=== PATIENT | female | born 1940 | race Caucasian/White ===

== ENCOUNTER 2021-06-10 12:29 | Outpatient (CLI) | payer MEDICARE, OTHER ==
--- NOTE | 2021-06-10 13:34 | XRAY Report ---
PROCEDURE: Ribs w/PA Chest RT INDICATIONS: RIGHT SIDED CHEST PAIN TECHNIQUE: 3 views of the right ribs were acquired, along with a single view chest. COMPARISON: July 20, 2014. FINDINGS: SUPPORT DEVICES: None. LUNGS/PLEURA: No focal consolidation, pleural effusion or space-occupying pneumothorax. MEDIASTINUM: The cardiomediastinal silhouette is within normal limits. BONES/SOFT TISSUES: Mildly displaced fracture of the right ninth rib. No chest wall subcutaneous emph ysema. Persistent dextrocurvature of the thoracolumbar spine. IMPRESSION: 1.No acute cardiopulmonary abnormality. 2.Mildly displaced fracture of the right ninth rib. Reviewed by: Ez Yang MD on 06/10/2021 1:33 PM PST Approved by: Ez Yang MD on 06/10/2021 1:33 PM PST Station ID: [id number]
== END 2021-06-10 23:59 | disposition home or self-care (01) ==
LOC: DI.N 12:29
PROVIDERS: ATTEND Family Medicine
DX: S22.31XA Fracture of one rib, right side, initial encounter for closed fracture (principal)

== ENCOUNTER 2022-04-09 05:42 | Outpatient (CLI) | payer MEDICARE, OTHER | END 2022-04-09 05:43 | disposition EMS.NT | LOC: EMS 05:42 | DX: Z03.89 Encounter for observation for other suspected diseases and conditions ruled out (principal) ==

== ENCOUNTER 2022-04-09 14:07 | Outpatient (CLI) | payer MEDICARE, OTHER | END 2022-04-09 14:08 | disposition critical access hospital (66) | LOC: EMS 14:07 | DX: R82.998 Other abnormal findings in urine (principal); R52 Pain, unspecified | CPT/HCPCS: A0425; A0429 ==

== ENCOUNTER 2022-04-09 14:25 | Emergency (ER) | payer MEDICARE, OTHER ==
--- NOTE | 2022-04-09 15:12 | ED Physician Documentation ---
PD HPI Fall - Stated complaint Stated Complaint: WEAKNESS/FALLS - Chief complaint Chief Complaint: Trauma Ext - History obtained from History obtained from: Patient, Family (daughter Gives independent information to me that the patient is unable to convey due to her dementia. The daughter states the patient has fallen several times recently and has had general decline in cognitive condition and increased amount of anxiety and fidgety.) - History of Present Illness Mechanism of injury: Lost balance Fall distance: Standing position Where injury occurred: Other (assisted living facility) Timing - onset: How many days ago (The patient's daughter is with her and states) Injury(ies) location: Right Lower Extremity, Right Recently seen: Emergency Dept (The patient's daughter states the patient was seen several days ago at [facility] ER after a fall and diagnosed with a forearm fracture which is splinted and referred to Ortho.) Review of Systems Constitutional: denies: Fever Nose: denies: Rhinorrhea / runny nose, Congestion Cardiac: denies: Chest pain / pressure Respiratory: denies: Cough GI: denies: Abdominal Pain Psychiatric: denies: Insomnia Endocrine: denies: Weight loss PD PAST MEDICAL HISTORY - Past Medical History Past Medical History: Yes Cardiovascular: Hypertension, High cholesterol, Arrhythmia Neuro: Dementia Endocrine/Autoimmune: HyPOthyroidism HEENT: Glaucoma Psych: Depression, Anxiety Musculoskeletal: Osteoarthritis, Chronic back pain - Past Surgical History Past Surgical History: Yes /DATA ACQUISITION TECHNICIAN: Hysterectomy - Present Medications Home Medications: Ambulatory Orders Medication Instructions Recorded Confirmed Atorvastatin Calcium [Lipitor] 40 mg ORAL DAILY 07/20/14 04/09/22 Levothyroxine [Synthroid] 50 mcg ORAL DAILY 07/20/14 04/09/22 Sertraline HCl [Zoloft] 75 mg ORAL DAILY 07/20/14 04/09/22 hydroCHLOROthiazide 12.5 mg ORAL DAILY 07/20/14 04/09/22 [Hydrochlorothiazide] Acetaminophen [Tylenol] 500 mg PO Q6HR PRN 04/09/22 04/09/22 Docusate Sodium [Dok] 100 mg PO DAILY PRN 04/09/22 04/09/22 Latanoprost/Pf [Latanoprost 0.005% 1 drops OP HS 04/09/22 04/09/22 Eye Drop] Loperamide [Imodium] 2 mg PO PRN PRN 04/09/22 04/09/22 Metoprolol Succinate [Toprol Xl] 25 mg PO DAILY 04/09/22 04/09/22 Potassium Chloride [Klor-Con 10] 10 meq PO DAILY 04/09/22 04/09/22 Senna [Senokot] 8.6 mg PO DAILY PRN 04/09/22 04/09/22 Timolol 0.5% Ophth Drops [Timoptic 1 drops OP BID 04/09/22 04/09/22 0.5% Ophth Drops] - Allergies Allergies/Adverse Reactions: Allergies Allergy/AdvReac Type Severity Reaction Status Date / Time morphine AdvReac Unknown Verified 04/09/22 14:35 anesthetic AdvReac Emesis Uncoded 04/09/22 14:35 - Social History Does the pt smoke?: No Smoking Status: Never smoker Does the pt drink ETOH?: No Does the pt have substance abuse?: No - Immunizations Immunizations are current?: Yes - POLST Patient has POLST: No PD ED PE NORMAL - Vitals Vital signs reviewed: Yes - General General: No acute distress, Well developed/nourished, Other (She is oriented to person and place. She is not clear on time. She is actually lucid and alert and able to answer questions. Hard of hearing and needs her hearing aid in.) - HEENT HEENT: Atraumatic - Neck Neck: Supple, no meningeal sign, No adenopathy - Cardiac Cardiac: RRR, No murmur - Respiratory Respiratory: Clear bilaterally, Other (no chestwall tenderness. ) - Abdomen Abdomen: Soft, Non tender - Back Back: No CVA TTP, No spinal TTP - Derm Derm: Normal color, Warm and dry - Extremities Extremities: Other (There are some tenderness to palpation in the right hip. She does have range of motion of the hip while lying in bed without much pain. Impaction of the knee does cause pain in the hip. No obvious deformity.) - Neuro Neuro: No motor deficit, No sensory deficit, Normal speech Eye Opening: Spontaneous Motor: Obeys Commands Verbal: Oriented GCS Score: 15 Results - Vitals Vitals: Vital Signs - 24 hr 04/09/22 04/09/22 04/09/22 14:35 15:36 17:29 Temperature 37 C Heart Rate 71 72 76 Respiratory 16 16 18 Rate Blood Pressure 144/69 H 129/75 132/82 H O2 Saturation 91 L 91 L 96 Oxygen O2 Source Room air - Labs Labs: Laboratory Tests 04/09/22 04/09/22 04/09/22 15:10 15:10 15:10 WBC 7.3 RBC 4.59 Hgb 13.3 Hct 40.1 MCV 87.4 MCH 29.0 MCHC 33.2 RDW 12.9 Plt Count 173 MPV 9.9 Neut # (Auto) 4.8 Lymph # (Auto) 1.4 L Mccreary # (Auto) 0.8 Eos # (Auto) 0.2 Baso # (Auto) 0.0 Absolute Nucleated RBC 0.00 Nucleated RBC % 0.0 Sodium 134 L Potassium 3.3 L Chloride 99 L Carbon Dioxide 25 Anion Gap 10.0 BUN 16 Creatinine 0.7 Estimated GFR (MDRD) 80 L Glucose 98 Calcium 8.4 L Magnesium 1.7 Total Bilirubin 0.9 AST 23 ALT 15 Alkaline Phosphatase 91 Total Protein 5.4 L Albumin 3.1 L Globulin 2.3 Albumin/Globulin Ratio 1.3 Lipase 43 Urine Color Urine Clarity Urine pH Ur Specific [place] Urine Protein Urine Glucose (UA) Urine Ketones Urine Occult Blood Urine Nitrite Urine Bilirubin Urine Urobilinogen Ur Leukocyte Esterase Ur Microscopic Review Urine Culture Comments Nasal Adenovirus (PCR) Nasal B. parapertussis DNA (PCR) Nasal Coronavir 229E PCR Nasal Coronavir HKU1 PCR Nasal Coronavir NL63 PCR Nasal Coronavir OC43 PCR Nasal Enterovir/Rhinovir PCR Nasal Influenza B PCR Nasal Influenza A PCR Nasal Parainfluen 1 PCR Nasal Parainfluen 2 PCR Nasal Parainfluen 3 PCR Nasal Parainfluen 4 PCR Nasal RSV (PCR) Nasal B.pertussis DNA PCR Nasal C.pneumoniae (PCR) Raza Human Metapneumo PCR Nasal M.pneumoniae (PCR) Nasal SARS-CoV-2 (PCR) 04/09/22 04/09/22 15:15 16:15 WBC RBC Hgb Hct MCV MCH MCHC RDW Plt Count MPV Neut # (Auto) Lymph # (Auto) Mccreary # (Auto) Eos # (Auto) Baso # (Auto) Absolute Nucleated RBC Nucleated RBC % Sodium Potassium Chloride Carbon Dioxide Anion Gap BUN Creatinine Estimated GFR (MDRD) Glucose Calcium Magnesium Total Bilirubin AST ALT Alkaline Phosphatase Total Protein Albumin Globulin Albumin/Globulin Ratio Lipase Urine Color DARK YELLOW Urine Clarity CLEAR Urine pH 6.5 Ur Specific [place] 1.020 Urine Protein NEGATIVE Urine Glucose (UA) NEGATIVE Urine Ketones TRACE Urine Occult Blood NEGATIVE Urine Nitrite NEGATIVE Urine Bilirubin NEGATIVE Urine Urobilinogen 1 (NORMAL) Ur Leukocyte Esterase NEGATIVE Ur Microscopic Review NOT INDICATED Urine Culture Comments NOT INDICATED Nasal Adenovirus (PCR) NOT DETECTED Nasal B. parapertussis DNA (PCR) NOT DETECTED Nasal Coronavir 229E PCR NOT DETECTED Nasal Coronavir HKU1 PCR NOT DETECTED Nasal Coronavir NL63 PCR NOT DETECTED Nasal Coronavir OC43 PCR NOT DETECTED Nasal Enterovir/Rhinovir PCR NOT DETECTED Nasal Influenza B PCR NOT DETECTED Nasal Influenza A PCR NOT DETECTED Nasal Parainfluen 1 PCR NOT DETECTED Nasal Parainfluen 2 PCR NOT DETECTED Nasal Parainfluen 3 PCR NOT DETECTED Nasal Parainfluen 4 PCR NOT DETECTED Nasal RSV (PCR) NOT DETECTED Nasal B.pertussis DNA PCR NOT DETECTED Nasal C.pneumoniae (PCR) NOT DETECTED Raza Human Metapneumo PCR NOT DETECTED Nasal M.pneumoniae (PCR) NOT DETECTED Nasal SARS-CoV-2 (PCR) NOT DETECTED - Rads (name of study) head CT Radiology: Prelim report reviewed, EMP read indepedently (no acute process), See rad report pelvic CT Radiology: Prelim report reviewed, See rad report (Impacted right femoral neck fracture without displacement. No other fractures.) PD Medical Decision Making - ED course Complexity details: considered differential, d/w patient, d/w family (daughter), d/w water resource consultant (Dr. Camarena, Ortho at [facility], who accepts transfer of the patient. ) Reviewed Lab Results: The patient's urine test was ordered and I reviewed the findings without any signs of infection. CBC and chemistry blood tests were ordered and I reviewed the results with the results appear normal. No signs of anemia or electrolyte abnormalities. Head CT was ordered and reviewed by radiology and myself. Age- related changes are noted but no acute bleeding or abnormalities. The pelvic CT was ordered and reviewed by radiologist and myself. My interpretation of it is showing an impacted right femoral neck fracture. This is corroborated by radiology. Social Determinants of Health: The patient is normally had a assisted living facility. However with her femoral neck fracture she will not be able to go back there at this time but does have a place to return to once repaired. At this point our hospital orthopedist is on vacation for 2 weeks and unavailable. This is an inordinate amount of time to wait for repair. We will contact other facilities to see about transfer for more definitive care. Procedural Risk Factors Specific to Patient: The patient has does have some moderate dementia and is able to converse and relay back to me the results that I tell her in the short-term but then is forgetful about the results within 20 or 30 minutes. She is fidgeting at her IV. She will need some medications to help with relaxing and sleep so that she does not attempt to get up and walk etc. This has been the problem at the care facility and what led to her falling as she is not in good balance on her own. ED course: The patient does have some right hip pain on range of motion. Its not very significant pain and her daughter had noted her complaining of pain with weightbearing. There is no headache per se no head tenderness. However she had fallen and her daughter says she has been more off balance the last few days. We can repeat a CT scan of the head to ensure no acute abnormalities. Reportedly she had a head CT several days ago at [place] after previous fall. Urine and blood tests were done to look for causes of her general off balance such as low sodium or infections. These resulted looking normal. We will do a respiratory panel on her now as we know she will need admission. Departure - Departure Disposition: 02 Transfer Acute Care Hosp Clinical Impression: Moderate dementia Qualifiers: Dementia type: unspecified type Dementia behavioral or psychological symptom: with anxiety Qualified Code(s): F03.B4 - Unspecified dementia, moderate, with anxiety Fall from slip, trip, or stumble Qualifiers: Encounter type: initial encounter Qualified Code(s): W01.0XXA - Fall on same level from slipping, tripping and stumbling without subsequent striking against object, initial encounter Fracture of femoral neck, right, closed Qualifiers: Encounter type: initial encounter Qualified Code(s): S72.001A - Fracture of unspecified part of neck of right femur, initial encounter for closed fracture Ulnar shaft fracture Qualifiers: Encounter type: subsequent encounter Fracture type: closed Fracture morphology: unspecified fracture morphology Laterality: right Fracture healing: with routine healing Qualified Code(s): S52.201D - Unspecified fracture of shaft of right ulna, subsequent encounter for closed fracture with routine healing Condition: Stable Record reviewed to determine appropriate education?: Yes
[2022-04-09 15:19] LABS: BASOPHILS % (AUTO) 0.4 %; EOSINOPHILS # (AUTO) 0.2 10^3/uL (0.0-0.7); EOSINOPHILS % (AUTO) 2.5 %; HCT - HEMATOCRIT 40.1 % (37.0-47.0); HGB - HEMOGLOBIN 13.3 g/dL (12.0-16.0); LYMPHOCYTES # (AUTO) 1.4 10^3/uL (1.5-3.5); LYMPHOCYTES % (AUTO) 19.4 %; MEAN CORPUSCULAR HGB CONC 33.2 g/dL (32.0-36.0); MEAN CORPUSCULAR VOLUME 87.4 fL (81.0-99.0); MEAN PLATELET VOLUME 9.9 fL (7.9-10.8); MONOCYTES # (AUTO) 0.8 10^3/uL (0.0-1.0); MONOCYTES % (AUTO) 10.9 %; NEUTROPHILS # (AUTO) 4.8 10^3/uL (1.5-6.6); NEUTROPHILS % (AUTO) 66.4 %; PLT - PLATELET COUNT 173 10^3/uL (130-450); RED BLOOD COUNT 4.59 10^6/uL (4.20-5.40); RED CELL DISTRIBUTION WIDTH 12.9 % (12.0-15.0); WHITE BLOOD COUNT 7.3 x10^3/uL (4.8-10.8)
[2022-04-09 16:02] LABS: ALBUMIN 3.1 g/dL (3.2-5.5); ALBUMIN/GLOBULIN RATIO 1.3 (1.0-2.2); BILIRUBIN,TOTAL 0.9 mg/dL (0.2-1.0); CALCIUM 8.4 mg/dL (8.5-10.3); CREATININE 0.7 mg/dL (0.4-1.0); POTASSIUM 3.3 mmol/L (3.5-5.0); TOTAL PROTEIN 5.4 g/dL (6.7-8.2)
[2022-04-09 16:17] LABS: CORONAVIRUS 229E-RESP PCR NOT DETECTED; CORONAVIRUS HKU1-RESP PCR NOT DETECTED; CORONAVIRUS NL63-RESP PCR NOT DETECTED; CORONAVIRUS OC43-RESP PCR NOT DETECTED; HUMAN METAPNEUMOVIRUS NOT DETECTED; INFLUENZA A- RESP PCR PANEL NOT DETECTED; RHINOVIRUS/ENTEROVIRUS NOT DETECTED; SARS-CoV-2 -RESP PCR PANEL NOT DETECTED
[2022-04-09 16:18] LABS: B. PARAPERTUSSIS- RESP PCR PAN NOT DETECTED; B. PERTUSSIS- RESP PCR PANEL NOT DETECTED; C. PNEUMONIAE- RESP PCR PANEL NOT DETECTED; INFLUENZA B - RESP PCR PANEL NOT DETECTED; M. PNEUMONIAE- RESP PCR PANEL NOT DETECTED; PARAINFLUENZA VIRUS 1 NOT DETECTED; PARAINFLUENZA VIRUS 2 NOT DETECTED; PARAINFLUENZA VIRUS 3 NOT DETECTED; PARAINFLUENZA VIRUS 4 NOT DETECTED; RSV- RESP PCR PANEL NOT DETECTED
[2022-04-09 16:21] LABS: BILIRUBIN,URINE NEGATIVE (NEGATIVE); CLARITY,URINE CLEAR (CLEAR); GLUCOSE, URINE (UA) NEGATIVE (NEGATIVE); KETONES,URINE (UA) TRACE mg/dL (NEGATIVE); LEUKOCYTE ESTERASE, URINE NEGATIVE (NEGATIVE); NITRITE,URINE NEGATIVE (NEGATIVE); OCCULT BLOOD,URINE NEGATIVE (NEGATIVE); PH,URINE 6.5 PH (5.0-7.5); PROTEIN,URINE NEGATIVE (NEGATIVE); UROBILINOGEN,URINE 1 (NORMAL) E.U./dL (NORMAL)
--- NOTE | 2022-04-09 17:27 | CT Report ---
PROCEDURE: CT brain without contrast INDICATIONS: falls, worse dementia/balance TECHNIQUE: Noncontrast 4.5 mm thick angled axial sections acquired from the foramen magnum to the vertex. For r adiation dose reduction, the following was used: automated exposure control, adjustment of mA and/or kV according to patient size. COMPARISON: None. FINDINGS: Image quality: Excellent. CSF spaces: Basal cisterns are patent. No extra-axial fluid collections. Ventricles are normal in size and shape. Brain: No midline shift. No intracranial masses or hemorrhage. Casey-white matter interface is norm al. Moderate atrophy and multifocal white matter chronic ischemic change noted. Atherosclerotic vasc ular calcification noted in the cavernous segments of both internal carotid arteries as well as the i ntradural vertebral arteries. Skull and face: Calvarium and visualized facial bones are intact, without suspicious lesions. Sinuses: Visualized sinuses and mastoids are clear. IMPRESSION: Atrophy and chronic ischemic change without acute hemorrhage or mass effect Reviewed by: Lan Wyatt MD on 04/09/2022 4:25 PM AKST Approved by: Lan Wyatt MD on 04/09/2022 4:25 PM AKST Station ID: [id number]
[2022-04-09 17:29] VITALS: BP 132/82
--- NOTE | 2022-04-09 17:30 | CT Report ---
PROCEDURE: CT abdomen pelvis without contrast INDICATIONS: fall with left pelvic pain walking TECHNIQUE: Noncontrast 3 mm axial sections acquired through the bony pelvis, with coronal and sagittal reformatt ing. For radiation dose reduction, the following was used: automated exposure control, adjustment of mA and/or kV according to patient size. COMPARISON: None. FINDINGS: Image quality: Excellent. Bones: Generalized decreased osseous mineralization present. There is an impacted subcapital right f emoral neck fracture present. Pelvic ring is intact. The left proximal femur unremarkable. Both femor al heads have an appropriate to contour. Bilateral moderate joint space narrowing. Degenerative changes noted lower lumbar spine Soft tissues: Unremarkable IMPRESSION: Impacted subcapital right femoral neck fracture. Unremarkable proximal left femur. Bilateral hip moderate joint space narrowing Reviewed by: Lan Wyatt MD on 04/09/2022 4:28 PM AK Approved by: Lan Wyatt MD on 04/09/2022 4:28 PM AKST Station ID: [id number]
[2022-04-09] MEDS ORDERED: LORazepam 2 MG/ML VIAL IVP STA (18:08)
[2022-04-09] MEDS ORDERED: KETOROLAC 15 MG/ML VIAL IVP STA (18:08)
[2022-04-09] MEDS ORDERED: OLANZapine ODT 5 MG TABLET TL STA (18:08)
[2022-04-09] MEDS ORDERED: QUEtiapine 25 MG TABLET PO SCH (22:00)
== END 2022-04-09 19:06 | disposition short-term general hospital (02) ==
LOC: EDUNIT# → ED 14:25 → SUPCPDRO 14:25 → ED 19:06
DX: S72.001A Fracture of unspecified part of neck of right femur, initial encounter for closed fracture (principal); W18.30XA Fall on same level, unspecified, initial encounter; S52.201D Unspecified fracture of shaft of right ulna, subsequent encounter for closed fracture with routine healing; W19.XXXD Unspecified fall, subsequent encounter; F03.B4 Unspecified dementia, moderate, with anxiety; Z20.822 Contact with and (suspected) exposure to COVID-19
CPT/HCPCS: 36415; 51701; 70450; 72192; 80053; 81003; 83690; 83735; 85025; 87633; 96374; 96375; 99284; 99285; A9270; J2060; 81001; 87086

== ENCOUNTER 2022-04-09 18:58 | Outpatient (CLI) | payer MEDICARE, OTHER | END 2022-04-09 18:59 | disposition short-term general hospital (02) | LOC: EMS 18:58 | PROVIDERS: ATTEND Emergency Medicine | DX: S72.001A Fracture of unspecified part of neck of right femur, initial encounter for closed fracture (principal); S52.91XA Unspecified fracture of right forearm, initial encounter for closed fracture; W19.XXXA Unspecified fall, initial encounter; F03.90 Unspecified dementia, unspecified severity, without behavioral disturbance, psychotic disturbance, mood disturbance, and anxiety | CPT/HCPCS: A0425; A0428 ==

== ENCOUNTER 2022-04-24 20:04 | Emergency (ER) | payer MEDICARE, OTHER ==
--- OUTSIDE RECORDS SUMMARY | 2022-04-24 20:34 | EXTERNAL MEDICAL SUMMARY RPT | Continuity of Care Document ---
:1940 Author Organization [place] Address [address] [place] [address] Phone Care Team Providers Name Role Phone Unavailable Unavailable Unavailable Ivone Donald Unavailable Unavailable Allergies and Intolerances date description facility type (no date) morphine [facility] (unknown) Encounters No information. Functional Status No information. Immunizations No information. Medications date description facility 2022-04-13 00:00 Oxycodone [facility] 2022-04-09 00:00 Docusate Sodium [facility] 2022-04-09 00:00 Timolol [facility] 2022-04-13 00:00 Potassium Chloride [facility] 2022-04-09 00:00 Hydrochlorothiazide [facility] 2022-04-13 00:00 Aspirin [facility] 2022-04-13 00:00 Quetiapine [facility] 2022-04-09 00:00 Sertraline [facility] 2022-04-09 00:00 Latanoprost [facility] 2022-04-09 00:00 Atorvastatin [facility] 2022-04-09 00:00 Potassium Chloride [facility] 2022-04-09 00:00 Levothyroxine [facility] 2022-04-09 00:00 Loperamide [facility] Problems date description facility 2022-04-07 00:00 Fracture of distal end of ulna [facility] 2022-04-09 00:00 Fracture of shaft of radius [facility] 2022-04-09 00:00 Fracture of neck of right femur [facility] 2022-04-10 07:53 Stress fracture, hip, unspecified, init [facility] encounter for fra 2022-04-10 07:55 Stress fracture, hip, unspecified, init [facility] encounter for fra 2022-04-10 12:01 Stress fracture, hip, unspecified, init [facility] encounter for fra 2022-04-10 17:02 Stress fracture, hip, unspecified, init [facility] encounter for fra 2022-04-10 17:11 Stress fracture, hip, unspecified, [facility] encounter for fra 2022-04-12 12:50 Stress fracture, hip, unspecified, [facility] encounter for fra 2022-04-12 13:24 Stress fracture, hip, unspecified, [facility] with [facility] encounter for fra 2022-04-13 10:48 Stress fracture, hip, unspecified, [facility] encounter for fra 2022-04-13 12:04 Stress fracture, hip, unspecified, [facility] with [facility] encounter for fra 2022-04-13 13:16 Stress fracture, hip, unspecified, [facility] encounter for fra 2022-04-13 14:52 Stress fracture, hip, unspecified, [facility] encounter for fra Procedures date description facility 2022-04-09 00:00 Reposition Right Radius with Internal F [facility] Device, Open Approach 2022-04-09 00:00 replacement of right hip joint, femoral surface [facility] with ceramic synthetic substitute, cemen shane, open approach 2022-04-10 00:00 XR pelvis, 1-2 views [facility] 2022-04-12 00:00 XR pelvis, 1-2 views [facility] 2022-04-07 00:00 XR forearm right, 2 views [facility] mark 2022-04-12 00:00 X-ray of right hip, single view [facility] 2022-04-07 00:00 XR wrist right, 3+ views [facility] 2022-04-07 00:00 Computed tomography of head or brain wi [facility] contrast 2022-04-12 00:00 XR fluoro, less than 60 minutes [facility] 2022-04-07 00:00 Computed tomography of cervical spine w [facility] contrast 2022-04-07 00:00 CT thoracic spine [facility] 2022-04-07 00:00 CT lumbar spine [facility] 2022-04-10 00:00 Unilateral x-ray of hip, two views, wit h x-ray [facility] of pelvis Results/Labs test date author facility value unit interpret ation Result panel 1 (unknown) (no date[facility]) Result panel 2 (unknown) (no date) (unknown[facility]) Result panel 3 (unknown) (no date) (unknown[facility]) Result panel 4 (unknown) (no date) (unknown[facility]) Result panel 5 (unknown) (no date) (unknown[facility]) Result panel 6 (unknown) (no date) (unknown[facility]) Result panel 7 (unknown) (no date) (unknown[facility]) Result panel 8 (unknown) (no date) (unknown[facility]) Result panel 9 (unknown) (no date) (unknown[facility]) Result panel 10 (unknown) (no date) (unknown[facility]) Result panel 11 (unknown) (no date) (unknown[facility]) Result panel 12 (unknown) (no date) (unknown[facility]) Result panel 13 (unknown) (no date) (unknown[facility]) Result panel 14 (unknown) (no date) (unknown[facility]) Result panel 15 (unknown) (no date) (unknown[facility]) Result panel 16 (unknown) (no date) (unknown[facility]) Result panel 17 (unknown) (no date) (unknown[facility]) Result panel 18 (unknown) (no date) (unknown[facility]) Result panel 19 (unknown) (no date) (unknown[facility]) Result panel 20 (unknown) (no date) (unknown[facility]) Result panel 21 (unknown) (no date) (unknown[facility]) Result panel 22 (unknown) (no date) (unknown[facility]) Result panel 23 (unknown) (no date) (unknown[facility]) Result panel 24 (unknown) (no date) (unknown[facility]) Result panel 25 (unknown) (no date) (unknown[facility]) Result panel 26 (unknown) (no date) (unknown[facility]) Result panel 27 (unknown) (no date) (unknown[facility]) Result panel 28 (unknown) (no date) (unknown[facility]) Result panel 29 (unknown) (no date) (unknown[facility]) Result panel 30 (unknown) (no date) (unknown[facility]) Result panel 31 (unknown) (no date) (unknown[facility]) Result panel 32 (unknown) (no date) (unknown[facility]) Result panel 33 (unknown) (no date) (unknown[facility]) Result panel 34 (unknown) (no date) (unknown[facility]) Result panel 35 (unknown) (no date) (unknown[facility]) Result panel 36 (unknown) (no date) (unknown[facility]) Result panel 37 (unknown) (no date) (unknown[facility]) Result panel 38 (unknown) (no date) (unknown[facility]) Result panel 39 (unknown) (no date) (unknown[facility]) Result panel 40 (unknown) (no date) (unknown[facility]) Result panel 41 (unknown) (no date) (unknown[facility]) Result panel 42 (unknown) (no date) (unknown[facility]) Result panel 43 (unknown) (no date) (unknown[facility]) Result panel 44 (unknown) (no date) (unknown[facility]) Result panel 45 (unknown) (no date) (unknown[facility]) Result panel 46 (unknown) (no date) (unknown[facility]) Result panel 47 (unknown) (no date) (unknown[facility]) Result panel 48 (unknown) (no date) (unknown[facility]) Result panel 49 (unknown) (no date) (unknown[facility]) Result panel 50 (unknown) (no date) (unknown[facility]) Result panel 51 (unknown) (no date) (unknown[facility]) Result panel 52 (unknown) (no date) (unknown[facility]) Result panel 53 (unknown) (no date) (unknown[facility]) Result panel 54 (unknown) (no date) (unknown[facility]) Result panel 55 (unknown) (no date) (unknown[facility]) Result panel 56 (unknown) (no date) (unknown[facility]) Result panel 57 (unknown) (no (unknown) (unknown) (no value) (units (unk nown) date) unknown) (unknown) (no (unknown) (unknown) [id number] (units (unkn own) date) unknown) (unknown) (no (unknown) (unknown) 04/07/22 (units (unkno wn) date) unknown) (unknown) (no (unknown) (unknown) [address] [place] [address] (units (unknown) date) unknown) (unknown) (no (unknown) (unknown) Accession Number: (units (unknown) date) [id number] unknown) (unknown) (no (unknown) (unknown) Accession Number: (units (unknown) date) [id number] unknown) (unknown) (no (unknown) (unknown) Age/Sex: 82 / F (units (unknown) date) Date of Service: unknown) (unknown) (no (unknown) (unknown) [place], [place] (units ( unknown) date) [id number] unknown) (unknown) (no (unknown) (unknown) Approved by: (units (u nknown) date) Bryce Segura M.D. unknown) on 04/07/2022 at 13:53 (unknown) (no (unknown) (unknown) Approved by: (units (u nknown) date) Bryce Segura M.D. unknown) on 04/07/2022 at 13:58 (unknown) (no (unknown) (unknown) Bones: No (units (unkn own) date) fracture or unknown) dislocation. Visualized superior ribs are intact. (unknown) (no (unknown) (unknown) Brain: No (units (unkn own) date) intracranial unknown) bleeds or masses. There is moderate cerebral volume (unknown) (no (unknown) (unknown) COMPARISON: None. (units (unknown) date) unknown) (unknown) (no (unknown) (unknown) CSF spaces: Basal (units (unknown) date) cisterns are unknown) patent. No extra-axial fluid collections. The (unknown) (no (unknown) (unknown) CT Scan Report (units (unknown) date) unknown) (unknown) (no (unknown) (unknown) : 1940 (units (unknown) date) Acct:[id number] unknown) (unknown) (no (unknown) (unknown) Dictated by: (units (u nknown) date) Bryce Segura M.D. unknown) on 04/07/2022 at 13:52 (unknown) (no (unknown) (unknown) Dictated by: (units (u nknown) date) Bryce Segura M.D. unknown) on 04/07/2022 at 13:56 (unknown) (no (unknown) (unknown) FINDINGS: (units (unkn own) date) unknown) (unknown) (no (unknown) (unknown) IMPRESSION: No CT (units (unknown) date) evidence of acute unknown) traumatic cervical spine injury. (unknown) (no (unknown) (unknown) IMPRESSION: No (units (unknown) date) acute intracranial unknown) finding. (unknown) (no (unknown) (unknown) INDICATIONS: (units (u nknown) date) fall, back pain, unknown) dementia (unknown) (no (unknown) (unknown) Image quality: (units (unknown) date) Excellent. unknown) (unknown) (no (unknown) (unknown) [facility] (units (unknown) date) unknown) (unknown) (no (unknown) (unknown) Loc: ED (units (unkno wn) date) unknown) (unknown) (no (unknown) (unknown) Noncontrast 3 mm (units (unknown) date) thick sections unknown) acquired from the skull base to the T4 level. (unknown) (no (unknown) (unknown) Noncontrast 4.5 (units (unknown) date) mm thick angled unknown) axial sections acquired from the foramen magnum (unknown) (no (unknown) (unknown) Ordering (units (unkno wn) date) Provider: unknown) Pati Galeano (unknown) (no (unknown) (unknown) PROCEDURE: CT (units ( unknown) date) CERVICAL SPINE WO unknown) CON (unknown) (no (unknown) (unknown) PROCEDURE: CT (units ( unknown) date) HEAD/BRAIN WO CON unknown) (unknown) (no (unknown) (unknown) Patient: (units (unkno wn) date) Sheila Marley E unknown) MR#: M (unknown) (no (unknown) (unknown) Procedure: CT (units ( unknown) date) cervical spine wo unknown) con (unknown) (no (unknown) (unknown) Procedure: CT (units ( unknown) date) head/brain wo con unknown) (unknown) (no (unknown) (unknown) Sagittal (units (unkno wn) date) unknown) (unknown) (no (unknown) (unknown) Signed (units (unkno wn) date) unknown) (unknown) (no (unknown) (unknown) Sinuses: (units (unkno wn) date) Visualized sinuses unknown) and mastoids are clear. (unknown) (no (unknown) (unknown) Skull and face: (units (unknown) date) Calvarium and unknown) visualized facial bones appear intact, without (unknown) (no (unknown) (unknown) Soft tissues: (units ( unknown) date) Prevertebral soft unknown) tissues are normal in thickness. No (unknown) (no (unknown) (unknown) TECHNIQUE: (units (unk nown) date) unknown) (unknown) (no (unknown) (unknown) There is (units (unkno wn) date) unknown) (unknown) (no (unknown) (unknown) age, with (units (unkn own) date) resultant unknown) ventricular and sulcal prominence. There are moderate (unknown) (no (unknown) (unknown) and coronal (units (un known) date) reformats were unknown) then constructed. For radiation dose reduction, the (unknown) (no (unknown) (unknown) following (units (unkn own) date) unknown) (unknown) (no (unknown) (unknown) hematomas. No (units ( unknown) date) apical unknown) pneumothoraces. (unknown) (no (unknown) (unknown) intracranial (units (u nknown) date) internal carotid unknown) artery atherosclerosis. (unknown) (no (unknown) (unknown) lesions. (units (unkno wn) date) unknown) (unknown) (no (unknown) (unknown) loss for (units (unkno wn) date) unknown) (unknown) (no (unknown) (unknown) paravertebral (units ( unknown) date) unknown) (unknown) (no (unknown) (unknown) patient (units (unkno wn) date) unknown) (unknown) (no (unknown) (unknown) periventricular (units (unknown) date) and deep white unknown) matter chronic small vessel ischemic changes. (unknown) (no (unknown) (unknown) size. (units (unkno wn) date) unknown) (unknown) (no (unknown) (unknown) suspicious (units (unk nown) date) unknown) (unknown) (no (unknown) (unknown) to the (units (unkno wn) date) unknown) (unknown) (no (unknown) (unknown) ventricles are (units (unknown) date) symmetric in size unknown) and shape. (unknown) (no (unknown) (unknown) vertex, with (units (u nknown) date) coronal and unknown) sagittal reformats. For radiation dose reduction, the (unknown) (no (unknown) (unknown) was used: (units (unkn own) date) automated exposure unknown) control, adjustment of mA and/or kV according to Result panel 58 (unknown) (no (unknown) (unknown) (no value) (units (unk nown) date) unknown) (unknown) (no (unknown) (unknown) [id number] (units (unkn own) date) unknown) (unknown) (no (unknown) (unknown) 1. Fracture of the (units (unknown) date) distal 3rd of the unknown) ulna diaphysis with displacement and (unknown) (no (unknown) (unknown) 04/07/22 (units (unkno wn) date) unknown) (unknown) (no (unknown) (unknown) [address] [place] [address] (units (unknown) date) unknown) (unknown) (no (unknown) (unknown) 2. Severe (units (unkn own) date) degenerative changes unknown) of the 1st metacarpophalangeal joint. (unknown) (no (unknown) (unknown) Accession Number: (units (unknown) date) [id number] unknown) (unknown) (no (unknown) (unknown) Age/Sex: 82 / F Date (uni ts (unknown) date) of Service: unknown) (unknown) (no (unknown) (unknown) [facility] [id number] (unit s (unknown) date) unknown) (unknown) (no (unknown) (unknown) Approved by: Shmuel (unit s (unknown) date) Carol Ann Marks on unknown) 04/07/2022 at 14:37 (unknown) (no (unknown) (unknown) Bones: Fracture of (units (unknown) date) the distal 3rd of the unknown) ulna diaphysis with displacement and (unknown) (no (unknown) (unknown) COMPARISON: None. (units (unknown) date) unknown) (unknown) (no (unknown) (unknown) : 1940 (units (unknown) date) Acct:[id number] unknown) (unknown) (no (unknown) (unknown) Dictated by: Shmuel (unit s (unknown) date) Carol Ann Marks on unknown) 04/07/2022 at 14:35 (unknown) (no (unknown) (unknown) FINDINGS: (units (unkn own) date) unknown) (unknown) (no (unknown) (unknown) IMPRESSION: (units (un known) date) unknown) (unknown) (no (unknown) (unknown) INDICATIONS: (units (u nknown) date) fall/pain unknown) (unknown) (no (unknown) (unknown) [facility] (units (unknown) date) unknown) (unknown) (no (unknown) (unknown) Loc: ED (units (unkno wn) date) unknown) (unknown) (no (unknown) (unknown) Ordering Provider: (units (unknown) date) Todd Carlson D.O. unknown) (unknown) (no (unknown) (unknown) PROCEDURE: XR WRIST (unit s (unknown) date) RT MIN 3V unknown) (unknown) (no (unknown) (unknown) Patient: (units (unkno wn) date) Sheila Marley MR#: unknown) M (unknown) (no (unknown) (unknown) Procedure: XR wrist (unit s (unknown) date) RT min 3V unknown) (unknown) (no (unknown) (unknown) Scaphoid view: No (units (unknown) date) fracture identified unknown) (unknown) (no (unknown) (unknown) Signed (units (unkno wn) date) unknown) (unknown) (no (unknown) (unknown) Soft tissues: No (units (unknown) date) suspicious soft unknown) tissue calcifications. (unknown) (no (unknown) (unknown) TECHNIQUE: 4 views (units (unknown) date) of the wrist were unknown) acquired. (unknown) (no (unknown) (unknown) XRay Report (units (un known) date) unknown) (unknown) (no (unknown) (unknown) angulation. Severe (units (unknown) date) degenerative changes unknown) of the 1st metacarpophalangeal joint. (unknown) (no (unknown) (unknown) angulation. (units (un known) date) unknown) Result panel 59 (unknown) (no (unknown) (unknown) (no value) (units (unk nown) date) unknown) (unknown) (no (unknown) (unknown) [id number] (units (unkn own) date) unknown) (unknown) (no (unknown) (unknown) 04/07/22 (units (unkno wn) date) unknown) (unknown) (no (unknown) (unknown) [address] [place] [address] (units (unknown) date) unknown) (unknown) (no (unknown) (unknown) Accession Number: (units (unknown) date) [id number] unknown) (unknown) (no (unknown) (unknown) Accession Number: (units (unknown) date) [id number] unknown) (unknown) (no (unknown) (unknown) Age/Sex: 82 / F (units (unknown) date) Date of Service: unknown) (unknown) (no (unknown) (unknown) [place], [place] (units ( unknown) date) [id number] unknown) (unknown) (no (unknown) (unknown) Approved by: (units (u nknown) date) Bryce Segura M.D. unknown) on 04/07/2022 at 14:01 (unknown) (no (unknown) (unknown) Approved by: (units (u nknown) date) Bryce Segura M.D. unknown) on 04/07/2022 at 14:03 (unknown) (no (unknown) (unknown) COMPARISON: (units (un known) date) [facility], unknown) CT, CT THORACIC SPINE WO CON, 04/07/2022, 13:24. (unknown) (no (unknown) (unknown) COMPARISON: None. (units (unknown) date) unknown) (unknown) (no (unknown) (unknown) CT Scan Report (units (unknown) date) unknown) (unknown) (no (unknown) (unknown) : 1940 (units (unknown) date) Acct:[id number] unknown) (unknown) (no (unknown) (unknown) Dictated by: (units (u nknown) date) Bryce Segura M.D. unknown) on 04/07/2022 at 13:58 (unknown) (no (unknown) (unknown) Dictated by: (units (u nknown) date) Bryce Segura M.D. unknown) on 04/07/2022 at 14:01 (unknown) (no (unknown) (unknown) FINDINGS: (units (unkn own) date) unknown) (unknown) (no (unknown) (unknown) IMPRESSION: No CT (units (unknown) date) evidence of acute unknown) traumatic injury in the lumbar spine. (unknown) (no (unknown) (unknown) IMPRESSION: No CT (units (unknown) date) evidence of acute unknown) traumatic thoracic spine injury. (unknown) (no (unknown) (unknown) INDICATIONS: FALL (units (unknown) date) unknown) (unknown) (no (unknown) (unknown) INDICATIONS: S (units (unknown) date) unknown) (unknown) (no (unknown) (unknown) [facility] (units (unknown) date) unknown) (unknown) (no (unknown) (unknown) Loc: ED (units (unkno wn) date) unknown) (unknown) (no (unknown) (unknown) Noncontrast 3 mm (units (unknown) date) thick sections unknown) acquired from the T12 level to the sacrum. (unknown) (no (unknown) (unknown) Noncontrast 3 mm (units (unknown) date) thick sections unknown) acquired through the region of interest in the (unknown) (no (unknown) (unknown) Ordering (units (unkno wn) date) Provider: unknown) Pati Galeano (unknown) (no (unknown) (unknown) PROCEDURE: CT (units ( unknown) date) LUMBAR SPINE WO unknown) CON (unknown) (no (unknown) (unknown) PROCEDURE: CT (units ( unknown) date) THORACIC SPINE WO unknown) CON (unknown) (no (unknown) (unknown) Patient: (units (unkno wn) date) Sheila Marley E unknown) MR#: M (unknown) (no (unknown) (unknown) Procedure: CT (units ( unknown) date) lumbar spine wo unknown) con (unknown) (no (unknown) (unknown) Procedure: CT (units ( unknown) date) thoracic spine wo unknown) con (unknown) (no (unknown) (unknown) Sagittal and (units (u nknown) date) unknown) (unknown) (no (unknown) (unknown) Signed (units (unkno wn) date) unknown) (unknown) (no (unknown) (unknown) TECHNIQUE: (units (unk nown) date) unknown) (unknown) (no (unknown) (unknown) Thoracic and (units (u nknown) date) thoracolumbar unknown) S-shaped scoliosis. No listhesis in the thoracic (unknown) (no (unknown) (unknown) Vertebral body (units (unknown) date) heights unknown) maintained. Degenerative anterolisthesis of L4 on L5 (unknown) (no (unknown) (unknown) Vertebral body (units (unknown) date) heights unknown) maintained. No acute fracture. Remote right posterior (unknown) (no (unknown) (unknown) abnormality. (units (u nknown) date) unknown) (unknown) (no (unknown) (unknown) coronal reformats (units (unknown) date) were constructed. unknown) For radiation dose reduction, the (unknown) (no (unknown) (unknown) dose (units (unkno wn) date) unknown) (unknown) (no (unknown) (unknown) following was (units ( unknown) date) unknown) (unknown) (no (unknown) (unknown) fractures noted. (units (unknown) date) unknown) (unknown) (no (unknown) (unknown) measuring 4 (units (un known) date) unknown) (unknown) (no (unknown) (unknown) millimeters. (units (u nknown) date) Otherwise normal unknown) alignment. Degenerative changes. No acute soft (unknown) (no (unknown) (unknown) reduction, the (units (unknown) date) following was unknown) used: automated exposure control. (unknown) (no (unknown) (unknown) rib (units (unkno wn) date) unknown) (unknown) (no (unknown) (unknown) spine. Sagittal (units (unknown) date) and coronal unknown) reformats were then constructed. For radiation (unknown) (no (unknown) (unknown) spine. (units (unkno wn) date) unknown) (unknown) (no (unknown) (unknown) thoracic (units (unkno wn) date) unknown) (unknown) (no (unknown) (unknown) tissue (units (unkno wn) date) unknown) (unknown) (no (unknown) (unknown) used: automated (units (unknown) date) exposure control. unknown) Result panel 60 (unknown) (no (unknown) (unknown) (no value) (units (unk nown) date) unknown) (unknown) (no (unknown) (unknown) [id number] (units (unkno wn) date) unknown) (unknown) (no (unknown) (unknown) 04/07/22 13:00 (units (unknown) date) unknown) (unknown) (no (unknown) (unknown) 04/07/22 13:15 (units (unknown) date) unknown) (unknown) (no (unknown) (unknown) 04/07/22 13:20 (units (unknown) date) unknown) (unknown) (no (unknown) (unknown) 04/07/22 (units (unkno wn) date) unknown) (unknown) (no (unknown) (unknown) 13:09 (units (unkno wn) date) unknown) (unknown) (no (unknown) (unknown) Acetaminophen (units ( unknown) date) (Acetaminophen unknown) 325 Mg Tablet) 650 mg PO NOW ONE (unknown) (no (unknown) (unknown) Age/Sex: 82 / F (units (unknown) date) unknown) (unknown) (no (unknown) (unknown) Allergies (units (unkn own) date) unknown) (unknown) (no (unknown) (unknown) Allergy/AdvReac (units (unknown) date) Type Severity unknown) Reaction Status Date / Time (unknown) (no (unknown) (unknown) Blood Pressure (units (unknown) date) 116/59 L 04/07/22 unknown) 13:09 (unknown) (no (unknown) (unknown) Blood Pressure (units (unknown) date) 116/59 L unknown) (unknown) (no (unknown) (unknown) CT cervical (units (un known) date) spine wo con Stat unknown) (unknown) (no (unknown) (unknown) CT head/brain wo (units (unknown) date) con Stat unknown) (unknown) (no (unknown) (unknown) CT lumbar spine (units (unknown) date) wo con Stat unknown) (unknown) (no (unknown) (unknown) CT thoracic (units (un known) date) spine wo con Stat unknown) (unknown) (no (unknown) (unknown) Chief Complaint: (units (unknown) date) Extremity Injury, unknown) Upper (unknown) (no (unknown) (unknown) Course (units (unkno wn) date) unknown) (unknown) (no (unknown) (unknown) : 1940 (units (unknown) date) Acct:[id number] unknown) (unknown) (no (unknown) (unknown) Date of Service: (units (unknown) date) 04/07/22 unknown) (unknown) (no (unknown) (unknown) Departure (units (unkn own) date) unknown) (unknown) (no (unknown) (unknown) Discharge Plan (units (unknown) date) unknown) (unknown) (no (unknown) (unknown) Discontinued (units (u nknown) date) Medications unknown) (unknown) (no (unknown) (unknown) ED Orders (units (unkn own) date) unknown) (unknown) (no (unknown) (unknown) ER Physician: (units ( unknown) date) Pati Galeano unknown) CHIEF RADIOLOGY (unknown) (no (unknown) (unknown) Emergency Report (units (unknown) date) unknown) (unknown) (no (unknown) (unknown) Exam (units (unkno wn) date) unknown) (unknown) (no (unknown) (unknown) General (units (unkno wn) date) unknown) (unknown) (no (unknown) (unknown) HPI - Extremity (units (unknown) date) Injury (Upper) unknown) (unknown) (no (unknown) (unknown) Ibuprofen (units (unkn own) date) (Ibuprofen 400 Mg unknown) Tablet) 400 mg PO NOW ONE (unknown) (no (unknown) (unknown) Initial Vital (units ( unknown) date) Signs unknown) (unknown) (no (unknown) (unknown) Initial Vital (units ( unknown) date) Signs: unknown) (unknown) (no (unknown) (unknown) [facility] (units (unknown) date) [address] [place] [address] unknown) [place] [address] (unknown) (no (unknown) (unknown) Ivone Donald MD (units (unknown) date) [Primary Care unknown) Provider] (unknown) (no (unknown) (unknown) Methocarbamol (units ( unknown) date) (Methocarbamol unknown) 500 Mg Tablet) 250 mg PO NOW ONE (unknown) (no (unknown) (unknown) Mode of arrival: (units (unknown) date) Wheelchair unknown) (unknown) (no (unknown) (unknown) Ordered: (units (unkno wn) date) unknown) (unknown) (no (unknown) (unknown) Orders (units (unkno wn) date) unknown) (unknown) (no (unknown) (unknown) Oxygen Delivery (units (unknown) date) Method 04/07/22 unknown) 13:09 (unknown) (no (unknown) (unknown) Oxygen Delivery (units (unknown) date) Method Room Air unknown) (unknown) (no (unknown) (unknown) Patient History (units (unknown) date) unknown) (unknown) (no (unknown) (unknown) Patient: (units (unkno wn) date) Sheila Marley unknown) MR#: [id number] (unknown) (no (unknown) (unknown) Pulse Oximetry (units (unknown) date) 97 04/07/22 13:09 unknown) (unknown) (no (unknown) (unknown) Pulse Oximetry (units (unknown) date) 97 unknown) (unknown) (no (unknown) (unknown) Pulse Rate 64 (units ( unknown) date) 04/07/22 13:09 unknown) (unknown) (no (unknown) (unknown) Pulse Rate 64 (units ( unknown) date) unknown) (unknown) (no (unknown) (unknown) Referrals: (units (unk nown) date) unknown) (unknown) (no (unknown) (unknown) Related Data (units (u nknown) date) unknown) (unknown) (no (unknown) (unknown) Respiratory Rate (units (unknown) date) 18 04/07/22 13:09 unknown) (unknown) (no (unknown) (unknown) Respiratory Rate (units (unknown) date) 18 unknown) (unknown) (no (unknown) (unknown) Signed By: (units (unk nown) date) unknown) (unknown) (no (unknown) (unknown) Smoking Status: (units (unknown) date) Never smoker unknown) (unknown) (no (unknown) (unknown) Social History (units (unknown) date) unknown) (unknown) (no (unknown) (unknown) Source: patient (units (unknown) date) unknown) (unknown) (no (unknown) (unknown) Stated (units (unkno wn) date) Complaint: fall unknown) today, back pain,R arm injury, dementia (unknown) (no (unknown) (unknown) Stop: 04/07/22 (units (unknown) date) 17:36 unknown) (unknown) (no (unknown) (unknown) Substance Use (units ( unknown) date) Type: does not unknown) use (unknown) (no (unknown) (unknown) Temperature 98.2 (units (unknown) date) F 04/07/22 13:09 unknown) (unknown) (no (unknown) (unknown) Temperature 98.2 (units (unknown) date) F unknown) (unknown) (no (unknown) (unknown) Time Seen by (units (u nknown) date) Provider: unknown) 04/07/22 13:00 (unknown) (no (unknown) (unknown) Vital Signs - 8 (units (unknown) date) hr unknown) (unknown) (no (unknown) (unknown) Vital Signs (units (un known) date) unknown) (unknown) (no (unknown) (unknown) Vital signs: (units (u nknown) date) unknown) (unknown) (no (unknown) (unknown) XR forearm RT 2V (units (unknown) date) Stat unknown) (unknown) (no (unknown) (unknown) XR wrist RT min (units (unknown) date) 3V Stat unknown) (unknown) (no (unknown) (unknown) morphine AdvReac (units (unknown) date) Severe Vomiting unknown) Verified 04/07/22 13:08 Result panel 61 (unknown) (no (unknown) (unknown) (no value) (units (unk nown) date) unknown) (unknown) (no (unknown) (unknown) *If you do not have (unit s (unknown) date) a primary care unknown) provider please contact [phone] to (unknown) (no (unknown) (unknown) *Please continue to (unit s (unknown) date) take your regular unknown) medications as directed. (unknown) (no (unknown) (unknown) *Please follow up (units (unknown) date) with your primary unknown) care provider in 2-3 days, call for an (unknown) (no (unknown) (unknown) *Return to Emergency (uni ts (unknown) date) Department if you unknown) should have any new, worsening, or (unknown) (no (unknown) (unknown) *What to do: (units (u nknown) date) unknown) (unknown) (no (unknown) (unknown) *You have been (units (unknown) date) diagnosed with a unknown) fracture of the ulnar bone in your right arm (unknown) (no (unknown) (unknown) [id number] (units (unkno wn) date) unknown) (unknown) (no (unknown) (unknown) 1. Fracture of the (units (unknown) date) distal 3rd of the unknown) ulna diaphysis with displacement and (unknown) (no (unknown) (unknown) 04/07/22 13:00 (units (unknown) date) unknown) (unknown) (no (unknown) (unknown) 04/07/22 13:15 (units (unknown) date) unknown) (unknown) (no (unknown) (unknown) 04/07/22 13:20 (units (unknown) date) unknown) (unknown) (no (unknown) (unknown) 04/07/22 (units (unkno wn) date) unknown) (unknown) (no (unknown) (unknown) 13:09 04/07/22 (units (unknown) date) unknown) (unknown) (no (unknown) (unknown) 18:58 (units (unkno wn) date) unknown) (unknown) (no (unknown) (unknown) 2. 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 (unknown) (no (unknown) (unknown) ? (units (unkno wn) date) unknown) (unknown) (no (unknown) (unknown) Acetaminophen (units ( unknown) date) (Acetaminophen 325 Mg unknown) Tablet) 650 mg PO NOW ONE (unknown) (no (unknown) (unknown) Activity (units (unkno wn) date) Restrictions/Addition unknown) al Instructions: (unknown) (no (unknown) (unknown) Additional Comments: (uni ts (unknown) date) unknown) (unknown) (no (unknown) (unknown) Age/Sex: 82 / F (units (unknown) date) unknown) (unknown) (no (unknown) (unknown) Allergies (units (unkn own) date) unknown) (unknown) (no (unknown) (unknown) Allergy/AdvReac Type (uni ts (unknown) date) Severity Reaction unknown) Status Date / Time (unknown) (no (unknown) (unknown) Approved by: Shmuel (unit s (unknown) date) Carol Ann Marks on unknown) 04/07/2022 at 14:35 ? (unknown) (no (unknown) (unknown) Approved by: Shmuel (unit s (unknown) date) Carol Ann Marks on unknown) 04/07/2022 at 14:37 ? (unknown) (no (unknown) (unknown) Approved by: Bryce (units (unknown) date) Carol Ann Segura on unknown) 04/07/2022 at 13:53 ? (unknown) (no (unknown) (unknown) Approved by: Bryce (units (unknown) date) Carol Ann Segura on unknown) 04/07/2022 at 13:58 ? (unknown) (no (unknown) (unknown) Approved by: Bryce (units (unknown) date) Carol Ann Segura on unknown) 04/07/2022 at 14:01 ? (unknown) (no (unknown) (unknown) Approved by: Bryce (units (unknown) date) Carol Ann Segura on unknown) 04/07/2022 at 14:03 ? (unknown) (no (unknown) (unknown) Blood Pressure (units (unknown) date) 116/59 L 04/07/22 unknown) 13:09 (unknown) (no (unknown) (unknown) Blood Pressure (units (unknown) date) 116/59 L 120/60 unknown) (unknown) (no (unknown) (unknown) Bones:? Fracture of (unit s (unknown) date) the distal 3rd of the unknown) ulna diaphysis with displacement and (unknown) (no (unknown) (unknown) Bones:? No fracture (unit s (unknown) date) or dislocation.? unknown) Visualized superior ribs are intact.? (unknown) (no (unknown) (unknown) Bones:? There is a (units (unknown) date) mildly displaced unknown) fracture of 1 bone with of the distal 3rd of (unknown) (no (unknown) (unknown) Brain:? No (units (unk nown) date) intracranial bleeds unknown) or masses.? There is moderate cerebral volume (unknown) (no (unknown) (unknown) [facility], CT unknown) THORACIC SPINE WO CON, 04/07/2022, 13:24. (unknown) (no (unknown) (unknown) COMPARISON:? None. (units (unknown) date) unknown) (unknown) (no (unknown) (unknown) CSF spaces:? Basal (units (unknown) date) cisterns are patent.? unknown) No extra-axial fluid collections.? The (unknown) (no (unknown) (unknown) CT - cervical spine: (uni ts (unknown) date) unknown) (unknown) (no (unknown) (unknown) CT cervical spine wo (uni ts (unknown) date) con Stat unknown) (unknown) (no (unknown) (unknown) CT head/brain wo con (uni ts (unknown) date) Stat unknown) (unknown) (no (unknown) (unknown) CT lumbar spine wo (units (unknown) date) con Stat unknown) (unknown) (no (unknown) (unknown) CT scan - head: (units (unknown) date) unknown) (unknown) (no (unknown) (unknown) CT thoracic spine wo (uni ts (unknown) date) con Stat unknown) (unknown) (no (unknown) (unknown) Chief Complaint: (units (unknown) date) Extremity Injury, unknown) Upper (unknown) (no (unknown) (unknown) Clinical Impression: (uni ts (unknown) date) unknown) (unknown) (no (unknown) (unknown) Course (units (unkno wn) date) unknown) (unknown) (no (unknown) (unknown) : 1940 (units (unknown) date) Acct:[id number] unknown) (unknown) (no (unknown) (unknown) Date of Service: (units (unknown) date) 04/07/22 unknown) (unknown) (no (unknown) (unknown) Departure (units (unkn own) date) unknown) (unknown) (no (unknown) (unknown) Dictated by: Shmuel (unit s (unknown) date) Carol Ann Marks on unknown) 04/07/2022 at 14:34 ? ? (unknown) (no (unknown) (unknown) Dictated by: Shmuel (unit s (unknown) date) Carol Ann Marks on unknown) 04/07/2022 at 14:35 ? ? (unknown) (no (unknown) (unknown) Dictated by: Bryce (units (unknown) date) Carol Ann Segura on unknown) 04/07/2022 at 13:52 ? ? (unknown) (no (unknown) (unknown) Dictated by: Bryce (units (unknown) date) Carol Ann Segura on unknown) 04/07/2022 at 13:56 ? ? (unknown) (no (unknown) (unknown) Dictated by: Bryce (units (unknown) date) Carol Ann Segura on unknown) 04/07/2022 at 13:58 ? ? (unknown) (no (unknown) (unknown) Dictated by: Bryce (units (unknown) date) Carol Ann Segura on unknown) 04/07/2022 at 14:01 ? ? (unknown) (no (unknown) (unknown) Discharge Plan (units (unknown) date) unknown) (unknown) (no (unknown) (unknown) Discontinued (units (u nknown) date) Medications unknown) (unknown) (no (unknown) (unknown) ED Orders (units (unkn own) date) unknown) (unknown) (no (unknown) (unknown) ER Physician: (units ( unknown) date) Crew,Pati Haylee WALTON unknown) (unknown) (no (unknown) (unknown) Emergency Report (units (unknown) date) unknown) (unknown) (no (unknown) (unknown) Exam Narrative: (units (unknown) date) unknown) (unknown) (no (unknown) (unknown) Exam (units (unkno wn) date) unknown) (unknown) (no (unknown) (unknown) Extremity x-ray #1: (unit s (unknown) date) unknown) (unknown) (no (unknown) (unknown) Extremity x-ray #2: (unit s (unknown) date) unknown) (unknown) (no (unknown) (unknown) FINDINGS:? (units (unk nown) date) unknown) (unknown) (no (unknown) (unknown) For pain, please (units (unknown) date) give her Tylenol 650 unknown) mg with ibuprofen 400 mg every 6 hours as (unknown) (no (unknown) (unknown) Fracture, ulna, (units (unknown) date) distal unknown) (unknown) (no (unknown) (unknown) General (units (unkno wn) date) unknown) (unknown) (no (unknown) (unknown) General: (units (unkno wn) date) cooperative, unknown) comfortable, in no acute distress, well groomed (unknown) (no (unknown) (unknown) HEENT: symmetrical (units (unknown) date) facial expressions, unknown) moist mucous membranes (unknown) (no (unknown) (unknown) HPI - Extremity (units (unknown) date) Injury (Upper) unknown) (unknown) (no (unknown) (unknown) HPI narrative: (units (unknown) date) unknown) (unknown) (no (unknown) (unknown) History of Present (units (unknown) date) Illness unknown) (unknown) (no (unknown) (unknown) IMPRESSION:? Mildly (unit s (unknown) date) displaced fracture unknown) and angulation of the distal 3rd of the (unknown) (no (unknown) (unknown) IMPRESSION:? No CT (units (unknown) date) evidence of acute unknown) traumatic cervical spine injury. (unknown) (no (unknown) (unknown) IMPRESSION:? No CT (units (unknown) date) evidence of acute unknown) traumatic injury in the lumbar spine. (unknown) (no (unknown) (unknown) IMPRESSION:? No CT (units (unknown) date) evidence of acute unknown) traumatic thoracic spine injury. (unknown) (no (unknown) (unknown) IMPRESSION:? No (units (unknown) date) acute intracranial unknown) finding. (unknown) (no (unknown) (unknown) IMPRESSION:? (units (u nknown) date) unknown) (unknown) (no (unknown) (unknown) INDICATIONS: (units (u nknown) date) fall/pain unknown) (unknown) (no (unknown) (unknown) INDICATIONS:? FALL (units (unknown) date) unknown) (unknown) (no (unknown) (unknown) INDICATIONS:? S (units (unknown) date) unknown) (unknown) (no (unknown) (unknown) INDICATIONS:? fall, (unit s (unknown) date) back pain, dementia unknown) (unknown) (no (unknown) (unknown) INDICATIONS:? (units ( unknown) date) fall/pain unknown) (unknown) (no (unknown) (unknown) Ibuprofen (Ibuprofen (uni ts (unknown) date) 400 Mg Tablet) 400 mg unknown) PO NOW ONE (unknown) (no (unknown) (unknown) Image quality:? (units (unknown) date) Excellent.? unknown) (unknown) (no (unknown) (unknown) Imaging Data (units (u nknown) date) unknown) (unknown) (no (unknown) (unknown) Initial Vital Signs (unit s (unknown) date) unknown) (unknown) (no (unknown) (unknown) Initial Vital Signs: (uni ts (unknown) date) unknown) (unknown) (no (unknown) (unknown) Injury #1: (units (unk nown) date) unknown) (unknown) (no (unknown) (unknown) Instructions: (units ( unknown) date) Forearm Fracture unknown) (unknown) (no (unknown) (unknown) [facility] [address]uni ts (unknown) date) [address] unknown) [place] [address] (unknown) (no (unknown) (unknown) Ivone Donald MD (units (unknown) date) [Primary Care unknown) Provider] (unknown) (no (unknown) (unknown) Last Admin: 04/07/22 (uni ts (unknown) date) 17:45 Dose: 250 mg unknown) (unknown) (no (unknown) (unknown) Last Admin: 04/07/22 (uni ts (unknown) date) 17:45 Dose: 400 mg unknown) (unknown) (no (unknown) (unknown) Last Admin: 04/07/22 (uni ts (unknown) date) 17:45 Dose: 650 mg unknown) (unknown) (no (unknown) (unknown) MDM - Extremity (units (unknown) date) Injury (Upper) unknown) (unknown) (no (unknown) (unknown) MDM Narrative (units ( unknown) date) unknown) (unknown) (no (unknown) (unknown) MSK: moves all (units (unknown) date) extremities, unknown) neurovascularly intact, no focal weakness, normal (unknown) (no (unknown) (unknown) Medical decision (units (unknown) date) making narrative: unknown) (unknown) (no (unknown) (unknown) Methocarbamol (units ( unknown) date) (Methocarbamol 500 Mg unknown) Tablet) 250 mg PO NOW ONE (unknown) (no (unknown) (unknown) Mode of arrival: (units (unknown) date) Wheelchair unknown) (unknown) (no (unknown) (unknown) Narrative (units (unkn own) date) unknown) (unknown) (no (unknown) (unknown) Neuro: normal speech (uni ts (unknown) date) and cognition, A+O unknown) x1-3, history of dementia, ambulatory, (unknown) (no (unknown) (unknown) Noncontrast 3 mm (units (unknown) date) thick sections unknown) acquired from the T12 level to the sacrum.? (unknown) (no (unknown) (unknown) Noncontrast 3 mm (units (unknown) date) thick sections unknown) acquired from the skull base to the T4 level.? (unknown) (no (unknown) (unknown) Noncontrast 3 mm (units (unknown) date) thick sections unknown) acquired through the region of interest in the (unknown) (no (unknown) (unknown) Noncontrast 4.5 mm (units (unknown) date) thick angled axial unknown) sections acquired from the foramen magnum (unknown) (no (unknown) (unknown) Jorge Camarena MD (unit s (unknown) date) [Physician] unknown) (unknown) (no (unknown) (unknown) Ordered: (units (unkno wn) date) unknown) (unknown) (no (unknown) (unknown) Orders (units (unkno wn) date) unknown) (unknown) (no (unknown) (unknown) Orthopedic (units (unk nown) date) Splinting/Casting unknown) (unknown) (no (unknown) (unknown) Oxygen Delivery (units (unknown) date) Method 04/07/22 13:09 unknown) (unknown) (no (unknown) (unknown) Oxygen Delivery (units (unknown) date) Method Room Air Room unknown) Air (unknown) (no (unknown) (unknown) PROCEDURE:? CT (units (unknown) date) CERVICAL SPINE WO CON unknown) (unknown) (no (unknown) (unknown) PROCEDURE:? CT (units (unknown) date) HEAD/BRAIN WO CON unknown) (unknown) (no (unknown) (unknown) PROCEDURE:? CT (units (unknown) date) LUMBAR SPINE WO CON unknown) (unknown) (no (unknown) (unknown) PROCEDURE:? CT (units (unknown) date) THORACIC SPINE WO CON unknown) (unknown) (no (unknown) (unknown) PROCEDURE:? XR (units (unknown) date) FOREARM RT 2V unknown) (unknown) (no (unknown) (unknown) PROCEDURE:? XR WRIST (uni ts (unknown) date) RT MIN 3V unknown) (unknown) (no (unknown) (unknown) Patient Disposition: (uni ts (unknown) date) Home unknown) (unknown) (no (unknown) (unknown) Patient History (units (unknown) date) unknown) (unknown) (no (unknown) (unknown) Patient: (units (unkno wn) date) Sheila Marley Janessa MR#: unknown) M0 (unknown) (no (unknown) (unknown) Placed by: Provider (unit s (unknown) date) unknown) (unknown) (no (unknown) (unknown) Post splinting neuro (uni ts (unknown) date) exam: intact and no unknown) change (unknown) (no (unknown) (unknown) Post splinting (units (unknown) date) vascular exam: intact unknown) (unknown) (no (unknown) (unknown) Procedures (units (unk nown) date) unknown) (unknown) (no (unknown) (unknown) Psych: mental status (uni ts (unknown) date) is grossly normal unknown) with history of dementia, wants to go (unknown) (no (unknown) (unknown) Pulled traction on (units (unknown) date) the ulnar aspect unknown) while applying splint with improved pain, (unknown) (no (unknown) (unknown) Pulse Oximetry 97 (units (unknown) date) 04/07/22 13:09 unknown) (unknown) (no (unknown) (unknown) Pulse Oximetry 97 97 (uni ts (unknown) date) unknown) (unknown) (no (unknown) (unknown) Pulse Rate 64 (units ( unknown) date) 04/07/22 13:09 unknown) (unknown) (no (unknown) (unknown) Pulse Rate 64 70 (units (unknown) date) unknown) (unknown) (no (unknown) (unknown) ROS Unobtainable: All (uni ts (unknown) date) systems reviewed + unknown) are unremarkable except as noted in HPI (unknown) (no (unknown) (unknown) Radiologist's (units ( unknown) date) Impression: unknown) (unknown) (no (unknown) (unknown) Referrals: (units (unk nown) date) unknown) (unknown) (no (unknown) (unknown) Related Data (units (u nknown) date) unknown) (unknown) (no (unknown) (unknown) Respiratory Rate 18 (unit s (unknown) date) 04/07/22 13:09 unknown) (unknown) (no (unknown) (unknown) Respiratory Rate 18 (unit s (unknown) date) 16 unknown) (unknown) (no (unknown) (unknown) Review of Systems (units (unknown) date) unknown) (unknown) (no (unknown) (unknown) Reviewed vitals (units (unknown) date) signs and nursing unknown) notes. (unknown) (no (unknown) (unknown) Sagittal and (units (u nknown) date) unknown) (unknown) (no (unknown) (unknown) Sagittal (units (unkno wn) date) unknown) (unknown) (no (unknown) (unknown) Scaphoid view:? No (units (unknown) date) fracture identified unknown) (unknown) (no (unknown) (unknown) Side: right (units (un known) date) unknown) (unknown) (no (unknown) (unknown) Signed By: (units (unk nown) date) unknown) (unknown) (no (unknown) (unknown) Sinuses:? Visualized (uni ts (unknown) date) sinuses and mastoids unknown) are clear.? (unknown) (no (unknown) (unknown) [facility] (units (unkn own) date) Orthoped[facility] [Provider unknown) Group] (unknown) (no (unknown) (unknown) Skin: brisk (units (un known) date) capillary refill, unknown) without pallor or erythema (unknown) (no (unknown) (unknown) Skull and face:? (units (unknown) date) Calvarium and unknown) visualized facial bones appear intact, without (unknown) (no (unknown) (unknown) Smoking Status: (units (unknown) date) Never smoker unknown) (unknown) (no (unknown) (unknown) Social History (units (unknown) date) (Reviewed 04/07/22 @ unknown) 19:18 by Pati Galeano [facility]) (unknown) (no (unknown) (unknown) Soft tissues:? No (units (unknown) date) suspicious soft unknown) tissue calcifications or masses.? (unknown) (no (unknown) (unknown) Soft tissues:? No (units (unknown) date) suspicious soft unknown) tissue calcifications.? (unknown) (no (unknown) (unknown) Soft tissues:? (units (unknown) date) Prevertebral soft unknown) tissues are normal in thickness.? No (unknown) (no (unknown) (unknown) Source: patient (units (unknown) date) unknown) (unknown) (no (unknown) (unknown) Stated Complaint: (units (unknown) date) fall today, back unknown) pain,R arm injury, dementia (unknown) (no (unknown) (unknown) Stop: 04/07/22 17:36 (uni ts (unknown) date) unknown) (unknown) (no (unknown) (unknown) Substance Use Type: (unit s (unknown) date) does not use unknown) (unknown) (no (unknown) (unknown) TECHNIQUE:? 2 views (unit s (unknown) date) of the forearm were unknown) acquired.? (unknown) (no (unknown) (unknown) TECHNIQUE:? 4 views (unit s (unknown) date) of the wrist were unknown) acquired.? (unknown) (no (unknown) (unknown) TECHNIQUE:? (units (un known) date) unknown) (unknown) (no (unknown) (unknown) Temperature 98.2 F (units (unknown) date) 04/07/22 13:09 unknown) (unknown) (no (unknown) (unknown) Temperature 98.2 F (units (unknown) date) unknown) (unknown) (no (unknown) (unknown) There is (units (unkno wn) date) unknown) (unknown) (no (unknown) (unknown) This is a (units (unkn own) date) 82-year-old female unknown) who is brought into the emergency department by (unknown) (no (unknown) (unknown) This is an (units (unk nown) date) 82-year-old female unknown) who presents to the emergency department after a (unknown) (no (unknown) (unknown) Thoracic and (units (u nknown) date) thoracolumbar unknown) S-shaped scoliosis.? No listhesis in the thoracic (unknown) (no (unknown) (unknown) Time Seen by (units (u nknown) date) Provider: 04/07/22 unknown) 13:00 (unknown) (no (unknown) (unknown) Upper Extremity (units (unknown) date) Immobilizer: unknown) sling/shoulder immobilizer and sugar tong (unknown) (no (unknown) (unknown) Upper Extremity (units (unknown) date) Injury Location: unknown) forearm (unknown) (no (unknown) (unknown) Vertebral body (units (unknown) date) heights maintained.? 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 unknown) No acute fracture.? Remote right posterior (unknown) (no (unknown) (unknown) Vital Signs - 8 hr (units (unknown) date) unknown) (unknown) (no (unknown) (unknown) Vital Signs (units (un known) date) unknown) (unknown) (no (unknown) (unknown) Vital signs: (units (u nknown) date) unknown) (unknown) (no (unknown) (unknown) XR forearm RT 2V (units (unknown) date) Stat unknown) (unknown) (no (unknown) (unknown) XR wrist RT min 3V (units (unknown) date) Stat unknown) (unknown) (no (unknown) (unknown) [ ] New medication (units (unknown) date) prescriptions sent to unknown) your pharmacy: [ ] (unknown) (no (unknown) (unknown) [ ] New medication (units (unknown) date) written as a paper unknown) prescription (unknown) (no (unknown) (unknown) [x ] No new (units (un known) date) medications given unknown) (unknown) (no (unknown) (unknown) able, this may be (units (unknown) date) treated surgically unknown) with a plate. Please give her pain (unknown) (no (unknown) (unknown) abnormality. (units (u nknown) date) unknown) (unknown) (no (unknown) (unknown) age, with resultant (unit s (unknown) date) ventricular and unknown) sulcal prominence.? There are moderate (unknown) (no (unknown) (unknown) and below (units (unkn own) date) unknown) (unknown) (no (unknown) (unknown) and coronal (units (un known) date) reformats were then unknown) constructed.? For radiation dose reduction, the (unknown) (no (unknown) (unknown) and good historian (units (unknown) date) for the patient. unknown) Patient had a deformity of her distal right (unknown) (no (unknown) (unknown) angulation. (units (un known) date) unknown) (unknown) (no (unknown) (unknown) angulation.? Severe (unit s (unknown) date) degenerative changes unknown) of the 1st metacarpophalangeal joint. (unknown) (no (unknown) (unknown) appointment. Let them (uni ts (unknown) date) know you were seen in unknown) the Emergency Department and that we (unknown) (no (unknown) (unknown) asked that you be (units (unknown) date) seen for follow-up. unknown) We will electronically transmit a record (unknown) (no (unknown) (unknown) changes, patient's (units (unknown) date) daughter states that unknown) her last urine was negative for (unknown) (no (unknown) (unknown) clear speech (units (u nknown) date) unknown) (unknown) (no (unknown) (unknown) complains back pain, (unit s (unknown) date) hip and leg pain, unknown) right forearm pain and states this is the (unknown) (no (unknown) (unknown) concerning symptoms, (uni ts (unknown) date) such as [fever unknown) greater than 101F, chills, worsening pain, (unknown) (no (unknown) (unknown) coronal reformats (units (unknown) date) were constructed.? unknown) For radiation dose reduction, the following (unknown) (no (unknown) (unknown) ct lumbar: (units (unk nown) date) unknown) (unknown) (no (unknown) (unknown) ct thoracic: (units (u nknown) date) unknown) (unknown) (no (unknown) (unknown) daughter denies any (unit s (unknown) date) abnormal behavior, unknown) states that she thinks she is getting (unknown) (no (unknown) (unknown) deconditioning. She (unit s (unknown) date) is not in physical unknown) therapy at this time. Patient's (unknown) (no (unknown) (unknown) deficit, tenderness (unit s (unknown) date) to palpation. unknown) Complains of pain at her right forearm where (unknown) (no (unknown) (unknown) dementia, she is not (uni ts (unknown) date) anticoagulated, did unknown) not hit her head, have any episodes of (unknown) (no (unknown) (unknown) dose (units (unkno wn) date) unknown) (unknown) (no (unknown) (unknown) elevated, have her (units (unknown) date) elevate it unknown) frequently. (unknown) (no (unknown) (unknown) establish care with [facility] ([facility] (unknown) (no (unknown) (unknown) facility. Her (units ( unknown) date) primary care provider unknown) is Dr. Kirk Villasenor. Denies any urinary (unknown) (no (unknown) (unknown) family member and (units (unknown) date) caregiver who states unknown) that patient has had increased falls over (unknown) (no (unknown) (unknown) following (units (unkn own) date) unknown) (unknown) (no (unknown) (unknown) forearm pain, back (units (unknown) date) pain, leg pain with a unknown) family member who is also a caregiver (unknown) (no (unknown) (unknown) forearm, was found (units (unknown) date) to have a fractured unknown) ulna with significant displacement (unknown) (no (unknown) (unknown) forgetful, easily (units (unknown) date) directable. Patient unknown) has not had any pain medication prior to (unknown) (no (unknown) (unknown) fractures noted. (units (unknown) date) unknown) (unknown) (no (unknown) (unknown) hematomas.? No (units (unknown) date) apical unknown) pneumothoraces.? (unknown) (no (unknown) (unknown) her arrival. She is (unit s (unknown) date) right-hand dominant, unknown) lives at [facility] (unknown) (no (unknown) (unknown) home, congruent (units (unknown) date) mood, normal affect, unknown) pleasant and cooperative (unknown) (no (unknown) (unknown) infection and it was (uni ts (unknown) date) within the last week. unknown) She has not had any upper (unknown) (no (unknown) (unknown) intracranial (units (u nknown) date) internal carotid unknown) artery atherosclerosis.? (unknown) (no (unknown) (unknown) [facility] as (uni ts (unknown) date) soon as possible. unknown) Please have her seen as soon as they are (unknown) (no (unknown) (unknown) left ulna. (units (unk nown) date) unknown) (unknown) (no (unknown) (unknown) lesions.? (units (unkn own) date) unknown) (unknown) (no (unknown) (unknown) loss for (units (unkno wn) date) unknown) (unknown) (no (unknown) (unknown) measuring 4 (units (un known) date) unknown) (unknown) (no (unknown) (unknown) mechanical fall at (units (unknown) date) her assisted living unknown) residence with history of frequent falls, (unknown) (no (unknown) (unknown) medicine as needed (units (unknown) date) for her pain, unknown) encourage hydration, she needs extra (unknown) (no (unknown) (unknown) mild improvement in (units (unknown) date) angulation, patient unknown) remains neurovascularly intact following (unknown) (no (unknown) (unknown) millimeters.? (units ( unknown) date) Otherwise normal unknown) alignment.? Degenerative changes.? No acute soft (unknown) (no (unknown) (unknown) morphine AdvReac (units (unknown) date) Severe Vomiting unknown) Verified 04/07/22 13:08 (unknown) (no (unknown) (unknown) motion and no (units ( unknown) date) deficit, normal range unknown) of motion of her right elbow without (unknown) (no (unknown) (unknown) needed with food and (uni ts (unknown) date) water. She can keep unknown) her arm in a sling to help keep it (unknown) (no (unknown) (unknown) normal sensation to (unit s (unknown) date) her fingers, can unknown) wiggle all fingers with normal range of (unknown) (no (unknown) (unknown) numbness or (units (un known) date) tingling, she is unknown) ambulatory, without new weakness or unilateral (unknown) (no (unknown) (unknown) observation and (units (unknown) date) support for risk of unknown) falls. (unknown) (no (unknown) (unknown) of today's note if (units (unknown) date) your PCP is in our unknown) system (unknown) (no (unknown) (unknown) paravertebral (units ( unknown) date) unknown) (unknown) (no (unknown) (unknown) patient (units (unkno wn) date) unknown) (unknown) (no (unknown) (unknown) periventricular and (unit s (unknown) date) deep white matter unknown) chronic small vessel ischemic changes.? (unknown) (no (unknown) (unknown) persistent vomiting (unit s (unknown) date) or other bothersome unknown) symptoms]. (unknown) (no (unknown) (unknown) reduction, the (units (unknown) date) following was used:? unknown) automated exposure control.? (unknown) (no (unknown) (unknown) respiratory symptoms (uni ts (unknown) date) of illness, she has unknown) generalized weakness, and (unknown) (no (unknown) (unknown) rib (units (unkno wn) date) unknown) (unknown) (no (unknown) (unknown) right forearm is (units (unknown) date) deformed, she is able unknown) to move all of her fingers, denies (unknown) (no (unknown) (unknown) right radius (units (u nknown) date) diaphysis.? Ulna is unknown) intact. (unknown) (no (unknown) (unknown) size.? (units (unkno wn) date) unknown) (unknown) (no (unknown) (unknown) spine.? Sagittal and (uni ts (unknown) date) coronal reformats unknown) were then constructed.? For radiation (unknown) (no (unknown) (unknown) spine.? (units (unkno wn) date) unknown) (unknown) (no (unknown) (unknown) splint (units (unkno wn) date) unknown) (unknown) (no (unknown) (unknown) splint, fingertips (units (unknown) date) warm unknown) (unknown) (no (unknown) (unknown) suspicious (units (unk nown) date) unknown) (unknown) (no (unknown) (unknown) the deformity is. No (uni ts (unknown) date) tenderness to her unknown) spine with palpation, (unknown) (no (unknown) (unknown) the last few weeks, (units (unknown) date) increased weakness, unknown) history of dementia, today fell down and (unknown) (no (unknown) (unknown) the (units (unkno wn) date) unknown) (unknown) (no (unknown) (unknown) thoracic (units (unkno wn) date) unknown) (unknown) (no (unknown) (unknown) tissue (units (unkno wn) date) unknown) (unknown) (no (unknown) (unknown) to the (units (unkno wn) date) unknown) (unknown) (no (unknown) (unknown) tone. Deformity to (units (unknown) date) right forearm over unknown) the distal ulna proximally, patient with (unknown) (no (unknown) (unknown) used:? automated (units (unknown) date) exposure control.? unknown) (unknown) (no (unknown) (unknown) ventricles are (units (unknown) date) symmetric in size and unknown) shape.? (unknown) (no (unknown) (unknown) vertex, with coronal (uni ts (unknown) date) and sagittal unknown) reformats.? For radiation dose reduction, the (unknown) (no (unknown) (unknown) vomiting, and (units ( unknown) date) presents to the unknown) emergency department for complaint of right (unknown) (no (unknown) (unknown) was used:? automated (uni ts (unknown) date) exposure control, unknown) adjustment of mA and/or kV according to (unknown) (no (unknown) (unknown) was (units (unkno wn) date) unknown) (unknown) (no (unknown) (unknown) weaker because she (units (unknown) date) does not practice any unknown) physical exercise. (unknown) (no (unknown) (unknown) weakness. She is (units (unknown) date) pleasant, normal unknown) phonation, talkative, A+O times 1-3 but (unknown) (no (unknown) (unknown) with significant (units (unknown) date) displacement. Sunday unknown) morning, please call for follow-up with S (unknown) (no (unknown) (unknown) worst of all of her (unit s (unknown) date) problems. She does unknown) not have any open wounds or abrasion, Result panel 62 (unknown) (no (unknown) (unknown) (no value) (units (unk nown) date) unknown) (unknown) (no (unknown) (unknown) <Electronically (units (unknown) date) signed by Pati Leach unknown) [facility]> (unknown) (no (unknown) (unknown) *If you do not have (unit s (unknown) date) a primary care unknown) provider please contact [phone] to (unknown) (no (unknown) (unknown) *Please continue to (unit s (unknown) date) take your regular unknown) medications as directed. (unknown) (no (unknown) (unknown) *Please follow up (units (unknown) date) with your primary unknown) care provider in 2-3 days, call for an (unknown) (no (unknown) (unknown) *Return to Emergency (uni ts (unknown) date) Department if you unknown) should have any new, worsening, or (unknown) (no (unknown) (unknown) *What to do: (units (u nknown) date) unknown) (unknown) (no (unknown) (unknown) *You have been (units (unknown) date) diagnosed with a unknown) fracture of the ulnar bone in your right arm (unknown) (no (unknown) (unknown) [id number] (units (unkno wn) date) unknown) (unknown) (no (unknown) (unknown) 1. Fracture of the (units (unknown) date) distal 3rd of the unknown) ulna diaphysis with displacement and (unknown) (no (unknown) (unknown) 04/07/22 13:00 (units (unknown) date) unknown) (unknown) (no (unknown) (unknown) 04/07/22 13:15 (units (unknown) date) unknown) (unknown) (no (unknown) (unknown) 04/07/22 13:20 (units (unknown) date) unknown) (unknown) (no (unknown) (unknown) 04/07/22 1945 (units ( unknown) date) unknown) (unknown) (no (unknown) (unknown) 04/07/22 (units (unkno wn) date) unknown) (unknown) (no (unknown) (unknown) 13:09 04/07/22 (units (unknown) date) unknown) (unknown) (no (unknown) (unknown) 18:58 (units (unkno wn) date) unknown) (unknown) (no (unknown) (unknown) 2. 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 (unknown) (no (unknown) (unknown) ? (units (unkno wn) date) unknown) (unknown) (no (unknown) (unknown) Acetaminophen (units ( unknown) date) (Acetaminophen 325 Mg unknown) Tablet) 650 mg PO NOW ONE (unknown) (no (unknown) (unknown) Activity (units (unkno wn) date) Restrictions/Addition unknown) al Instructions: (unknown) (no (unknown) (unknown) Additional Comments: (uni ts (unknown) date) unknown) (unknown) (no (unknown) (unknown) Age/Sex: 82 / F (units (unknown) date) unknown) (unknown) (no (unknown) (unknown) Allergies (units (unkn own) date) unknown) (unknown) (no (unknown) (unknown) Allergy/AdvReac Type (uni ts (unknown) date) Severity Reaction unknown) Status Date / Time (unknown) (no (unknown) (unknown) Approved by: Shmuel (unit s (unknown) date) Carol Ann Marks on unknown) 04/07/2022 at 14:35 ? (unknown) (no (unknown) (unknown) Approved by: Shmuel (unit s (unknown) date) Carol Ann Marks on unknown) 04/07/2022 at 14:37 ? (unknown) (no (unknown) (unknown) Approved by: Bryce (units (unknown) date) Carol Ann Segura on unknown) 04/07/2022 at 13:53 ? (unknown) (no (unknown) (unknown) Approved by: Bryce (units (unknown) date) Carol Ann Segura on unknown) 04/07/2022 at 13:58 ? (unknown) (no (unknown) (unknown) Approved by: Bryce (units (unknown) date) Carol Ann Segura on unknown) 04/07/2022 at 14:01 ? (unknown) (no (unknown) (unknown) Approved by: Bryce (units (unknown) date) Carol Ann Segura on unknown) 04/07/2022 at 14:03 ? (unknown) (no (unknown) (unknown) Blood Pressure (units (unknown) date) 116/59 L 04/07/22 unknown) 13:09 (unknown) (no (unknown) (unknown) Blood Pressure (units (unknown) date) 116/59 L 120/60 unknown) (unknown) (no (unknown) (unknown) Bones:? Fracture of (unit s (unknown) date) the distal 3rd of the unknown) ulna diaphysis with displacement and (unknown) (no (unknown) (unknown) Bones:? No fracture (unit s (unknown) date) or dislocation.? unknown) Visualized superior ribs are intact.? (unknown) (no (unknown) (unknown) Bones:? There is a (units (unknown) date) mildly displaced unknown) fracture of 1 bone with of the distal 3rd of (unknown) (no (unknown) (unknown) Brain:? No (units (unk nown) date) intracranial bleeds unknown) or masses.? There is moderate cerebral volume (unknown) (no (unknown) (unknown) [facility], CT unknown) THORACIC SPINE WO CON, 04/07/2022, 13:24. (unknown) (no (unknown) (unknown) COMPARISON:? None. (units (unknown) date) unknown) (unknown) (no (unknown) (unknown) CSF spaces:? Basal (units (unknown) date) cisterns are patent.? unknown) No extra-axial fluid collections.? The (unknown) (no (unknown) (unknown) CT - cervical spine: (uni ts (unknown) date) unknown) (unknown) (no (unknown) (unknown) CT cervical spine wo (uni ts (unknown) date) con Stat unknown) (unknown) (no (unknown) (unknown) CT head/brain wo con (uni ts (unknown) date) Stat unknown) (unknown) (no (unknown) (unknown) CT lumbar spine wo (units (unknown) date) con Stat unknown) (unknown) (no (unknown) (unknown) CT scan - head: (units (unknown) date) unknown) (unknown) (no (unknown) (unknown) CT thoracic spine wo (uni ts (unknown) date) con Stat unknown) (unknown) (no (unknown) (unknown) Chief Complaint: (units (unknown) date) Extremity Injury, unknown) Upper (unknown) (no (unknown) (unknown) Clinical Impression: (uni ts (unknown) date) unknown) (unknown) (no (unknown) (unknown) Course (units (unkno wn) date) unknown) (unknown) (no (unknown) (unknown) : 1940 (units (unknown) date) Acct:[id number] unknown) (unknown) (no (unknown) (unknown) Date of Service: (units (unknown) date) 04/07/22 unknown) (unknown) (no (unknown) (unknown) Departure (units (unkn own) date) unknown) (unknown) (no (unknown) (unknown) Dictated by: Shmuel (unit s (unknown) date) Carol Ann Marks on unknown) 04/07/2022 at 14:34 ? ? (unknown) (no (unknown) (unknown) Dictated by: Shmuel (unit s (unknown) date) Carol Ann Marks on unknown) 04/07/2022 at 14:35 ? ? (unknown) (no (unknown) (unknown) Dictated by: Bryce (units (unknown) date) Carol Ann Segura on unknown) 04/07/2022 at 13:52 ? ? (unknown) (no (unknown) (unknown) Dictated by: Bryce (units (unknown) date) Carol Ann Segura on unknown) 04/07/2022 at 13:56 ? ? (unknown) (no (unknown) (unknown) Dictated by: Bryce (units (unknown) date) Carol Ann Segura on unknown) 04/07/2022 at 13:58 ? ? (unknown) (no (unknown) (unknown) Dictated by: Bryce (units (unknown) date) Carol Ann Segura on unknown) 04/07/2022 at 14:01 ? ? (unknown) (no (unknown) (unknown) Discharge Plan (units (unknown) date) unknown) (unknown) (no (unknown) (unknown) Discontinued (units (u nknown) date) Medications unknown) (unknown) (no (unknown) (unknown) ED Orders (units (unkn own) date) unknown) (unknown) (no (unknown) (unknown) ER Physician: (units ( unknown) date) Pati Galeano unknown) (unknown) (no (unknown) (unknown) Emergency Report (units (unknown) date) unknown) (unknown) (no (unknown) (unknown) Exam Narrative: (units (unknown) date) unknown) (unknown) (no (unknown) (unknown) Exam (units (unkno wn) date) unknown) (unknown) (no (unknown) (unknown) Extremity x-ray #1: (unit s (unknown) date) unknown) (unknown) (no (unknown) (unknown) Extremity x-ray #2: (unit s (unknown) date) unknown) (unknown) (no (unknown) (unknown) FINDINGS:? (units (unk nown) date) unknown) (unknown) (no (unknown) (unknown) For pain, please (units (unknown) date) give her Tylenol 650 unknown) mg with ibuprofen 400 mg every 6 hours as (unknown) (no (unknown) (unknown) Fracture, ulna, (units (unknown) date) distal unknown) (unknown) (no (unknown) (unknown) General (units (unkno wn) date) unknown) (unknown) (no (unknown) (unknown) General: (units (unkno wn) date) cooperative, unknown) comfortable, in no acute distress, well groomed (unknown) (no (unknown) (unknown) HEENT: symmetrical (units (unknown) date) facial expressions, unknown) moist mucous membranes (unknown) (no (unknown) (unknown) HPI - Extremity (units (unknown) date) Injury (Upper) unknown) (unknown) (no (unknown) (unknown) HPI narrative: (units (unknown) date) unknown) (unknown) (no (unknown) (unknown) History of Present (units (unknown) date) Illness unknown) (unknown) (no (unknown) (unknown) IMPRESSION:? Mildly (unit s (unknown) date) displaced fracture unknown) and angulation of the distal 3rd of the (unknown) (no (unknown) (unknown) IMPRESSION:? No CT (units (unknown) date) evidence of acute unknown) traumatic cervical spine injury. (unknown) (no (unknown) (unknown) IMPRESSION:? No CT (units (unknown) date) evidence of acute unknown) traumatic injury in the lumbar spine. (unknown) (no (unknown) (unknown) IMPRESSION:? No CT (units (unknown) date) evidence of acute unknown) traumatic thoracic spine injury. (unknown) (no (unknown) (unknown) IMPRESSION:? No (units (unknown) date) acute intracranial unknown) finding. (unknown) (no (unknown) (unknown) IMPRESSION:? (units (u nknown) date) unknown) (unknown) (no (unknown) (unknown) INDICATIONS: (units (u nknown) date) fall/pain unknown) (unknown) (no (unknown) (unknown) INDICATIONS:? FALL (units (unknown) date) unknown) (unknown) (no (unknown) (unknown) INDICATIONS:? S (units (unknown) date) unknown) (unknown) (no (unknown) (unknown) INDICATIONS:? fall, (unit s (unknown) date) back pain, dementia unknown) (unknown) (no (unknown) (unknown) INDICATIONS:? (units ( unknown) date) fall/pain unknown) (unknown) (no (unknown) (unknown) Ibuprofen (Ibuprofen (uni ts (unknown) date) 400 Mg Tablet) 400 mg unknown) PO NOW ONE (unknown) (no (unknown) (unknown) Image quality:? (units (unknown) date) Excellent.? unknown) (unknown) (no (unknown) (unknown) Imaging Data (units (u nknown) date) unknown) (unknown) (no (unknown) (unknown) Initial Vital Signs (unit s (unknown) date) unknown) (unknown) (no (unknown) (unknown) Initial Vital Signs: (uni ts (unknown) date) unknown) (unknown) (no (unknown) (unknown) Injury #1: (units (unk nown) date) unknown) (unknown) (no (unknown) (unknown) Instructions: (units ( unknown) date) Forearm Fracture unknown) (unknown) (no (unknown) (unknown) [facility] [address] (uni ts (unknown) date) [facility] [address] unknown) [place] [address] (unknown) (no (unknown) (unknown) Ivone Donald MD (units (unknown) date) [Primary Care unknown) Provider] (unknown) (no (unknown) (unknown) Last Admin: 04/07/22 (uni ts (unknown) date) 17:45 Dose: 250 mg unknown) (unknown) (no (unknown) (unknown) Last Admin: 04/07/22 (uni ts (unknown) date) 17:45 Dose: 400 mg unknown) (unknown) (no (unknown) (unknown) Last Admin: 04/07/22 (uni ts (unknown) date) 17:45 Dose: 650 mg unknown) (unknown) (no (unknown) (unknown) MDM - Extremity (units (unknown) date) Injury (Upper) unknown) (unknown) (no (unknown) (unknown) MDM Narrative (units ( unknown) date) unknown) (unknown) (no (unknown) (unknown) MSK: moves all (units (unknown) date) extremities, unknown) neurovascularly intact, no focal weakness, normal (unknown) (no (unknown) (unknown) Medical decision (units (unknown) date) making narrative: unknown) (unknown) (no (unknown) (unknown) Methocarbamol (units ( unknown) date) (Methocarbamol 500 Mg unknown) Tablet) 250 mg PO NOW ONE (unknown) (no (unknown) (unknown) Mode of arrival: (units (unknown) date) Wheelchair unknown) (unknown) (no (unknown) (unknown) Narrative (units (unkn own) date) unknown) (unknown) (no (unknown) (unknown) Neuro: normal speech (uni ts (unknown) date) and cognition, A+O unknown) x1-3, history of dementia, ambulatory, (unknown) (no (unknown) (unknown) Noncontrast 3 mm (units (unknown) date) thick sections unknown) acquired from the T12 level to the sacrum.? (unknown) (no (unknown) (unknown) Noncontrast 3 mm (units (unknown) date) thick sections unknown) acquired from the skull base to the T4 level.? (unknown) (no (unknown) (unknown) Noncontrast 3 mm (units (unknown) date) thick sections unknown) acquired through the region of interest in the (unknown) (no (unknown) (unknown) Noncontrast 4.5 mm (units (unknown) date) thick angled axial unknown) sections acquired from the foramen magnum (unknown) (no (unknown) (unknown) Jorge Camarena MD (unit s (unknown) date) [Physician] unknown) (unknown) (no (unknown) (unknown) Ordered: (units (unkno wn) date) unknown) (unknown) (no (unknown) (unknown) Orders (units (unkno wn) date) unknown) (unknown) (no (unknown) (unknown) Orthopedic (units (unk nown) date) Splinting/Casting unknown) (unknown) (no (unknown) (unknown) Oxygen Delivery (units (unknown) date) Method 04/07/22 13:09 unknown) (unknown) (no (unknown) (unknown) Oxygen Delivery (units (unknown) date) Method Room Air Room unknown) Air (unknown) (no (unknown) (unknown) PROCEDURE:? CT (units (unknown) date) CERVICAL SPINE WO CON unknown) (unknown) (no (unknown) (unknown) PROCEDURE:? CT (units (unknown) date) HEAD/BRAIN WO CON unknown) (unknown) (no (unknown) (unknown) PROCEDURE:? CT (units (unknown) date) LUMBAR SPINE WO CON unknown) (unknown) (no (unknown) (unknown) PROCEDURE:? CT (units (unknown) date) THORACIC SPINE WO CON unknown) (unknown) (no (unknown) (unknown) PROCEDURE:? XR (units (unknown) date) FOREARM RT 2V unknown) (unknown) (no (unknown) (unknown) PROCEDURE:? XR WRIST (uni ts (unknown) date) RT MIN 3V unknown) (unknown) (no (unknown) (unknown) Patient Disposition: (uni ts (unknown) date) Home unknown) (unknown) (no (unknown) (unknown) Patient History (units (unknown) date) unknown) (unknown) (no (unknown) (unknown) Patient: (units (unkno wn) date) Sheila Marley MR#: unknown) M0 (unknown) (no (unknown) (unknown) Placed by: Provider (unit s (unknown) date) unknown) (unknown) (no (unknown) (unknown) Post splinting neuro (uni ts (unknown) date) exam: intact and no unknown) change (unknown) (no (unknown) (unknown) Post splinting (units (unknown) date) vascular exam: intact unknown) (unknown) (no (unknown) (unknown) Procedures (units (unk nown) date) unknown) (unknown) (no (unknown) (unknown) Psych: mental status (uni ts (unknown) date) is grossly normal unknown) with history of dementia, wants to go (unknown) (no (unknown) (unknown) Pulled traction on (units (unknown) date) the ulnar aspect unknown) while applying splint with improved pain, (unknown) (no (unknown) (unknown) Pulse Oximetry 97 (units (unknown) date) 04/07/22 13:09 unknown) (unknown) (no (unknown) (unknown) Pulse Oximetry 97 97 (uni ts (unknown) date) unknown) (unknown) (no (unknown) (unknown) Pulse Rate 64 (units ( unknown) date) 04/07/22 13:09 unknown) (unknown) (no (unknown) (unknown) Pulse Rate 64 70 (units (unknown) date) unknown) (unknown) (no (unknown) (unknown) ROS Unobtainable: All (uni ts (unknown) date) systems reviewed + unknown) are unremarkable except as noted in HPI (unknown) (no (unknown) (unknown) Radiologist's (units ( unknown) date) Impression: unknown) (unknown) (no (unknown) (unknown) Referrals: (units (unk nown) date) unknown) (unknown) (no (unknown) (unknown) Related Data (units (u nknown) date) unknown) (unknown) (no (unknown) (unknown) Respiratory Rate 18 (unit s (unknown) date) 04/07/22 13:09 unknown) (unknown) (no (unknown) (unknown) Respiratory Rate 18 (unit s (unknown) date) 16 unknown) (unknown) (no (unknown) (unknown) Review of Systems (units (unknown) date) unknown) (unknown) (no (unknown) (unknown) Reviewed vitals (units (unknown) date) signs and nursing unknown) notes. (unknown) (no (unknown) (unknown) Sagittal and (units (u nknown) date) unknown) (unknown) (no (unknown) (unknown) Sagittal (units (unkno wn) date) unknown) (unknown) (no (unknown) (unknown) Scaphoid view:? No (units (unknown) date) fracture identified unknown) (unknown) (no (unknown) (unknown) Side: right (units (un known) date) unknown) (unknown) (no (unknown) (unknown) Signed By: (units (unk nown) date) unknown) (unknown) (no (unknown) (unknown) Sinuses:? Visualized (uni ts (unknown) date) sinuses and mastoids unknown) are clear.? (unknown) (no (unknown) (unknown) [facility] (units (unkn own) date) [facility] [Provider unknown) Group] (unknown) (no (unknown) (unknown) Skin: brisk (units (un known) date) capillary refill, unknown) without pallor or erythema (unknown) (no (unknown) (unknown) Skull and face:? (units (unknown) date) Calvarium and unknown) visualized facial bones appear intact, without (unknown) (no (unknown) (unknown) Smoking Status: (units (unknown) date) Never smoker unknown) (unknown) (no (unknown) (unknown) Social History (units (unknown) date) (Reviewed 04/07/22 @ unknown) 19:18 by Pati Galeano [facility]) (unknown) (no (unknown) (unknown) Soft tissues:? No (units (unknown) date) suspicious soft unknown) tissue calcifications or masses.? (unknown) (no (unknown) (unknown) Soft tissues:? No (units (unknown) date) suspicious soft unknown) tissue calcifications.? (unknown) (no (unknown) (unknown) Soft tissues:? (units (unknown) date) Prevertebral soft unknown) tissues are normal in thickness.? No (unknown) (no (unknown) (unknown) Source: patient (units (unknown) date) unknown) (unknown) (no (unknown) (unknown) Stated Complaint: (units (unknown) date) fall today, back unknown) pain,R arm injury, dementia (unknown) (no (unknown) (unknown) Stop: 04/07/22 17:36 (uni ts (unknown) date) unknown) (unknown) (no (unknown) (unknown) Substance Use Type: (unit s (unknown) date) does not use unknown) (unknown) (no (unknown) (unknown) TECHNIQUE:? 2 views (unit s (unknown) date) of the forearm were unknown) acquired.? (unknown) (no (unknown) (unknown) TECHNIQUE:? 4 views (unit s (unknown) date) of the wrist were unknown) acquired.? (unknown) (no (unknown) (unknown) TECHNIQUE:? (units (un known) date) unknown) (unknown) (no (unknown) (unknown) Temperature 98.2 F (units (unknown) date) 04/07/22 13:09 unknown) (unknown) (no (unknown) (unknown) Temperature 98.2 F (units (unknown) date) unknown) (unknown) (no (unknown) (unknown) There is (units (unkno wn) date) unknown) (unknown) (no (unknown) (unknown) This is a (units (unkn own) date) 82-year-old female unknown) who is brought into the emergency department by (unknown) (no (unknown) (unknown) This is an (units (unk nown) date) 82-year-old female unknown) who presents to the emergency department after a (unknown) (no (unknown) (unknown) Thoracic and (units (u nknown) date) thoracolumbar unknown) S-shaped scoliosis.? No listhesis in the thoracic (unknown) (no (unknown) (unknown) Time Seen by (units (u nknown) date) Provider: 04/07/22 unknown) 13:00 (unknown) (no (unknown) (unknown) Upper Extremity (units (unknown) date) Immobilizer: unknown) sling/shoulder immobilizer and sugar tong (unknown) (no (unknown) (unknown) Upper Extremity (units (unknown) date) Injury Location: unknown) forearm (unknown) (no (unknown) (unknown) Vertebral body (units (unknown) date) heights maintained.? 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 unknown) No acute fracture.? Remote right posterior (unknown) (no (unknown) (unknown) Vital Signs - 8 hr (units (unknown) date) unknown) (unknown) (no (unknown) (unknown) Vital Signs (units (un known) date) unknown) (unknown) (no (unknown) (unknown) Vital signs: (units (u nknown) date) unknown) (unknown) (no (unknown) (unknown) XR forearm RT 2V (units (unknown) date) Stat unknown) (unknown) (no (unknown) (unknown) XR wrist RT min 3V (units (unknown) date) Stat unknown) (unknown) (no (unknown) (unknown) [ ] New medication (units (unknown) date) prescriptions sent to unknown) your pharmacy: [ ] (unknown) (no (unknown) (unknown) [ ] New medication (units (unknown) date) written as a paper unknown) prescription (unknown) (no (unknown) (unknown) [x ] No new (units (un known) date) medications given unknown) (unknown) (no (unknown) (unknown) able, this may be (units (unknown) date) treated surgically unknown) with a plate. Please give her pain (unknown) (no (unknown) (unknown) abnormality. (units (u nknown) date) unknown) (unknown) (no (unknown) (unknown) age, with resultant (unit s (unknown) date) ventricular and unknown) sulcal prominence.? There are moderate (unknown) (no (unknown) (unknown) and below (units (unkn own) date) unknown) (unknown) (no (unknown) (unknown) and coronal (units (un known) date) reformats were then unknown) constructed.? For radiation dose reduction, the (unknown) (no (unknown) (unknown) and good historian (units (unknown) date) for the patient. unknown) Patient had a deformity of her distal right (unknown) (no (unknown) (unknown) angulation. (units (un known) date) unknown) (unknown) (no (unknown) (unknown) angulation.? Severe (unit s (unknown) date) degenerative changes unknown) of the 1st metacarpophalangeal joint. (unknown) (no (unknown) (unknown) appointment. Let them (uni ts (unknown) date) know you were seen in unknown) the Emergency Department and that we (unknown) (no (unknown) (unknown) asked that you be (units (unknown) date) seen for follow-up. unknown) We will electronically transmit a record (unknown) (no (unknown) (unknown) changes, patient's (units (unknown) date) daughter states that unknown) her last urine was negative for (unknown) (no (unknown) (unknown) clear speech (units (u nknown) date) unknown) (unknown) (no (unknown) (unknown) complains back pain, (unit s (unknown) date) hip and leg pain, unknown) right forearm pain and states this is the (unknown) (no (unknown) (unknown) concerning symptoms, (uni ts (unknown) date) such as [fever unknown) greater than 101F, chills, worsening pain, (unknown) (no (unknown) (unknown) coronal reformats (units (unknown) date) were constructed.? unknown) For radiation dose reduction, the following (unknown) (no (unknown) (unknown) ct lumbar: (units (unk nown) date) unknown) (unknown) (no (unknown) (unknown) ct thoracic: (units (u nknown) date) unknown) (unknown) (no (unknown) (unknown) daughter denies any (unit s (unknown) date) abnormal behavior, unknown) states that she thinks she is getting (unknown) (no (unknown) (unknown) deconditioning. She (unit s (unknown) date) is not in physical unknown) therapy at this time. Patient's (unknown) (no (unknown) (unknown) deficit, tenderness (unit s (unknown) date) to palpation. unknown) Complains of pain at her right forearm where (unknown) (no (unknown) (unknown) dementia, she is not (uni ts (unknown) date) anticoagulated, did unknown) not hit her head, have any episodes of (unknown) (no (unknown) (unknown) dose (units (unkno wn) date) unknown) (unknown) (no (unknown) (unknown) elevated, have her (units (unknown) date) elevate it unknown) frequently. (unknown) (no (unknown) (unknown) establish care with (unit [place] (unknown) [place] of [facility] primary care providers. (unknown) (no (unknown) (unknown) facility. Her (units ( unknown) date) primary care provider unknown) is Dr. Kirk Villasenor. Denies any urinary (unknown) (no (unknown) (unknown) family member and (units (unknown) date) caregiver who states unknown) that patient has had increased falls over (unknown) (no (unknown) (unknown) following (units (unkn own) date) unknown) (unknown) (no (unknown) (unknown) forearm pain, back (units (unknown) date) pain, leg pain with a unknown) family member who is also a caregiver (unknown) (no (unknown) (unknown) forearm, was found (units (unknown) date) to have a fractured unknown) ulna with significant displacement (unknown) (no (unknown) (unknown) forgetful, easily (units (unknown) date) directable. Patient unknown) has not had any pain medication prior to (unknown) (no (unknown) (unknown) fractures noted. (units (unknown) date) unknown) (unknown) (no (unknown) (unknown) hematomas.? No (units (unknown) date) apical unknown) pneumothoraces.? (unknown) (no (unknown) (unknown) her arrival. She is (unit s (unknown) date) right-hand dominant, unknown) lives at [facility] assisted living (unknown) (no (unknown) (unknown) home, congruent (units (unknown) date) mood, normal affect, unknown) pleasant and cooperative (unknown) (no (unknown) (unknown) infection and it was (uni ts (unknown) date) within the last week. unknown) She has not had any upper (unknown) (no (unknown) (unknown) intracranial (units (u nknown) date) internal carotid unknown) artery atherosclerosis.? (unknown) (no (unknown) (unknown) [facility] as (uni ts (unknown) date) soon as possible. unknown) Please have her seen as soon as they are (unknown) (no (unknown) (unknown) left ulna. (units (unk nown) date) unknown) (unknown) (no (unknown) (unknown) lesions.? (units (unkn own) date) unknown) (unknown) (no (unknown) (unknown) loss for (units (unkno wn) date) unknown) (unknown) (no (unknown) (unknown) measuring 4 (units (un known) date) unknown) (unknown) (no (unknown) (unknown) mechanical fall at (units (unknown) date) her assisted living unknown) residence with history of frequent falls, (unknown) (no (unknown) (unknown) medicine as needed (units (unknown) date) for her pain, unknown) encourage hydration, she needs extra (unknown) (no (unknown) (unknown) mild improvement in (units (unknown) date) angulation, patient unknown) remains neurovascularly intact following (unknown) (no (unknown) (unknown) millimeters.? (units ( unknown) date) Otherwise normal unknown) alignment.? Degenerative changes.? No acute soft (unknown) (no (unknown) (unknown) morphine AdvReac (units (unknown) date) Severe Vomiting unknown) Verified 04/07/22 13:08 (unknown) (no (unknown) (unknown) motion and no (units ( unknown) date) deficit, normal range unknown) of motion of her right elbow without (unknown) (no (unknown) (unknown) needed with food and (uni ts (unknown) date) water. She can keep unknown) her arm in a sling to help keep it (unknown) (no (unknown) (unknown) normal sensation to (unit s (unknown) date) her fingers, can unknown) wiggle all fingers with normal range of (unknown) (no (unknown) (unknown) numbness or (units (un known) date) tingling, she is unknown) ambulatory, without new weakness or unilateral (unknown) (no (unknown) (unknown) observation and (units (unknown) date) support for risk of unknown) falls. (unknown) (no (unknown) (unknown) of today's note if (units (unknown) date) your PCP is in our unknown) system (unknown) (no (unknown) (unknown) paravertebral (units ( unknown) date) unknown) (unknown) (no (unknown) (unknown) patient (units (unkno wn) date) unknown) (unknown) (no (unknown) (unknown) periventricular and (unit s (unknown) date) deep white matter unknown) chronic small vessel ischemic changes.? (unknown) (no (unknown) (unknown) persistent vomiting (unit s (unknown) date) or other bothersome unknown) symptoms]. (unknown) (no (unknown) (unknown) reduction, the (units (unknown) date) following was used:? unknown) automated exposure control.? (unknown) (no (unknown) (unknown) respiratory symptoms (uni ts (unknown) date) of illness, she has unknown) generalized weakness, and (unknown) (no (unknown) (unknown) rib (units (unkno wn) date) unknown) (unknown) (no (unknown) (unknown) right forearm is (units (unknown) date) deformed, she is able unknown) to move all of her fingers, denies (unknown) (no (unknown) (unknown) right radius (units (u nknown) date) diaphysis.? Ulna is unknown) intact. (unknown) (no (unknown) (unknown) size.? (units (unkno wn) date) unknown) (unknown) (no (unknown) (unknown) spine.? Sagittal and (uni ts (unknown) date) coronal reformats unknown) were then constructed.? For radiation (unknown) (no (unknown) (unknown) spine.? (units (unkno wn) date) unknown) (unknown) (no (unknown) (unknown) splint (units (unkno wn) date) unknown) (unknown) (no (unknown) (unknown) splint, fingertips (units (unknown) date) warm unknown) (unknown) (no (unknown) (unknown) suspicious (units (unk nown) date) unknown) (unknown) (no (unknown) (unknown) the deformity is. No (uni ts (unknown) date) tenderness to her unknown) spine with palpation, (unknown) (no (unknown) (unknown) the last few weeks, (units (unknown) date) increased weakness, unknown) history of dementia, today fell down and (unknown) (no (unknown) (unknown) the (units (unkno wn) date) unknown) (unknown) (no (unknown) (unknown) thoracic (units (unkno wn) date) unknown) (unknown) (no (unknown) (unknown) tissue (units (unkno wn) date) unknown) (unknown) (no (unknown) (unknown) to the (units (unkno wn) date) unknown) (unknown) (no (unknown) (unknown) tone. Deformity to (units (unknown) date) right forearm over unknown) the distal ulna proximally, patient with (unknown) (no (unknown) (unknown) used:? automated (units (unknown) date) exposure control.? unknown) (unknown) (no (unknown) (unknown) ventricles are (units (unknown) date) symmetric in size and unknown) shape.? (unknown) (no (unknown) (unknown) vertex, with coronal (uni ts (unknown) date) and sagittal unknown) reformats.? For radiation dose reduction, the (unknown) (no (unknown) (unknown) vomiting, and (units ( unknown) date) presents to the unknown) emergency department for complaint of right (unknown) (no (unknown) (unknown) was used:? automated (uni ts (unknown) date) exposure control, unknown) adjustment of mA and/or kV according to (unknown) (no (unknown) (unknown) was (units (unkno wn) date) unknown) (unknown) (no (unknown) (unknown) weaker because she (units (unknown) date) does not practice any unknown) physical exercise. (unknown) (no (unknown) (unknown) weakness. She is (units (unknown) date) pleasant, normal unknown) phonation, talkative, A+O times 1-3 but (unknown) (no (unknown) (unknown) with significant (units (unknown) date) displacement. Sunday unknown) morning, please call for follow-up with S (unknown) (no (unknown) (unknown) worst of all of her (unit s (unknown) date) problems. She does unknown) not have any open wounds or abrasion, Result panel 63 (unknown) (no (unknown) (unknown) (no value) (units (unk nown) date) unknown) (unknown) (no (unknown) (unknown) <Electronically (units (unknown) date) signed by Pati Leach unknown) [facility] Crew> (unknown) (no (unknown) (unknown) ADDENDUM (units (u nknown) date) unknown) (unknown) (no (unknown) (unknown) *If you do not have (unit s (unknown) date) a primary care unknown) provider please contact [phone] to (unknown) (no (unknown) (unknown) *Please continue to (unit s (unknown) date) take your regular unknown) medications as directed. (unknown) (no (unknown) (unknown) *Please follow up (units (unknown) date) with your primary unknown) care provider in 2-3 days, call for an (unknown) (no (unknown) (unknown) *Return to Emergency (uni ts (unknown) date) Department if you unknown) should have any new, worsening, or (unknown) (no (unknown) (unknown) *What to do: (units (u nknown) date) unknown) (unknown) (no (unknown) (unknown) *You have been (units (unknown) date) diagnosed with a unknown) fracture of the ulnar bone in your right arm (unknown) (no (unknown) (unknown) [id number] (units (unkno wn) date) unknown) (unknown) (no (unknown) (unknown) 1. Fracture of the (units (unknown) date) distal 3rd of the unknown) ulna diaphysis with displacement and (unknown) (no (unknown) (unknown) 04/07/22 13:00 (units (unknown) date) unknown) (unknown) (no (unknown) (unknown) 04/07/22 13:15 (units (unknown) date) unknown) (unknown) (no (unknown) (unknown) 04/07/22 13:20 (units (unknown) date) unknown) (unknown) (no (unknown) (unknown) 04/07/22 1945 (units ( unknown) date) unknown) (unknown) (no (unknown) (unknown) 04/07/228 (units ( unknown) date) unknown) (unknown) (no (unknown) (unknown) 04/07/22 (units (unkno wn) date) unknown) (unknown) (no (unknown) (unknown) 13:09 04/07/22 (units (unknown) date) unknown) (unknown) (no (unknown) (unknown) 18:58 (units (unkno wn) date) unknown) (unknown) (no (unknown) (unknown) 2. 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 (unknown) (no (unknown) (unknown) ? (units (unkno wn) date) unknown) (unknown) (no (unknown) (unknown) Accidentally saved (units (unknown) date) note prior to unknown) finishing MDM, continue where left off: (unknown) (no (unknown) (unknown) Acetaminophen (units ( unknown) date) (Acetaminophen 325 Mg unknown) Tablet) 650 mg PO NOW ONE (unknown) (no (unknown) (unknown) Activity (units (unkno wn) date) Restrictions/Addition unknown) al Instructions: (unknown) (no (unknown) (unknown) Addendum Documented (unit s (unknown) date) By: Pati WALTON unknown) Crew (unknown) (no (unknown) (unknown) Addendum Signed By: (unit s (unknown) date) <Electronically unknown) signed by Pati WALTON C (unknown) (no (unknown) (unknown) Additional Comments: (uni ts (unknown) date) unknown) (unknown) (no (unknown) (unknown) Age/Sex: 82 / F (units (unknown) date) unknown) (unknown) (no (unknown) (unknown) Allergies (units (unkn own) date) unknown) (unknown) (no (unknown) (unknown) Allergy/AdvReac Type (uni ts (unknown) date) Severity Reaction unknown) Status Date / Time (unknown) (no (unknown) (unknown) Approved by: Shmuel (unit s (unknown) date) Carol Ann Marks on unknown) 04/07/2022 at 14:35 ? (unknown) (no (unknown) (unknown) Approved by: Shmuel (unit s (unknown) date) Carol Ann Marks on unknown) 04/07/2022 at 14:37 ? (unknown) (no (unknown) (unknown) Approved by: Bryce (units (unknown) date) Carol Ann Segura on unknown) 04/07/2022 at 13:53 ? (unknown) (no (unknown) (unknown) Approved by: Bryce (units (unknown) date) Carol Ann Segura on unknown) 04/07/2022 at 13:58 ? (unknown) (no (unknown) (unknown) Approved by: Bryce (units (unknown) date) Carol Ann Segura on unknown) 04/07/2022 at 14:01 ? (unknown) (no (unknown) (unknown) Approved by: Bryce (units (unknown) date) Carol Ann Segura on unknown) 04/07/2022 at 14:03 ? (unknown) (no (unknown) (unknown) Blood Pressure (units (unknown) date) 116/59 L 04/07/22 unknown) 13:09 (unknown) (no (unknown) (unknown) Blood Pressure (units (unknown) date) 116/59 L 120/60 unknown) (unknown) (no (unknown) (unknown) Bones:? Fracture of (unit s (unknown) date) the distal 3rd of the unknown) ulna diaphysis with displacement and (unknown) (no (unknown) (unknown) Bones:? No fracture (unit s (unknown) date) or dislocation.? unknown) Visualized superior ribs are intact.? (unknown) (no (unknown) (unknown) Bones:? There is a (units (unknown) date) mildly displaced unknown) fracture of 1 bone with of the distal 3rd of (unknown) (no (unknown) (unknown) Brain:? No (units (unk nown) date) intracranial bleeds unknown) or masses.? There is moderate cerebral volume (unknown) (no (unknown) (unknown) [facility], CT unknown) THORACIC SPINE WO CON, 04/07/2022, 13:24. (unknown) (no (unknown) (unknown) COMPARISON:? None. (units (unknown) date) unknown) (unknown) (no (unknown) (unknown) CSF spaces:? Basal (units (unknown) date) cisterns are patent.? unknown) No extra-axial fluid collections.? The (unknown) (no (unknown) (unknown) CT - cervical spine: (uni ts (unknown) date) unknown) (unknown) (no (unknown) (unknown) CT cervical spine wo (uni ts (unknown) date) con Stat unknown) (unknown) (no (unknown) (unknown) CT head/brain wo con (uni ts (unknown) date) Stat unknown) (unknown) (no (unknown) (unknown) CT lumbar spine wo (units (unknown) date) con Stat unknown) (unknown) (no (unknown) (unknown) CT scan - head: (units (unknown) date) unknown) (unknown) (no (unknown) (unknown) CT thoracic spine wo (uni ts (unknown) date) con Stat unknown) (unknown) (no (unknown) (unknown) Chief Complaint: (units (unknown) date) Extremity Injury, unknown) Upper (unknown) (no (unknown) (unknown) Clinical Impression: (uni ts (unknown) date) unknown) (unknown) (no (unknown) (unknown) Consulted with ED (units (unknown) date) attending Dr. Carlson unknown) who is concerned about reduction in the (unknown) (no (unknown) (unknown) Course (units (unkno wn) date) unknown) (unknown) (no (unknown) (unknown) : 1940 (units (unknown) date) Acct:[id number] unknown) (unknown) (no (unknown) (unknown) Date of Service: (units (unknown) date) 04/07/22 unknown) (unknown) (no (unknown) (unknown) Departure (units (unkn own) date) unknown) (unknown) (no (unknown) (unknown) Dictated by: Shmuel (unit s (unknown) date) Carol Ann Marsk on unknown) 04/07/2022 at 14:34 ? ? (unknown) (no (unknown) (unknown) Dictated by: Shmuel (unit s (unknown) date) Carol Ann Marks on unknown) 04/07/2022 at 14:35 ? ? (unknown) (no (unknown) (unknown) Dictated by: Bryce (units (unknown) date) Carol Ann Segura on unknown) 04/07/2022 at 13:52 ? ? (unknown) (no (unknown) (unknown) Dictated by: Bryce (units (unknown) date) Carol Ann Segura on unknown) 04/07/2022 at 13:56 ? ? (unknown) (no (unknown) (unknown) Dictated by: Bryce (units (unknown) date) Carol Ann Segura on unknown) 04/07/2022 at 13:58 ? ? (unknown) (no (unknown) (unknown) Dictated by: Bryce (units (unknown) date) Carol Ann Segura on unknown) 04/07/2022 at 14:01 ? ? (unknown) (no (unknown) (unknown) Discharge Plan (units (unknown) date) unknown) (unknown) (no (unknown) (unknown) Discontinued (units (u nknown) date) Medications unknown) (unknown) (no (unknown) (unknown) ED Orders (units (unkn own) date) unknown) (unknown) (no (unknown) (unknown) ER Physician: (units ( unknown) date) Pati Galeano unknown) (unknown) (no (unknown) (unknown) Emergency Report (units (unknown) date) unknown) (unknown) (no (unknown) (unknown) Exam Narrative: (units (unknown) date) unknown) (unknown) (no (unknown) (unknown) Exam (units (unkno wn) date) unknown) (unknown) (no (unknown) (unknown) Extremity x-ray #1: (unit s (unknown) date) unknown) (unknown) (no (unknown) (unknown) Extremity x-ray #2: (unit s (unknown) date) unknown) (unknown) (no (unknown) (unknown) FINDINGS:? (units (unk nown) date) unknown) (unknown) (no (unknown) (unknown) For pain, please (units (unknown) date) give her Tylenol 650 unknown) mg with ibuprofen 400 mg every 6 hours as (unknown) (no (unknown) (unknown) Fracture, ulna, (units (unknown) date) distal unknown) (unknown) (no (unknown) (unknown) General (units (unkno wn) date) unknown) (unknown) (no (unknown) (unknown) General: (units (unkno wn) date) cooperative, unknown) comfortable, in no acute distress, well groomed (unknown) (no (unknown) (unknown) HEENT: symmetrical (units (unknown) date) facial expressions, unknown) moist mucous membranes (unknown) (no (unknown) (unknown) HPI - Extremity (units (unknown) date) Injury (Upper) unknown) (unknown) (no (unknown) (unknown) HPI narrative: (units (unknown) date) unknown) (unknown) (no (unknown) (unknown) History of Present (units (unknown) date) Illness unknown) (unknown) (no (unknown) (unknown) IMPRESSION:? Mildly (unit s (unknown) date) displaced fracture unknown) and angulation of the distal 3rd of the (unknown) (no (unknown) (unknown) IMPRESSION:? No CT (units (unknown) date) evidence of acute unknown) traumatic cervical spine injury. (unknown) (no (unknown) (unknown) IMPRESSION:? No CT (units (unknown) date) evidence of acute unknown) traumatic injury in the lumbar spine. (unknown) (no (unknown) (unknown) IMPRESSION:? No CT (units (unknown) date) evidence of acute unknown) traumatic thoracic spine injury. (unknown) (no (unknown) (unknown) IMPRESSION:? No (units (unknown) date) acute intracranial unknown) finding. (unknown) (no (unknown) (unknown) IMPRESSION:? (units (u nknown) date) unknown) (unknown) (no (unknown) (unknown) INDICATIONS: (units (u nknown) date) fall/pain unknown) (unknown) (no (unknown) (unknown) INDICATIONS:? FALL (units (unknown) date) unknown) (unknown) (no (unknown) (unknown) INDICATIONS:? S (units (unknown) date) unknown) (unknown) (no (unknown) (unknown) INDICATIONS:? fall, (unit s (unknown) date) back pain, dementia unknown) (unknown) (no (unknown) (unknown) INDICATIONS:? (units ( unknown) date) fall/pain unknown) (unknown) (no (unknown) (unknown) Ibuprofen (Ibuprofen (uni ts (unknown) date) 400 Mg Tablet) 400 mg unknown) PO NOW ONE (unknown) (no (unknown) (unknown) Image quality:? (units (unknown) date) Excellent.? unknown) (unknown) (no (unknown) (unknown) Imaging Data (units (u nknown) date) unknown) (unknown) (no (unknown) (unknown) Initial Vital Signs (unit s (unknown) date) unknown) (unknown) (no (unknown) (unknown) Initial Vital Signs: (uni ts (unknown) date) unknown) (unknown) (no (unknown) (unknown) Injury #1: (units (unk nown) date) unknown) (unknown) (no (unknown) (unknown) Instructions: (units ( unknown) date) Forearm Fracture unknown) (unknown) (no (unknown) (unknown) [facility] [address] (uni ts (unknown) date) [address] [place] [address] (unknown) (no (unknown) (unknown) Ivone Donald MD (units (unknown) date) [Primary Care unknown) Provider] (unknown) (no (unknown) (unknown) Last Admin: 04/07/22 (uni ts (unknown) date) 17:45 Dose: 250 mg unknown) (unknown) (no (unknown) (unknown) Last Admin: 04/07/22 (uni ts (unknown) date) 17:45 Dose: 400 mg unknown) (unknown) (no (unknown) (unknown) Last Admin: 04/07/22 (uni ts (unknown) date) 17:45 Dose: 650 mg unknown) (unknown) (no (unknown) (unknown) MDM - Extremity (units (unknown) date) Injury (Upper) unknown) (unknown) (no (unknown) (unknown) MDM Narrative (units ( unknown) date) unknown) (unknown) (no (unknown) (unknown) MSK: moves all (units (unknown) date) extremities, unknown) neurovascularly intact, no focal weakness, normal (unknown) (no (unknown) (unknown) Medical decision (units (unknown) date) making narrative: unknown) (unknown) (no (unknown) (unknown) Methocarbamol (units ( unknown) date) (Methocarbamol 500 Mg unknown) Tablet) 250 mg PO NOW ONE (unknown) (no (unknown) (unknown) Mode of arrival: (units (unknown) date) Wheelchair unknown) (unknown) (no (unknown) (unknown) Narrative (units (unkn own) date) unknown) (unknown) (no (unknown) (unknown) Neuro: normal speech (uni ts (unknown) date) and cognition, A+O unknown) x1-3, history of dementia, ambulatory, (unknown) (no (unknown) (unknown) Noncontrast 3 mm (units (unknown) date) thick sections unknown) acquired from the T12 level to the sacrum.? (unknown) (no (unknown) (unknown) Noncontrast 3 mm (units (unknown) date) thick sections unknown) acquired from the skull base to the T4 level.? (unknown) (no (unknown) (unknown) Noncontrast 3 mm (units (unknown) date) thick sections unknown) acquired through the region of interest in the (unknown) (no (unknown) (unknown) Noncontrast 4.5 mm (units (unknown) date) thick angled axial unknown) sections acquired from the foramen magnum (unknown) (no (unknown) (unknown) Jorge Camarena MD (unit s (unknown) date) [Physician] unknown) (unknown) (no (unknown) (unknown) Ordered: (units (unkno wn) date) unknown) (unknown) (no (unknown) (unknown) Orders (units (unkno wn) date) unknown) (unknown) (no (unknown) (unknown) Orthopedic (units (unk nown) date) Splinting/Casting unknown) (unknown) (no (unknown) (unknown) Oxygen Delivery (units (unknown) date) Method 04/07/22 13:09 unknown) (unknown) (no (unknown) (unknown) Oxygen Delivery (units (unknown) date) Method Room Air Room unknown) Air (unknown) (no (unknown) (unknown) PROCEDURE:? CT (units (unknown) date) CERVICAL SPINE WO CON unknown) (unknown) (no (unknown) (unknown) PROCEDURE:? CT (units (unknown) date) HEAD/BRAIN WO CON unknown) (unknown) (no (unknown) (unknown) PROCEDURE:? CT (units (unknown) date) LUMBAR SPINE WO CON unknown) (unknown) (no (unknown) (unknown) PROCEDURE:? CT (units (unknown) date) THORACIC SPINE WO CON unknown) (unknown) (no (unknown) (unknown) PROCEDURE:? XR (units (unknown) date) FOREARM RT 2V unknown) (unknown) (no (unknown) (unknown) PROCEDURE:? XR WRIST (uni ts (unknown) date) RT MIN 3V unknown) (unknown) (no (unknown) (unknown) Patient Disposition: (uni ts (unknown) date) Home unknown) (unknown) (no (unknown) (unknown) Patient History (units (unknown) date) unknown) (unknown) (no (unknown) (unknown) Patient has been (units (unknown) date) given strict return unknown) to ER precautions for any new or worsening (unknown) (no (unknown) (unknown) Patient is (units (unk nown) date) appropriate and unknown) amenable to discharge home. Vital signs are stable (unknown) (no (unknown) (unknown) Patient: (units (unkno wn) date) Sheila Marley MR#: unknown) M0 (unknown) (no (unknown) (unknown) Placed by: Provider (unit s (unknown) date) unknown) (unknown) (no (unknown) (unknown) Post splinting neuro (uni ts (unknown) date) exam: intact and no unknown) change (unknown) (no (unknown) (unknown) Post splinting (units (unknown) date) vascular exam: intact unknown) (unknown) (no (unknown) (unknown) Procedures (units (unk nown) date) unknown) (unknown) (no (unknown) (unknown) Psych: mental status (uni ts (unknown) date) is grossly normal unknown) with history of dementia, wants to go (unknown) (no (unknown) (unknown) Pulled traction on (units (unknown) date) the ulnar aspect unknown) while applying splint with improved pain, (unknown) (no (unknown) (unknown) Pulse Oximetry 97 (units (unknown) date) 04/07/22 13:09 unknown) (unknown) (no (unknown) (unknown) Pulse Oximetry 97 97 (uni ts (unknown) date) unknown) (unknown) (no (unknown) (unknown) Pulse Rate 64 (units ( unknown) date) 04/07/22 13:09 unknown) (unknown) (no (unknown) (unknown) Pulse Rate 64 70 (units (unknown) date) unknown) (unknown) (no (unknown) (unknown) ROS Unobtainable: All (uni ts (unknown) date) systems reviewed + unknown) are unremarkable except as noted in HPI (unknown) (no (unknown) (unknown) Radiologist's (units ( unknown) date) Impression: unknown) (unknown) (no (unknown) (unknown) Referrals: (units (unk nown) date) unknown) (unknown) (no (unknown) (unknown) Related Data (units (u nknown) date) unknown) (unknown) (no (unknown) (unknown) Respiratory Rate 18 (unit s (unknown) date) 04/07/22 13:09 unknown) (unknown) (no (unknown) (unknown) Respiratory Rate 18 (unit s (unknown) date) 16 unknown) (unknown) (no (unknown) (unknown) Review of Systems (units (unknown) date) unknown) (unknown) (no (unknown) (unknown) Reviewed vitals (units (unknown) date) signs and nursing unknown) notes. (unknown) (no (unknown) (unknown) Sagittal and (units (u nknown) date) unknown) (unknown) (no (unknown) (unknown) Sagittal (units (unkno wn) date) unknown) (unknown) (no (unknown) (unknown) Scaphoid view:? No (units (unknown) date) fracture identified unknown) (unknown) (no (unknown) (unknown) She was splinted in (unit s (unknown) date) a sugar-tong splint unknown) accordingly, patient has history of (unknown) (no (unknown) (unknown) Side: right (units (un known) date) unknown) (unknown) (no (unknown) (unknown) Signed By: (units (unk nown) date) unknown) (unknown) (no (unknown) (unknown) Sinuses:? Visualized (uni ts (unknown) date) sinuses and mastoids unknown) are clear.? (unknown) (no (unknown) (unknown) [facility] (units (unkn own) date) [facility] [Provider unknown) Group] (unknown) (no (unknown) (unknown) Skin: brisk (units (un known) date) capillary refill, unknown) without pallor or erythema (unknown) (no (unknown) (unknown) Skull and face:? (units (unknown) date) Calvarium and unknown) visualized facial bones appear intact, without (unknown) (no (unknown) (unknown) Smoking Status: (units (unknown) date) Never smoker unknown) (unknown) (no (unknown) (unknown) Social History (units (unknown) date) (Reviewed 04/07/22 @ unknown) 19:18 by Pati Galeano [facility]) (unknown) (no (unknown) (unknown) Soft tissues:? No (units (unknown) date) suspicious soft unknown) tissue calcifications or masses.? (unknown) (no (unknown) (unknown) Soft tissues:? No (units (unknown) date) suspicious soft unknown) tissue calcifications.? (unknown) (no (unknown) (unknown) Soft tissues:? (units (unknown) date) Prevertebral soft unknown) tissues are normal in thickness.? No (unknown) (no (unknown) (unknown) Source: patient (units (unknown) date) unknown) (unknown) (no (unknown) (unknown) Stated Complaint: (units (unknown) date) fall today, back unknown) pain,R arm injury, dementia (unknown) (no (unknown) (unknown) Stop: 04/07/22 17:36 (uni ts (unknown) date) unknown) (unknown) (no (unknown) (unknown) Substance Use Type: (unit s (unknown) date) does not use unknown) (unknown) (no (unknown) (unknown) TECHNIQUE:? 2 views (unit s (unknown) date) of the forearm were unknown) acquired.? (unknown) (no (unknown) (unknown) TECHNIQUE:? 4 views (unit s (unknown) date) of the wrist were unknown) acquired.? (unknown) (no (unknown) (unknown) TECHNIQUE:? (units (un known) date) unknown) (unknown) (no (unknown) (unknown) Temperature 98.2 F (units (unknown) date) 04/07/22 13:09 unknown) (unknown) (no (unknown) (unknown) Temperature 98.2 F (units (unknown) date) unknown) (unknown) (no (unknown) (unknown) There is (units (unkno wn) date) unknown) (unknown) (no (unknown) (unknown) This is a (units (unkn own) date) 82-year-old female unknown) who is brought into the emergency department by (unknown) (no (unknown) (unknown) This is an (units (unk nown) date) 82-year-old female unknown) who presents to the emergency department after a (unknown) (no (unknown) (unknown) Thoracic and (units (u nknown) date) thoracolumbar unknown) S-shaped scoliosis.? No listhesis in the thoracic (unknown) (no (unknown) (unknown) Time Seen by (units (u nknown) date) Provider: 04/07/22 unknown) 13:00 (unknown) (no (unknown) (unknown) Upper Extremity (units (unknown) date) Immobilizer: unknown) sling/shoulder immobilizer and sugar tong (unknown) (no (unknown) (unknown) Upper Extremity (units (unknown) date) Injury Location: unknown) forearm (unknown) (no (unknown) (unknown) Vertebral body (units (unknown) date) heights maintained.? 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 unknown) No acute fracture.? Remote right posterior (unknown) (no (unknown) (unknown) Vital Signs - 8 hr (units (unknown) date) unknown) (unknown) (no (unknown) (unknown) Vital Signs (units (un known) date) unknown) (unknown) (no (unknown) (unknown) Vital signs: (units (u nknown) date) unknown) (unknown) (no (unknown) (unknown) XR forearm RT 2V (units (unknown) date) Stat unknown) (unknown) (no (unknown) (unknown) XR wrist RT min 3V (units (unknown) date) Stat unknown) (unknown) (no (unknown) (unknown) [ ] New medication (units (unknown) date) prescriptions sent to unknown) your pharmacy: [ ] (unknown) (no (unknown) (unknown) [ ] New medication (units (unknown) date) written as a paper unknown) prescription (unknown) (no (unknown) (unknown) [x ] No new (units (un known) date) medications given unknown) (unknown) (no (unknown) (unknown) able, this may be (units (unknown) date) treated surgically unknown) with a plate. Please give her pain (unknown) (no (unknown) (unknown) abnormality. (units (u nknown) date) unknown) (unknown) (no (unknown) (unknown) acute abnormality, (units (unknown) date) x-ray of her right unknown) forearm, right wrist shows a closed, (unknown) (no (unknown) (unknown) age, with resultant (unit s (unknown) date) ventricular and unknown) sulcal prominence.? There are moderate (unknown) (no (unknown) (unknown) and below (units (unkn own) date) unknown) (unknown) (no (unknown) (unknown) and coronal (units (un known) date) reformats were then unknown) constructed.? For radiation dose reduction, the (unknown) (no (unknown) (unknown) and good historian (units (unknown) date) for the patient. unknown) Patient had a deformity of her distal right (unknown) (no (unknown) (unknown) angulation. (units (un known) date) unknown) (unknown) (no (unknown) (unknown) angulation.? Severe (unit s (unknown) date) degenerative changes unknown) of the 1st metacarpophalangeal joint. (unknown) (no (unknown) (unknown) appointment. Let them (uni ts (unknown) date) know you were seen in unknown) the Emergency Department and that we (unknown) (no (unknown) (unknown) asked that you be (units (unknown) date) seen for follow-up. unknown) We will electronically transmit a record (unknown) (no (unknown) (unknown) caregiver understand (uni ts (unknown) date) to treat her pain unknown) with Tylenol and ibuprofen, did not (unknown) (no (unknown) (unknown) changes, patient's (units (unknown) date) daughter states that unknown) her last urine was negative for (unknown) (no (unknown) (unknown) changes. Dr. Camarena (units (unknown) date) states that she may unknown) need a plate for surgical fixation of (unknown) (no (unknown) (unknown) clear speech (units (u nknown) date) unknown) (unknown) (no (unknown) (unknown) complains back pain, (unit s (unknown) date) hip and leg pain, unknown) right forearm pain and states this is the (unknown) (no (unknown) (unknown) concerning symptoms, (uni ts (unknown) date) such as [fever unknown) greater than 101F, chills, worsening pain, (unknown) (no (unknown) (unknown) coronal reformats (units (unknown) date) were constructed.? unknown) For radiation dose reduction, the following (unknown) (no (unknown) (unknown) ct lumbar: (units (unk nown) date) unknown) (unknown) (no (unknown) (unknown) ct thoracic: (units (u nknown) date) unknown) (unknown) (no (unknown) (unknown) daughter denies any (unit s (unknown) date) abnormal behavior, unknown) states that she thinks she is getting (unknown) (no (unknown) (unknown) deconditioning. She (unit s (unknown) date) is not in physical unknown) therapy at this time. Patient's (unknown) (no (unknown) (unknown) deficit, tenderness (unit s (unknown) date) to palpation. unknown) Complains of pain at her right forearm where (unknown) (no (unknown) (unknown) dementia, she is not (uni ts (unknown) date) anticoagulated, did unknown) not hit her head, have any episodes of (unknown) (no (unknown) (unknown) displaced ulnar (units (unknown) date) fracture of the unknown) distal 3rd with displacement and angulation. (unknown) (no (unknown) (unknown) dose (units (unkno wn) date) unknown) (unknown) (no (unknown) (unknown) elevated, have her (units (unknown) date) elevate it unknown) frequently. (unknown) (no (unknown) (unknown) emergency department (uni ts (unknown) date) with success, unknown) consulted with Dr. Camarena who is orthopedic (unknown) (no (unknown) (unknown) establish care with [facility]unit [facility] ([facility]) [facility]. (unknown) (no (unknown) (unknown) facility. Her (units ( unknown) date) primary care provider unknown) is Dr. Kirk Villasenor. Denies any urinary (unknown) (no (unknown) (unknown) family member and (units (unknown) date) caregiver who states unknown) that patient has had increased falls over (unknown) (no (unknown) (unknown) following (units (unkn own) date) unknown) (unknown) (no (unknown) (unknown) forearm pain, back (units (unknown) date) pain, leg pain with a unknown) family member who is also a caregiver (unknown) (no (unknown) (unknown) forearm, was found (units (unknown) date) to have a fractured unknown) ulna with significant displacement (unknown) (no (unknown) (unknown) forgetful, easily (units (unknown) date) directable. Patient unknown) has not had any pain medication prior to (unknown) (no (unknown) (unknown) fractures noted. (units (unknown) date) unknown) (unknown) (no (unknown) (unknown) hematomas.? No (units (unknown) date) apical unknown) pneumothoraces.? (unknown) (no (unknown) (unknown) her arrival. She is (unit s (unknown) date) right-hand dominant, unknown) lives at [facility] assisted living (unknown) (no (unknown) (unknown) her with ADLs, safe (unit s (unknown) date) transfers and unknown) increase observation. Patient and her (unknown) (no (unknown) (unknown) home, congruent (units (unknown) date) mood, normal affect, unknown) pleasant and cooperative (unknown) (no (unknown) (unknown) infection and it was (uni ts (unknown) date) within the last week. unknown) She has not had any upper (unknown) (no (unknown) (unknown) instructed. Patient (unit s (unknown) date) understands plan and unknown) agrees to discharge home. All (unknown) (no (unknown) (unknown) intracranial (units (u nknown) date) internal carotid unknown) artery atherosclerosis.? (unknown) (no (unknown) (unknown) [facility] as (uni ts (unknown) date) soon as possible. unknown) Please have her seen as soon as they are (unknown) (no (unknown) (unknown) left ulna. (units (unk nown) date) unknown) (unknown) (no (unknown) (unknown) lesions.? (units (unkn own) date) unknown) (unknown) (no (unknown) (unknown) loss for (units (unkno wn) date) unknown) (unknown) (no (unknown) (unknown) measuring 4 (units (un known) date) unknown) (unknown) (no (unknown) (unknown) mechanical fall at (units (unknown) date) her assisted living unknown) residence with history of frequent falls, (unknown) (no (unknown) (unknown) medicine as needed (units (unknown) date) for her pain, unknown) encourage hydration, she needs extra (unknown) (no (unknown) (unknown) mild improvement in (units (unknown) date) angulation, patient unknown) remains neurovascularly intact following (unknown) (no (unknown) (unknown) millimeters.? (units ( unknown) date) Otherwise normal unknown) alignment.? Degenerative changes.? No acute soft (unknown) (no (unknown) (unknown) morphine AdvReac (units (unknown) date) Severe Vomiting unknown) Verified 04/07/22 13:08 (unknown) (no (unknown) (unknown) motion and no (units ( unknown) date) deficit, normal range unknown) of motion of her right elbow without (unknown) (no (unknown) (unknown) needed with food and (uni ts (unknown) date) water. She can keep unknown) her arm in a sling to help keep it (unknown) (no (unknown) (unknown) normal sensation to (unit s (unknown) date) her fingers, can unknown) wiggle all fingers with normal range of (unknown) (no (unknown) (unknown) numbness or (units (un known) date) tingling, she is unknown) ambulatory, without new weakness or unilateral (unknown) (no (unknown) (unknown) observation and (units (unknown) date) support for risk of unknown) falls. (unknown) (no (unknown) (unknown) of falls, had CT (units (unknown) date) imaging of her head, unknown) C-spine, thoracic and lumbar spine without (unknown) (no (unknown) (unknown) of today's note if (units (unknown) date) your PCP is in our unknown) system (unknown) (no (unknown) (unknown) on repeat (units (unkn own) date) examination is unknown) unremarkable. Patient has been informed of results. (unknown) (no (unknown) (unknown) paravertebral (units ( unknown) date) unknown) (unknown) (no (unknown) (unknown) patient is (units (unk nown) date) neurovascularly unknown) intact. Patient had a mechanical fall with history (unknown) (no (unknown) (unknown) patient (units (unkno wn) date) unknown) (unknown) (no (unknown) (unknown) periventricular and (unit s (unknown) date) deep white matter unknown) chronic small vessel ischemic changes.? (unknown) (no (unknown) (unknown) persistent vomiting (unit s (unknown) date) or other bothersome unknown) symptoms]. (unknown) (no (unknown) (unknown) prescribe opiates. (units (unknown) date) She is ambulatory unknown) without focal neuro deficit or other (unknown) (no (unknown) (unknown) provider on-call who (uni ts (unknown) date) recommends sugar-tong unknown) splinting, follow-up in the clinic, (unknown) (no (unknown) (unknown) questions and (units ( unknown) date) concerns answered at unknown) this time. (unknown) (no (unknown) (unknown) reduction, the (units (unknown) date) following was used:? unknown) automated exposure control.? (unknown) (no (unknown) (unknown) respiratory symptoms (uni ts (unknown) date) of illness, she has unknown) generalized weakness, and (unknown) (no (unknown) (unknown) rew> 04/07/228 (units (unknown) date) unknown) (unknown) (no (unknown) (unknown) rib (units (unkno wn) date) unknown) (unknown) (no (unknown) (unknown) right forearm is (units (unknown) date) deformed, she is able unknown) to move all of her fingers, denies (unknown) (no (unknown) (unknown) right radius (units (u nknown) date) diaphysis.? Ulna is unknown) intact. (unknown) (no (unknown) (unknown) significant (units (un known) date) abnormality. She is unknown) pleasant, interactive, without any acute mental (unknown) (no (unknown) (unknown) significant dementia (uni ts (unknown) date) but has a caregiver, unknown) lives in assisted living who can help (unknown) (no (unknown) (unknown) size.? (units (unkno wn) date) unknown) (unknown) (no (unknown) (unknown) spine.? Sagittal and (uni ts (unknown) date) coronal reformats unknown) were then constructed.? For radiation (unknown) (no (unknown) (unknown) spine.? (units (unkno wn) date) unknown) (unknown) (no (unknown) (unknown) splint (units (unkno wn) date) unknown) (unknown) (no (unknown) (unknown) splint, fingertips (units (unknown) date) warm unknown) (unknown) (no (unknown) (unknown) status changes that (unit s (unknown) date) are new. She does not unknown) new weakness, or new sensation (unknown) (no (unknown) (unknown) suspicious (units (unk nown) date) unknown) (unknown) (no (unknown) (unknown) symptoms. Patient (units (unknown) date) understands to follow unknown) up closely with outpatient providers as (unknown) (no (unknown) (unknown) the deformity is. No (uni ts (unknown) date) tenderness to her unknown) spine with palpation, (unknown) (no (unknown) (unknown) the last few weeks, (units (unknown) date) increased weakness, unknown) history of dementia, today fell down and (unknown) (no (unknown) (unknown) the (units (unkno wn) date) unknown) (unknown) (no (unknown) (unknown) this, her pain is (units (unknown) date) improved after unknown) medications given in the emergency department. (unknown) (no (unknown) (unknown) thoracic (units (unkno wn) date) unknown) (unknown) (no (unknown) (unknown) tissue (units (unkno wn) date) unknown) (unknown) (no (unknown) (unknown) to the (units (unkno wn) date) unknown) (unknown) (no (unknown) (unknown) tone. Deformity to (units (unknown) date) right forearm over unknown) the distal ulna proximally, patient with (unknown) (no (unknown) (unknown) used:? automated (units (unknown) date) exposure control.? unknown) (unknown) (no (unknown) (unknown) ventricles are (units (unknown) date) symmetric in size and unknown) shape.? (unknown) (no (unknown) (unknown) vertex, with coronal (uni ts (unknown) date) and sagittal unknown) reformats.? For radiation dose reduction, the (unknown) (no (unknown) (unknown) vomiting, and (units ( unknown) date) presents to the unknown) emergency department for complaint of right (unknown) (no (unknown) (unknown) was used:? automated (uni ts (unknown) date) exposure control, unknown) adjustment of mA and/or kV according to (unknown) (no (unknown) (unknown) was (units (unkno wn) date) unknown) (unknown) (no (unknown) (unknown) weaker because she (units (unknown) date) does not practice any unknown) physical exercise. (unknown) (no (unknown) (unknown) weakness. She is (units (unknown) date) pleasant, normal unknown) phonation, talkative, A+O times 1-3 but (unknown) (no (unknown) (unknown) with significant (units (unknown) date) displacement. Sunday unknown) morning, please call for follow-up with S (unknown) (no (unknown) (unknown) worst of all of her (unit s (unknown) date) problems. She does unknown) not have any open wounds or abrasion, Result panel 64 (unknown) (no (unknown) (unknown) (no value) (units (unk nown) date) unknown) (unknown) (no (unknown) (unknown) [id number] (units (unkno wn) date) unknown) (unknown) (no (unknown) (unknown) 04/09/22 2130 (units ( unknown) date) unknown) (unknown) (no (unknown) (unknown) 04/09/22 History (units (unknown) date) unknown) (unknown) (no (unknown) (unknown) Age/Sex: 82 / F (units (unknown) date) unknown) (unknown) (no (unknown) (unknown) Allergies (units (unkn own) date) unknown) (unknown) (no (unknown) (unknown) Allergy/AdvReac Type (uni ts (unknown) date) Severity Reaction unknown) Status Date / Time (unknown) (no (unknown) (unknown) Assessment + Plan (units (unknown) date) narrative: unknown) (unknown) (no (unknown) (unknown) Assessment + Plan (units (unknown) date) unknown) (unknown) (no (unknown) (unknown) Sheila is an (units ( unknown) date) 82-year-old woman with unknown ) a history of dementia. She lives at an (unknown) (no (unknown) (unknown) Been Physically Hurt (uni ts (unknown) date) or No unknown) (unknown) (no (unknown) (unknown) COVID-19 status: (units (unknown) date) Negative unknown) (unknown) (no (unknown) (unknown) COVID-19 (units (unkno wn) date) unknown) (unknown) (no (unknown) (unknown) Chief complaint: INPT (un its (unknown) date) DIRECT ADMIT unknown) (unknown) (no (unknown) (unknown) Critical Care time: (unit s (unknown) date) unknown) (unknown) (no (unknown) (unknown) : 1940 (units (unknown) date) Acct:[id number] unknown) (unknown) (no (unknown) (unknown) Date Patient Seen: (units (unknown) date) 04/09/22 unknown) (unknown) (no (unknown) (unknown) Date of Service: (units (unknown) date) 04/09/22 unknown) (unknown) (no (unknown) (unknown) Dementia (units (unkno wn) date) unknown) (unknown) (no (unknown) (unknown) Environment (units (un known) date) unknown) (unknown) (no (unknown) (unknown) Exam Narrative: (units (unknown) date) unknown) (unknown) (no (unknown) (unknown) Exam (units (unkno wn) date) unknown) (unknown) (no (unknown) (unknown) Failure to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 Glaucoma (units (unkno wn) date) unknown) (unknown) (no (unknown) (unknown) H/O: hysterectomy (units (unknown) date) unknown) (unknown) (no (unknown) (unknown) HEENT: moist mucous (unit s (unknown) date) membranes, PERRL unknown) (unknown) (no (unknown) (unknown) History of Present (units (unknown) date) Illness unknown) (unknown) (no (unknown) (unknown) History (units (unkno wn) date) unknown) (unknown) (no (unknown) (unknown) Home Medications and (uni ts (unknown) date) Allergies unknown) (unknown) (no (unknown) (unknown) Home Medications (units (unknown) date) unknown) (unknown) (no (unknown) (unknown) Hypercholesterolemia (uni ts (unknown) date) unknown) (unknown) (no (unknown) (unknown) Hypertension (units (u nknown) date) unknown) (unknown) (no (unknown) (unknown) Hypothyroidism (units (unknown) date) unknown) (unknown) (no (unknown) (unknown) I have utilized all (unit s (unknown) date) available resources to unknown ) reconcile the patient's home (unknown) (no (unknown) (unknown) I spent a total of [] (un its (unknown) date) minutes of critical unknown) care time on this patient's care (unknown) (no (unknown) (unknown) [facility] 1211 (uni ts (unknown) date) [address] [place] [address] [place], unknown ) [place] [id number] (unknown) (no (unknown) (unknown) Medical History (units (unknown) date) (Reviewed 04/09/22 @ unknown) 21:36 by Timothy Topete MD) (unknown) (no (unknown) (unknown) Medication (units (unk nown) date) Instructions Recorded unknown) Confirmed Type (unknown) (no (unknown) (unknown) Medicine is consulted (un its (unknown) date) to assist with unknown) management of her medical issues including (unknown) (no (unknown) (unknown) Meds (units (unkno wn) date) unknown) (unknown) (no (unknown) (unknown) Ms. Marley is an 82W (uni ts (unknown) date) with PMH dementia, unknown) HTN, hypothyroid who is a direct admit (unknown) (no (unknown) (unknown) NECK: trachea (units ( unknown) date) midline, no JVD unknown) (unknown) (no (unknown) (unknown) NEURO: awake, alert, (uni ts (unknown) date) confused unknown) (unknown) (no (unknown) (unknown) Narrative (units (unkn own) date) unknown) (unknown) (no (unknown) (unknown) Narrative: (units (unk nown) date) unknown) (unknown) (no (unknown) (unknown) PFSH (units (unkno wn) date) unknown) (unknown) (no (unknown) (unknown) PULM: clear (units (un known) date) bilaterally, no unknown) wheezes, rhonchi, rales (unknown) (no (unknown) (unknown) Patient: (units (unkno wn) date) Sheila Marley MR#: unknown) M0 (unknown) (no (unknown) (unknown) Provider: (units (unkn own) date) Timothy Topete MD unknown) (unknown) (no (unknown) (unknown) Proxy: Mauro Trivedi, (uni ts (unknown) date) daughter unknown) (unknown) (no (unknown) (unknown) Review of Systems (units (unknown) date) unknown) (unknown) (no (unknown) (unknown) Signed By: (units (unk nown) date) unknown) (unknown) (no (unknown) (unknown) Smoking Status: Never (un its (unknown) date) smoker unknown) (unknown) (no (unknown) (unknown) Surgical History (units (unknown) date) (Reviewed 04/09/22 @ unknown) 21:36 by Timothy Topete MD) (unknown) (no (unknown) (unknown) Time Patient Seen: (units (unknown) date) 23:00 unknown) (unknown) (no (unknown) (unknown) Time Spent With (units (unknown) date) Patient unknown) (unknown) (no (unknown) (unknown) Tobacco + Substance (unit s (unknown) date) Use unknown) (unknown) (no (unknown) (unknown) When I see her she is (un its (unknown) date) somewhat confused, she unknown ) is denying pain. (unknown) (no (unknown) (unknown) acetaminophen 500 mg (uni ts (unknown) date) capsule 500 mg PO Q6H unknown) PRN pain 04/09/22 04/09/22 History (unknown) (no (unknown) (unknown) after a fall. She was (un its (unknown) date) seen in the ED after a unknown ) fall on 04/07/22 and had a radial (unknown) (no (unknown) (unknown) alcohol intake: never (un its (unknown) date) unknown) (unknown) (no (unknown) (unknown) atorvastatin 40 mg (units (unknown) date) tablet 40 mg PO DAILY unknown) 04/09/22 04/09/22 History (unknown) (no (unknown) (unknown) dementia and (units (u nknown) date) hypertension. Labs at unknown) [place] largely unremarkable with WBC 7.3, (unknown) (no (unknown) (unknown) docusate sodium 100 (unit s (unknown) date) mg capsule 100 mg PO unknown) DAILY PRN Constipation 04/09/22 (unknown) (no (unknown) (unknown) hgb 13.3, creatinine (uni ts (unknown) date) 0.7. UA negative for unknown) infection. R hip imaging notable for (unknown) (no (unknown) (unknown) hydrochlorothiazide (unit s (unknown) date) 12.5 mg capsule 12.5 unknown) mg PO DAILY 04/09/22 04/09/22 History (unknown) (no (unknown) (unknown) latanoprost 0.005 % (unit s (unknown) date) eye drops 1 drp unknown) ophthalmic (eye) BEDTIME 04/09/22 04/09/22 (unknown) (no (unknown) (unknown) levothyroxine 50 mcg (uni ts (unknown) date) tablet 50 mcg PO DAILY unknown ) 04/09/22 04/09/22 History (unknown) (no (unknown) (unknown) loperamide 2 mg (units (unknown) date) capsule 2 mg PO QID unknown) PRN Diarrhea 04/09/22 04/09/22 History (unknown) (no (unknown) (unknown) medications (units (un known) date) unknown) (unknown) (no (unknown) (unknown) metoprolol succinate (uni ts (unknown) date) 25 mg capsule 25 mg PO unknown ) DAILY 04/09/22 04/09/22 History (unknown) (no (unknown) (unknown) morphine AdvReac (units (unknown) date) Severe Vomiting unknown) Verified 04/07/22 13:08 (unknown) (no (unknown) (unknown) potassium chloride 10 (un its (unknown) date) mEq 10 meq PO DAILY unknown) 04/09/22 04/09/22 History (unknown) (no (unknown) (unknown) right femoral neck (units (unknown) date) fracture. CT head with unknown ) no acute process (unknown) (no (unknown) (unknown) sennosides 8.6 mg (units (unknown) date) capsule (senna) 8.6 mg unknown ) PO DAILY PRN Constipation 04/09/22 (unknown) (no (unknown) (unknown) sertraline 50 mg (units (unknown) date) tablet 75 mg PO DAILY unknown) 04/09/22 04/09/22 History (unknown) (no (unknown) (unknown) shaft fracture. She (unit s (unknown) date) was discharged. She unknown) fell again and landed on her right hip, (unknown) (no (unknown) (unknown) she was unable to (units (unknown) date) bear weight. She unknown) presented to [facility] and was (unknown) (no (unknown) (unknown) sprinkle, ext. (units (unknown) date) release 24 hr unknown) (unknown) (no (unknown) (unknown) tablet,extended (units (unknown) date) release (Klor-Con) unknown) (unknown) (no (unknown) (unknown) timolol 0.5 % eye (units (unknown) date) drops 1 drp ophthalmic unknown ) (eye) BID 04/09/22 04/09/22 History (unknown) (no (unknown) (unknown) to dementia (units (un known) date) unknown) (unknown) (no (unknown) (unknown) today; this time is (unit s (unknown) date) exclusive of unknown) procedural time. (unknown) (no (unknown) (unknown) transferred to [place] (un its (unknown) date) [facility] and admitted unknown) to orthopedic surgery service. Result panel 67 (unknown) (no (unknown) (unknown) (no value) (units (unk nown) date) unknown) (unknown) (no (unknown) (unknown) -NPO at midnight (units (unknown) date) unknown) (unknown) (no (unknown) (unknown) -admitted to (units (u nknown) date) orthopedic surgery and unknown ) plan per them for surgery tomorrow (unknown) (no (unknown) (unknown) -ativan ordered for (unit s (unknown) date) anxiety/agitation unknown) (unknown) (no (unknown) (unknown) -continue home (units (unknown) date) medications unknown) (unknown) (no (unknown) (unknown) -continue synthroid (unit s (unknown) date) unknown) (unknown) (no (unknown) (unknown) -pain medications (units (unknown) date) ordered unknown) (unknown) (no (unknown) (unknown) -plan per orthopedic (uni ts (unknown) date) surgery unknown) (unknown) (no (unknown) (unknown) -reorient as able (units (unknown) date) unknown) (unknown) (no (unknown) (unknown) [id number] (units (unkno wn) date) unknown) (unknown) (no (unknown) (unknown) 04/09/22 2335 (units ( unknown) date) unknown) (unknown) (no (unknown) (unknown) 04/09/22 History (units (unknown) date) unknown) (unknown) (no (unknown) (unknown) 1. Right hip fracture (un its (unknown) date) unknown) (unknown) (no (unknown) (unknown) 14 systems reviewed (unit s (unknown) date) and negative aside unknown) from what is noted in HPI (unknown) (no (unknown) (unknown) 2. Right forearm (units (unknown) date) fracture unknown) (unknown) (no (unknown) (unknown) 3. Hypertension (units (unknown) date) unknown) (unknown) (no (unknown) (unknown) 4. Dementia (units (un known) date) unknown) (unknown) (no (unknown) (unknown) 5. Hypothyroidism (units (unknown) date) unknown) (unknown) (no (unknown) (unknown) ABD: soft, nontender, (un its (unknown) date) nondistended, no unknown) organomegaly, normal bowel sounds (unknown) (no (unknown) (unknown) Age/Sex: 82 / F (units (unknown) date) unknown) (unknown) (no (unknown) (unknown) Allergies (units (unkn own) date) unknown) (unknown) (no (unknown) (unknown) Allergy/AdvReac Type (uni ts (unknown) date) Severity Reaction unknown) Status Date / Time (unknown) (no (unknown) (unknown) Assessment + Plan (units (unknown) date) narrative: unknown) (unknown) (no (unknown) (unknown) Assessment + Plan (units (unknown) date) unknown) (unknown) (no (unknown) (unknown) CODE: DNR (units (unkn own) date) unknown) (unknown) (no (unknown) (unknown) CV: regular rate and (uni ts (unknown) date) rhythm, no murmurs unknown) (unknown) (no (unknown) (unknown) Chief complaint: INPT (un its (unknown) date) DIRECT ADMIT unknown) (unknown) (no (unknown) (unknown) Consult Note (units (u nknown) date) unknown) (unknown) (no (unknown) (unknown) Consult details (units (unknown) date) unknown) (unknown) (no (unknown) (unknown) Critical Care time: (unit s (unknown) date) unknown) (unknown) (no (unknown) (unknown) : 1940 (units (unknown) date) Acct:[id number] unknown) (unknown) (no (unknown) (unknown) Date Patient Seen: (units (unknown) date) 04/09/22 unknown) (unknown) (no (unknown) (unknown) Date of Service: (units (unknown) date) 04/09/22 unknown) (unknown) (no (unknown) (unknown) Dementia (units (unkno wn) date) unknown) (unknown) (no (unknown) (unknown) EXT: warm and well (units (unknown) date) perfused, no edema unknown) (unknown) (no (unknown) (unknown) Exam Narrative: (units (unknown) date) unknown) (unknown) (no (unknown) (unknown) Exam (units (unkno wn) date) unknown) (unknown) (no (unknown) (unknown) Family history: asked (uni ts (unknown) date) and patient does not unknown) recall any family, possibly secondary (unknown) (no (unknown) (unknown) GEN: slightly (units ( unknown) date) agitated unknown) (unknown) (no (unknown) (unknown) Glaucoma (units (unkno wn) date) unknown) (unknown) (no (unknown) (unknown) H/O: hysterectomy (units (unknown) date) unknown) (unknown) (no (unknown) (unknown) HEENT: moist mucous (unit s (unknown) date) membranes, PERRL unknown) (unknown) (no (unknown) (unknown) History of Present (units (unknown) date) Illness unknown) (unknown) (no (unknown) (unknown) History (units (unkno wn) date) unknown) (unknown) (no (unknown) (unknown) Home Medications and (uni ts (unknown) date) Allergies unknown) (unknown) (no (unknown) (unknown) Home Medications (units (unknown) date) unknown) (unknown) (no (unknown) (unknown) Hypercholesterolemia (uni ts (unknown) date) unknown) (unknown) (no (unknown) (unknown) Hypertension (units (u nknown) date) unknown) (unknown) (no (unknown) (unknown) Hypothyroidism (units (unknown) date) unknown) (unknown) (no (unknown) (unknown) I have utilized all (unit s (unknown) date) available resources to unknown ) reconcile the patient's home (unknown) (no (unknown) (unknown) I spent a total of [] (un its (unknown) date) minutes of critical unknown) care time on this patient's care (unknown) (no (unknown) (unknown) [facility] [address] (uni ts (unknown) date) [address] [place] [address], unknown ) [place] [id number] (unknown) (no (unknown) (unknown) Medical History (units (unknown) date) (Reviewed 04/09/22 @ unknown) 21:36 by Timothy Topete MD) (unknown) (no (unknown) (unknown) Medication (units (unk nown) date) Instructions Recorded unknown) Confirmed Type (unknown) (no (unknown) (unknown) Medicine is consulted (un its (unknown) date) to assist with unknown) management of her medical issues including (unknown) (no (unknown) (unknown) Meds (units (unkno wn) date) unknown) (unknown) (no (unknown) (unknown) Ms. Marley is an 82W (uni ts (unknown) date) with PMH dementia, unknown) HTN, hypothyroid who is a direct admit (unknown) (no (unknown) (unknown) NECK: trachea (units ( unknown) date) midline, no JVD unknown) (unknown) (no (unknown) (unknown) NEURO: awake, alert, (uni ts (unknown) date) confused unknown) (unknown) (no (unknown) (unknown) Narrative (units (unkn own) date) unknown) (unknown) (no (unknown) (unknown) Narrative: (units (unk nown) date) unknown) (unknown) (no (unknown) (unknown) PFSH (units (unkno wn) date) unknown) (unknown) (no (unknown) (unknown) PULM: clear (units (un known) date) bilaterally, no unknown) wheezes, rhonchi, rales (unknown) (no (unknown) (unknown) Patient: (units (unkno wn) date) Sheila Marley MR#: unknown) M0 (unknown) (no (unknown) (unknown) Provider: (units (unkn own) date) Timothy Topete MD unknown) (unknown) (no (unknown) (unknown) Proxy: Mauro Trivedi, (uni ts (unknown) date) daughter unknown) (unknown) (no (unknown) (unknown) Review of Systems (units (unknown) date) unknown) (unknown) (no (unknown) (unknown) Signed (units (unkno wn) date) By:<Electronically unknown) signed by Timothy Topete MD> (unknown) (no (unknown) (unknown) Smoking Status: Never (un its (unknown) date) smoker unknown) (unknown) (no (unknown) (unknown) Surgical History (units (unknown) date) (Reviewed 04/09/22 @ unknown) 21:36 by Timothy Topete MD) (unknown) (no (unknown) (unknown) Time Patient Seen: (units (unknown) date) 23:00 unknown) (unknown) (no (unknown) (unknown) Time Spent With (units (unknown) date) Patient unknown) (unknown) (no (unknown) (unknown) Tobacco + Substance (unit s (unknown) date) Use unknown) (unknown) (no (unknown) (unknown) When I see her she is (un its (unknown) date) somewhat confused, she unknown ) is denying pain. (unknown) (no (unknown) (unknown) acetaminophen 500 mg (uni ts (unknown) date) capsule 500 mg PO Q6H unknown) PRN pain 04/09/22 04/09/22 History (unknown) (no (unknown) (unknown) after a fall. She was (un its (unknown) date) seen in the ED after a unknown ) fall on 04/07/22 and had a radial (unknown) (no (unknown) (unknown) alcohol intake: never (un its (unknown) date) unknown) (unknown) (no (unknown) (unknown) atorvastatin 40 mg (units (unknown) date) tablet 40 mg PO DAILY unknown) 04/09/22 04/09/22 History (unknown) (no (unknown) (unknown) dementia and (units (u nknown) date) hypertension. Labs at unknown) [place] largely unremarkable with WBC 7.3, (unknown) (no (unknown) (unknown) docusate sodium 100 (unit s (unknown) date) mg capsule 100 mg PO unknown) DAILY PRN Constipation 04/09/22 (unknown) (no (unknown) (unknown) hgb 13.3, creatinine (uni ts (unknown) date) 0.7. UA negative for unknown) infection. R hip imaging notable for (unknown) (no (unknown) (unknown) hydrochlorothiazide (unit s (unknown) date) 12.5 mg capsule 12.5 unknown) mg PO DAILY 04/09/22 04/09/22 History (unknown) (no (unknown) (unknown) latanoprost 0.005 % (unit s (unknown) date) eye drops 1 drp unknown) ophthalmic (eye) BEDTIME 04/09/22 04/09/22 (unknown) (no (unknown) (unknown) levothyroxine 50 mcg (uni ts (unknown) date) tablet 50 mcg PO DAILY unknown ) 04/09/22 04/09/22 History (unknown) (no (unknown) (unknown) loperamide 2 mg (units (unknown) date) capsule 2 mg PO QID unknown) PRN Diarrhea 04/09/22 04/09/22 History (unknown) (no (unknown) (unknown) medications (units (un known) date) unknown) (unknown) (no (unknown) (unknown) metoprolol succinate (uni ts (unknown) date) 25 mg capsule 25 mg PO unknown ) DAILY 04/09/22 04/09/22 History (unknown) (no (unknown) (unknown) morphine AdvReac (units (unknown) date) Severe Vomiting unknown) Verified 04/07/22 13:08 (unknown) (no (unknown) (unknown) potassium chloride 10 (un its (unknown) date) mEq 10 meq PO DAILY unknown) 04/09/22 04/09/22 History (unknown) (no (unknown) (unknown) right femoral neck (units (unknown) date) fracture. CT head with unknown ) no acute process (unknown) (no (unknown) (unknown) sennosides 8.6 mg (units (unknown) date) capsule (senna) 8.6 mg unknown ) PO DAILY PRN Constipation 04/09/22 (unknown) (no (unknown) (unknown) sertraline 50 mg (units (unknown) date) tablet 75 mg PO DAILY unknown) 04/09/22 04/09/22 History (unknown) (no (unknown) (unknown) shaft fracture. She (unit s (unknown) date) was discharged. She unknown) fell again and landed on her right hip, (unknown) (no (unknown) (unknown) she was unable to (units (unknown) date) bear weight. She unknown) presented to [facility] and was (unknown) (no (unknown) (unknown) sprinkle, ext. (units (unknown) date) release 24 hr unknown) (unknown) (no (unknown) (unknown) tablet,extended (units (unknown) date) release (Klor-Con) unknown) (unknown) (no (unknown) (unknown) timolol 0.5 % eye (units (unknown) date) drops 1 drp ophthalmic unknown ) (eye) BID 04/09/22 04/09/22 History (unknown) (no (unknown) (unknown) to dementia (units (un known) date) unknown) (unknown) (no (unknown) (unknown) today; this time is (unit s (unknown) date) exclusive of unknown) procedural time. (unknown) (no (unknown) (unknown) transferred to [place] (un its (unknown) date) [facility] and admitted unknown) to orthopedic surgery service. Result panel 68 (unknown) (no date) (unknown) (unknown) 0 /ul (unkn own) (unknown) (no date) (unknown) (unknown) 0.4 % (unkn own) (unknown) (no date) (unknown) (unknown) 13.7 % (unkn own) (unknown) (no date) (unknown) (unknown) 13.8 g/dl (unkn own) (unknown) (no date) (unknown) (unknown) 1300 /ul (unkn own) (unknown) (no date) (unknown) (unknown) 156 x10 3/ul (unkn own) (unknown) (no date) (unknown) (unknown) 2.8 % (unkn own) (unknown) (no date) (unknown) (unknown) 200 /ul (unkn own) (unknown) (no date) (unknown) (unknown) 21.2 % (unkn own) (unknown) (no date) (unknown) (unknown) 29.1 pg (unkn own) (unknown) (no date) (unknown) (unknown) 33.5 % (unkn own) (unknown) (no date) (unknown) (unknown) 4.74 x10 6/ul (unkn own) (unknown) (no date) (unknown) (unknown) 41.1 % (unkn own) (unknown) (no date) (unknown) (unknown) 4200 /ul (unkn own) (unknown) (no date) (unknown) (unknown) 6.4 x10 3/ul (unkn own) (unknown) (no date) (unknown) (unknown) 600 /ul (unkn own) (unknown) (no date) (unknown) (unknown) 65.8 % (unkn own) (unknown) (no date) (unknown) (unknown) 86.7 fl (unkn own) (unknown) (no date) (unknown) (unknown) 9.8 % (unkn own) Result panel 69 (unknown) (no date) (unknown) (unknown) > 60 ml/min (unkn own) (unknown) (no date) (unknown) (unknown) > 60 ml/min (unkn own) (unknown) (no date) (unknown) (unknown) 0.51 mg/dl (unkn own) (unknown) (no date) (unknown) (unknown) 136 mmol/l (unkn own) (unknown) (no date) (unknown) (unknown) 14 mg/dl (unkn own) (unknown) (no date) (unknown) (unknown) 2.7 mmol/l (unkn own) (unknown) (no date) (unknown) (unknown) 2.7 mmol/l (unkn own) (unknown) (no date) (unknown) (unknown) 26 mmol/l (unkn own) (unknown) (no date) (unknown) (unknown) 27.5 (units unknown) (unknown) (unknown) (no date) (unknown) (unknown) 78 mg/dl (unkn own) (unknown) (no date) (unknown) (unknown) 78 mg/dl (unkn own) (unknown) (no date) (unknown) (unknown) 8.1 mg/dl (unkn own) (unknown) (no date) (unknown) (unknown) 99 mmol/l (unkn own) Result panel 70 (unknown) (no date) (unknown) (unknown) (no value) (units (un known) unknown) (unknown) (no date) (unknown) (unknown) [id number] (units (unk nown) unknown) (unknown) (no date) (unknown) (unknown) 04/10/22 (units (unkn own) unknown) (unknown) (no date) (unknown) (unknown) [address] (units (unk nown) Street unknown) (unknown) (no date) (unknown) (unknown) Accession (units (unk nown) Number: unknown) [id number] (unknown) (no date) (unknown) (unknown) Age/Sex: 82 / (units (unknown) F Date of unknown) Service: (unknown) (no date) (unknown) (unknown) [place], [place] (units (unknown) [id number] unknown) (unknown) (no date) (unknown) (unknown) Approved by: (units ( unknown) aubree Jane) Carol Ann on 04/10/2022 at 10:21 (unknown) (no date) (unknown) (unknown) COMPARISON: (units (u nknown) None. unknown) (unknown) (no date) (unknown) (unknown) : (units (unkn own) 1940 unknown) Acct:[id number] (unknown) (no date) (unknown) (unknown) Dictated by: (units ( unknown) aubree Jane) Carol Ann on 04/10/2022 at 10:20 (unknown) (no date) (unknown) (unknown) FINDINGS: (units (unk nown) unknown) (unknown) (no date) (unknown) (unknown) IMPRESSION: (units (u nknown) Minimally unknown) angulated subcapital femoral neck fracture. (unknown) (no date) (unknown) (unknown) INDICATIONS: (units ( unknown) Right hip unknown) fracture (unknown) (no date) (unknown) (unknown) [facility] (unknown) (no date) (unknown) (unknown) Loc: 223-1 (units (unknown) unknown) (unknown) (no date) (unknown) (unknown) [place] (units (unkn own) angulated unknown) subcapital femoral neck fracture. No additional fracture. (unknown) (no date) (unknown) (unknown) Ordering (units (unkn own) Provider: unknown) Jorge Camarena MD (unknown) (no date) (unknown) (unknown) PROCEDURE: XR (units (unknown) HIP W PEL IF unknown) DONE RT 2V (unknown) (no date) (unknown) (unknown) Patient: (units (unkn own) Sheila Marley unknown) E MR#: M (unknown) (no date) (unknown) (unknown) Procedure: XR (units (unknown) hip w pel if unknown) done RT 2V (unknown) (no date) (unknown) (unknown) Signed (units (unkn own) unknown) (unknown) (no date) (unknown) (unknown) TECHNIQUE: 2 (units ( unknown) views of the unknown) hip were acquired. (unknown) (no date) (unknown) (unknown) XRay Report (units (u nknown) unknown) Result panel 71 (unknown) (no (unknown) (unknown) (no value) (units (unk nown) date) unknown) (unknown) (no (unknown) (unknown) (past 8 hours): (units (unknown) date) unknown) (unknown) (no (unknown) (unknown) - continue home (units (unknown) date) statin unknown) (unknown) (no (unknown) (unknown) -admitted to (units (u nknown) date) orthopedic surgery and unknown ) plan per them for surgery today (unknown) (no (unknown) (unknown) -ativan ordered for (unit s (unknown) date) anxiety/agitation unknown) (unknown) (no (unknown) (unknown) -continue home (units (unknown) date) medications, HCTZ and unknown) metoprolol (unknown) (no (unknown) (unknown) -continue synthroid (unit s (unknown) date) unknown) (unknown) (no (unknown) (unknown) -pain medications (units (unknown) date) ordered unknown) (unknown) (no (unknown) (unknown) -plan per orthopedic (uni ts (unknown) date) surgery unknown) (unknown) (no (unknown) (unknown) -reorient as able (units (unknown) date) unknown) (unknown) (no (unknown) (unknown) [id number] (units (unkno wn) date) unknown) (unknown) (no (unknown) (unknown) 04/10/22 04/10/22 (units (unknown) date) unknown) (unknown) (no (unknown) (unknown) 04/10/22 04:40 (units (unknown) date) unknown) (unknown) (no (unknown) (unknown) 04/10/22 (units (unkno wn) date) unknown) (unknown) (no (unknown) (unknown) 04:40 04:40 (units (un known) date) unknown) (unknown) (no (unknown) (unknown) 09:00 04/10/22 (units (unknown) date) unknown) (unknown) (no (unknown) (unknown) 1. 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 Right forearm (units (unknown) date) fracture unknown) (unknown) (no (unknown) (unknown) 3. Hypertension (units (unknown) date) unknown) (unknown) (no (unknown) (unknown) 4. Dementia (units (un known) date) unknown) (unknown) (no (unknown) (unknown) 5. Hypothyroidism (units (unknown) date) unknown) (unknown) (no (unknown) (unknown) 6. HLD (units (unkno wn) date) unknown) (unknown) (no (unknown) (unknown) ABD: soft, nontender, (un its (unknown) date) nondistended, no unknown) organomegaly, normal bowel sounds (unknown) (no (unknown) (unknown) Age/Sex: 82 / F (units (unknown) date) unknown) (unknown) (no (unknown) (unknown) Assessment + Plan (units (unknown) date) narrative: unknown) (unknown) (no (unknown) (unknown) Assessment + Plan (units (unknown) date) unknown) (unknown) (no (unknown) (unknown) BUN 14 (units (unkno wn) date) unknown) (unknown) (no (unknown) (unknown) BUN/Creatinine Ratio (uni ts (unknown) date) 27.5 H unknown) (unknown) (no (unknown) (unknown) Baso # (Auto) 0 (units (unknown) date) unknown) (unknown) (no (unknown) (unknown) Baso % (Auto) 0.4 (units (unknown) date) unknown) (unknown) (no (unknown) (unknown) Blood Pressure 122/56 (un its (unknown) date) L 149/60 H unknown) (unknown) (no (unknown) (unknown) CODE: DNR (units (unkn own) date) unknown) (unknown) (no (unknown) (unknown) CV: regular rate and (uni ts (unknown) date) rhythm, no murmurs unknown) (unknown) (no (unknown) (unknown) Calcium 8.1 L (units ( unknown) date) unknown) (unknown) (no (unknown) (unknown) Carbon Dioxide 26 (units (unknown) date) unknown) (unknown) (no (unknown) (unknown) Chloride 99 (units (un known) date) unknown) (unknown) (no (unknown) (unknown) Creatinine 0.51 L (units (unknown) date) unknown) (unknown) (no (unknown) (unknown) Critical Care time: (unit s (unknown) date) unknown) (unknown) (no (unknown) (unknown) : 1940 (units (unknown) date) Acct:[id number] unknown) (unknown) (no (unknown) (unknown) Date Patient Seen: (units (unknown) date) 04/10/22 unknown) (unknown) (no (unknown) (unknown) Date of Service: (units (unknown) date) 04/09/22 unknown) (unknown) (no (unknown) (unknown) Dementia (units (unkno wn) date) unknown) (unknown) (no (unknown) (unknown) EXT: warm and well (units (unknown) date) perfused, no edema unknown) (unknown) (no (unknown) (unknown) Eos # (Auto) 200 (units (unknown) date) unknown) (unknown) (no (unknown) (unknown) Eos % (Auto) 2.8 (units (unknown) date) unknown) (unknown) (no (unknown) (unknown) Estimated GFR > 60 (units (unknown) date) unknown) (unknown) (no (unknown) (unknown) Exam Narrative: (units (unknown) date) unknown) (unknown) (no (unknown) (unknown) Exam (units (unkno wn) date) unknown) (unknown) (no (unknown) (unknown) GEN: elderly female, (uni ts (unknown) date) no acute distress. unknown) (unknown) (no (unknown) (unknown) Glaucoma (units (unkno wn) date) unknown) (unknown) (no (unknown) (unknown) Glucose 78 L (units (u nknown) date) unknown) (unknown) (no (unknown) (unknown) H/O: hysterectomy (units (unknown) date) unknown) (unknown) (no (unknown) (unknown) HEENT: moist mucous (unit s (unknown) date) membranes, PERRL unknown) (unknown) (no (unknown) (unknown) Hct 41.1 (units (unkno wn) date) unknown) (unknown) (no (unknown) (unknown) Hgb 13.8 (units (unkno wn) date) unknown) (unknown) (no (unknown) (unknown) Hypercholesterolemia (uni ts (unknown) date) unknown) (unknown) (no (unknown) (unknown) Hypertension (units (u nknown) date) unknown) (unknown) (no (unknown) (unknown) Hypothyroidism (units (unknown) date) unknown) (unknown) (no (unknown) (unknown) I have utilized all (unit s (unknown) date) available resources to unknown ) reconcile the patient's home (unknown) (no (unknown) (unknown) I spent a total of [] (un its (unknown) date) minutes of critical unknown) care time on this patient's care (unknown) (no (unknown) (unknown) Interval history: (units (unknown) date) unknown) (unknown) (no (unknown) (unknown) [facility] [address] (uni ts (unknown) date) [address] [place], unknown ) [place] [id number] (unknown) (no (unknown) (unknown) Laboratory Results - (uni ts (unknown) date) last 24 hr unknown) (unknown) (no (unknown) (unknown) Labs (units (unkno wn) date) unknown) (unknown) (no (unknown) (unknown) Labs: (units (unkno wn) date) unknown) (unknown) (no (unknown) (unknown) Lymph # (Auto) 1300 (unit s (unknown) date) unknown) (unknown) (no (unknown) (unknown) Lymph % (Auto) 21.2 L (un its (unknown) date) unknown) (unknown) (no (unknown) (unknown) MCH 29.1 (units (unkno wn) date) unknown) (unknown) (no (unknown) (unknown) MCHC 33.5 (units (unkn own) date) unknown) (unknown) (no (unknown) (unknown) MCV 86.7 (units (unkno wn) date) unknown) (unknown) (no (unknown) (unknown) Medical History (units (unknown) date) (Reviewed 04/09/22 @ unknown) 21:36 by Timothy Topete MD) (unknown) (no (unknown) (unknown) Medicine is consulted (un its (unknown) date) to assist with unknown) management of her medical issues including (unknown) (no (unknown) (unknown) [place] # (Auto) 600 (units (unknown) date) unknown) (unknown) (no (unknown) (unknown) [place] % (Auto) 9.8 (units (unknown) date) unknown) (unknown) (no (unknown) (unknown) Ms. Marley is an 82W (uni ts (unknown) date) with PMH dementia, unknown) HTN, hypothyroid who is a direct admit (unknown) (no (unknown) (unknown) NECK: trachea (units ( unknown) date) midline, no JVD unknown) (unknown) (no (unknown) (unknown) NEURO: awake, alert, (uni ts (unknown) date) confused unknown) (unknown) (no (unknown) (unknown) Narrative (units (unkn own) date) unknown) (unknown) (no (unknown) (unknown) Neut # (Auto) 4200 (units (unknown) date) unknown) (unknown) (no (unknown) (unknown) Neut % (Auto) 65.8 (units (unknown) date) unknown) (unknown) (no (unknown) (unknown) Objective (units (unkn own) date) unknown) (unknown) (no (unknown) (unknown) Oxygen Delivery (units (unknown) date) Method Room Air unknown) (unknown) (no (unknown) (unknown) Oxygen Flow Rate 0 0 (uni ts (unknown) date) unknown) (unknown) (no (unknown) (unknown) Oxygen Flow Rate 0 (units (unknown) date) unknown) (unknown) (no (unknown) (unknown) PFSH (units (unkno wn) date) unknown) (unknown) (no (unknown) (unknown) PULM: clear (units (un known) date) bilaterally, no unknown) wheezes, rhonchi, rales (unknown) (no (unknown) (unknown) Patient: (units (unkno wn) date) Sheila Marley MR#: unknown) M0 (unknown) (no (unknown) (unknown) Plt Count 156 (units ( unknown) date) unknown) (unknown) (no (unknown) (unknown) Potassium 2.7 L* (units (unknown) date) unknown) (unknown) (no (unknown) (unknown) Progress Note (units ( unknown) date) unknown) (unknown) (no (unknown) (unknown) Provider: (units (unkn own) date) Steve Landeros D.O. unknown) (unknown) (no (unknown) (unknown) Proxy: Mauro Farooq, (uni ts (unknown) date) daughter unknown) (unknown) (no (unknown) (unknown) Pulse Oximetry 97 96 (uni ts (unknown) date) unknown) (unknown) (no (unknown) (unknown) Pulse Rate 61 58 L (units (unknown) date) unknown) (unknown) (no (unknown) (unknown) RBC 4.74 (units (unkno wn) date) unknown) (unknown) (no (unknown) (unknown) RDW 13.7 (units (unkno wn) date) unknown) (unknown) (no (unknown) (unknown) Respiratory Rate 16 (unit s (unknown) date) 16 unknown) (unknown) (no (unknown) (unknown) Result Diagrams: (units (unknown) date) unknown) (unknown) (no (unknown) (unknown) Signed By: (units (unk nown) date) unknown) (unknown) (no (unknown) (unknown) Smoking Status: Never (un its (unknown) date) smoker unknown) (unknown) (no (unknown) (unknown) Social History (units (unknown) date) (Reviewed 04/07/22 @ unknown) 19:18 by ANTON Garcia) (unknown) (no (unknown) (unknown) Sodium 136 L (units (u nknown) date) unknown) (unknown) (no (unknown) (unknown) Subjective (units (unk nown) date) unknown) (unknown) (no (unknown) (unknown) Surgical History (units (unknown) date) (Reviewed 04/09/22 @ unknown) 21:36 by Timothy Topete MD) (unknown) (no (unknown) (unknown) Temperature 97.1 F L (uni ts (unknown) date) 97.0 F L unknown) (unknown) (no (unknown) (unknown) Time Spent With (units (unknown) date) Patient unknown) (unknown) (no (unknown) (unknown) Vital Signs (units (un known) date) unknown) (unknown) (no (unknown) (unknown) WBC 6.4 (units (unkno wn) date) unknown) (unknown) (no (unknown) (unknown) [Embedded Image Not (unit s (unknown) date) Available] unknown) (unknown) (no (unknown) (unknown) after a fall. She was (un its (unknown) date) seen in the ED after a unknown ) fall on 04/07/22 and had a radial (unknown) (no (unknown) (unknown) alcohol intake: never (un its (unknown) date) unknown) (unknown) (no (unknown) (unknown) dementia and (units (u nknown) date) hypertension. She unknown) denies complaints today. Plan is for operative (unknown) (no (unknown) (unknown) household members: (units (unknown) date) other unknown) (unknown) (no (unknown) (unknown) interventions today (unit s (unknown) date) with orthopedic unknown) surgery. (unknown) (no (unknown) (unknown) medications (units (un known) date) unknown) (unknown) (no (unknown) (unknown) neck fracture. (units (unknown) date) unknown) (unknown) (no (unknown) (unknown) shaft fracture. She (unit s (unknown) date) was discharged. She unknown) fell again and landed on her right hip, (unknown) (no (unknown) (unknown) she was unable to (units (unknown) date) bear weight. She unknown) presented to [facility] and was (unknown) (no (unknown) (unknown) today; this time is (unit s (unknown) date) exclusive of unknown) procedural time. (unknown) (no (unknown) (unknown) transferred to [facility] (un its (unknown) date) [facility] and admitted unknown) to orthopedic surgery service. Result panel 72 (unknown) (no (unknown) (unknown) (no value) (units (unk nown) date) unknown) (unknown) (no (unknown) (unknown) (past 8 hours): (units (unknown) date) unknown) (unknown) (no (unknown) (unknown) - continue home (units (unknown) date) statin unknown) (unknown) (no (unknown) (unknown) - continue to monitor (un its (unknown) date) unknown) (unknown) (no (unknown) (unknown) - k 2.7 was given (units (unknown) date) repletion with IV this unknown ) AM while NPO (unknown) (no (unknown) (unknown) -admitted to (units (u nknown) date) orthopedic surgery and unknown ) plan per them for surgery today (unknown) (no (unknown) (unknown) -ativan ordered for (unit s (unknown) date) anxiety/agitation unknown) (unknown) (no (unknown) (unknown) -continue home (units (unknown) date) medications, HCTZ and unknown) metoprolol (unknown) (no (unknown) (unknown) -continue synthroid (unit s (unknown) date) unknown) (unknown) (no (unknown) (unknown) -pain medications (units (unknown) date) ordered unknown) (unknown) (no (unknown) (unknown) -plan per orthopedic (uni ts (unknown) date) surgery unknown) (unknown) (no (unknown) (unknown) -reorient as able (units (unknown) date) unknown) (unknown) (no (unknown) (unknown) [id number] (units (unkno wn) date) unknown) (unknown) (no (unknown) (unknown) 04/10/22 04/10/22 (units (unknown) date) unknown) (unknown) (no (unknown) (unknown) 04/10/22 04:40 (units (unknown) date) unknown) (unknown) (no (unknown) (unknown) 04/10/22 1520 (units ( unknown) date) unknown) (unknown) (no (unknown) (unknown) 04/10/22 (units (unkno wn) date) unknown) (unknown) (no (unknown) (unknown) 04:40 04:40 (units (un known) date) unknown) (unknown) (no (unknown) (unknown) 09:00 04/10/22 (units (unknown) date) unknown) (unknown) (no (unknown) (unknown) 1. 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 Right displaced (units (unknown) date) ulna fracture unknown) (unknown) (no (unknown) (unknown) 3. Hypertension (units (unknown) date) unknown) (unknown) (no (unknown) (unknown) 4. Dementia (units (un known) date) unknown) (unknown) (no (unknown) (unknown) 5. Hypothyroidism (units (unknown) date) unknown) (unknown) (no (unknown) (unknown) 6. HLD (units (unkno wn) date) unknown) (unknown) (no (unknown) (unknown) 7. Hypokalemia, acute (un its (unknown) date) unknown) (unknown) (no (unknown) (unknown) ABD: soft, nontender, (un its (unknown) date) nondistended, no unknown) organomegaly, normal bowel sounds (unknown) (no (unknown) (unknown) Age/Sex: 82 / F (units (unknown) date) unknown) (unknown) (no (unknown) (unknown) Assessment + Plan (units (unknown) date) narrative: unknown) (unknown) (no (unknown) (unknown) Assessment + Plan (units (unknown) date) unknown) (unknown) (no (unknown) (unknown) BUN 14 (units (unkno wn) date) unknown) (unknown) (no (unknown) (unknown) BUN/Creatinine Ratio (uni ts (unknown) date) 27.5 H unknown) (unknown) (no (unknown) (unknown) Baso # (Auto) 0 (units (unknown) date) unknown) (unknown) (no (unknown) (unknown) Baso % (Auto) 0.4 (units (unknown) date) unknown) (unknown) (no (unknown) (unknown) Blood Pressure 122/56 (un its (unknown) date) L 149/60 H unknown) (unknown) (no (unknown) (unknown) CODE: DNR (units (unkn own) date) unknown) (unknown) (no (unknown) (unknown) CV: regular rate and (uni ts (unknown) date) rhythm, no murmurs unknown) (unknown) (no (unknown) (unknown) Calcium 8.1 L (units ( unknown) date) unknown) (unknown) (no (unknown) (unknown) Carbon Dioxide 26 (units (unknown) date) unknown) (unknown) (no (unknown) (unknown) Chloride 99 (units (un known) date) unknown) (unknown) (no (unknown) (unknown) Creatinine 0.51 L (units (unknown) date) unknown) (unknown) (no (unknown) (unknown) Critical Care time: (unit s (unknown) date) unknown) (unknown) (no (unknown) (unknown) : 1940 (units (unknown) date) Acct:[id number] unknown) (unknown) (no (unknown) (unknown) Date Patient Seen: (units (unknown) date) 04/10/22 unknown) (unknown) (no (unknown) (unknown) Date of Service: (units (unknown) date) 04/09/22 unknown) (unknown) (no (unknown) (unknown) Dementia (units (unkno wn) date) unknown) (unknown) (no (unknown) (unknown) EXT: warm and well (units (unknown) date) perfused, no edema unknown) (unknown) (no (unknown) (unknown) Eos # (Auto) 200 (units (unknown) date) unknown) (unknown) (no (unknown) (unknown) Eos % (Auto) 2.8 (units (unknown) date) unknown) (unknown) (no (unknown) (unknown) Estimated GFR > 60 (units (unknown) date) unknown) (unknown) (no (unknown) (unknown) Exam Narrative: (units (unknown) date) unknown) (unknown) (no (unknown) (unknown) Exam (units (unkno wn) date) unknown) (unknown) (no (unknown) (unknown) GEN: elderly female, (uni ts (unknown) date) no acute distress. unknown) (unknown) (no (unknown) (unknown) Glaucoma (units (unkno wn) date) unknown) (unknown) (no (unknown) (unknown) Glucose 78 L (units (u nknown) date) unknown) (unknown) (no (unknown) (unknown) H/O: hysterectomy (units (unknown) date) unknown) (unknown) (no (unknown) (unknown) HEENT: moist mucous (unit s (unknown) date) membranes, PERRL unknown) (unknown) (no (unknown) (unknown) Hct 41.1 (units (unkno wn) date) unknown) (unknown) (no (unknown) (unknown) Hgb 13.8 (units (unkno wn) date) unknown) (unknown) (no (unknown) (unknown) Hypercholesterolemia (uni ts (unknown) date) unknown) (unknown) (no (unknown) (unknown) Hypertension (units (u nknown) date) unknown) (unknown) (no (unknown) (unknown) Hypothyroidism (units (unknown) date) unknown) (unknown) (no (unknown) (unknown) I have utilized all (unit s (unknown) date) available resources to unknown ) reconcile the patient's home (unknown) (no (unknown) (unknown) I spent a total of [] (un its (unknown) date) minutes of critical unknown) care time on this patient's care (unknown) (no (unknown) (unknown) Interval history: (units (unknown) date) unknown) (unknown) (no (unknown) (unknown) [facility] [address] (uni ts (unknown) date) [facility] [place], unknown ) [place] [id number] (unknown) (no (unknown) (unknown) Laboratory Results - (uni ts (unknown) date) last 24 hr unknown) (unknown) (no (unknown) (unknown) Labs (units (unkno wn) date) unknown) (unknown) (no (unknown) (unknown) Labs: (units (unkno wn) date) unknown) (unknown) (no (unknown) (unknown) Lymph # (Auto) 1300 (unit s (unknown) date) unknown) (unknown) (no (unknown) (unknown) Lymph % (Auto) 21.2 L (un its (unknown) date) unknown) (unknown) (no (unknown) (unknown) MCH 29.1 (units (unkno wn) date) unknown) (unknown) (no (unknown) (unknown) MCHC 33.5 (units (unkn own) date) unknown) (unknown) (no (unknown) (unknown) MCV 86.7 (units (unkno wn) date) unknown) (unknown) (no (unknown) (unknown) Medical History (units (unknown) date) (Reviewed 04/09/22 @ unknown) 21:36 by Timothy Topete MD) (unknown) (no (unknown) (unknown) Medicine is consulted (un its (unknown) date) to assist with unknown) management of her medical issues including (unknown) (no (unknown) (unknown) [place] # (Auto) 600 (units (unknown) date) unknown) (unknown) (no (unknown) (unknown) [place] % (Auto) 9.8 (units (unknown) date) unknown) (unknown) (no (unknown) (unknown) Ms. Marley is an 82W (uni ts (unknown) date) with PMH dementia, unknown) HTN, hypothyroid who is a direct admit (unknown) (no (unknown) (unknown) NECK: trachea (units ( unknown) date) midline, no JVD unknown) (unknown) (no (unknown) (unknown) NEURO: awake, alert, (uni ts (unknown) date) confused unknown) (unknown) (no (unknown) (unknown) Narrative (units (unkn own) date) unknown) (unknown) (no (unknown) (unknown) Neut # (Auto) 4200 (units (unknown) date) unknown) (unknown) (no (unknown) (unknown) Neut % (Auto) 65.8 (units (unknown) date) unknown) (unknown) (no (unknown) (unknown) Objective (units (unkn own) date) unknown) (unknown) (no (unknown) (unknown) Oxygen Delivery (units (unknown) date) Method Room Air unknown) (unknown) (no (unknown) (unknown) Oxygen Flow Rate 0 0 (uni ts (unknown) date) unknown) (unknown) (no (unknown) (unknown) Oxygen Flow Rate 0 (units (unknown) date) unknown) (unknown) (no (unknown) (unknown) PFSH (units (unkno wn) date) unknown) (unknown) (no (unknown) (unknown) PULM: clear (units (un known) date) bilaterally, no unknown) wheezes, rhonchi, rales (unknown) (no (unknown) (unknown) Patient: (units (unkno wn) date) Sheila Marley MR#: unknown) M0 (unknown) (no (unknown) (unknown) Plt Count 156 (units ( unknown) date) unknown) (unknown) (no (unknown) (unknown) Potassium 2.7 L* (units (unknown) date) unknown) (unknown) (no (unknown) (unknown) Progress Note (units ( unknown) date) unknown) (unknown) (no (unknown) (unknown) Provider: (units (unkn own) date) Steve Landeros D.O. unknown) (unknown) (no (unknown) (unknown) Proxy: Mauro Farooq, (uni ts (unknown) date) daughter unknown) (unknown) (no (unknown) (unknown) Pulse Oximetry 97 96 (uni ts (unknown) date) unknown) (unknown) (no (unknown) (unknown) Pulse Rate 61 58 L (units (unknown) date) unknown) (unknown) (no (unknown) (unknown) RBC 4.74 (units (unkno wn) date) unknown) (unknown) (no (unknown) (unknown) RDW 13.7 (units (unkno wn) date) unknown) (unknown) (no (unknown) (unknown) Respiratory Rate 16 (unit s (unknown) date) 16 unknown) (unknown) (no (unknown) (unknown) Result Diagrams: (units (unknown) date) unknown) (unknown) (no (unknown) (unknown) Signed (units (unkno wn) date) By:<Electronically unknown) signed by Steve Landeros D.O.> (unknown) (no (unknown) (unknown) Smoking Status: Never (un its (unknown) date) smoker unknown) (unknown) (no (unknown) (unknown) Social History (units (unknown) date) (Reviewed 04/07/22 @ unknown) 19:18 by ANTON Garica) (unknown) (no (unknown) (unknown) Sodium 136 L (units (u nknown) date) unknown) (unknown) (no (unknown) (unknown) Subjective (units (unk nown) date) unknown) (unknown) (no (unknown) (unknown) Surgical History (units (unknown) date) (Reviewed 04/09/22 @ unknown) 21:36 by Timothy Topete MD) (unknown) (no (unknown) (unknown) Temperature 97.1 F L (uni ts (unknown) date) 97.0 F L unknown) (unknown) (no (unknown) (unknown) Time Spent With (units (unknown) date) Patient unknown) (unknown) (no (unknown) (unknown) Vital Signs (units (un known) date) unknown) (unknown) (no (unknown) (unknown) WBC 6.4 (units (unkno wn) date) unknown) (unknown) (no (unknown) (unknown) [Embedded Image Not (unit s (unknown) date) Available] unknown) (unknown) (no (unknown) (unknown) after a fall. She was (un its (unknown) date) seen in the ED after a unknown ) fall on 04/07/22 and had a radial (unknown) (no (unknown) (unknown) alcohol intake: never (un its (unknown) date) unknown) (unknown) (no (unknown) (unknown) dementia and (units (u nknown) date) hypertension. She unknown) denies complaints today. Plan is for operative (unknown) (no (unknown) (unknown) household members: (units (unknown) date) other unknown) (unknown) (no (unknown) (unknown) interventions today (unit s (unknown) date) with orthopedic unknown) surgery. (unknown) (no (unknown) (unknown) medications (units (un known) date) unknown) (unknown) (no (unknown) (unknown) neck fracture. (units (unknown) date) unknown) (unknown) (no (unknown) (unknown) shaft fracture. She (unit s (unknown) date) was discharged. She unknown) fell again and landed on her right hip, (unknown) (no (unknown) (unknown) she was unable to (units (unknown) date) bear weight. She unknown) presented to [facility] and was (unknown) (no (unknown) (unknown) today; this time is (unit s (unknown) date) exclusive of unknown) procedural time. (unknown) (no (unknown) (unknown) transferred to [place] (un its (unknown) date) [facility] and admitted unknown) to orthopedic surgery service. Result panel 73 (unknown) (no date) (unknown) (unknown) 5.8 mmol/l (unkn own) (unknown) (no date) (unknown) (unknown) 5.8 mmol/l (unkn own) Result panel 74 (unknown) (no (unknown) (unknown) (no value) (units (unk nown) date) unknown) (unknown) (no (unknown) (unknown) [id number] (units (unkn own) date) unknown) (unknown) (no (unknown) (unknown) 04/10/22 (units (unkno wn) date) unknown) (unknown) (no (unknown) (unknown) 1. (units (unkno wn) date) Intraoperative unknown) study demonstrates interval placement of a right hip (unknown) (no (unknown) (unknown) [address] [place] [address] (units (unknown) date) unknown) (unknown) (no (unknown) (unknown) Accession (units (unkn own) date) Number: unknown) [id number] (unknown) (no (unknown) (unknown) Age/Sex: 82 / F (units (unknown) date) Date of Service: unknown) (unknown) (no (unknown) (unknown) [place], [place] (units ( unknown) date) [id number] unknown) (unknown) (no (unknown) (unknown) Approved by: (units (u nknown) date) Rashid Pedro unknown) Carol Ann on 04/10/2022 at 22:05 (unknown) (no (unknown) (unknown) Bones: There is (units (unknown) date) interval unknown) placement of a right hip prosthesis. No fractures or (unknown) (no (unknown) (unknown) COMPARISON: (units (un known) date) [facility], unknown) CR, XR HIP W PEL IF DONE RT 2V, 04/10/2022, 9:32. (unknown) (no (unknown) (unknown) : 1940 (units (unknown) date) Acct:[id number] unknown) (unknown) (no (unknown) (unknown) Dictated by: (units (u nknown) date) Rashid Pedro, unknownTriston Maharaj on 04/10/2022 at 22:04 (unknown) (no (unknown) (unknown) FINDINGS: (units (unkn own) date) unknown) (unknown) (no (unknown) (unknown) IMPRESSION: (units (un known) date) unknown) (unknown) (no (unknown) (unknown) INDICATIONS: (units (u nknown) date) right femural unknown) neck fracture (unknown) (no (unknown) (unknown) [facility] (units (unknown) date) unknown) (unknown) (no (unknown) (unknown) Loc: AC 223-1 (units ( unknown) date) unknown) (unknown) (no (unknown) (unknown) Ordering (units (unkno wn) date) Provider: unknown) Jorge Camarena MD (unknown) (no (unknown) (unknown) PROCEDURE: XR (units ( unknown) date) PELVIS 1-2V unknown) (unknown) (no (unknown) (unknown) Patient: (units (unkno wn) date) Sheila Marley E unknown) MR#: [id number] (unknown) (no (unknown) (unknown) Procedure: XR (units ( unknown) date) pelvis 1-2V unknown) (unknown) (no (unknown) (unknown) Signed (units (unkno wn) date) unknown) (unknown) (no (unknown) (unknown) Soft tissues: (units ( unknown) date) Overlying unknown) surgical retractors are present, along with other (unknown) (no (unknown) (unknown) TECHNIQUE: (units (unk nown) date) Intra-operative unknown) view of the pelvis and hip acquired. (unknown) (no (unknown) (unknown) XRay Report (units (un known) date) unknown) (unknown) (no (unknown) (unknown) changes. (units (unkno wn) date) unknown) (unknown) (no (unknown) (unknown) dislocation. (units (u nknown) date) unknown) (unknown) (no (unknown) (unknown) intraoperative (units (unknown) date) unknown) (unknown) (no (unknown) (unknown) prosthesis. (units (un known) date) unknown) Result panel 75 (unknown) (no (unknown) (unknown) (no value) (units (unk nown) date) unknown) (unknown) (no (unknown) (unknown) [id number] (units (unkno wn) date) unknown) (unknown) (no (unknown) (unknown) 04/10/22 2214 (units ( unknown) date) unknown) (unknown) (no (unknown) (unknown) 1. Right hip (units (u nknown) date) hemiarthroplasty unknown) (unknown) (no (unknown) (unknown) 2. Open reduction (units (unknown) date) internal fixation unknown) of right radial shaft fracture. (unknown) (no (unknown) (unknown) 2. Right radial (units (unknown) date) shaft fracture unknown) (closed, comminuted, displaced) (unknown) (no (unknown) (unknown) ?corkscrew?, and (units (unknown) date) the femoral neck unknown) osteotomy performed approximately 15 mm above (unknown) (no (unknown) (unknown) Age/Sex: 82 / F (units (unknown) date) unknown) (unknown) (no (unknown) (unknown) Anesthesia Type: (units (unknown) date) General and Local unknown) (unknown) (no (unknown) (unknown) Applied: cast(s) (units (unknown) date) and implant(s) unknown) (unknown) (no (unknown) (unknown) Aquacel Ag (units (unk nown) date) dressing was unknown) applied. (unknown) (no (unknown) (unknown) Physical Director: Valery Gonsalez (units (unknown) date) Al unknown) (unknown) (no (unknown) (unknown) At this point the (units (unknown) date) drapes were removed unknown) and the patient was repositioned in the (unknown) (no (unknown) (unknown) Blood products (units (unknown) date) transfused: none unknown) (unknown) (no (unknown) (unknown) Click Yes if (units (u nknown) date) Unassisted: No unknown) (unknown) (no (unknown) (unknown) Closure Type: (units ( unknown) date) primary unknown) (unknown) (no (unknown) (unknown) Complications: (units (unknown) date) none unknown) (unknown) (no (unknown) (unknown) Condition: stable (units (unknown) date) unknown) (unknown) (no (unknown) (unknown) Corporation for (units (unknown) date) the hip and unknown) included a size 10 synergy cemented stem with a 45 (unknown) (no (unknown) (unknown) : 1940 (units (unknown) date) Acct:[id number] unknown) (unknown) (no (unknown) (unknown) Date of Service: (units (unknown) date) 04/09/22 unknown) (unknown) (no (unknown) (unknown) Date of procedure: (units (unknown) date) 04/10/22 unknown) (unknown) (no (unknown) (unknown) Displaced femoral (units (unknown) date) neck and radial unknown) shaft fractures significant comminution of the (unknown) (no (unknown) (unknown) Disposition: PACU (units (unknown) date) unknown) (unknown) (no (unknown) (unknown) Distal reamers (units (unknown) date) were used. The unknown) broaches were used, sequentially enlarging until (unknown) (no (unknown) (unknown) Estimated Blood (units (unknown) date) Loss (mL): 150 unknown) (unknown) (no (unknown) (unknown) Findings: (units (unkn own) date) unknown) (unknown) (no (unknown) (unknown) Implants used in (units (unknown) date) this procedure were unknown) manufactured by the [employer] (unknown) (no (unknown) (unknown) Indications: (units (u nknown) date) unknown) (unknown) (no (unknown) (unknown) [facility] (units (unknown) date) [address] unknown) [place] [address] (unknown) (no (unknown) (unknown) Operative (units (unkn own) date) Date/Time/Diagnoses unknown) (unknown) (no (unknown) (unknown) Operative Note (units (unknown) date) unknown) (unknown) (no (unknown) (unknown) Operative Notes (units (unknown) date) unknown) (unknown) (no (unknown) (unknown) Patient: (units (unkno wn) date) Sheila Marley unknown) MR#: [id number] (unknown) (no (unknown) (unknown) Plan for (units (unkno wn) date) aftercare: unknown) (unknown) (no (unknown) (unknown) Post-op diagnosis: (units (unknown) date) same unknown) (unknown) (no (unknown) (unknown) Post-operative (units (unknown) date) unknown) (unknown) (no (unknown) (unknown) Pre-op diagnosis: (units (unknown) date) 1. Right femoral unknown) neck fracture (unknown) (no (unknown) (unknown) Procedure + (units (un known) date) Clinicians unknown) (unknown) (no (unknown) (unknown) Procedure in (units (u nknown) date) detail: unknown) (unknown) (no (unknown) (unknown) Procedure: (units (unk nown) date) unknown) (unknown) (no (unknown) (unknown) Prosthetic (units (unk nown) date) devices, grafts, unknown) tissues, transplants, or devices: (unknown) (no (unknown) (unknown) Provider: (units (unkn own) date) Jorge Camarena MD unknown) (unknown) (no (unknown) (unknown) Radiographs were (units (unknown) date) obtained unknown) intra-operatively confirming the position of all (unknown) (no (unknown) (unknown) Same procedure as (units (unknown) date) scheduled: Yes unknown) (unknown) (no (unknown) (unknown) Signed (units (unkno wn) date) By:<Electronically unknown) signed by Jorge Camarena MD> (unknown) (no (unknown) (unknown) Specimen(s): none (units (unknown) date) sent unknown) (unknown) (no (unknown) (unknown) Surgeon: Jorge Meneses (units (unknown) date) Nicol unknown) (unknown) (no (unknown) (unknown) The acetabulum was (units (unknown) date) cleared of all unknown) material and the hip relocated one final time. (unknown) (no (unknown) (unknown) The canal was (units ( unknown) date) prepared by placing unknown) a distal cement plug. The pulsatile lavage (unknown) (no (unknown) (unknown) The (units (unkno wn) date) capsulomuscular unknown) flap was then repaired to the greater trochanter though an (unknown) (no (unknown) (unknown) The hip was (units (unk nown) date) approached through unknown) an approximately 15 cm incision centered over the (unknown) (no (unknown) (unknown) The patient is an (units (unknown) date) 82-year-old woman unknown) who has had several falls recently. She (unknown) (no (unknown) (unknown) The patient was (units (unknown) date) seen in the unknown) pre-operative area, where they identified the right (unknown) (no (unknown) (unknown) The patient will be (units (unknown) date) maintained in the unknown) hospital for approximately 3 days and then (unknown) (no (unknown) (unknown) The right arm was (units (unknown) date) prepared from the unknown) fingertips to the tourniquet with ChloraPrep (unknown) (no (unknown) (unknown) The services of a (units (unknown) date) skilled perinatal breastfeeding assistant unknown) were necessary in this procedure to provide (unknown) (no (unknown) (unknown) This made gauging (units (unknown) date) the length of the unknown) reduction somewhat difficult. I elected to (unknown) (no (unknown) (unknown) Time of procedure: (units (unknown) date) 22:02 unknown) (unknown) (no (unknown) (unknown) Tourniquet time (units (unknown) date) (min): 47 unknown) (unknown) (no (unknown) (unknown) Vicryl, and the (units (unknown) date) skin with a running unknown) 3-0 V-Lock suture and SteriStrips. An (unknown) (no (unknown) (unknown) We then turned our (units (unknown) date) attention to the unknown) femur. The canal was opened with a box (unknown) (no (unknown) (unknown) a good fit was (units (unknown) date) obtained. A trial unknown) head and neck were then placed and the hip (unknown) (no (unknown) (unknown) an Esmarch bandage (units (unknown) date) and the tourniquet unknown) inflated to 250 mmHg. An approximately 10 (unknown) (no (unknown) (unknown) and draped through (units (unknown) date) sterile drapes. The unknown) arm was elevated and exsanguinated with (unknown) (no (unknown) (unknown) and draped through (units (unknown) date) sterile drapes. unknown) (unknown) (no (unknown) (unknown) and hardware were (units (unknown) date) viewed on unknown) fluoroscopy in the AP and lateral views this was (unknown) (no (unknown) (unknown) approximate the (units (unknown) date) appropriate unknown) curvature for the radius. This was applied with 3 (unknown) (no (unknown) (unknown) awl hole using the (units (unknown) date) tag sutures. The unknown) fascia margo was closed with running and (unknown) (no (unknown) (unknown) centralizer. In (units (unknown) date) addition a Martha unknown) Orthopedics canal plug was used. With (unknown) (no (unknown) (unknown) cm incision was (units (unknown) date) created centered unknown) over the fracture site. This was just proximal (unknown) (no (unknown) (unknown) completed at 70+ (units (unknown) date) degrees. This was unknown) felt to be satisfactory and the appropriate (unknown) (no (unknown) (unknown) components and (units (unknown) date) confirming that unknown) there were no iatrogenic fractures. (unknown) (no (unknown) (unknown) components were (units (unknown) date) opened, and the unknown) trials were removed. (unknown) (no (unknown) (unknown) compression as (units (unknown) date) with the 2 unknown) butterfly fragments there was not a stable fracture (unknown) (no (unknown) (unknown) compression plate (units (unknown) date) with 3 14 mm, 2 16 unknown) mm and 2 18 mm screws were used. (unknown) (no (unknown) (unknown) cutting osteotome, (units (unknown) date) followed by a T unknown) handled reamer and a lateralizing reamer. (unknown) (no (unknown) (unknown) deflated during (units (unknown) date) dressing placement unknown) for total tourniquet time of 47 minutes. The (unknown) (no (unknown) (unknown) discussion the (units (unknown) date) risks benefits and unknown) alternatives as documented in my history and (unknown) (no (unknown) (unknown) felt to be (units (unk nown) date) satisfactory. She unknown) appeared to have normal pronation and supination (unknown) (no (unknown) (unknown) fractures. Her son (units (unknown) date) who holds durable unknown) power of medical staff services coordinator has given consent after (unknown) (no (unknown) (unknown) fragments which (units (unknown) date) had not been unknown) evident on x-ray and probably occurred while the (unknown) (no (unknown) (unknown) greater trochanter (units (unknown) date) and curving gently unknown) posteriorly as it went proximally. This (unknown) (no (unknown) (unknown) hip and the right (units (unknown) date) forearm as the unknown) operative sites and these were marked with my (unknown) (no (unknown) (unknown) hip fracture. She (units (unknown) date) is been admitted to unknown) the hospital for treatment of these (unknown) (no (unknown) (unknown) holes on the (units (u nknown) date) distal fragment and unknown) then the proximal fragment was reduced to the (unknown) (no (unknown) (unknown) indicating that (units (unknown) date) the curvature of unknown) the radius was appropriate. The wound was then (unknown) (no (unknown) (unknown) initials. The (units ( unknown) date) patient received unknown) pre-operative antibiotics and was taken to the (unknown) (no (unknown) (unknown) internal rotation (units (unknown) date) to 60? was possible unknown) before dislocation began in dislocation (unknown) (no (unknown) (unknown) interrupted 0 (units ( unknown) date) Vicryl. The unknown) subcutaneous layer was closed with interrupted 3-0 (unknown) (no (unknown) (unknown) irrigated. The (units (unknown) date) subcutaneous layer unknown) was closed with interrupted 3-0 Vicryl and (unknown) (no (unknown) (unknown) likely transfer to (units (unknown) date) half-way unknown) facility. She will be allowed to weight bear (unknown) (no (unknown) (unknown) mm tandem unipolar (units (unknown) date) femoral head with a unknown) +0 neck sleeve and a 9 mm distal cement (unknown) (no (unknown) (unknown) not have been (units ( unknown) date) performed in a unknown) safe, expedient manner. (unknown) (no (unknown) (unknown) on the right upper (units (unknown) date) extremity on her unknown) elbow using a platform walker and will be on (unknown) (no (unknown) (unknown) operating room and (units (unknown) date) placed on the unknown) operative table in the left lateral decubitus (unknown) (no (unknown) (unknown) padding and dorsal (units (unknown) date) and volar slab unknown) splints were applied. The tourniquet was (unknown) (no (unknown) (unknown) patient was then (units (unknown) date) returned to the unknown) recovery room in good condition having (unknown) (no (unknown) (unknown) patient was (units (un known) date) weight-bearing on unknown) her arm in the splint from the emergency room. (unknown) (no (unknown) (unknown) pattern to allow (units (unknown) date) compression. The unknown) position of the fracture and all fragments (unknown) (no (unknown) (unknown) physical. (units (unkn own) date) unknown) (unknown) (no (unknown) (unknown) plate. Proximal (units (unknown) date) fragment was then unknown) placed. None of the screws were placed in (unknown) (no (unknown) (unknown) position after (units (unknown) date) satisfactory unknown) anesthesia. She was stabilized in this position (unknown) (no (unknown) (unknown) positioning of the (units (unknown) date) extremity, exposure unknown) and retraction to protect vital (unknown) (no (unknown) (unknown) posterior hip (units ( unknown) date) precautions for her unknown) hip hemiarthroplasty. (unknown) (no (unknown) (unknown) postoperative pain (units (unknown) date) control. Dressings unknown) of Xeroform, sterile 4x4s, sterile cast (unknown) (no (unknown) (unknown) prepared from the (units (unknown) date) ankle to the iliac unknown) crest with ChloroPrep in the usual fashion (unknown) (no (unknown) (unknown) radial shaft (units (u nknown) date) fracture. unknown) (unknown) (no (unknown) (unknown) radius. The (units (un known) date) fracture was unknown) readily identified. There were 2 large butterfly (unknown) (no (unknown) (unknown) relocated and (units ( unknown) date) checked for leg unknown) length and stability. The patient was stable in (unknown) (no (unknown) (unknown) respect to the (units (unknown) date) radial fracture a unknown) Synthes small frag 3.5 mm 7 hole dynamic (unknown) (no (unknown) (unknown) self-retaining (units (unknown) date) retractor. The unknown) trochanteric bursa was excised with care being (unknown) (no (unknown) (unknown) structures. (units (un known) date) Without the unknown) services of a skilled perinatal breastfeeding assistant this procedure could (unknown) (no (unknown) (unknown) subcutaneous (units (un known) date) tissues were unknown) injected with 10 mL 0.5% Marcaine with epinephrine for (unknown) (no (unknown) (unknown) suffered a radial (units (unknown) date) shaft fracture unknown) several days ago and then yesterday suffered a (unknown) (no (unknown) (unknown) supine position (units (unknown) date) with a tourniquet unknown) about the proximal right arm and an arm table (unknown) (no (unknown) (unknown) take a 7 hole 3.5 (units (unknown) date) mm dynamic unknown) compression plate and bent it slightly to (unknown) (no (unknown) (unknown) taken to avoid the (units (unknown) date) sciatic nerve, unknown) which was identified and protected throughout (unknown) (no (unknown) (unknown) the case. The (units ( unknown) date) short external unknown) rotators were incised and the capsulomuscular flap (unknown) (no (unknown) (unknown) the lesser (units (unk nown) date) trochanter. unknown) Retractors were placed to expose the acetabulum and a (unknown) (no (unknown) (unknown) the position of (units (unknown) date) sleep, of unknown) squatting, and could be put through a range of motion (unknown) (no (unknown) (unknown) the prepared (units (un known) date) femoral canal. unknown) Finally the femoral head was impacted onto the stem. (unknown) (no (unknown) (unknown) the skin with (units ( unknown) date) interrupted unknown) horizontal mattress sutures of 4-0 nylon. The (unknown) (no (unknown) (unknown) then retrograde (units (unknown) date) injected and unknown) pressurized. The final stem was then impacted into (unknown) (no (unknown) (unknown) to the outcropper (units (unknown) date) muscles. We unknown) dissected to the subcutaneous border of the (unknown) (no (unknown) (unknown) tolerated the (units ( unknown) date) procedure well. unknown) (unknown) (no (unknown) (unknown) trial femoral head (units (unknown) date) placed to confirm unknown) the size of the ball. (unknown) (no (unknown) (unknown) using the hip plant anatomy teacher (units (unknown) date) system. A full time babysitter unknown) out was performed. The right leg was (unknown) (no (unknown) (unknown) was applied to the (units (unknown) date) operating room unknown) table. The sugar-tong splint she had been in (unknown) (no (unknown) (unknown) was carried (units (un known) date) sharply to the unknown) fascia margo, which was divided and retracted with a (unknown) (no (unknown) (unknown) was raised and (units (unknown) date) tagged for later unknown) repair. The femoral head was removed with a (unknown) (no (unknown) (unknown) was removed. We (units (unknown) date) performed a 2nd unknown) time-out to confirm the new operative site. (unknown) (no (unknown) (unknown) was used followed (units (unknown) date) by an unknown) epinephrine-soaked sponge for hemostasis. Cement was (unknown) (no (unknown) (unknown) with 45 degrees (units (unknown) date) internal rotation unknown) without dislocation. At 90 degrees flexion, Result panel 76 (unknown) (no date) (unknown) (unknown) > 60 ml/min (unkn own) (unknown) (no date) (unknown) (unknown) > 60 ml/min (unkn own) (unknown) (no date) (unknown) (unknown) 0.54 mg/dl (unkn own) (unknown) (no date) (unknown) (unknown) 103 mmol/l (unkn own) (unknown) (no date) (unknown) (unknown) 13 mg/dl (unkn own) (unknown) (no date) (unknown) (unknown) 134 mmol/l (unkn own) (unknown) (no date) (unknown) (unknown) 20 mmol/l (unkn own) (unknown) (no date) (unknown) (unknown) 24.1 (units unknown) (unknown) (unknown) (no date) (unknown) (unknown) 3.9 mmol/l (unkn own) (unknown) (no date) (unknown) (unknown) 3.9 mmol/l (unkn own) (unknown) (no date) (unknown) (unknown) 8.1 mg/dl (unkn own) (unknown) (no date) (unknown) (unknown) 90 mg/dl (unkn own) (unknown) (no date) (unknown) (unknown) 90 mg/dl (unkn own) Result panel 77 (unknown) (no (unknown) (unknown) (no value) (units (unk nown) date) unknown) (unknown) (no (unknown) (unknown) (past 8 hours): (units (unknown) date) unknown) (unknown) (no (unknown) (unknown) [id number] (units (unkno wn) date) unknown) (unknown) (no (unknown) (unknown) 00:00 04/11/22 (units (unknown) date) unknown) (unknown) (no (unknown) (unknown) 04/10/22 04/10/22 (units (unknown) date) unknown) (unknown) (no (unknown) (unknown) 04/10/22 04:40 (units (unknown) date) unknown) (unknown) (no (unknown) (unknown) 04/10/22 Unknown (units (unknown) date) unknown) (unknown) (no (unknown) (unknown) 04/11/22 (units (unkno wn) date) unknown) (unknown) (no (unknown) (unknown) 01:00 04/11/22 (units (unknown) date) unknown) (unknown) (no (unknown) (unknown) 02:00 (units (unkno wn) date) unknown) (unknown) (no (unknown) (unknown) 03:24 04/11/22 (units (unknown) date) unknown) (unknown) (no (unknown) (unknown) 05:57 (units (unkno wn) date) unknown) (unknown) (no (unknown) (unknown) 23:10 Unknown (units ( unknown) date) unknown) (unknown) (no (unknown) (unknown) Actual Procedure Side (un its (unknown) date) Surgeon unknown) (unknown) (no (unknown) (unknown) Age/Sex: 82 / F (units (unknown) date) unknown) (unknown) (no (unknown) (unknown) Assessment + Plan (units (unknown) date) Post-op unknown) (unknown) (no (unknown) (unknown) BUN 13 (units (unkno wn) date) unknown) (unknown) (no (unknown) (unknown) BUN/Creatinine Ratio (uni ts (unknown) date) 24.1 H unknown) (unknown) (no (unknown) (unknown) Blood Pressure 101/48 (un its (unknown) date) L 106/49 L 114/42 L unknown) (unknown) (no (unknown) (unknown) Blood Pressure 131/47 (un its (unknown) date) L unknown) (unknown) (no (unknown) (unknown) Calcium 8.1 L (units ( unknown) date) unknown) (unknown) (no (unknown) (unknown) Carbon Dioxide 20 L (unit s (unknown) date) unknown) (unknown) (no (unknown) (unknown) Chloride 103 (units (u nknown) date) unknown) (unknown) (no (unknown) (unknown) Creatinine 0.54 (units (unknown) date) unknown) (unknown) (no (unknown) (unknown) : 1940 (units (unknown) date) Acct:[id number] unknown) (unknown) (no (unknown) (unknown) Date Patient Seen: (units (unknown) date) 04/11/22 unknown) (unknown) (no (unknown) (unknown) Date of Service: (units (unknown) date) 04/09/22 unknown) (unknown) (no (unknown) (unknown) Dementia (units (unkno wn) date) unknown) (unknown) (no (unknown) (unknown) Estimated GFR > 60 (units (unknown) date) unknown) (unknown) (no (unknown) (unknown) Exam (units (unkno wn) date) unknown) (unknown) (no (unknown) (unknown) Glaucoma (units (unkno wn) date) unknown) (unknown) (no (unknown) (unknown) Glucose 90 (units (unk nown) date) unknown) (unknown) (no (unknown) (unknown) H/O: hysterectomy (units (unknown) date) unknown) (unknown) (no (unknown) (unknown) Hypercholesterolemia (uni ts (unknown) date) unknown) (unknown) (no (unknown) (unknown) Hypertension (units (u nknown) date) unknown) (unknown) (no (unknown) (unknown) Hypothyroidism (units (unknown) date) unknown) (unknown) (no (unknown) (unknown) Interval history: (units (unknown) date) unknown) (unknown) (no (unknown) (unknown) [facility] 1211 (uni ts (unknown) date) [address] [place] [address], unknown ) [place] [id number] (unknown) (no (unknown) (unknown) Laboratory Results - (uni ts (unknown) date) last 24 hr unknown) (unknown) (no (unknown) (unknown) Labs (units (unkno wn) date) unknown) (unknown) (no (unknown) (unknown) Labs: (units (unkno wn) date) unknown) (unknown) (no (unknown) (unknown) Medical History (units (unknown) date) (Reviewed 04/09/22 @ unknown) 21:36 by Timothy Topete MD) (unknown) (no (unknown) (unknown) Objective (units (unkn own) date) unknown) (unknown) (no (unknown) (unknown) Operation Date: (units (unknown) date) 04/10/22 13:30 unknown) (unknown) (no (unknown) (unknown) Oxygen Delivery (units (unknown) date) Method Room Air unknown) (unknown) (no (unknown) (unknown) Oxygen Delivery (units (unknown) date) Method unknown) (unknown) (no (unknown) (unknown) Oxygen Flow Rate 0 (units (unknown) date) unknown) (unknown) (no (unknown) (unknown) Oxygen Flow Rate 1 0 (uni ts (unknown) date) unknown) (unknown) (no (unknown) (unknown) Oxygen Flow Rate 2 2 (uni ts (unknown) date) 2 unknown) (unknown) (no (unknown) (unknown) PFSH (units (unkno wn) date) unknown) (unknown) (no (unknown) (unknown) Patient resting (units (unknown) date) comfortably in bed. unknown) Patient's son is at bedside and states she (unknown) (no (unknown) (unknown) Patient: (units (unkno wn) date) Sheila Marley MR#: unknown) M0 (unknown) (no (unknown) (unknown) Postoperative (units ( unknown) date) unknown) (unknown) (no (unknown) (unknown) Potassium 3.9 D 5.8 H (un its (unknown) date) D unknown) (unknown) (no (unknown) (unknown) Procedures (units (unk nown) date) unknown) (unknown) (no (unknown) (unknown) Procedures: (units (un known) date) unknown) (unknown) (no (unknown) (unknown) Progress Note (units ( unknown) date) unknown) (unknown) (no (unknown) (unknown) Provider: Steve Mason (uni ts (unknown) date) W P.A-C unknown) (unknown) (no (unknown) (unknown) Pulse Oximetry 98 100 (un its (unknown) date) 99 unknown) (unknown) (no (unknown) (unknown) Pulse Oximetry 98 95 (uni ts (unknown) date) unknown) (unknown) (no (unknown) (unknown) Pulse Rate 73 (units ( unknown) date) unknown) (unknown) (no (unknown) (unknown) Pulse Rate 74 82 66 (unit s (unknown) date) unknown) (unknown) (no (unknown) (unknown) Respiratory Rate 18 (unit s (unknown) date) 18 18 unknown) (unknown) (no (unknown) (unknown) Respiratory Rate 18 (unit s (unknown) date) unknown) (unknown) (no (unknown) (unknown) Result Diagrams: (units (unknown) date) unknown) (unknown) (no (unknown) (unknown) Signed By: (units (unk nown) date) unknown) (unknown) (no (unknown) (unknown) Smoking Status: Never (un its (unknown) date) smoker unknown) (unknown) (no (unknown) (unknown) Social History (units (unknown) date) (Reviewed 04/07/22 @ unknown) 19:18 by Pati Galeano [facility]) (unknown) (no (unknown) (unknown) Sodium 134 L (units (u nknown) date) unknown) (unknown) (no (unknown) (unknown) Subjective (units (unk nown) date) unknown) (unknown) (no (unknown) (unknown) Surgical History (units (unknown) date) (Reviewed 04/09/22 @ unknown) 21:36 by Timothy Topete MD) (unknown) (no (unknown) (unknown) Temperature 96.3 F L (uni ts (unknown) date) unknown) (unknown) (no (unknown) (unknown) Temperature 97.3 F L (uni ts (unknown) date) 96.7 F L 96.8 F L unknown) (unknown) (no (unknown) (unknown) Time Patient Seen: (units (unknown) date) 07:45 unknown) (unknown) (no (unknown) (unknown) Vital Signs (units (un known) date) unknown) (unknown) (no (unknown) (unknown) [Embedded Image Not (unit s (unknown) date) Available] unknown) (unknown) (no (unknown) (unknown) alcohol intake: never (un its (unknown) date) unknown) (unknown) (no (unknown) (unknown) has done well (units ( unknown) date) overnight. I will let unknown) her rest and reroute later today. (unknown) (no (unknown) (unknown) household members: (units (unknown) date) other unknown) (unknown) (no (unknown) (unknown) p Hip (units (unkno wn) date) Hemiarthroplasty Right unknown ) Jorge Camarena MD (unknown) (no (unknown) (unknown) s ORIF Forearm (units (unknown) date) Fracture Right Jorge unknown ) Zaira Camaerna MD Result panel 78 (unknown) (no date) (unknown) (unknown) 0 /ul (unkn own) (unknown) (no date) (unknown) (unknown) 0.2 % (unkn own) (unknown) (no date) (unknown) (unknown) 1.1 % (unkn own) (unknown) (no date) (unknown) (unknown) 10.7 % (unkn own) (unknown) (no date) (unknown) (unknown) 100 /ul (unkn own) (unknown) (no date) (unknown) (unknown) 12.4 g/dl (unkn own) (unknown) (no date) (unknown) (unknown) 13.1 % (unkn own) (unknown) (no date) (unknown) (unknown) 169 x10 3/ul (unkn own) (unknown) (no date) (unknown) (unknown) 29.3 pg (unkn own) (unknown) (no date) (unknown) (unknown) 33.8 % (unkn own) (unknown) (no date) (unknown) (unknown) 36.8 % (unkn own) (unknown) (no date) (unknown) (unknown) 4.25 x10 6/ul (unkn own) (unknown) (no date) (unknown) (unknown) 6400 /ul (unkn own) (unknown) (no date) (unknown) (unknown) 700 /ul (unkn own) (unknown) (no date) (unknown) (unknown) 79.1 % (unkn own) (unknown) (no date) (unknown) (unknown) 8.1 x10 3/ul (unkn own) (unknown) (no date) (unknown) (unknown) 8.9 % (unkn own) (unknown) (no date) (unknown) (unknown) 86.5 fl (unkn own) (unknown) (no date) (unknown) (unknown) 900 /ul (unkn own) Result panel 79 (unknown) (no date) (unknown) (unknown) > 60 ml/min (unkn own) (unknown) (no date) (unknown) (unknown) > 60 ml/min (unkn own) (unknown) (no date) (unknown) (unknown) 0.46 mg/dl (unkn own) (unknown) (no date) (unknown) (unknown) 1.7 mg/dl (unkn own) (unknown) (no date) (unknown) (unknown) 100 mmol/l (unkn own) (unknown) (no date) (unknown) (unknown) 108 mg/dl (unkn own) (unknown) (no date) (unknown) (unknown) 108 mg/dl (unkn own) (unknown) (no date) (unknown) (unknown) 13 mg/dl (unkn own) (unknown) (no date) (unknown) (unknown) 134 mmol/l (unkn own) (unknown) (no date) (unknown) (unknown) 23 mmol/l (unkn own) (unknown) (no date) (unknown) (unknown) 28.3 (units unknown) (unknown) (unknown) (no date) (unknown) (unknown) 3.5 mmol/l (unkn own) (unknown) (no date) (unknown) (unknown) 7.8 mg/dl (unkn own) Result panel 80 (unknown) (no (unknown) (unknown) (no value) (units (unk nown) date) unknown) (unknown) (no (unknown) (unknown) <Electronically (units (unknown) date) signed by Pati Leach unknown) [facility] Crew> (unknown) (no (unknown) (unknown) ADDENDUM (units (u nknown) date) unknown) (unknown) (no (unknown) (unknown) *If you do not have (unit s (unknown) date) a primary care unknown) provider please contact [phone] to (unknown) (no (unknown) (unknown) *Please continue to (unit s (unknown) date) take your regular unknown) medications as directed. (unknown) (no (unknown) (unknown) *Please follow up (units (unknown) date) with your primary unknown) care provider in 2-3 days, call for an (unknown) (no (unknown) (unknown) *Return to Emergency (uni ts (unknown) date) Department if you unknown) should have any new, worsening, or (unknown) (no (unknown) (unknown) *What to do: (units (u nknown) date) unknown) (unknown) (no (unknown) (unknown) *You have been (units (unknown) date) diagnosed with a unknown) fracture of the ulnar bone in your right arm (unknown) (no (unknown) (unknown) [id number] (units (unkno wn) date) unknown) (unknown) (no (unknown) (unknown) 04/11/22 1046 (units ( unknown) date) unknown) (unknown) (no (unknown) (unknown) 1. Fracture of the (units (unknown) date) distal 3rd of the unknown) ulna diaphysis with displacement and (unknown) (no (unknown) (unknown) 04/07/22 13:00 (units (unknown) date) unknown) (unknown) (no (unknown) (unknown) 04/07/22 13:15 (units (unknown) date) unknown) (unknown) (no (unknown) (unknown) 04/07/22 13:20 (units (unknown) date) unknown) (unknown) (no (unknown) (unknown) 04/07/22 1945 (units ( unknown) date) unknown) (unknown) (no (unknown) (unknown) 04/07/22 1958 (units ( unknown) date) unknown) (unknown) (no (unknown) (unknown) 04/07/22 (units (unkno wn) date) unknown) (unknown) (no (unknown) (unknown) 13:09 04/07/22 (units (unknown) date) unknown) (unknown) (no (unknown) (unknown) 18:58 (units (unkno wn) date) unknown) (unknown) (no (unknown) (unknown) 2. 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 (unknown) (no (unknown) (unknown) ? (units (unkno wn) date) unknown) (unknown) (no (unknown) (unknown) Accidentally saved (units (unknown) date) note prior to unknown) finishing MDM, continue where left off: (unknown) (no (unknown) (unknown) Acetaminophen (units ( unknown) date) (Acetaminophen 325 Mg unknown) Tablet) 650 mg PO NOW ONE (unknown) (no (unknown) (unknown) Activity (units (unkno wn) date) Restrictions/Addition unknown) al Instructions: (unknown) (no (unknown) (unknown) Addendum Documented (unit s (unknown) date) By: Pati WALTON unknown) Crew (unknown) (no (unknown) (unknown) Addendum Documented (unit s (unknown) date) By: Todd Carlson unknown) D.OKirill (unknown) (no (unknown) (unknown) Addendum Signed By: (unit s (unknown) date) <Electronically unknown) signed by Pati Fernandez (unknown) (no (unknown) (unknown) Addendum Signed By: (unit s (unknown) date) <Electronically unknown) signed by Jennifer Michaels (unknown) (no (unknown) (unknown) Additional Comments: (uni ts (unknown) date) unknown) (unknown) (no (unknown) (unknown) Age/Sex: 82 / F (units (unknown) date) unknown) (unknown) (no (unknown) (unknown) Allergies (units (unkn own) date) unknown) (unknown) (no (unknown) (unknown) Allergy/AdvReac Type (uni ts (unknown) date) Severity Reaction unknown) Status Date / Time (unknown) (no (unknown) (unknown) Approved by: Shmuel (unit s (unknown) date) Carol Ann Marks on unknown) 04/07/2022 at 14:35 ? (unknown) (no (unknown) (unknown) Approved by: Shmuel (unit s (unknown) date) Carol Ann Marks on unknown) 04/07/2022 at 14:37 ? (unknown) (no (unknown) (unknown) Approved by: Bryce (units (unknown) date) Carol Ann Segura on unknown) 04/07/2022 at 13:53 ? (unknown) (no (unknown) (unknown) Approved by: Bryce (units (unknown) date) Carol Ann Segura on unknown) 04/07/2022 at 13:58 ? (unknown) (no (unknown) (unknown) Approved by: Bryce (units (unknown) date) Carol Ann Segura on unknown) 04/07/2022 at 14:01 ? (unknown) (no (unknown) (unknown) Approved by: Bryce (units (unknown) date) Carol Ann Segura on unknown) 04/07/2022 at 14:03 ? (unknown) (no (unknown) (unknown) Blood Pressure (units (unknown) date) 116/59 L 04/07/22 unknown) 13:09 (unknown) (no (unknown) (unknown) Blood Pressure (units (unknown) date) 116/59 L 120/60 unknown) (unknown) (no (unknown) (unknown) Bones:? Fracture of (unit s (unknown) date) the distal 3rd of the unknown) ulna diaphysis with displacement and (unknown) (no (unknown) (unknown) Bones:? No fracture (unit s (unknown) date) or dislocation.? unknown) Visualized superior ribs are intact.? (unknown) (no (unknown) (unknown) Bones:? There is a (units (unknown) date) mildly displaced unknown) fracture of 1 bone with of the distal 3rd of (unknown) (no (unknown) (unknown) Brain:? No (units (unk nown) date) intracranial bleeds unknown) or masses.? There is moderate cerebral volume (unknown) (no (unknown) (unknown) [facility], CT unknown) THORACIC SPINE WO CON, 04/07/2022, 13:24. (unknown) (no (unknown) (unknown) COMPARISON:? None. (units (unknown) date) unknown) (unknown) (no (unknown) (unknown) CSF spaces:? Basal (units (unknown) date) cisterns are patent.? unknown) No extra-axial fluid collections.? The (unknown) (no (unknown) (unknown) CT - cervical spine: (uni ts (unknown) date) unknown) (unknown) (no (unknown) (unknown) CT cervical spine wo (uni ts (unknown) date) con Stat unknown) (unknown) (no (unknown) (unknown) CT head/brain wo con (uni ts (unknown) date) Stat unknown) (unknown) (no (unknown) (unknown) CT lumbar spine wo (units (unknown) date) con Stat unknown) (unknown) (no (unknown) (unknown) CT scan - head: (units (unknown) date) unknown) (unknown) (no (unknown) (unknown) CT thoracic spine wo (uni ts (unknown) date) con Stat unknown) (unknown) (no (unknown) (unknown) Chief Complaint: (units (unknown) date) Extremity Injury, unknown) Upper (unknown) (no (unknown) (unknown) Clinical Impression: (uni ts (unknown) date) unknown) (unknown) (no (unknown) (unknown) Consulted with ED (units (unknown) date) attending Dr. Carlson unknown) who is concerned about reduction in the (unknown) (no (unknown) (unknown) Course (units (unkno wn) date) unknown) (unknown) (no (unknown) (unknown) : 1940 (units (unknown) date) Acct:[id number] unknown) (unknown) (no (unknown) (unknown) Date of Service: (units (unknown) date) 04/07/22 unknown) (unknown) (no (unknown) (unknown) Departure (units (unkn own) date) unknown) (unknown) (no (unknown) (unknown) Dictated by: Shmuel (unit s (unknown) date) Carol Ann Marks on unknown) 04/07/2022 at 14:34 ? ? (unknown) (no (unknown) (unknown) Dictated by: Shmuel (unit s (unknown) date) Carol Ann Marks on unknown) 04/07/2022 at 14:35 ? ? (unknown) (no (unknown) (unknown) Dictated by: Bryce (units (unknown) date) Carol Ann Segura on unknown) 04/07/2022 at 13:52 ? ? (unknown) (no (unknown) (unknown) Dictated by: Bryce (units (unknown) date) Carol Ann Segura on unknown) 04/07/2022 at 13:56 ? ? (unknown) (no (unknown) (unknown) Dictated by: Bryce (units (unknown) date) Carol Ann Segura on unknown) 04/07/2022 at 13:58 ? ? (unknown) (no (unknown) (unknown) Dictated by: Bryce (units (unknown) date) Carol Ann Segura on unknown) 04/07/2022 at 14:01 ? ? (unknown) (no (unknown) (unknown) Discharge Plan (units (unknown) date) unknown) (unknown) (no (unknown) (unknown) Discontinued (units (u nknown) date) Medications unknown) (unknown) (no (unknown) (unknown) ED Orders (units (unkn own) date) unknown) (unknown) (no (unknown) (unknown) ER Physician: (units ( unknown) date) Crew,Pati WALTON unknown) (unknown) (no (unknown) (unknown) Emergency Report (units (unknown) date) unknown) (unknown) (no (unknown) (unknown) Exam Narrative: (units (unknown) date) unknown) (unknown) (no (unknown) (unknown) Exam (units (unkno wn) date) unknown) (unknown) (no (unknown) (unknown) Extremity x-ray #1: (unit s (unknown) date) unknown) (unknown) (no (unknown) (unknown) Extremity x-ray #2: (unit s (unknown) date) unknown) (unknown) (no (unknown) (unknown) FINDINGS:? (units (unk nown) date) unknown) (unknown) (no (unknown) (unknown) For pain, please (units (unknown) date) give her Tylenol 650 unknown) mg with ibuprofen 400 mg every 6 hours as (unknown) (no (unknown) (unknown) Fracture, ulna, (units (unknown) date) distal unknown) (unknown) (no (unknown) (unknown) General (units (unkno wn) date) unknown) (unknown) (no (unknown) (unknown) General: (units (unkno wn) date) cooperative, unknown) comfortable, in no acute distress, well groomed (unknown) (no (unknown) (unknown) HEENT: symmetrical (units (unknown) date) facial expressions, unknown) moist mucous membranes (unknown) (no (unknown) (unknown) HPI - Extremity (units (unknown) date) Injury (Upper) unknown) (unknown) (no (unknown) (unknown) HPI narrative: (units (unknown) date) unknown) (unknown) (no (unknown) (unknown) History of Present (units (unknown) date) Illness unknown) (unknown) (no (unknown) (unknown) I was immediately (units (unknown) date) available in the unknown) department for consultation. Documentation (unknown) (no (unknown) (unknown) IMPRESSION:? Mildly (unit s (unknown) date) displaced fracture unknown) and angulation of the distal 3rd of the (unknown) (no (unknown) (unknown) IMPRESSION:? No CT (units (unknown) date) evidence of acute unknown) traumatic cervical spine injury. (unknown) (no (unknown) (unknown) IMPRESSION:? No CT (units (unknown) date) evidence of acute unknown) traumatic injury in the lumbar spine. (unknown) (no (unknown) (unknown) IMPRESSION:? No CT (units (unknown) date) evidence of acute unknown) traumatic thoracic spine injury. (unknown) (no (unknown) (unknown) IMPRESSION:? No (units (unknown) date) acute intracranial unknown) finding. (unknown) (no (unknown) (unknown) IMPRESSION:? (units (u nknown) date) unknown) (unknown) (no (unknown) (unknown) INDICATIONS: (units (u nknown) date) fall/pain unknown) (unknown) (no (unknown) (unknown) INDICATIONS:? FALL (units (unknown) date) unknown) (unknown) (no (unknown) (unknown) INDICATIONS:? S (units (unknown) date) unknown) (unknown) (no (unknown) (unknown) INDICATIONS:? fall, (unit s (unknown) date) back pain, dementia unknown) (unknown) (no (unknown) (unknown) INDICATIONS:? (units ( unknown) date) fall/pain unknown) (unknown) (no (unknown) (unknown) Ibuprofen (Ibuprofen (uni ts (unknown) date) 400 Mg Tablet) 400 mg unknown) PO NOW ONE (unknown) (no (unknown) (unknown) Image quality:? (units (unknown) date) Excellent.? unknown) (unknown) (no (unknown) (unknown) Imaging Data (units (u nknown) date) unknown) (unknown) (no (unknown) (unknown) Initial Vital Signs (unit s (unknown) date) unknown) (unknown) (no (unknown) (unknown) Initial Vital Signs: (uni ts (unknown) date) unknown) (unknown) (no (unknown) (unknown) Injury #1: (units (unk nown) date) unknown) (unknown) (no (unknown) (unknown) Instructions: (units ( unknown) date) Forearm Fracture unknown) (unknown) (no (unknown) (unknown) [facility] [address] (uni ts (unknown) date) [address] unknown) [place] [id number] (unknown) (no (unknown) (unknown) Ivone Donald MD (units (unknown) date) [Primary Care unknown) Provider] (unknown) (no (unknown) (unknown) Last Admin: 04/07/22 (uni ts (unknown) date) 17:45 Dose: 250 mg unknown) (unknown) (no (unknown) (unknown) Last Admin: 04/07/22 (uni ts (unknown) date) 17:45 Dose: 400 mg unknown) (unknown) (no (unknown) (unknown) Last Admin: 04/07/22 (uni ts (unknown) date) 17:45 Dose: 650 mg unknown) (unknown) (no (unknown) (unknown) MDM - Extremity (units (unknown) date) Injury (Upper) unknown) (unknown) (no (unknown) (unknown) MDM Narrative (units ( unknown) date) unknown) (unknown) (no (unknown) (unknown) MSK: moves all (units (unknown) date) extremities, unknown) neurovascularly intact, no focal weakness, normal (unknown) (no (unknown) (unknown) Medical decision (units (unknown) date) making narrative: unknown) (unknown) (no (unknown) (unknown) Methocarbamol (units ( unknown) date) (Methocarbamol 500 Mg unknown) Tablet) 250 mg PO NOW ONE (unknown) (no (unknown) (unknown) Mode of arrival: (units (unknown) date) Wheelchair unknown) (unknown) (no (unknown) (unknown) Narrative (units (unkn own) date) unknown) (unknown) (no (unknown) (unknown) Neuro: normal speech (uni ts (unknown) date) and cognition, A+O unknown) x1-3, history of dementia, ambulatory, (unknown) (no (unknown) (unknown) Noncontrast 3 mm (units (unknown) date) thick sections unknown) acquired from the T12 level to the sacrum.? (unknown) (no (unknown) (unknown) Noncontrast 3 mm (units (unknown) date) thick sections unknown) acquired from the skull base to the T4 level.? (unknown) (no (unknown) (unknown) Noncontrast 3 mm (units (unknown) date) thick sections unknown) acquired through the region of interest in the (unknown) (no (unknown) (unknown) Noncontrast 4.5 mm (units (unknown) date) thick angled axial unknown) sections acquired from the foramen magnum (unknown) (no (unknown) (unknown) O.> 04/11/22 1046 (units (unknown) date) unknown) (unknown) (no (unknown) (unknown) Jorge Camarena MD (unit s (unknown) date) [Physician] unknown) (unknown) (no (unknown) (unknown) Ordered: (units (unkno wn) date) unknown) (unknown) (no (unknown) (unknown) Orders (units (unkno wn) date) unknown) (unknown) (no (unknown) (unknown) Orthopedic (units (unk nown) date) Splinting/Casting unknown) (unknown) (no (unknown) (unknown) Oxygen Delivery (units (unknown) date) Method 04/07/22 13:09 unknown) (unknown) (no (unknown) (unknown) Oxygen Delivery (units (unknown) date) Method Room Air Room unknown) Air (unknown) (no (unknown) (unknown) PROCEDURE:? CT (units (unknown) date) CERVICAL SPINE WO CON unknown) (unknown) (no (unknown) (unknown) PROCEDURE:? CT (units (unknown) date) HEAD/BRAIN WO CON unknown) (unknown) (no (unknown) (unknown) PROCEDURE:? CT (units (unknown) date) LUMBAR SPINE WO CON unknown) (unknown) (no (unknown) (unknown) PROCEDURE:? CT (units (unknown) date) THORACIC SPINE WO CON unknown) (unknown) (no (unknown) (unknown) PROCEDURE:? XR (units (unknown) date) FOREARM RT 2V unknown) (unknown) (no (unknown) (unknown) PROCEDURE:? XR WRIST (uni ts (unknown) date) RT MIN 3V unknown) (unknown) (no (unknown) (unknown) Patient Disposition: (uni ts (unknown) date) Home unknown) (unknown) (no (unknown) (unknown) Patient History (units (unknown) date) unknown) (unknown) (no (unknown) (unknown) Patient has been (units (unknown) date) given strict return unknown) to ER precautions for any new or worsening (unknown) (no (unknown) (unknown) Patient is (units (unk nown) date) appropriate and unknown) amenable to discharge home. Vital signs are stable (unknown) (no (unknown) (unknown) Patient: (units (unkno wn) date) Sheila Marley MR#: unknown) M0 (unknown) (no (unknown) (unknown) Placed by: Provider (unit s (unknown) date) unknown) (unknown) (no (unknown) (unknown) Post splinting neuro (uni ts (unknown) date) exam: intact and no unknown) change (unknown) (no (unknown) (unknown) Post splinting (units (unknown) date) vascular exam: intact unknown) (unknown) (no (unknown) (unknown) Procedures (units (unk nown) date) unknown) (unknown) (no (unknown) (unknown) Psych: mental status (uni ts (unknown) date) is grossly normal unknown) with history of dementia, wants to go (unknown) (no (unknown) (unknown) Pulled traction on (units (unknown) date) the ulnar aspect unknown) while applying splint with improved pain, (unknown) (no (unknown) (unknown) Pulse Oximetry 97 (units (unknown) date) 04/07/22 13:09 unknown) (unknown) (no (unknown) (unknown) Pulse Oximetry 97 97 (uni ts (unknown) date) unknown) (unknown) (no (unknown) (unknown) Pulse Rate 64 (units ( unknown) date) 04/07/22 13:09 unknown) (unknown) (no (unknown) (unknown) Pulse Rate 64 70 (units (unknown) date) unknown) (unknown) (no (unknown) (unknown) ROS Unobtainable: All (uni ts (unknown) date) systems reviewed + unknown) are unremarkable except as noted in HPI (unknown) (no (unknown) (unknown) Radiologist's (units ( unknown) date) Impression: unknown) (unknown) (no (unknown) (unknown) Referrals: (units (unk nown) date) unknown) (unknown) (no (unknown) (unknown) Related Data (units (u nknown) date) unknown) (unknown) (no (unknown) (unknown) Respiratory Rate 18 (unit s (unknown) date) 04/07/22 13:09 unknown) (unknown) (no (unknown) (unknown) Respiratory Rate 18 (unit s (unknown) date) 16 unknown) (unknown) (no (unknown) (unknown) Review of Systems (units (unknown) date) unknown) (unknown) (no (unknown) (unknown) Reviewed vitals (units (unknown) date) signs and nursing unknown) notes. (unknown) (no (unknown) (unknown) Sagittal and (units (u nknown) date) unknown) (unknown) (no (unknown) (unknown) Sagittal (units (unkno wn) date) unknown) (unknown) (no (unknown) (unknown) Scaphoid view:? No (units (unknown) date) fracture identified unknown) (unknown) (no (unknown) (unknown) She was splinted in (unit s (unknown) date) a sugar-tong splint unknown) accordingly, patient has history of (unknown) (no (unknown) (unknown) Side: right (units (un known) date) unknown) (unknown) (no (unknown) (unknown) Signed By: (units (unk nown) date) unknown) (unknown) (no (unknown) (unknown) Sinuses:? Visualized (uni ts (unknown) date) sinuses and mastoids unknown) are clear.? (unknown) (no (unknown) (unknown) [facility] (units (unkn own) date) [facility] [Provider unknown) Group] (unknown) (no (unknown) (unknown) Skin: brisk (units (un known) date) capillary refill, unknown) without pallor or erythema (unknown) (no (unknown) (unknown) Skull and face:? (units (unknown) date) Calvarium and unknown) visualized facial bones appear intact, without (unknown) (no (unknown) (unknown) Smoking Status: (units (unknown) date) Never smoker unknown) (unknown) (no (unknown) (unknown) Social History (units (unknown) date) (Reviewed 04/07/22 @ unknown) 19:18 by Pati Galeano CHIEF RADIOLOGY) (unknown) (no (unknown) (unknown) Soft tissues:? No (units (unknown) date) suspicious soft unknown) tissue calcifications or masses.? (unknown) (no (unknown) (unknown) Soft tissues:? No (units (unknown) date) suspicious soft unknown) tissue calcifications.? (unknown) (no (unknown) (unknown) Soft tissues:? (units (unknown) date) Prevertebral soft unknown) tissues are normal in thickness.? No (unknown) (no (unknown) (unknown) Source: patient (units (unknown) date) unknown) (unknown) (no (unknown) (unknown) Stated Complaint: (units (unknown) date) fall today, back unknown) pain,R arm injury, dementia (unknown) (no (unknown) (unknown) Stop: 04/07/22 17:36 (uni ts (unknown) date) unknown) (unknown) (no (unknown) (unknown) Substance Use Type: (unit s (unknown) date) does not use unknown) (unknown) (no (unknown) (unknown) TECHNIQUE:? 2 views (unit s (unknown) date) of the forearm were unknown) acquired.? (unknown) (no (unknown) (unknown) TECHNIQUE:? 4 views (unit s (unknown) date) of the wrist were unknown) acquired.? (unknown) (no (unknown) (unknown) TECHNIQUE:? (units (un known) date) unknown) (unknown) (no (unknown) (unknown) Temperature 98.2 F (units (unknown) date) 04/07/22 13:09 unknown) (unknown) (no (unknown) (unknown) Temperature 98.2 F (units (unknown) date) unknown) (unknown) (no (unknown) (unknown) There is (units (unkno wn) date) unknown) (unknown) (no (unknown) (unknown) This is a (units (unkn own) date) 82-year-old female unknown) who is brought into the emergency department by (unknown) (no (unknown) (unknown) This is an (units (unk nown) date) 82-year-old female unknown) who presents to the emergency department after a (unknown) (no (unknown) (unknown) Thoracic and (units (u nknown) date) thoracolumbar unknown) S-shaped scoliosis.? No listhesis in the thoracic (unknown) (no (unknown) (unknown) Time Seen by (units (u nknown) date) Provider: 04/07/22 unknown) 13:00 (unknown) (no (unknown) (unknown) Upper Extremity (units (unknown) date) Immobilizer: unknown) sling/shoulder immobilizer and sugar tong (unknown) (no (unknown) (unknown) Upper Extremity (units (unknown) date) Injury Location: unknown) forearm (unknown) (no (unknown) (unknown) Vertebral body (units (unknown) date) heights maintained.? 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 unknown) No acute fracture.? Remote right posterior (unknown) (no (unknown) (unknown) Vital Signs - 8 hr (units (unknown) date) unknown) (unknown) (no (unknown) (unknown) Vital Signs (units (un known) date) unknown) (unknown) (no (unknown) (unknown) Vital signs: (units (u nknown) date) unknown) (unknown) (no (unknown) (unknown) XR forearm RT 2V (units (unknown) date) Stat unknown) (unknown) (no (unknown) (unknown) XR wrist RT min 3V (units (unknown) date) Stat unknown) (unknown) (no (unknown) (unknown) [ ] New medication (units (unknown) date) prescriptions sent to unknown) your pharmacy: [ ] (unknown) (no (unknown) (unknown) [ ] New medication (units (unknown) date) written as a paper unknown) prescription (unknown) (no (unknown) (unknown) [x ] No new (units (un known) date) medications given unknown) (unknown) (no (unknown) (unknown) able, this may be (units (unknown) date) treated surgically unknown) with a plate. Please give her pain (unknown) (no (unknown) (unknown) abnormality. (units (u nknown) date) unknown) (unknown) (no (unknown) (unknown) acute abnormality, (units (unknown) date) x-ray of her right unknown) forearm, right wrist shows a closed, (unknown) (no (unknown) (unknown) age, with resultant (unit s (unknown) date) ventricular and unknown) sulcal prominence.? There are moderate (unknown) (no (unknown) (unknown) and below (units (unkn own) date) unknown) (unknown) (no (unknown) (unknown) and coronal (units (un known) date) reformats were then unknown) constructed.? For radiation dose reduction, the (unknown) (no (unknown) (unknown) and good historian (units (unknown) date) for the patient. unknown) Patient had a deformity of her distal right (unknown) (no (unknown) (unknown) angulation. (units (un known) date) unknown) (unknown) (no (unknown) (unknown) angulation.? Severe (unit s (unknown) date) degenerative changes unknown) of the 1st metacarpophalangeal joint. (unknown) (no (unknown) (unknown) appointment. Let them (uni ts (unknown) date) know you were seen in unknown) the Emergency Department and that we (unknown) (no (unknown) (unknown) asked that you be (units (unknown) date) seen for follow-up. unknown) We will electronically transmit a record (unknown) (no (unknown) (unknown) caregiver understand (uni ts (unknown) date) to treat her pain unknown) with Tylenol and ibuprofen, did not (unknown) (no (unknown) (unknown) changes, patient's (units (unknown) date) daughter states that unknown) her last urine was negative for (unknown) (no (unknown) (unknown) changes. Dr. Camarena (units (unknown) date) states that she may unknown) need a plate for surgical fixation of (unknown) (no (unknown) (unknown) clear speech (units (u nknown) date) unknown) (unknown) (no (unknown) (unknown) complains back pain, (unit s (unknown) date) hip and leg pain, unknown) right forearm pain and states this is the (unknown) (no (unknown) (unknown) concerning symptoms, (uni ts (unknown) date) such as [fever unknown) greater than 101F, chills, worsening pain, (unknown) (no (unknown) (unknown) coronal reformats (units (unknown) date) were constructed.? unknown) For radiation dose reduction, the following (unknown) (no (unknown) (unknown) ct lumbar: (units (unk nown) date) unknown) (unknown) (no (unknown) (unknown) ct thoracic: (units (u nknown) date) unknown) (unknown) (no (unknown) (unknown) daughter denies any (unit s (unknown) date) abnormal behavior, unknown) states that she thinks she is getting (unknown) (no (unknown) (unknown) deconditioning. She (unit s (unknown) date) is not in physical unknown) therapy at this time. Patient's (unknown) (no (unknown) (unknown) deficit, tenderness (unit s (unknown) date) to palpation. unknown) Complains of pain at her right forearm where (unknown) (no (unknown) (unknown) dementia, she is not (uni ts (unknown) date) anticoagulated, did unknown) not hit her head, have any episodes of (unknown) (no (unknown) (unknown) displaced ulnar (units (unknown) date) fracture of the unknown) distal 3rd with displacement and angulation. (unknown) (no (unknown) (unknown) dose (units (unkno wn) date) unknown) (unknown) (no (unknown) (unknown) elevated, have her (units (unknown) date) elevate it unknown) frequently. (unknown) (no (unknown) (unknown) emergency department (uni ts (unknown) date) with success, unknown) consulted with Dr. Camarena who is orthopedic (unknown) (no (unknown) (unknown) establish care with (unit s (unknown) date) one of the [facility] unknown) [facility] primary care providers. (unknown) (no (unknown) (unknown) facility. Her (units ( unknown) date) primary care provider unknown) is Dr. Kirk Villasenor. Denies any urinary (unknown) (no (unknown) (unknown) family member and (units (unknown) date) caregiver who states unknown) that patient has had increased falls over (unknown) (no (unknown) (unknown) following (units (unkn own) date) unknown) (unknown) (no (unknown) (unknown) forearm pain, back (units (unknown) date) pain, leg pain with a unknown) family member who is also a caregiver (unknown) (no (unknown) (unknown) forearm, was found (units (unknown) date) to have a fractured unknown) ulna with significant displacement (unknown) (no (unknown) (unknown) forgetful, easily (units (unknown) date) directable. Patient unknown) has not had any pain medication prior to (unknown) (no (unknown) (unknown) fractures noted. (units (unknown) date) unknown) (unknown) (no (unknown) (unknown) has been reviewed. I (uni ts (unknown) date) agree with assessment unknown) and plan. (unknown) (no (unknown) (unknown) hematomas.? No (units (unknown) date) apical unknown) pneumothoraces.? (unknown) (no (unknown) (unknown) her arrival. She is (unit s (unknown) date) right-hand dominant, unknown) lives at [facility] assisted living (unknown) (no (unknown) (unknown) her with ADLs, safe (unit s (unknown) date) transfers and unknown) increase observation. Patient and her (unknown) (no (unknown) (unknown) home, congruent (units (unknown) date) mood, normal affect, unknown) pleasant and cooperative (unknown) (no (unknown) (unknown) infection and it was (uni ts (unknown) date) within the last week. unknown) She has not had any upper (unknown) (no (unknown) (unknown) instructed. Patient (unit s (unknown) date) understands plan and unknown) agrees to discharge home. All (unknown) (no (unknown) (unknown) intracranial (units (u nknown) date) internal carotid unknown) artery atherosclerosis.? (unknown) (no (unknown) (unknown) [facility] as (uni ts (unknown) date) soon as possible. unknown) Please have her seen as soon as they are (unknown) (no (unknown) (unknown) left ulna. (units (unk nown) date) unknown) (unknown) (no (unknown) (unknown) lesions.? (units (unkn own) date) unknown) (unknown) (no (unknown) (unknown) loss for (units (unkno wn) date) unknown) (unknown) (no (unknown) (unknown) measuring 4 (units (un known) date) unknown) (unknown) (no (unknown) (unknown) mechanical fall at (units (unknown) date) her assisted living unknown) residence with history of frequent falls, (unknown) (no (unknown) (unknown) medicine as needed (units (unknown) date) for her pain, unknown) encourage hydration, she needs extra (unknown) (no (unknown) (unknown) mild improvement in (units (unknown) date) angulation, patient unknown) remains neurovascularly intact following (unknown) (no (unknown) (unknown) millimeters.? (units ( unknown) date) Otherwise normal unknown) alignment.? Degenerative changes.? No acute soft (unknown) (no (unknown) (unknown) morphine AdvReac (units (unknown) date) Severe Vomiting unknown) Verified 04/07/22 13:08 (unknown) (no (unknown) (unknown) motion and no (units ( unknown) date) deficit, normal range unknown) of motion of her right elbow without (unknown) (no (unknown) (unknown) needed with food and (uni ts (unknown) date) water. She can keep unknown) her arm in a sling to help keep it (unknown) (no (unknown) (unknown) normal sensation to (unit s (unknown) date) her fingers, can unknown) wiggle all fingers with normal range of (unknown) (no (unknown) (unknown) numbness or (units (un known) date) tingling, she is unknown) ambulatory, without new weakness or unilateral (unknown) (no (unknown) (unknown) observation and (units (unknown) date) support for risk of unknown) falls. (unknown) (no (unknown) (unknown) of falls, had CT (units (unknown) date) imaging of her head, unknown) C-spine, thoracic and lumbar spine without (unknown) (no (unknown) (unknown) of today's note if (units (unknown) date) your PCP is in our unknown) system (unknown) (no (unknown) (unknown) on repeat (units (unkn own) date) examination is unknown) unremarkable. Patient has been informed of results. (unknown) (no (unknown) (unknown) paravertebral (units ( unknown) date) unknown) (unknown) (no (unknown) (unknown) patient is (units (unk nown) date) neurovascularly unknown) intact. Patient had a mechanical fall with history (unknown) (no (unknown) (unknown) patient (units (unkno wn) date) unknown) (unknown) (no (unknown) (unknown) periventricular and (unit s (unknown) date) deep white matter unknown) chronic small vessel ischemic changes.? (unknown) (no (unknown) (unknown) persistent vomiting (unit s (unknown) date) or other bothersome unknown) symptoms]. (unknown) (no (unknown) (unknown) prescribe opiates. (units (unknown) date) She is ambulatory unknown) without focal neuro deficit or other (unknown) (no (unknown) (unknown) provider on-call who (uni ts (unknown) date) recommends sugar-tong unknown) splinting, follow-up in the clinic, (unknown) (no (unknown) (unknown) questions and (units ( unknown) date) concerns answered at unknown) this time. (unknown) (no (unknown) (unknown) reduction, the (units (unknown) date) following was used:? unknown) automated exposure control.? (unknown) (no (unknown) (unknown) respiratory symptoms (uni ts (unknown) date) of illness, she has unknown) generalized weakness, and (unknown) (no (unknown) (unknown) rew> 04/07/221957 (units (unknown) date) unknown) (unknown) (no (unknown) (unknown) rib (units (unkno wn) date) unknown) (unknown) (no (unknown) (unknown) right forearm is (units (unknown) date) deformed, she is able unknown) to move all of her fingers, denies (unknown) (no (unknown) (unknown) right radius (units (u nknown) date) diaphysis.? Ulna is unknown) intact. (unknown) (no (unknown) (unknown) significant (units (un known) date) abnormality. She is unknown) pleasant, interactive, without any acute mental (unknown) (no (unknown) (unknown) significant dementia (uni ts (unknown) date) but has a caregiver, unknown) lives in assisted living who can help (unknown) (no (unknown) (unknown) size.? (units (unkno wn) date) unknown) (unknown) (no (unknown) (unknown) spine.? Sagittal and (uni ts (unknown) date) coronal reformats unknown) were then constructed.? For radiation (unknown) (no (unknown) (unknown) spine.? (units (unkno wn) date) unknown) (unknown) (no (unknown) (unknown) splint (units (unkno wn) date) unknown) (unknown) (no (unknown) (unknown) splint, fingertips (units (unknown) date) warm unknown) (unknown) (no (unknown) (unknown) status changes that (unit s (unknown) date) are new. She does not unknown) new weakness, or new sensation (unknown) (no (unknown) (unknown) suspicious (units (unk nown) date) unknown) (unknown) (no (unknown) (unknown) symptoms. Patient (units (unknown) date) understands to follow unknown) up closely with outpatient providers as (unknown) (no (unknown) (unknown) the deformity is. No (uni ts (unknown) date) tenderness to her unknown) spine with palpation, (unknown) (no (unknown) (unknown) the last few weeks, (units (unknown) date) increased weakness, unknown) history of dementia, today fell down and (unknown) (no (unknown) (unknown) the (units (unkno wn) date) unknown) (unknown) (no (unknown) (unknown) this, her pain is (units (unknown) date) improved after unknown) medications given in the emergency department. (unknown) (no (unknown) (unknown) thoracic (units (unkno wn) date) unknown) (unknown) (no (unknown) (unknown) tissue (units (unkno wn) date) unknown) (unknown) (no (unknown) (unknown) to the (units (unkno wn) date) unknown) (unknown) (no (unknown) (unknown) tone. Deformity to (units (unknown) date) right forearm over unknown) the distal ulna proximally, patient with (unknown) (no (unknown) (unknown) used:? automated (units (unknown) date) exposure control.? unknown) (unknown) (no (unknown) (unknown) ventricles are (units (unknown) date) symmetric in size and unknown) shape.? (unknown) (no (unknown) (unknown) vertex, with coronal (uni ts (unknown) date) and sagittal unknown) reformats.? For radiation dose reduction, the (unknown) (no (unknown) (unknown) vomiting, and (units ( unknown) date) presents to the unknown) emergency department for complaint of right (unknown) (no (unknown) (unknown) was used:? automated (uni ts (unknown) date) exposure control, unknown) adjustment of mA and/or kV according to (unknown) (no (unknown) (unknown) was (units (unkno wn) date) unknown) (unknown) (no (unknown) (unknown) weaker because she (units (unknown) date) does not practice any unknown) physical exercise. (unknown) (no (unknown) (unknown) weakness. She is (units (unknown) date) pleasant, normal unknown) phonation, talkative, A+O times 1-3 but (unknown) (no (unknown) (unknown) with significant (units (unknown) date) displacement. Sunday unknown) morning, please call for follow-up with S (unknown) (no (unknown) (unknown) worst of all of her (unit s (unknown) date) problems. She does unknown) not have any open wounds or abrasion, Result panel 82 (unknown) (no (unknown) (unknown) (no value) (units (unk nown) date) unknown) (unknown) (no (unknown) (unknown) (past 8 hours): (units (unknown) date) unknown) (unknown) (no (unknown) (unknown) [id number] (units (unkno wn) date) unknown) (unknown) (no (unknown) (unknown) 00:00 04/11/22 (units (unknown) date) unknown) (unknown) (no (unknown) (unknown) 04/10/22 04/10/22 (units (unknown) date) unknown) (unknown) (no (unknown) (unknown) 04/11/22 08:28 (units (unknown) date) unknown) (unknown) (no (unknown) (unknown) 04/11/22 1041 (units ( unknown) date) unknown) (unknown) (no (unknown) (unknown) 04/11/22 (units (unkno wn) date) unknown) (unknown) (no (unknown) (unknown) 01:00 04/11/22 (units (unknown) date) unknown) (unknown) (no (unknown) (unknown) 02:00 (units (unkno wn) date) unknown) (unknown) (no (unknown) (unknown) 03:24 04/11/22 (units (unknown) date) unknown) (unknown) (no (unknown) (unknown) 05:57 (units (unkno wn) date) unknown) (unknown) (no (unknown) (unknown) 23:10 Unknown (units ( unknown) date) unknown) (unknown) (no (unknown) (unknown) 82-year-old female (units (unknown) date) resting comfortably in unknown ) bed. Splint is in place right upper (unknown) (no (unknown) (unknown) Actual Procedure Side (un its (unknown) date) Surgeon unknown) (unknown) (no (unknown) (unknown) Age/Sex: 82 / F (units (unknown) date) unknown) (unknown) (no (unknown) (unknown) Assessment + Plan (units (unknown) date) Post-op unknown) (unknown) (no (unknown) (unknown) BUN 13 (units (unkno wn) date) unknown) (unknown) (no (unknown) (unknown) BUN/Creatinine Ratio (uni ts (unknown) date) 24.1 H unknown) (unknown) (no (unknown) (unknown) Blood Pressure 101/48 (un its (unknown) date) L 106/49 L 114/42 L unknown) (unknown) (no (unknown) (unknown) Blood Pressure 131/47 (un its (unknown) date) L unknown) (unknown) (no (unknown) (unknown) Calcium 8.1 L (units ( unknown) date) unknown) (unknown) (no (unknown) (unknown) Carbon Dioxide 20 L (unit s (unknown) date) unknown) (unknown) (no (unknown) (unknown) Chloride 103 (units (u nknown) date) unknown) (unknown) (no (unknown) (unknown) Const (units (unkno wn) date) unknown) (unknown) (no (unknown) (unknown) Creatinine 0.54 (units (unknown) date) unknown) (unknown) (no (unknown) (unknown) : 1940 (units (unknown) date) Acct:[id number] unknown) (unknown) (no (unknown) (unknown) Date Patient Seen: (units (unknown) date) 04/11/22 unknown) (unknown) (no (unknown) (unknown) Date of Service: (units (unknown) date) 04/09/22 unknown) (unknown) (no (unknown) (unknown) Dementia (units (unkno wn) date) unknown) (unknown) (no (unknown) (unknown) Disposition, to be (units (unknown) date) determined, we will unknown) likely need half-way facility. (unknown) (no (unknown) (unknown) Effort + Inspection: (uni ts (unknown) date) normal respiratory unknown) effort (unknown) (no (unknown) (unknown) Estimated GFR > 60 (units (unknown) date) unknown) (unknown) (no (unknown) (unknown) Exam Narrative: (units (unknown) date) unknown) (unknown) (no (unknown) (unknown) Exam (units (unkno wn) date) unknown) (unknown) (no (unknown) (unknown) Follow up SNO 2 wk (units (unknown) date) unknown) (unknown) (no (unknown) (unknown) General: comfortable (uni ts (unknown) date) unknown) (unknown) (no (unknown) (unknown) Glaucoma (units (unkno wn) date) unknown) (unknown) (no (unknown) (unknown) Glucose 90 (units (unk nown) date) unknown) (unknown) (no (unknown) (unknown) H/O: hysterectomy (units (unknown) date) unknown) (unknown) (no (unknown) (unknown) Hypercholesterolemia (uni ts (unknown) date) unknown) (unknown) (no (unknown) (unknown) Hypertension (units (u nknown) date) unknown) (unknown) (no (unknown) (unknown) Hypothyroidism (units (unknown) date) unknown) (unknown) (no (unknown) (unknown) Interval history: (units (unknown) date) unknown) (unknown) (no (unknown) (unknown) [facility] [address] (uni ts (unknown) date) [address] [place] [address] [place], unknown ) [place] [id number] (unknown) (no (unknown) (unknown) Laboratory Results - (uni ts (unknown) date) last 24 hr unknown) (unknown) (no (unknown) (unknown) Labs (units (unkno wn) date) unknown) (unknown) (no (unknown) (unknown) Labs: (units (unkno wn) date) unknown) (unknown) (no (unknown) (unknown) Medical History (units (unknown) date) (Reviewed 04/11/22 @ unknown) 10:37 by Steve Mason PA-C) (unknown) (no (unknown) (unknown) Narrative (units (unkn own) date) unknown) (unknown) (no (unknown) (unknown) Nutritional (units (un known) date) Appearance: average unknown) body habitus (unknown) (no (unknown) (unknown) Objective (units (unkn own) date) unknown) (unknown) (no (unknown) (unknown) Operation Date: (units (unknown) date) 04/10/22 13:30 unknown) (unknown) (no (unknown) (unknown) Oxygen Delivery (units (unknown) date) Method Room Air unknown) (unknown) (no (unknown) (unknown) Oxygen Delivery (units (unknown) date) Method unknown) (unknown) (no (unknown) (unknown) Oxygen Flow Rate 0 (units (unknown) date) unknown) (unknown) (no (unknown) (unknown) Oxygen Flow Rate 1 0 (uni ts (unknown) date) unknown) (unknown) (no (unknown) (unknown) Oxygen Flow Rate 2 2 (uni ts (unknown) date) 2 unknown) (unknown) (no (unknown) (unknown) PFSH (units (unkno wn) date) unknown) (unknown) (no (unknown) (unknown) Patient denies pain. (uni ts (unknown) date) No fever or chills. unknown) Her son is at bedside. States she (unknown) (no (unknown) (unknown) Patient: (units (unkno wn) date) Sheila Marley MR#: unknown) M0 (unknown) (no (unknown) (unknown) Posterior hip (units ( unknown) date) precautions for her unknown) hip hemiarthroplasty. (unknown) (no (unknown) (unknown) Postoperative day: 1 (uni ts (unknown) date) unknown) (unknown) (no (unknown) (unknown) Postoperative plan (units (unknown) date) narrative: PT/OT unknown) (unknown) (no (unknown) (unknown) Postoperative status (uni ts (unknown) date) narrative: Stable unknown) (unknown) (no (unknown) (unknown) Postoperative (units ( unknown) date) unknown) (unknown) (no (unknown) (unknown) Potassium 3.9 D 5.8 H (un its (unknown) date) D unknown) (unknown) (no (unknown) (unknown) Procedures (units (unk nown) date) unknown) (unknown) (no (unknown) (unknown) Procedures: (units (un known) date) unknown) (unknown) (no (unknown) (unknown) Progress Note (units ( unknown) date) unknown) (unknown) (no (unknown) (unknown) Provider: Steve Mason (uni ts (unknown) date) [place] unknown) (unknown) (no (unknown) (unknown) Pulse Oximetry 98 100 (un its (unknown) date) 99 unknown) (unknown) (no (unknown) (unknown) Pulse Oximetry 98 95 (uni ts (unknown) date) unknown) (unknown) (no (unknown) (unknown) Pulse Rate 73 (units ( unknown) date) unknown) (unknown) (no (unknown) (unknown) Pulse Rate 74 82 66 (unit s (unknown) date) unknown) (unknown) (no (unknown) (unknown) Resp (units (unkno wn) date) unknown) (unknown) (no (unknown) (unknown) Respiratory Rate 18 (unit s (unknown) date) 18 18 unknown) (unknown) (no (unknown) (unknown) Respiratory Rate 18 (unit s (unknown) date) unknown) (unknown) (no (unknown) (unknown) Result Diagrams: (units (unknown) date) unknown) (unknown) (no (unknown) (unknown) Right hip dressings (unit s (unknown) date) are clean, dry and unknown) intact. Motor functions intact bilateral (unknown) (no (unknown) (unknown) Signed (units (unkno wn) date) By:<Electronically unknown) signed by Steve Mason> (unknown) (no (unknown) (unknown) Smoking Status: Never (un its (unknown) date) smoker unknown) (unknown) (no (unknown) (unknown) Social History (units (unknown) date) (Reviewed 04/11/22 @ unknown) 10:37 by Steve Mason PA-C) (unknown) (no (unknown) (unknown) Sodium 134 L (units (u nknown) date) unknown) (unknown) (no (unknown) (unknown) Subjective (units (unk nown) date) unknown) (unknown) (no (unknown) (unknown) Surgical History (units (unknown) date) (Reviewed 04/11/22 @ unknown) 10:37 by Steve Mason PA-C) (unknown) (no (unknown) (unknown) Temperature 96.3 F L (uni ts (unknown) date) unknown) (unknown) (no (unknown) (unknown) Temperature 97.3 F L (uni ts (unknown) date) 96.7 F L 96.8 F L unknown) (unknown) (no (unknown) (unknown) Time Patient Seen: (units (unknown) date) 07:45 unknown) (unknown) (no (unknown) (unknown) Vital Signs (units (un known) date) unknown) (unknown) (no (unknown) (unknown) Weight bear on the (units (unknown) date) right upper extremity unknown) on her elbow using a platform walker (unknown) (no (unknown) (unknown) [Embedded Image Not (unit s (unknown) date) Available] unknown) (unknown) (no (unknown) (unknown) alcohol intake: never (un its (unknown) date) unknown) (unknown) (no (unknown) (unknown) extremity. Motor (units (unknown) date) functions intact unknown) distal right upper extremity. Sensation (unknown) (no (unknown) (unknown) grossly intact to (units (unknown) date) light touch. Fingers unknown) are warm and dry. (unknown) (no (unknown) (unknown) household members: (units (unknown) date) other unknown) (unknown) (no (unknown) (unknown) lower extremities. (units (unknown) date) Sensation grossly unknown) intact to light touch. (unknown) (no (unknown) (unknown) p Hip (units (unkno wn) date) Hemiarthroplasty Right unknown ) Jorge Camarena MD (unknown) (no (unknown) (unknown) s ORIF Forearm (units (unknown) date) Fracture Right Jorge unknown ) Zaira Camarena MD (unknown) (no (unknown) (unknown) usually is (units (unk nown) date) weight-bearing as unknown) tolerated using a walker. History of dementia. Result panel 82 (unknown) (no (unknown) (unknown) (no value) (units (unk nown) date) unknown) (unknown) (no (unknown) (unknown) (past 8 hours): (units (unknown) date) unknown) (unknown) (no (unknown) (unknown) - continue home (units (unknown) date) statin unknown) (unknown) (no (unknown) (unknown) - continue to monitor (un its (unknown) date) unknown) (unknown) (no (unknown) (unknown) - k 2.7 was given (units (unknown) date) repletion with IV this unknown ) AM while NPO (unknown) (no (unknown) (unknown) -admitted to (units (u nknown) date) orthopedic surgery and unknown ) plan per them for surgery today (unknown) (no (unknown) (unknown) -ativan ordered for (unit s (unknown) date) anxiety/agitation unknown) (unknown) (no (unknown) (unknown) -continue home (units (unknown) date) medications, HCTZ and unknown) metoprolol (unknown) (no (unknown) (unknown) -continue synthroid (unit s (unknown) date) unknown) (unknown) (no (unknown) (unknown) -pain medications (units (unknown) date) ordered unknown) (unknown) (no (unknown) (unknown) -plan per orthopedic (uni ts (unknown) date) surgery unknown) (unknown) (no (unknown) (unknown) -reorient as able (units (unknown) date) unknown) (unknown) (no (unknown) (unknown) [id number] (units (unkno wn) date) unknown) (unknown) (no (unknown) (unknown) 04/10/22 04/10/22 (units (unknown) date) 04/11/22 unknown) (unknown) (no (unknown) (unknown) 04/11/22 08:28 (units (unknown) date) unknown) (unknown) (no (unknown) (unknown) 04/11/22 (units (unkno wn) date) unknown) (unknown) (no (unknown) (unknown) 05:57 04/11/22 (units (unknown) date) unknown) (unknown) (no (unknown) (unknown) 08:28 (units (unkno wn) date) unknown) (unknown) (no (unknown) (unknown) 09:16 04/11/22 (units (unknown) date) unknown) (unknown) (no (unknown) (unknown) 09:46 (units (unkno wn) date) unknown) (unknown) (no (unknown) (unknown) 1. 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 Right displaced (units (unknown) date) ulna fracture unknown) (unknown) (no (unknown) (unknown) 23:10 Unknown 08:28 (unit s (unknown) date) unknown) (unknown) (no (unknown) (unknown) 3. Hypertension (units (unknown) date) unknown) (unknown) (no (unknown) (unknown) 4. Dementia (units (un known) date) unknown) (unknown) (no (unknown) (unknown) 5. Hypothyroidism (units (unknown) date) unknown) (unknown) (no (unknown) (unknown) 6. HLD (units (unkno wn) date) unknown) (unknown) (no (unknown) (unknown) 7. Hypokalemia, acute (un its (unknown) date) unknown) (unknown) (no (unknown) (unknown) ABD: soft, nontender, (un its (unknown) date) nondistended, no unknown) organomegaly, normal bowel sounds (unknown) (no (unknown) (unknown) Age/Sex: 82 / F (units (unknown) date) unknown) (unknown) (no (unknown) (unknown) Assessment + Plan (units (unknown) date) narrative: unknown) (unknown) (no (unknown) (unknown) Assessment + Plan (units (unknown) date) unknown) (unknown) (no (unknown) (unknown) BUN 13 (units (unkno wn) date) unknown) (unknown) (no (unknown) (unknown) BUN/Creatinine Ratio (uni ts (unknown) date) 24.1 H unknown) (unknown) (no (unknown) (unknown) BUN/Creatinine Ratio (uni ts (unknown) date) 28.3 H unknown) (unknown) (no (unknown) (unknown) Baso # (Auto) 0 (units (unknown) date) unknown) (unknown) (no (unknown) (unknown) Baso # (Auto) (units ( unknown) date) unknown) (unknown) (no (unknown) (unknown) Baso % (Auto) 0.2 (units (unknown) date) unknown) (unknown) (no (unknown) (unknown) Baso % (Auto) (units ( unknown) date) unknown) (unknown) (no (unknown) (unknown) Blood Pressure 131/47 (un its (unknown) date) L unknown) (unknown) (no (unknown) (unknown) CODE: DNR (units (unkn own) date) unknown) (unknown) (no (unknown) (unknown) CV: regular rate and (uni ts (unknown) date) rhythm, no murmurs unknown) (unknown) (no (unknown) (unknown) Calcium 7.8 L (units ( unknown) date) unknown) (unknown) (no (unknown) (unknown) Calcium 8.1 L (units ( unknown) date) unknown) (unknown) (no (unknown) (unknown) Carbon Dioxide 20 L (unit s (unknown) date) unknown) (unknown) (no (unknown) (unknown) Carbon Dioxide 23 (units (unknown) date) unknown) (unknown) (no (unknown) (unknown) Chloride 100 (units (u nknown) date) unknown) (unknown) (no (unknown) (unknown) Chloride 103 (units (u nknown) date) unknown) (unknown) (no (unknown) (unknown) Creatinine 0.46 L (units (unknown) date) unknown) (unknown) (no (unknown) (unknown) Creatinine 0.54 (units (unknown) date) unknown) (unknown) (no (unknown) (unknown) Critical Care time: (unit s (unknown) date) unknown) (unknown) (no (unknown) (unknown) : 1940 (units (unknown) date) Acct:[id number] unknown) (unknown) (no (unknown) (unknown) Date Patient Seen: (units (unknown) date) 04/11/22 unknown) (unknown) (no (unknown) (unknown) Date of Service: (units (unknown) date) 04/09/22 unknown) (unknown) (no (unknown) (unknown) Dementia (units (unkno wn) date) unknown) (unknown) (no (unknown) (unknown) EXT: warm and well (units (unknown) date) perfused, no edema unknown) (unknown) (no (unknown) (unknown) Eos # (Auto) 100 (units (unknown) date) unknown) (unknown) (no (unknown) (unknown) Eos # (Auto) (units (u nknown) date) unknown) (unknown) (no (unknown) (unknown) Eos % (Auto) 1.1 L (units (unknown) date) unknown) (unknown) (no (unknown) (unknown) Eos % (Auto) (units (u nknown) date) unknown) (unknown) (no (unknown) (unknown) Estimated GFR > 60 (units (unknown) date) unknown) (unknown) (no (unknown) (unknown) Exam Narrative: (units (unknown) date) unknown) (unknown) (no (unknown) (unknown) Exam (units (unkno wn) date) unknown) (unknown) (no (unknown) (unknown) GEN: elderly female, (uni ts (unknown) date) no acute distress. unknown) (unknown) (no (unknown) (unknown) Glaucoma (units (unkno wn) date) unknown) (unknown) (no (unknown) (unknown) Glucose 108 (units (un known) date) unknown) (unknown) (no (unknown) (unknown) Glucose 90 (units (unk nown) date) unknown) (unknown) (no (unknown) (unknown) H/O: hysterectomy (units (unknown) date) unknown) (unknown) (no (unknown) (unknown) HEENT: moist mucous (unit s (unknown) date) membranes, PERRL unknown) (unknown) (no (unknown) (unknown) Hct 36.8 (units (unkno wn) date) unknown) (unknown) (no (unknown) (unknown) Hct (units (unkno wn) date) unknown) (unknown) (no (unknown) (unknown) Hgb 12.4 (units (unkno wn) date) unknown) (unknown) (no (unknown) (unknown) Hgb (units (unkno wn) date) unknown) (unknown) (no (unknown) (unknown) Hypercholesterolemia (uni ts (unknown) date) unknown) (unknown) (no (unknown) (unknown) Hypertension (units (u nknown) date) unknown) (unknown) (no (unknown) (unknown) Hypothyroidism (units (unknown) date) unknown) (unknown) (no (unknown) (unknown) I have utilized all (unit s (unknown) date) available resources to unknown ) reconcile the patient's home (unknown) (no (unknown) (unknown) I spent a total of [] (un its (unknown) date) minutes of critical unknown) care time on this patient's care (unknown) (no (unknown) (unknown) Interval history: (units (unknown) date) unknown) (unknown) (no (unknown) (unknown) [facility] 1211 (uni ts (unknown) date) [address] [place] [address] [place], unknown ) [place] [id number] (unknown) (no (unknown) (unknown) Laboratory Results - (uni ts (unknown) date) last 24 hr unknown) (unknown) (no (unknown) (unknown) Labs (units (unkno wn) date) unknown) (unknown) (no (unknown) (unknown) Labs: (units (unkno wn) date) unknown) (unknown) (no (unknown) (unknown) Lymph # (Auto) 700 L (uni ts (unknown) date) unknown) (unknown) (no (unknown) (unknown) Lymph # (Auto) (units (unknown) date) unknown) (unknown) (no (unknown) (unknown) Lymph % (Auto) 8.9 L (uni ts (unknown) date) unknown) (unknown) (no (unknown) (unknown) Lymph % (Auto) (units (unknown) date) unknown) (unknown) (no (unknown) (unknown) MCH 29.3 (units (unkno wn) date) unknown) (unknown) (no (unknown) (unknown) MCH (units (unkno wn) date) unknown) (unknown) (no (unknown) (unknown) MCHC 33.8 (units (unkn own) date) unknown) (unknown) (no (unknown) (unknown) MCHC (units (unkno wn) date) unknown) (unknown) (no (unknown) (unknown) MCV 86.5 (units (unkno wn) date) unknown) (unknown) (no (unknown) (unknown) MCV (units (unkno wn) date) unknown) (unknown) (no (unknown) (unknown) Magnesium 1.7 (units ( unknown) date) unknown) (unknown) (no (unknown) (unknown) Magnesium (units (unkn own) date) unknown) (unknown) (no (unknown) (unknown) Medical History (units (unknown) date) (Reviewed 04/11/22 @ unknown) 10:37 by Steve Mason PA-C) (unknown) (no (unknown) (unknown) Medicine is consulted (un its (unknown) date) to assist with unknown) management of her medical issues including (unknown) (no (unknown) (unknown) [place] # (Auto) 900 (units (unknown) date) unknown) (unknown) (no (unknown) (unknown) [place] # (Auto) (units ( unknown) date) unknown) (unknown) (no (unknown) (unknown) [place] % (Auto) 10.7 (units (unknown) date) unknown) (unknown) (no (unknown) (unknown) [place] % (Auto) (units ( unknown) date) unknown) (unknown) (no (unknown) (unknown) Ms. Marley is an 82W (uni ts (unknown) date) with PMH dementia, unknown) HTN, hypothyroid who is a direct admit (unknown) (no (unknown) (unknown) NECK: trachea (units ( unknown) date) midline, no JVD unknown) (unknown) (no (unknown) (unknown) NEURO: awake, alert, (uni ts (unknown) date) confused unknown) (unknown) (no (unknown) (unknown) Narrative (units (unkn own) date) unknown) (unknown) (no (unknown) (unknown) Neut # (Auto) 6400 (units (unknown) date) unknown) (unknown) (no (unknown) (unknown) Neut # (Auto) (units ( unknown) date) unknown) (unknown) (no (unknown) (unknown) Neut % (Auto) 79.1 H (uni ts (unknown) date) unknown) (unknown) (no (unknown) (unknown) Neut % (Auto) (units ( unknown) date) unknown) (unknown) (no (unknown) (unknown) Objective (units (unkn own) date) unknown) (unknown) (no (unknown) (unknown) Oxygen Delivery (units (unknown) date) Method Room Air unknown) (unknown) (no (unknown) (unknown) Oxygen Flow Rate 0 (units (unknown) date) unknown) (unknown) (no (unknown) (unknown) PFSH (units (unkno wn) date) unknown) (unknown) (no (unknown) (unknown) PULM: clear (units (un known) date) bilaterally, no unknown) wheezes, rhonchi, rales (unknown) (no (unknown) (unknown) Patient: (units (unkno wn) date) Sheila Marley MR#: unknown) M0 (unknown) (no (unknown) (unknown) Plt Count 169 (units ( unknown) date) unknown) (unknown) (no (unknown) (unknown) Plt Count (units (unkn own) date) unknown) (unknown) (no (unknown) (unknown) Potassium 3.5 (units ( unknown) date) unknown) (unknown) (no (unknown) (unknown) Potassium 3.9 D 5.8 H (un its (unknown) date) D unknown) (unknown) (no (unknown) (unknown) Progress Note (units ( unknown) date) unknown) (unknown) (no (unknown) (unknown) Provider: (units (unkn own) date) Steve Landeros D.O. unknown) (unknown) (no (unknown) (unknown) Proxy: Mauro Trivedi, (uni ts (unknown) date) daughter unknown) (unknown) (no (unknown) (unknown) Pulse Oximetry 95 (units (unknown) date) unknown) (unknown) (no (unknown) (unknown) Pulse Rate 69 (units ( unknown) date) unknown) (unknown) (no (unknown) (unknown) RBC 4.25 (units (unkno wn) date) unknown) (unknown) (no (unknown) (unknown) RBC (units (unkno wn) date) unknown) (unknown) (no (unknown) (unknown) RDW 13.1 (units (unkno wn) date) unknown) (unknown) (no (unknown) (unknown) RDW (units (unkno wn) date) unknown) (unknown) (no (unknown) (unknown) Result Diagrams: (units (unknown) date) unknown) (unknown) (no (unknown) (unknown) She has not gotten (units (unknown) date) out of bed but pain unknown) seems controlled today. (unknown) (no (unknown) (unknown) Signed By: (units (unk nown) date) unknown) (unknown) (no (unknown) (unknown) Smoking Status: Never (un its (unknown) date) smoker unknown) (unknown) (no (unknown) (unknown) Social History (units (unknown) date) (Reviewed 04/11/22 @ unknown) 10:37 by Steve Mason PA-C) (unknown) (no (unknown) (unknown) Sodium 134 L (units (u nknown) date) unknown) (unknown) (no (unknown) (unknown) Subjective (units (unk nown) date) unknown) (unknown) (no (unknown) (unknown) Surgical History (units (unknown) date) (Reviewed 04/11/22 @ unknown) 10:37 by Steve Mason PA-C) (unknown) (no (unknown) (unknown) Time Spent With (units (unknown) date) Patient unknown) (unknown) (no (unknown) (unknown) Vital Signs (units (un known) date) unknown) (unknown) (no (unknown) (unknown) WBC 8.1 (units (unkno wn) date) unknown) (unknown) (no (unknown) (unknown) WBC (units (unkno wn) date) unknown) (unknown) (no (unknown) (unknown) [Embedded Image Not (unit s (unknown) date) Available] unknown) (unknown) (no (unknown) (unknown) after a fall. She was (un its (unknown) date) seen in the ED after a unknown ) fall on 04/07/22 and had a radial (unknown) (no (unknown) (unknown) alcohol intake: never (un its (unknown) date) unknown) (unknown) (no (unknown) (unknown) dementia and (units (u nknown) date) hypertension. She unknown) denies complaints today after surgery yesterday. (unknown) (no (unknown) (unknown) household members: (units (unknown) date) other unknown) (unknown) (no (unknown) (unknown) medications (units (un known) date) unknown) (unknown) (no (unknown) (unknown) neck fracture. (units (unknown) date) unknown) (unknown) (no (unknown) (unknown) shaft fracture. She (unit s (unknown) date) was discharged. She unknown) fell again and landed on her right hip, (unknown) (no (unknown) (unknown) she was unable to (units (unknown) date) bear weight. She unknown) presented to [facility] and was (unknown) (no (unknown) (unknown) today; this time is (unit s (unknown) date) exclusive of unknown) procedural time. (unknown) (no (unknown) (unknown) transferred to [facility] (un its (unknown) date) [facility] and admitted unknown) to orthopedic surgery service. Result panel 83 (unknown) (no (unknown) (unknown) (no value) (units (unk nown) date) unknown) (unknown) (no (unknown) (unknown) (past 8 hours): (units (unknown) date) unknown) (unknown) (no (unknown) (unknown) - continue home (units (unknown) date) statin unknown) (unknown) (no (unknown) (unknown) - k 2.7 was given (units (unknown) date) repletion yesterday, unknown) improved today. (unknown) (no (unknown) (unknown) -POD1 s/p R (units (unk nown) date) hemiarthoplasty, 2 unknown) week outpatient follow up with [facility] (unknown) (no (unknown) (unknown) -ativan ordered for (unit s (unknown) date) anxiety/agitation unknown) though no difficulties thus far. (unknown) (no (unknown) (unknown) -continue home (units (unknown) date) medications, HCTZ and unknown) metoprolol, good BP control today. (unknown) (no (unknown) (unknown) -continue synthroid (unit s (unknown) date) unknown) (unknown) (no (unknown) (unknown) -pain medications (units (unknown) date) ordered unknown) (unknown) (no (unknown) (unknown) -plan per orthopedic (uni ts (unknown) date) surgery unknown) (unknown) (no (unknown) (unknown) -reorient as able (units (unknown) date) unknown) (unknown) (no (unknown) (unknown) [id number] (units (unkno wn) date) unknown) (unknown) (no (unknown) (unknown) 04/10/22 04/10/22 (units (unknown) date) 04/11/22 unknown) (unknown) (no (unknown) (unknown) 04/11/22 08:28 (units (unknown) date) unknown) (unknown) (no (unknown) (unknown) 04/11/22 1310 (units ( unknown) date) unknown) (unknown) (no (unknown) (unknown) 04/11/22 (units (unkno wn) date) unknown) (unknown) (no (unknown) (unknown) 05:57 04/11/22 (units (unknown) date) unknown) (unknown) (no (unknown) (unknown) 08:28 (units (unkno wn) date) unknown) (unknown) (no (unknown) (unknown) 09:16 04/11/22 (units (unknown) date) unknown) (unknown) (no (unknown) (unknown) 09:46 (units (unkno wn) date) unknown) (unknown) (no (unknown) (unknown) 1. 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 Right displaced (units (unknown) date) ulna fracture unknown) (unknown) (no (unknown) (unknown) 23:10 Unknown 08:28 (unit s (unknown) date) unknown) (unknown) (no (unknown) (unknown) 3. Hypertension (units (unknown) date) unknown) (unknown) (no (unknown) (unknown) 4. Dementia (units (un known) date) unknown) (unknown) (no (unknown) (unknown) 5. Hypothyroidism (units (unknown) date) unknown) (unknown) (no (unknown) (unknown) 6. HLD (units (unkno wn) date) unknown) (unknown) (no (unknown) (unknown) 7. Hypokalemia, acute (un its (unknown) date) unknown) (unknown) (no (unknown) (unknown) ABD: soft, nontender, (un its (unknown) date) nondistended, no unknown) organomegaly, normal bowel sounds (unknown) (no (unknown) (unknown) Age/Sex: 82 / F (units (unknown) date) unknown) (unknown) (no (unknown) (unknown) Assessment + Plan (units (unknown) date) narrative: unknown) (unknown) (no (unknown) (unknown) Assessment + Plan (units (unknown) date) unknown) (unknown) (no (unknown) (unknown) BUN 13 (units (unkno wn) date) unknown) (unknown) (no (unknown) (unknown) BUN/Creatinine Ratio (uni ts (unknown) date) 24.1 H unknown) (unknown) (no (unknown) (unknown) BUN/Creatinine Ratio (uni ts (unknown) date) 28.3 H unknown) (unknown) (no (unknown) (unknown) Baso # (Auto) 0 (units (unknown) date) unknown) (unknown) (no (unknown) (unknown) Baso # (Auto) (units ( unknown) date) unknown) (unknown) (no (unknown) (unknown) Baso % (Auto) 0.2 (units (unknown) date) unknown) (unknown) (no (unknown) (unknown) Baso % (Auto) (units ( unknown) date) unknown) (unknown) (no (unknown) (unknown) Blood Pressure 131/47 (un its (unknown) date) L unknown) (unknown) (no (unknown) (unknown) CODE: DNR (units (unkn own) date) unknown) (unknown) (no (unknown) (unknown) CV: regular rate and (uni ts (unknown) date) rhythm, no murmurs unknown) (unknown) (no (unknown) (unknown) Calcium 7.8 L (units ( unknown) date) unknown) (unknown) (no (unknown) (unknown) Calcium 8.1 L (units ( unknown) date) unknown) (unknown) (no (unknown) (unknown) Carbon Dioxide 20 L (unit s (unknown) date) unknown) (unknown) (no (unknown) (unknown) Carbon Dioxide 23 (units (unknown) date) unknown) (unknown) (no (unknown) (unknown) Chloride 100 (units (u nknown) date) unknown) (unknown) (no (unknown) (unknown) Chloride 103 (units (u nknown) date) unknown) (unknown) (no (unknown) (unknown) Creatinine 0.46 L (units (unknown) date) unknown) (unknown) (no (unknown) (unknown) Creatinine 0.54 (units (unknown) date) unknown) (unknown) (no (unknown) (unknown) Critical Care time: (unit s (unknown) date) unknown) (unknown) (no (unknown) (unknown) : 1940 (units (unknown) date) Acct:[id number] unknown) (unknown) (no (unknown) (unknown) Date Patient Seen: (units (unknown) date) 04/11/22 unknown) (unknown) (no (unknown) (unknown) Date of Service: (units (unknown) date) 04/09/22 unknown) (unknown) (no (unknown) (unknown) Dementia (units (unkno wn) date) unknown) (unknown) (no (unknown) (unknown) EXT: warm and well (units (unknown) date) perfused, no edema unknown) (unknown) (no (unknown) (unknown) Eos # (Auto) 100 (units (unknown) date) unknown) (unknown) (no (unknown) (unknown) Eos # (Auto) (units (u nknown) date) unknown) (unknown) (no (unknown) (unknown) Eos % (Auto) 1.1 L (units (unknown) date) unknown) (unknown) (no (unknown) (unknown) Eos % (Auto) (units (u nknown) date) unknown) (unknown) (no (unknown) (unknown) Estimated GFR > 60 (units (unknown) date) unknown) (unknown) (no (unknown) (unknown) Exam Narrative: (units (unknown) date) unknown) (unknown) (no (unknown) (unknown) Exam (units (unkno wn) date) unknown) (unknown) (no (unknown) (unknown) GEN: elderly female, (uni ts (unknown) date) no acute distress. unknown) (unknown) (no (unknown) (unknown) Glaucoma (units (unkno wn) date) unknown) (unknown) (no (unknown) (unknown) Glucose 108 (units (un known) date) unknown) (unknown) (no (unknown) (unknown) Glucose 90 (units (unk nown) date) unknown) (unknown) (no (unknown) (unknown) H/O: hysterectomy (units (unknown) date) unknown) (unknown) (no (unknown) (unknown) HEENT: moist mucous (unit s (unknown) date) membranes, PERRL unknown) (unknown) (no (unknown) (unknown) Hct 36.8 (units (unkno wn) date) unknown) (unknown) (no (unknown) (unknown) Hct (units (unkno wn) date) unknown) (unknown) (no (unknown) (unknown) Hgb 12.4 (units (unkno wn) date) unknown) (unknown) (no (unknown) (unknown) Hgb (units (unkno wn) date) unknown) (unknown) (no (unknown) (unknown) Hypercholesterolemia (uni ts (unknown) date) unknown) (unknown) (no (unknown) (unknown) Hypertension (units (u nknown) date) unknown) (unknown) (no (unknown) (unknown) Hypothyroidism (units (unknown) date) unknown) (unknown) (no (unknown) (unknown) I have utilized all (unit s (unknown) date) available resources to unknown ) reconcile the patient's home (unknown) (no (unknown) (unknown) I spent a total of [] (un its (unknown) date) minutes of critical unknown) care time on this patient's care (unknown) (no (unknown) (unknown) Interval history: (units (unknown) date) unknown) (unknown) (no (unknown) (unknown) [facility] 12[facility] (uni ts (unknown) date) [address] [place] [address], unknown ) [place] [id number] (unknown) (no (unknown) (unknown) Laboratory Results - (uni ts (unknown) date) last 24 hr unknown) (unknown) (no (unknown) (unknown) Labs (units (unkno wn) date) unknown) (unknown) (no (unknown) (unknown) Labs: (units (unkno wn) date) unknown) (unknown) (no (unknown) (unknown) Lymph # (Auto) 700 L (uni ts (unknown) date) unknown) (unknown) (no (unknown) (unknown) Lymph # (Auto) (units (unknown) date) unknown) (unknown) (no (unknown) (unknown) Lymph % (Auto) 8.9 L (uni ts (unknown) date) unknown) (unknown) (no (unknown) (unknown) Lymph % (Auto) (units (unknown) date) unknown) (unknown) (no (unknown) (unknown) MCH 29.3 (units (unkno wn) date) unknown) (unknown) (no (unknown) (unknown) MCH (units (unkno wn) date) unknown) (unknown) (no (unknown) (unknown) MCHC 33.8 (units (unkn own) date) unknown) (unknown) (no (unknown) (unknown) MCHC (units (unkno wn) date) unknown) (unknown) (no (unknown) (unknown) MCV 86.5 (units (unkno wn) date) unknown) (unknown) (no (unknown) (unknown) MCV (units (unkno wn) date) unknown) (unknown) (no (unknown) (unknown) Magnesium 1.7 (units ( unknown) date) unknown) (unknown) (no (unknown) (unknown) Magnesium (units (unkn own) date) unknown) (unknown) (no (unknown) (unknown) Medical History (units (unknown) date) (Reviewed 04/11/22 @ unknown) 10:37 by Steve Mason PA-C) (unknown) (no (unknown) (unknown) Medicine is consulted (un its (unknown) date) to assist with unknown) management of her medical issues including (unknown) (no (unknown) (unknown) [place] # (Auto) 900 (units (unknown) date) unknown) (unknown) (no (unknown) (unknown) [place] # (Auto) (units ( unknown) date) unknown) (unknown) (no (unknown) (unknown) [place] % (Auto) 10.7 (units (unknown) date) unknown) (unknown) (no (unknown) (unknown) [place] % (Auto) (units ( unknown) date) unknown) (unknown) (no (unknown) (unknown) Ms. Marley is an 82W (uni ts (unknown) date) with PMH dementia, unknown) HTN, hypothyroid who is a direct admit (unknown) (no (unknown) (unknown) NECK: trachea (units ( unknown) date) midline, no JVD unknown) (unknown) (no (unknown) (unknown) NEURO: awake, alert, (uni ts (unknown) date) confused unknown) (unknown) (no (unknown) (unknown) Narrative (units (unkn own) date) unknown) (unknown) (no (unknown) (unknown) Neut # (Auto) 6400 (units (unknown) date) unknown) (unknown) (no (unknown) (unknown) Neut # (Auto) (units ( unknown) date) unknown) (unknown) (no (unknown) (unknown) Neut % (Auto) 79.1 H (uni ts (unknown) date) unknown) (unknown) (no (unknown) (unknown) Neut % (Auto) (units ( unknown) date) unknown) (unknown) (no (unknown) (unknown) Objective (units (unkn own) date) unknown) (unknown) (no (unknown) (unknown) Oxygen Delivery (units (unknown) date) Method Room Air unknown) (unknown) (no (unknown) (unknown) Oxygen Flow Rate 0 (units (unknown) date) unknown) (unknown) (no (unknown) (unknown) PFSH (units (unkno wn) date) unknown) (unknown) (no (unknown) (unknown) PULM: clear (units (un known) date) bilaterally, no unknown) wheezes, rhonchi, rales (unknown) (no (unknown) (unknown) Patient: (units (unkno wn) date) Sheila Marley MR#: unknown) M0 (unknown) (no (unknown) (unknown) Plt Count 169 (units ( unknown) date) unknown) (unknown) (no (unknown) (unknown) Plt Count (units (unkn own) date) unknown) (unknown) (no (unknown) (unknown) Potassium 3.5 (units ( unknown) date) unknown) (unknown) (no (unknown) (unknown) Potassium 3.9 D 5.8 H (un its (unknown) date) D unknown) (unknown) (no (unknown) (unknown) Progress Note (units ( unknown) date) unknown) (unknown) (no (unknown) (unknown) Provider: (units (unkn own) date) Steve Landeros D.O. unknown) (unknown) (no (unknown) (unknown) Proxy: Mauro Trivedi, (uni ts (unknown) date) daughter unknown) (unknown) (no (unknown) (unknown) Pulse Oximetry 95 (units (unknown) date) unknown) (unknown) (no (unknown) (unknown) Pulse Rate 69 (units ( unknown) date) unknown) (unknown) (no (unknown) (unknown) RBC 4.25 (units (unkno wn) date) unknown) (unknown) (no (unknown) (unknown) RBC (units (unkno wn) date) unknown) (unknown) (no (unknown) (unknown) RDW 13.1 (units (unkno wn) date) unknown) (unknown) (no (unknown) (unknown) RDW (units (unkno wn) date) unknown) (unknown) (no (unknown) (unknown) Result Diagrams: (units (unknown) date) unknown) (unknown) (no (unknown) (unknown) She has not gotten (units (unknown) date) out of bed but pain unknown) seems controlled today. (unknown) (no (unknown) (unknown) Signed (units (unkno wn) date) By:<Electronically unknown) signed by Steve Landeros D.O.> (unknown) (no (unknown) (unknown) Smoking Status: Never (un its (unknown) date) smoker unknown) (unknown) (no (unknown) (unknown) Social History (units (unknown) date) (Reviewed 04/11/22 @ unknown) 10:37 by Steve Mason PA-C) (unknown) (no (unknown) (unknown) Sodium 134 L (units (u nknown) date) unknown) (unknown) (no (unknown) (unknown) Subjective (units (unk nown) date) unknown) (unknown) (no (unknown) (unknown) Surgical History (units (unknown) date) (Reviewed 04/11/22 @ unknown) 10:37 by Steve Mason PA-C) (unknown) (no (unknown) (unknown) Time Spent With (units (unknown) date) Patient unknown) (unknown) (no (unknown) (unknown) Vital Signs (units (un known) date) unknown) (unknown) (no (unknown) (unknown) WBC 8.1 (units (unkno wn) date) unknown) (unknown) (no (unknown) (unknown) WBC (units (unkno wn) date) unknown) (unknown) (no (unknown) (unknown) [Embedded Image Not (unit s (unknown) date) Available] unknown) (unknown) (no (unknown) (unknown) after a fall. She was (un its (unknown) date) seen in the ED after a unknown ) fall on 04/07/22 and had a radial (unknown) (no (unknown) (unknown) alcohol intake: never (un its (unknown) date) unknown) (unknown) (no (unknown) (unknown) dementia and (units (u nknown) date) hypertension. She unknown) denies complaints today after surgery yesterday. (unknown) (no (unknown) (unknown) household members: (units (unknown) date) other unknown) (unknown) (no (unknown) (unknown) medications (units (un known) date) unknown) (unknown) (no (unknown) (unknown) neck fracture. (units (unknown) date) unknown) (unknown) (no (unknown) (unknown) recommended. (units (u nknown) date) unknown) (unknown) (no (unknown) (unknown) shaft fracture. She (unit s (unknown) date) was discharged. She unknown) fell again and landed on her right hip, (unknown) (no (unknown) (unknown) she was unable to (units (unknown) date) bear weight. She unknown) presented to [facility] and was (unknown) (no (unknown) (unknown) today; this time is (unit s (unknown) date) exclusive of unknown) procedural time. (unknown) (no (unknown) (unknown) transferred to [facility] (un its (unknown) date) [facility] and admitted unknown) to orthopedic surgery service. Result panel 84 (unknown) (no date) (unknown) (unknown) > 60 ml/min (unkn own) (unknown) (no date) (unknown) (unknown) > 60 ml/min (unkn own) (unknown) (no date) (unknown) (unknown) 0.49 mg/dl (unkn own) (unknown) (no date) (unknown) (unknown) 1.8 mg/dl (unkn own) (unknown) (no date) (unknown) (unknown) 102 mmol/l (unkn own) (unknown) (no date) (unknown) (unknown) 112 mg/dl (unkn own) (unknown) (no date) (unknown) (unknown) 112 mg/dl (unkn own) (unknown) (no date) (unknown) (unknown) 132 mmol/l (unkn own) (unknown) (no date) (unknown) (unknown) 14 mg/dl (unkn own) (unknown) (no date) (unknown) (unknown) 25 mmol/l (unkn own) (unknown) (no date) (unknown) (unknown) 28.6 (units unknown) (unknown) (unknown) (no date) (unknown) (unknown) 4.2 mmol/l (unkn own) (unknown) (no date) (unknown) (unknown) 8.1 mg/dl (unkn own) Result panel 85 (unknown) (no date) (unknown) (unknown) 0 /ul (unkn own) (unknown) (no date) (unknown) (unknown) 0.3 % (unkn own) (unknown) (no date) (unknown) (unknown) 0.9 % (unkn own) (unknown) (no date) (unknown) (unknown) 10.5 % (unkn own) (unknown) (no date) (unknown) (unknown) 100 /ul (unkn own) (unknown) (no date) (unknown) (unknown) 1000 /ul (unkn own) (unknown) (no date) (unknown) (unknown) 12.7 g/dl (unkn own) (unknown) (no date) (unknown) (unknown) 13.0 % (unkn own) (unknown) (no date) (unknown) (unknown) 13.3 % (unkn own) (unknown) (no date) (unknown) (unknown) 1300 /ul (unkn own) (unknown) (no date) (unknown) (unknown) 190 x10 3/ul (unkn own) (unknown) (no date) (unknown) (unknown) 29.3 pg (unkn own) (unknown) (no date) (unknown) (unknown) 34.0 % (unkn own) (unknown) (no date) (unknown) (unknown) 37.2 % (unkn own) (unknown) (no date) (unknown) (unknown) 4.32 x10 6/ul (unkn own) (unknown) (no date) (unknown) (unknown) 7400 /ul (unkn own) (unknown) (no date) (unknown) (unknown) 75.3 % (unkn own) (unknown) (no date) (unknown) (unknown) 86.1 fl (unkn own) (unknown) (no date) (unknown) (unknown) 9.8 x10 3/ul (unkn own) Result panel 86 (unknown) (no (unknown) (unknown) (no value) (units (unk nown) date) unknown) (unknown) (no (unknown) (unknown) (past 8 hours): (units (unknown) date) unknown) (unknown) (no (unknown) (unknown) [id number] (units (unkno wn) date) unknown) (unknown) (no (unknown) (unknown) 04/11/22 04/11/22 (units (unknown) date) 04/12/22 unknown) (unknown) (no (unknown) (unknown) 04/12/22 04:20 (units (unknown) date) unknown) (unknown) (no (unknown) (unknown) 04/12/22 0822 (units ( unknown) date) unknown) (unknown) (no (unknown) (unknown) 04/12/22 (units (unkno wn) date) unknown) (unknown) (no (unknown) (unknown) 04:00 (units (unkno wn) date) unknown) (unknown) (no (unknown) (unknown) 04:20 (units (unkno wn) date) unknown) (unknown) (no (unknown) (unknown) 08:28 08:28 04:20 (units (unknown) date) unknown) (unknown) (no (unknown) (unknown) 82-year-old female (units (unknown) date) resting in bed. No unknown) apparent distress. Right hip dressing is (unknown) (no (unknown) (unknown) 82-year-old female (units (unknown) date) with PMH dementia unknown) resting comfortably in bed. (unknown) (no (unknown) (unknown) Actual Procedure Side (un its (unknown) date) Surgeon unknown) (unknown) (no (unknown) (unknown) Age/Sex: 82 / F (units (unknown) date) unknown) (unknown) (no (unknown) (unknown) Assessment + Plan (units (unknown) date) Post-op unknown) (unknown) (no (unknown) (unknown) BUN 13 (units (unkno wn) date) unknown) (unknown) (no (unknown) (unknown) BUN 14 (units (unkno wn) date) unknown) (unknown) (no (unknown) (unknown) BUN/Creatinine Ratio (uni ts (unknown) date) 28.3 H unknown) (unknown) (no (unknown) (unknown) BUN/Creatinine Ratio (uni ts (unknown) date) 28.6 H unknown) (unknown) (no (unknown) (unknown) Baso # (Auto) 0 0 (units (unknown) date) unknown) (unknown) (no (unknown) (unknown) Baso # (Auto) (units ( unknown) date) unknown) (unknown) (no (unknown) (unknown) Baso % (Auto) 0.2 0.3 (un its (unknown) date) unknown) (unknown) (no (unknown) (unknown) Baso % (Auto) (units ( unknown) date) unknown) (unknown) (no (unknown) (unknown) Blood Pressure 156/70 (un its (unknown) date) H unknown) (unknown) (no (unknown) (unknown) Calcium 7.8 L (units ( unknown) date) unknown) (unknown) (no (unknown) (unknown) Calcium 8.1 L (units ( unknown) date) unknown) (unknown) (no (unknown) (unknown) Carbon Dioxide 23 (units (unknown) date) unknown) (unknown) (no (unknown) (unknown) Carbon Dioxide 25 (units (unknown) date) unknown) (unknown) (no (unknown) (unknown) Chest (units (unkno wn) date) unknown) (unknown) (no (unknown) (unknown) Chest: normal (units ( unknown) date) inspection of the unknown) chest (unknown) (no (unknown) (unknown) Chloride 100 (units (u nknown) date) unknown) (unknown) (no (unknown) (unknown) Chloride 102 (units (u nknown) date) unknown) (unknown) (no (unknown) (unknown) Const (units (unkno wn) date) unknown) (unknown) (no (unknown) (unknown) Creatinine 0.46 L (units (unknown) date) unknown) (unknown) (no (unknown) (unknown) Creatinine 0.49 L (units (unknown) date) unknown) (unknown) (no (unknown) (unknown) : 1940 (units (unknown) date) Acct:[id number] unknown) (unknown) (no (unknown) (unknown) Date Patient Seen: (units (unknown) date) 04/12/22 unknown) (unknown) (no (unknown) (unknown) Date of Service: (units (unknown) date) 04/09/22 unknown) (unknown) (no (unknown) (unknown) Dementia (units (unkno wn) date) unknown) (unknown) (no (unknown) (unknown) Discharge to skilled (uni ts (unknown) date) nursing facility when unknown) bed available (unknown) (no (unknown) (unknown) Effort + Inspection: (uni ts (unknown) date) normal respiratory unknown) effort (unknown) (no (unknown) (unknown) Eos # (Auto) 100 100 (uni ts (unknown) date) unknown) (unknown) (no (unknown) (unknown) Eos # (Auto) (units (u nknown) date) unknown) (unknown) (no (unknown) (unknown) Eos % (Auto) 1.1 L (units (unknown) date) 0.9 L unknown) (unknown) (no (unknown) (unknown) Eos % (Auto) (units (u nknown) date) unknown) (unknown) (no (unknown) (unknown) Estimated GFR > 60 (units (unknown) date) unknown) (unknown) (no (unknown) (unknown) Exam Narrative: (units (unknown) date) unknown) (unknown) (no (unknown) (unknown) Exam (units (unkno wn) date) unknown) (unknown) (no (unknown) (unknown) Follow-up with [facility] (un its (unknown) date) [facility] unknown) in 2 weeks (unknown) (no (unknown) (unknown) General: comfortable (uni ts (unknown) date) unknown) (unknown) (no (unknown) (unknown) Glaucoma (units (unkno wn) date) unknown) (unknown) (no (unknown) (unknown) Glucose 108 (units (un known) date) unknown) (unknown) (no (unknown) (unknown) Glucose 112 H (units ( unknown) date) unknown) (unknown) (no (unknown) (unknown) H/O: hysterectomy (units (unknown) date) unknown) (unknown) (no (unknown) (unknown) HENMT (units (unkno wn) date) unknown) (unknown) (no (unknown) (unknown) Hct 36.8 37.2 (units ( unknown) date) unknown) (unknown) (no (unknown) (unknown) Hct (units (unkno wn) date) unknown) (unknown) (no (unknown) (unknown) Head: normal to (units (unknown) date) inspection unknown) (unknown) (no (unknown) (unknown) Hgb 12.4 12.7 (units ( unknown) date) unknown) (unknown) (no (unknown) (unknown) Hgb (units (unkno wn) date) unknown) (unknown) (no (unknown) (unknown) Hypercholesterolemia (uni ts (unknown) date) unknown) (unknown) (no (unknown) (unknown) Hypertension (units (u nknown) date) unknown) (unknown) (no (unknown) (unknown) Hypertension, (units ( unknown) date) dementia, unknown) hypothyroidism, HLD, hypokalemia pain managed by (unknown) (no (unknown) (unknown) Hypothyroidism (units (unknown) date) unknown) (unknown) (no (unknown) (unknown) Interval history: (units (unknown) date) unknown) (unknown) (no (unknown) (unknown) [facility] 1211 (uni ts (unknown) date) [address] [place] [address], unknown ) [place] [id number] (unknown) (no (unknown) (unknown) Laboratory Results - (uni ts (unknown) date) last 24 hr unknown) (unknown) (no (unknown) (unknown) Labs (units (unkno wn) date) unknown) (unknown) (no (unknown) (unknown) Labs: (units (unkno wn) date) unknown) (unknown) (no (unknown) (unknown) Lymph # (Auto) 700 L (uni ts (unknown) date) 1300 unknown) (unknown) (no (unknown) (unknown) Lymph # (Auto) (units (unknown) date) unknown) (unknown) (no (unknown) (unknown) Lymph % (Auto) 8.9 L (uni ts (unknown) date) 13.0 L unknown) (unknown) (no (unknown) (unknown) Lymph % (Auto) (units (unknown) date) unknown) (unknown) (no (unknown) (unknown) MCH 29.3 29.3 (units ( unknown) date) unknown) (unknown) (no (unknown) (unknown) MCH (units (unkno wn) date) unknown) (unknown) (no (unknown) (unknown) MCHC 33.8 34.0 (units (unknown) date) unknown) (unknown) (no (unknown) (unknown) MCHC (units (unkno wn) date) unknown) (unknown) (no (unknown) (unknown) MCV 86.5 86.1 (units ( unknown) date) unknown) (unknown) (no (unknown) (unknown) MCV (units (unkno wn) date) unknown) (unknown) (no (unknown) (unknown) Magnesium 1.7 (units ( unknown) date) unknown) (unknown) (no (unknown) (unknown) Magnesium 1.8 (units ( unknown) date) unknown) (unknown) (no (unknown) (unknown) Medical History (units (unknown) date) (Reviewed 04/12/22 @ unknown) 08:19 by Steve Mason PA-C) (unknown) (no (unknown) (unknown) [place] # (Auto) 900 (units (unknown) date) 1000 H unknown) (unknown) (no (unknown) (unknown) [place] # (Auto) (units ( unknown) date) unknown) (unknown) (no (unknown) (unknown) [place] % (Auto) 10.7 (units (unknown) date) 10.5 unknown) (unknown) (no (unknown) (unknown) [place] % (Auto) (units ( unknown) date) unknown) (unknown) (no (unknown) (unknown) Narrative (units (unkn own) date) unknown) (unknown) (no (unknown) (unknown) Neut # (Auto) 6400 (units (unknown) date) 7400 H unknown) (unknown) (no (unknown) (unknown) Neut # (Auto) (units ( unknown) date) unknown) (unknown) (no (unknown) (unknown) Neut % (Auto) 79.1 H (uni ts (unknown) date) 75.3 H unknown) (unknown) (no (unknown) (unknown) Neut % (Auto) (units ( unknown) date) unknown) (unknown) (no (unknown) (unknown) Nutritional (units (un known) date) Appearance: average unknown) body habitus (unknown) (no (unknown) (unknown) Objective (units (unkn own) date) unknown) (unknown) (no (unknown) (unknown) Operation Date: (units (unknown) date) 04/10/22 13:30 unknown) (unknown) (no (unknown) (unknown) Orientation: confused (un its (unknown) date) unknown) (unknown) (no (unknown) (unknown) Oxygen Delivery (units (unknown) date) Method Room Air unknown) (unknown) (no (unknown) (unknown) Oxygen Flow Rate 0 (units (unknown) date) unknown) (unknown) (no (unknown) (unknown) PFSH (units (unkno wn) date) unknown) (unknown) (no (unknown) (unknown) Patient: (units (unkno wn) date) Sheila Marley MR#: unknown) M0 (unknown) (no (unknown) (unknown) Plt Count 169 190 (units (unknown) date) unknown) (unknown) (no (unknown) (unknown) Plt Count (units (unkn own) date) unknown) (unknown) (no (unknown) (unknown) Posterior hip (units ( unknown) date) precautions for right unknown) hip hemiarthroplasty (unknown) (no (unknown) (unknown) Postoperative day: 2 (uni ts (unknown) date) unknown) (unknown) (no (unknown) (unknown) Postoperative plan (units (unknown) date) narrative: PT/OT unknown) (unknown) (no (unknown) (unknown) Postoperative status (uni ts (unknown) date) narrative: Stable unknown) (unknown) (no (unknown) (unknown) Postoperative (units ( unknown) date) unknown) (unknown) (no (unknown) (unknown) Potassium 3.5 (units ( unknown) date) unknown) (unknown) (no (unknown) (unknown) Potassium 4.2 (units ( unknown) date) unknown) (unknown) (no (unknown) (unknown) Procedures (units (unk nown) date) unknown) (unknown) (no (unknown) (unknown) Procedures: (units (un known) date) unknown) (unknown) (no (unknown) (unknown) Progress Note (units ( unknown) date) unknown) (unknown) (no (unknown) (unknown) Provider: Steve Mason (uni ts (unknown) date) W P.A-C unknown) (unknown) (no (unknown) (unknown) Pulse Oximetry 93 (units (unknown) date) unknown) (unknown) (no (unknown) (unknown) Pulse Rate 89 (units ( unknown) date) unknown) (unknown) (no (unknown) (unknown) RBC 4.25 4.32 (units ( unknown) date) unknown) (unknown) (no (unknown) (unknown) RBC (units (unkno wn) date) unknown) (unknown) (no (unknown) (unknown) RDW 13.1 13.3 (units ( unknown) date) unknown) (unknown) (no (unknown) (unknown) RDW (units (unkno wn) date) unknown) (unknown) (no (unknown) (unknown) Resp (units (unkno wn) date) unknown) (unknown) (no (unknown) (unknown) Respiratory Rate 18 (unit s (unknown) date) unknown) (unknown) (no (unknown) (unknown) Result Diagrams: (units (unknown) date) unknown) (unknown) (no (unknown) (unknown) Signed (units (unkno wn) date) By:<Electronically unknown) signed by Steve Mason> (unknown) (no (unknown) (unknown) Smoking Status: Never (un its (unknown) date) smoker unknown) (unknown) (no (unknown) (unknown) Social History (units (unknown) date) (Reviewed 04/12/22 @ unknown) 08:19 by Steve Mason PA-C) (unknown) (no (unknown) (unknown) Sodium 132 L (units (u nknown) date) unknown) (unknown) (no (unknown) (unknown) Sodium 134 L (units (u nknown) date) unknown) (unknown) (no (unknown) (unknown) Subjective (units (unk nown) date) unknown) (unknown) (no (unknown) (unknown) Surgical History (units (unknown) date) (Reviewed 04/12/22 @ unknown) 08:19 by Steve Mason PA-C) (unknown) (no (unknown) (unknown) Temperature 96.1 F L (uni ts (unknown) date) unknown) (unknown) (no (unknown) (unknown) Time Patient Seen: (units (unknown) date) 08:17 unknown) (unknown) (no (unknown) (unknown) Vital Signs (units (un known) date) unknown) (unknown) (no (unknown) (unknown) WBC 8.1 9.8 (units (un known) date) unknown) (unknown) (no (unknown) (unknown) WBC (units (unkno wn) date) unknown) (unknown) (no (unknown) (unknown) Weightbear on right (unit s (unknown) date) upper extremity on her unknown ) elbow using a platform walker (unknown) (no (unknown) (unknown) [Embedded Image Not (unit s (unknown) date) Available] unknown) (unknown) (no (unknown) (unknown) alcohol intake: never (un its (unknown) date) unknown) (unknown) (no (unknown) (unknown) clean, dry and (units (unknown) date) intact. Right upper unknown) extremity is in a splint. Motor functions (unknown) (no (unknown) (unknown) extremity. Sensation (uni ts (unknown) date) grossly intact to unknown) light touch distal right lower (unknown) (no (unknown) (unknown) extremity. (units (unk nown) date) unknown) (unknown) (no (unknown) (unknown) grossly intact to (units (unknown) date) light touch. Motor unknown) functions intact distal right lower (unknown) (no (unknown) (unknown) hospitalist (units (un known) date) unknown) (unknown) (no (unknown) (unknown) household members: (units (unknown) date) other unknown) (unknown) (no (unknown) (unknown) intact distal right (unit s (unknown) date) upper extremity. She unknown) has good capillary refill. Sensation (unknown) (no (unknown) (unknown) p Hip (units (unkno wn) date) Hemiarthroplasty Right unknown ) Jorge Camarena MD (unknown) (no (unknown) (unknown) s ORIF Forearm (units (unknown) date) Fracture Right Jorge unknown ) Zaira Camarena MD Result panel 87 (unknown) (no (unknown) (unknown) (no value) (units (unk nown) date) unknown) (unknown) (no (unknown) (unknown) [id number] (units (unkn own) date) unknown) (unknown) (no (unknown) (unknown) 04/12/22 (units (unkno wn) date) unknown) (unknown) (no (unknown) (unknown) [address] [place] [address] (units (unknown) date) unknown) (unknown) (no (unknown) (unknown) Accession (units (unkn own) date) Number: unknown) [id number] (unknown) (no (unknown) (unknown) Age/Sex: 82 / F (units (unknown) date) Date of Service: unknown) (unknown) (no (unknown) (unknown) [facility] (units ( unknown) date) [id number] unknown) (unknown) (no (unknown) (unknown) Approved by: (units (u nknown) date) Bela Ca M.D. unknown) on 04/12/2022 at 11:44 (unknown) (no (unknown) (unknown) Bones: There is (units (unknown) date) dislocation of unknown) the right hip arthroplasty. The femoral (unknown) (no (unknown) (unknown) COMPARISON: (units (un known) date) [facility], unknown) CR, XR PELVIS 1-2V, 04/10/2022, 20:05. (unknown) (no (unknown) (unknown) : 1940 (units (unknown) date) Acct:[id number] unknown) (unknown) (no (unknown) (unknown) Dictated by: (units (u nknown) date) Bela Ca M.D. unknown) on 04/12/2022 at 11:44 (unknown) (no (unknown) (unknown) FINDINGS: (units (unkn own) date) unknown) (unknown) (no (unknown) (unknown) IMPRESSION: (units (un known) date) Right hip unknown) dislocation. (unknown) (no (unknown) (unknown) INDICATIONS: (units (u nknown) date) shortened RLE, unknown) increased pain (unknown) (no (unknown) (unknown) [facility] (units (unknown) date) unknown) (unknown) (no (unknown) (unknown) Loc: AC 223-1 (units ( unknown) date) unknown) (unknown) (no (unknown) (unknown) Ordering (units (unkno wn) date) Provider: unknown) Steve Mason P.A-C (unknown) (no (unknown) (unknown) PROCEDURE: XR (units ( unknown) date) PELVIS 1-2V unknown) (unknown) (no (unknown) (unknown) Patient: (units (unkno wn) date) Sheila Marley E unknown) MR#: M (unknown) (no (unknown) (unknown) Procedure: XR (units ( unknown) date) pelvis 1-2V unknown) (unknown) (no (unknown) (unknown) Signed (units (unkno wn) date) unknown) (unknown) (no (unknown) (unknown) Soft tissues: (units ( unknown) date) Postoperative unknown) changes are present within the soft tissues. (unknown) (no (unknown) (unknown) TECHNIQUE: (units (unk nown) date) Single view(s) of unknown) the pelvis acquired. (unknown) (no (unknown) (unknown) XRay Report (units (un known) date) unknown) (unknown) (no (unknown) (unknown) located (units (unkno wn) date) superiorly with unknown) respect to the acetabulum. (unknown) (no (unknown) (unknown) prosthesis is (units ( unknown) date) unknown) Result panel 88 (unknown) (no (unknown) (unknown) (no value) (units (unk nown) date) unknown) (unknown) (no (unknown) (unknown) (past 8 hours): (units (unknown) date) unknown) (unknown) (no (unknown) (unknown) - continue home (units (unknown) date) statin unknown) (unknown) (no (unknown) (unknown) - k 2.7 was given (units (unknown) date) repletion yesterday, unknown) improved today. (unknown) (no (unknown) (unknown) -POD1 s/p R (units (unk nown) date) hemiarthoplasty, 2 unknown) week outpatient follow up with [facility] (unknown) (no (unknown) (unknown) -ativan ordered for (unit s (unknown) date) anxiety/agitation unknown) though no difficulties thus far. (unknown) (no (unknown) (unknown) -continue home (units (unknown) date) medications, HCTZ and unknown) metoprolol, good BP control today. (unknown) (no (unknown) (unknown) -continue synthroid (unit s (unknown) date) unknown) (unknown) (no (unknown) (unknown) -pain medications (units (unknown) date) ordered unknown) (unknown) (no (unknown) (unknown) -plan per orthopedic (uni ts (unknown) date) surgery unknown) (unknown) (no (unknown) (unknown) -reorient as able (units (unknown) date) unknown) (unknown) (no (unknown) (unknown) [id number] (units (unkno wn) date) unknown) (unknown) (no (unknown) (unknown) 04/12/22 04/12/22 (units (unknown) date) unknown) (unknown) (no (unknown) (unknown) 04/12/22 04:20 (units (unknown) date) unknown) (unknown) (no (unknown) (unknown) 04/12/22 (units (unkno wn) date) unknown) (unknown) (no (unknown) (unknown) 04:00 04/12/22 (units (unknown) date) unknown) (unknown) (no (unknown) (unknown) 04:20 04:20 (units (un known) date) unknown) (unknown) (no (unknown) (unknown) 08:00 (units (unkno wn) date) unknown) (unknown) (no (unknown) (unknown) 1. 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 Right displaced (units (unknown) date) ulna fracture unknown) (unknown) (no (unknown) (unknown) 3. Hypertension (units (unknown) date) unknown) (unknown) (no (unknown) (unknown) 4. Dementia (units (un known) date) unknown) (unknown) (no (unknown) (unknown) 5. Hypothyroidism (units (unknown) date) unknown) (unknown) (no (unknown) (unknown) 6. HLD (units (unkno wn) date) unknown) (unknown) (no (unknown) (unknown) 7. Hypokalemia, acute (un its (unknown) date) unknown) (unknown) (no (unknown) (unknown) ABD: soft, nontender, (un its (unknown) date) nondistended, no unknown) organomegaly, normal bowel sounds (unknown) (no (unknown) (unknown) Age/Sex: 82 / F (units (unknown) date) unknown) (unknown) (no (unknown) (unknown) Assessment + Plan (units (unknown) date) narrative: unknown) (unknown) (no (unknown) (unknown) Assessment + Plan (units (unknown) date) unknown) (unknown) (no (unknown) (unknown) BUN 14 (units (unkno wn) date) unknown) (unknown) (no (unknown) (unknown) BUN/Creatinine Ratio (uni ts (unknown) date) 28.6 H unknown) (unknown) (no (unknown) (unknown) Baso # (Auto) 0 (units (unknown) date) unknown) (unknown) (no (unknown) (unknown) Baso % (Auto) 0.3 (units (unknown) date) unknown) (unknown) (no (unknown) (unknown) Blood Pressure 156/70 (un its (unknown) date) H 135/66 unknown) (unknown) (no (unknown) (unknown) CODE: DNR (units (unkn own) date) unknown) (unknown) (no (unknown) (unknown) CV: regular rate and (uni ts (unknown) date) rhythm, no murmurs unknown) (unknown) (no (unknown) (unknown) Calcium 8.1 L (units ( unknown) date) unknown) (unknown) (no (unknown) (unknown) Carbon Dioxide 25 (units (unknown) date) unknown) (unknown) (no (unknown) (unknown) Chloride 102 (units (u nknown) date) unknown) (unknown) (no (unknown) (unknown) Creatinine 0.49 L (units (unknown) date) unknown) (unknown) (no (unknown) (unknown) Critical Care time: (unit s (unknown) date) unknown) (unknown) (no (unknown) (unknown) : 1940 (units (unknown) date) Acct:[id number] unknown) (unknown) (no (unknown) (unknown) Date of Service: (units (unknown) date) 04/09/22 unknown) (unknown) (no (unknown) (unknown) Dementia (units (unkno wn) date) unknown) (unknown) (no (unknown) (unknown) EXT: warm and well (units (unknown) date) perfused, no edema unknown) (unknown) (no (unknown) (unknown) Eos # (Auto) 100 (units (unknown) date) unknown) (unknown) (no (unknown) (unknown) Eos % (Auto) 0.9 L (units (unknown) date) unknown) (unknown) (no (unknown) (unknown) Estimated GFR > 60 (units (unknown) date) unknown) (unknown) (no (unknown) (unknown) Exam Narrative: (units (unknown) date) unknown) (unknown) (no (unknown) (unknown) Exam (units (unkno wn) date) unknown) (unknown) (no (unknown) (unknown) GEN: elderly female, (uni ts (unknown) date) no acute distress. unknown) (unknown) (no (unknown) (unknown) Glaucoma (units (unkno wn) date) unknown) (unknown) (no (unknown) (unknown) Glucose 112 H (units ( unknown) date) unknown) (unknown) (no (unknown) (unknown) H/O: hysterectomy (units (unknown) date) unknown) (unknown) (no (unknown) (unknown) HEENT: moist mucous (unit s (unknown) date) membranes, PERRL unknown) (unknown) (no (unknown) (unknown) Hct 37.2 (units (unkno wn) date) unknown) (unknown) (no (unknown) (unknown) Hgb 12.7 (units (unkno wn) date) unknown) (unknown) (no (unknown) (unknown) Hypercholesterolemia (uni ts (unknown) date) unknown) (unknown) (no (unknown) (unknown) Hypertension (units (u nknown) date) unknown) (unknown) (no (unknown) (unknown) Hypothyroidism (units (unknown) date) unknown) (unknown) (no (unknown) (unknown) I have utilized all (unit s (unknown) date) available resources to unknown ) reconcile the patient's home (unknown) (no (unknown) (unknown) I spent a total of [] (un its (unknown) date) minutes of critical unknown) care time on this patient's care (unknown) (no (unknown) (unknown) [facility] 1211 (uni ts (unknown) date) [address] [place] [address] [place], unknown ) [place] [address] (unknown) (no (unknown) (unknown) Laboratory Results - (uni ts (unknown) date) last 24 hr unknown) (unknown) (no (unknown) (unknown) Labs (units (unkno wn) date) unknown) (unknown) (no (unknown) (unknown) Labs: (units (unkno wn) date) unknown) (unknown) (no (unknown) (unknown) Lymph # (Auto) 1300 (unit s (unknown) date) unknown) (unknown) (no (unknown) (unknown) Lymph % (Auto) 13.0 L (un its (unknown) date) unknown) (unknown) (no (unknown) (unknown) MCH 29.3 (units (unkno wn) date) unknown) (unknown) (no (unknown) (unknown) MCHC 34.0 (units (unkn own) date) unknown) (unknown) (no (unknown) (unknown) MCV 86.1 (units (unkno wn) date) unknown) (unknown) (no (unknown) (unknown) Magnesium 1.8 (units ( unknown) date) unknown) (unknown) (no (unknown) (unknown) Medical History (units (unknown) date) (Reviewed 04/12/22 @ unknown) 08:19 by Steve Mason PA-C) (unknown) (no (unknown) (unknown) [place] # (Auto) 1000 H (uni ts (unknown) date) unknown) (unknown) (no (unknown) (unknown) [place] % (Auto) 10.5 (units (unknown) date) unknown) (unknown) (no (unknown) (unknown) NECK: trachea (units ( unknown) date) midline, no JVD unknown) (unknown) (no (unknown) (unknown) NEURO: awake, alert, (uni ts (unknown) date) confused unknown) (unknown) (no (unknown) (unknown) Narrative (units (unkn own) date) unknown) (unknown) (no (unknown) (unknown) Neut # (Auto) 7400 H (uni ts (unknown) date) unknown) (unknown) (no (unknown) (unknown) Neut % (Auto) 75.3 H (uni ts (unknown) date) unknown) (unknown) (no (unknown) (unknown) Objective (units (unkn own) date) unknown) (unknown) (no (unknown) (unknown) Oxygen Delivery (units (unknown) date) Method Room Air unknown) (unknown) (no (unknown) (unknown) Oxygen Flow Rate 0 (units (unknown) date) unknown) (unknown) (no (unknown) (unknown) PFSH (units (unkno wn) date) unknown) (unknown) (no (unknown) (unknown) PULM: clear (units (un known) date) bilaterally, no unknown) wheezes, rhonchi, rales (unknown) (no (unknown) (unknown) Patient: (units (unkno wn) date) Sheila Marley MR#: unknown) M0 (unknown) (no (unknown) (unknown) Plt Count 190 (units ( unknown) date) unknown) (unknown) (no (unknown) (unknown) Potassium 4.2 (units ( unknown) date) unknown) (unknown) (no (unknown) (unknown) Progress Note (units ( unknown) date) unknown) (unknown) (no (unknown) (unknown) Provider: (units (unkn own) date) Sid Meade D.O. unknown) (unknown) (no (unknown) (unknown) Proxy: Mauro Trivedi, (uni ts (unknown) date) daughter unknown) (unknown) (no (unknown) (unknown) Pulse Oximetry 93 93 (uni ts (unknown) date) unknown) (unknown) (no (unknown) (unknown) Pulse Rate 89 73 (units (unknown) date) unknown) (unknown) (no (unknown) (unknown) RBC 4.32 (units (unkno wn) date) unknown) (unknown) (no (unknown) (unknown) RDW 13.3 (units (unkno wn) date) unknown) (unknown) (no (unknown) (unknown) Respiratory Rate 18 (unit s (unknown) date) 17 unknown) (unknown) (no (unknown) (unknown) Result Diagrams: (units (unknown) date) unknown) (unknown) (no (unknown) (unknown) Signed By: (units (unk nown) date) unknown) (unknown) (no (unknown) (unknown) Smoking Status: Never (un its (unknown) date) smoker unknown) (unknown) (no (unknown) (unknown) Social History (units (unknown) date) (Reviewed 04/12/22 @ unknown) 08:19 by Steve Mason PA-C) (unknown) (no (unknown) (unknown) Sodium 132 L (units (u nknown) date) unknown) (unknown) (no (unknown) (unknown) Surgical History (units (unknown) date) (Reviewed 04/12/22 @ unknown) 08:19 by Steve Mason PA-C) (unknown) (no (unknown) (unknown) Temperature 96.1 F L (uni ts (unknown) date) 97.7 F unknown) (unknown) (no (unknown) (unknown) Time Spent With (units (unknown) date) Patient unknown) (unknown) (no (unknown) (unknown) Vital Signs (units (un known) date) unknown) (unknown) (no (unknown) (unknown) WBC 9.8 (units (unkno wn) date) unknown) (unknown) (no (unknown) (unknown) [Embedded Image Not (unit s (unknown) date) Available] unknown) (unknown) (no (unknown) (unknown) alcohol intake: never (un its (unknown) date) unknown) (unknown) (no (unknown) (unknown) household members: (units (unknown) date) other unknown) (unknown) (no (unknown) (unknown) medications (units (un known) date) unknown) (unknown) (no (unknown) (unknown) neck fracture. (units (unknown) date) unknown) (unknown) (no (unknown) (unknown) recommended. (units (u nknown) date) unknown) (unknown) (no (unknown) (unknown) today; this time is (unit s (unknown) date) exclusive of unknown) procedural time. Result panel 89 (unknown) (no date) (unknown) (unknown) (no value) (units (un known) unknown) (unknown) (no date) (unknown) (unknown) [id number] (units (unkn own) unknown) (unknown) (no date) (unknown) (unknown) 04/12/22 1536 (units (unknown) unknown) (unknown) (no date) (unknown) (unknown) Age/Sex: 82 / (units (unknown) F unknown) (unknown) (no date) (unknown) (unknown) COVID-19 (units (unkn own) status: unknown) Negative (unknown) (no date) (unknown) (unknown) COVID-19 (units (unkn own) unknown) (unknown) (no date) (unknown) (unknown) Changes to (units (un known) H+P: Yes unknown) (unknown) (no date) (unknown) (unknown) : (units (unkn own) 1940 unknown) Acct:[id number] (unknown) (no date) (unknown) (unknown) Date of (units (unkn own) Service: unknown) 04/09/22 (unknown) (no date) (unknown) (unknown) H+P completed (units ( unknown) within 30 days unknown) and has changed as indicated here:: The patient was (unknown) (no date) (unknown) (unknown) History + (units (unk nown) Physical unknown) reviewed/Exam performed by Physician: Yes (unknown) (no date) (unknown) (unknown) Interval Note (units (unknown) unknown) (unknown) (no date) (unknown) (unknown) [place] (units (unkn own) [place] [id number] unknown) [address] [place] [id number] (unknown) (no date) (unknown) (unknown) Patient: (units (unkn own) Sheila Marley unknown) E MR#: [id number] (unknown) (no date) (unknown) (unknown) Pre-operative (units (unknown) Note unknown) (unknown) (no date) (unknown) (unknown) Provider: (units (unk nown) Jorge Camarena unknown) (unknown) (no date) (unknown) (unknown) Radiographs (units (u nknown) have confirmed unknown) a dislocation of the prosthetic. We are preparing (unknown) (no date) (unknown) (unknown) Result (units (unkn own) date/Date unknown) tested (Pos, Neg/Pending): 04/09/22 (unknown) (no date) (unknown) (unknown) Signed (units (unkn own) By:<Electronica unknown) lly signed by Jorge Camarena MD> (unknown) (no date) (unknown) (unknown) for closed (units (un known) reduction of unknown) the dislocation with possible open reduction if needed. (unknown) (no date) (unknown) (unknown) found in her (units ( unknown) room today with unknown) her right leg shortened and internally rotated. Result panel 90 (unknown) (no date) (unknown) (unknown) Negative (units (unkn own) unknown) (unknown) (no date) (unknown) (unknown) Negative (units (unkn own) unknown) Result panel 91 (unknown) (no (unknown) (unknown) (no value) (units (unk nown) date) unknown) (unknown) (no (unknown) (unknown) [id number] (units (unkn own) date) unknown) (unknown) (no (unknown) (unknown) 04/12/22 (units (unkno wn) date) unknown) (unknown) (no (unknown) (unknown) [address] [place] [address] (units (unknown) date) unknown) (unknown) (no (unknown) (unknown) Accession (units (unkn own) date) Number: unknown) [id number] (unknown) (no (unknown) (unknown) Age/Sex: 82 / F (units (unknown) date) Date of Service: unknown) (unknown) (no (unknown) (unknown) [place], [place] (units ( unknown) date) [id number] unknown) (unknown) (no (unknown) (unknown) Approved by: (units (u nknown) date) aubree Jane) Carol Ann on 04/12/2022 at 21:00 (unknown) (no (unknown) (unknown) COMPARISON: (units (un known) date) [facility], unknown) CR, XR PELVIS 1-2V, 04/12/2022 (unknown) (no (unknown) (unknown) : 1940 (units (unknown) date) Acct:[id number] unknown) (unknown) (no (unknown) (unknown) Dictated by: (units (u nknown) date) aubree Jane) Carol Ann on 04/12/2022 at 18:25 (unknown) (no (unknown) (unknown) FINDINGS/IMPRESS (units (unknown) date) ION: Fluoroscopic unknown) image demonstrating successful reduction of (unknown) (no (unknown) (unknown) INDICATIONS: (units (u nknown) date) RIGHT HIP POST unknown) REDUCTION (unknown) (no (unknown) (unknown) [facility] (units (unknown) date) unknown) (unknown) (no (unknown) (unknown) Loc: AC 223-1 (units ( unknown) date) unknown) (unknown) (no (unknown) (unknown) Ordering (units (unkno wn) date) Provider: unknown) Jorge Camarena MD (unknown) (no (unknown) (unknown) PROCEDURE: XR (units ( unknown) date) HIP RT 1V unknown) (unknown) (no (unknown) (unknown) Patient: (units (unkno wn) date) Sheila Marley unknown) MR#: [id number] (unknown) (no (unknown) (unknown) Procedure: XR (units ( unknown) date) hip RT 1V unknown) (unknown) (no (unknown) (unknown) Signed (units (unkno wn) date) unknown) (unknown) (no (unknown) (unknown) TECHNIQUE: 1 (units (u nknown) date) views of the hip unknown) were acquired. (unknown) (no (unknown) (unknown) XRay Report (units (un known) date) unknown) (unknown) (no (unknown) (unknown) femoral (units (unkno wn) date) hemiarthroplasty. unknown) (unknown) (no (unknown) (unknown) right hip (units (unkn own) date) unknown) Result panel 92 (unknown) (no (unknown) (unknown) (no value) (units (unk nown) date) unknown) (unknown) (no (unknown) (unknown) [id number] (units (unkno wn) date) unknown) (unknown) (no (unknown) (unknown) 04/12/22 1638 (units ( unknown) date) unknown) (unknown) (no (unknown) (unknown) Age/Sex: 82 / F (units (unknown) date) unknown) (unknown) (no (unknown) (unknown) Anesthesia Type: (units (unknown) date) General unknown) (unknown) (no (unknown) (unknown) Blood products (units (unknown) date) transfused: none unknown) (unknown) (no (unknown) (unknown) Click Yes if (units (u nknown) date) Unassisted: Yes unknown) (unknown) (no (unknown) (unknown) Closed reduction (units (unknown) date) of dislocated right unknown) hip hemiarthroplasty (unknown) (no (unknown) (unknown) Closure Type: not (units (unknown) date) applicable unknown) (unknown) (no (unknown) (unknown) Complications: (units (unknown) date) none unknown) (unknown) (no (unknown) (unknown) Concentric (units (unk nown) date) reduction without unknown) trauma. (unknown) (no (unknown) (unknown) Condition: stable (units (unknown) date) unknown) (unknown) (no (unknown) (unknown) : 1940 (units (unknown) date) Acct:[id number] unknown) (unknown) (no (unknown) (unknown) Date of Service: (units (unknown) date) 04/09/22 unknown) (unknown) (no (unknown) (unknown) Date of procedure: (units (unknown) date) 04/12/22 unknown) (unknown) (no (unknown) (unknown) Disposition: PACU (units (unknown) date) unknown) (unknown) (no (unknown) (unknown) Estimated Blood (units (unknown) date) Loss (mL): 0 unknown) (unknown) (no (unknown) (unknown) Findings: (units (unkn own) date) unknown) (unknown) (no (unknown) (unknown) Indications: (units (u nknown) date) unknown) (unknown) (no (unknown) (unknown) [facility] (units (unknown) date) [address] unknown) [place] [address] (unknown) (no (unknown) (unknown) Operative (units (unkn own) date) Date/Time/Diagnoses unknown) (unknown) (no (unknown) (unknown) Operative Note (units (unknown) date) unknown) (unknown) (no (unknown) (unknown) Operative Notes (units (unknown) date) unknown) (unknown) (no (unknown) (unknown) Patient: (units (unkno wn) date) Sheila Marley E unknown) MR#: [id number] (unknown) (no (unknown) (unknown) Plan for (units (unkno wn) date) aftercare: unknown) (unknown) (no (unknown) (unknown) Post-op diagnosis: (units (unknown) date) same unknown) (unknown) (no (unknown) (unknown) Post-operative (units (unknown) date) unknown) (unknown) (no (unknown) (unknown) Pre-op diagnosis: (units (unknown) date) Dislocated right unknown) hip hemiarthroplasty (unknown) (no (unknown) (unknown) Procedure + (units (un known) date) Clinicians unknown) (unknown) (no (unknown) (unknown) Procedure in (units (u nknown) date) detail: unknown) (unknown) (no (unknown) (unknown) Procedure: (units (unk nown) date) unknown) (unknown) (no (unknown) (unknown) Provider: (units (unkn own) date) Jorge Camarena MD unknown) (unknown) (no (unknown) (unknown) Same procedure as (units (unknown) date) scheduled: Yes unknown) (unknown) (no (unknown) (unknown) Signed (units (unkno wn) date) By:<Electronically unknown) signed by Jorge Camarena MD> (unknown) (no (unknown) (unknown) Specimen(s): none (units (unknown) date) sent unknown) (unknown) (no (unknown) (unknown) Surgeon: Jorge Meneses (units (unknown) date) Nicol unknown) (unknown) (no (unknown) (unknown) The patient is an (units (unknown) date) 82-year-old woman unknown) with dementia who underwent a (unknown) (no (unknown) (unknown) The patient was (units (unknown) date) seen in the unknown) preoperative area. Consent was obtained over the (unknown) (no (unknown) (unknown) The patient will (units (unknown) date) be maintained in unknown) the abduction pillow at all times except (unknown) (no (unknown) (unknown) There was an (units (u nknown) date) atraumatic unknown) reduction of the hip. Concentric reduction was verified (unknown) (no (unknown) (unknown) This was followed (units (unknown) date) by extension, unknown) neutralization of the rotation and abduction. (unknown) (no (unknown) (unknown) Time of procedure: (units (unknown) date) 16:34 unknown) (unknown) (no (unknown) (unknown) awaiting placement (units (unknown) date) to half-way. unknown) (unknown) (no (unknown) (unknown) bandage and by the (units (unknown) date) shortening and unknown) internal rotation of the extremity. She was (unknown) (no (unknown) (unknown) compliant with her (units (unknown) date) postoperative unknown) restrictions due to her dementia and was found (unknown) (no (unknown) (unknown) for a closed (units (u nknown) date) reduction with open unknown) reduction if necessary. (unknown) (no (unknown) (unknown) hemiarthroplasty (units (unknown) date) for femoral neck unknown) fracture 2 days ago. She has not been (unknown) (no (unknown) (unknown) in her hospital (units (unknown) date) bed with her leg unknown) abducted shortened and internally rotated. Her (unknown) (no (unknown) (unknown) on fluoroscopy. An (units (unknown) date) abduction pillow unknown) was then placed. She was taken to recovery (unknown) (no (unknown) (unknown) phone from her (units (unknown) date) son. Her right hip unknown) was identified as the operative site by the (unknown) (no (unknown) (unknown) physical therapy. (units (unknown) date) She will be unknown) returned to the hospital floor where she is (unknown) (no (unknown) (unknown) room in good (units (u nkwn) date) condition having unknown) tolerated the procedure well. (unknown) (no (unknown) (unknown) sedation. Her hip (units (unknown) date) was relocated with unknown) traction, flexion, internal rotation. (unknown) (no (unknown) (unknown) son Juan who holds (units (unknown) date) durable power of unknown) medical staff services coordinator has given consent over the phone (unknown) (no (unknown) (unknown) taken to the (units (u nknown) date) operating room and unknown) transferred onto the operating room table. She (unknown) (no (unknown) (unknown) underwent the (units ( unknown) date) induction of a mask unknown) general anesthetic with significant propofol Result panel 93 (unknown) (no (unknown) (unknown) (no value) (units (unk nown) date) unknown) (unknown) (no (unknown) (unknown) (past 8 hours): (units (unknown) date) unknown) (unknown) (no (unknown) (unknown) - continue home (units (unknown) date) statin unknown) (unknown) (no (unknown) (unknown) - k 2.7 was given (units (unknown) date) repletion yesterday, unknown) improved today. (unknown) (no (unknown) (unknown) -POD1 s/p R (units (unk nown) date) hemiarthoplasty, 2 unknown) week outpatient follow up with [facility] (unknown) (no (unknown) (unknown) -ativan ordered for (unit s (unknown) date) anxiety/agitation unknown) though no difficulties thus far. (unknown) (no (unknown) (unknown) -continue home (units (unknown) date) medications, HCTZ and unknown) metoprolol, good BP control today. (unknown) (no (unknown) (unknown) -continue synthroid (unit s (unknown) date) unknown) (unknown) (no (unknown) (unknown) -pain medications (units (unknown) date) ordered unknown) (unknown) (no (unknown) (unknown) -plan per orthopedic (uni ts (unknown) date) surgery unknown) (unknown) (no (unknown) (unknown) -reorient as able (units (unknown) date) unknown) (unknown) (no (unknown) (unknown) [id number] (units (unkno wn) date) unknown) (unknown) (no (unknown) (unknown) 04/12/22 04/12/22 (units (unknown) date) unknown) (unknown) (no (unknown) (unknown) 04/12/22 04:20 (units (unknown) date) unknown) (unknown) (no (unknown) (unknown) 04/12/22 (units (unkno wn) date) unknown) (unknown) (no (unknown) (unknown) 04:00 04/12/22 (units (unknown) date) unknown) (unknown) (no (unknown) (unknown) 04:20 04:20 (units (un known) date) unknown) (unknown) (no (unknown) (unknown) 08:00 (units (unkno wn) date) unknown) (unknown) (no (unknown) (unknown) 1. 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 Right displaced (units (unknown) date) ulna fracture unknown) (unknown) (no (unknown) (unknown) 3. Hypertension (units (unknown) date) unknown) (unknown) (no (unknown) (unknown) 4. Dementia (units (un known) date) unknown) (unknown) (no (unknown) (unknown) 5. Hypothyroidism (units (unknown) date) unknown) (unknown) (no (unknown) (unknown) 6. HLD (units (unkno wn) date) unknown) (unknown) (no (unknown) (unknown) 7. Hypokalemia, acute (un its (unknown) date) unknown) (unknown) (no (unknown) (unknown) ABD: soft, nontender, (un its (unknown) date) nondistended, no unknown) organomegaly, normal bowel sounds (unknown) (no (unknown) (unknown) Age/Sex: 82 / F (units (unknown) date) unknown) (unknown) (no (unknown) (unknown) Assessment + Plan (units (unknown) date) narrative: unknown) (unknown) (no (unknown) (unknown) Assessment + Plan (units (unknown) date) unknown) (unknown) (no (unknown) (unknown) BUN 14 (units (unkno wn) date) unknown) (unknown) (no (unknown) (unknown) BUN/Creatinine Ratio (uni ts (unknown) date) 28.6 H unknown) (unknown) (no (unknown) (unknown) Baso # (Auto) 0 (units (unknown) date) unknown) (unknown) (no (unknown) (unknown) Baso % (Auto) 0.3 (units (unknown) date) unknown) (unknown) (no (unknown) (unknown) Blood Pressure 156/70 (un its (unknown) date) H 135/66 unknown) (unknown) (no (unknown) (unknown) CODE: DNR (units (unkn own) date) unknown) (unknown) (no (unknown) (unknown) CV: regular rate and (uni ts (unknown) date) rhythm, no murmurs unknown) (unknown) (no (unknown) (unknown) Calcium 8.1 L (units ( unknown) date) unknown) (unknown) (no (unknown) (unknown) Carbon Dioxide 25 (units (unknown) date) unknown) (unknown) (no (unknown) (unknown) Chloride 102 (units (u nknown) date) unknown) (unknown) (no (unknown) (unknown) Creatinine 0.49 L (units (unknown) date) unknown) (unknown) (no (unknown) (unknown) Critical Care time: (unit s (unknown) date) unknown) (unknown) (no (unknown) (unknown) : 1940 (units (unknown) date) Acct:[id number] unknown) (unknown) (no (unknown) (unknown) Date Patient Seen: (units (unknown) date) 04/12/22 unknown) (unknown) (no (unknown) (unknown) Date of Service: (units (unknown) date) 04/09/22 unknown) (unknown) (no (unknown) (unknown) Dementia (units (unkno wn) date) unknown) (unknown) (no (unknown) (unknown) EXT: warm and well (units (unknown) date) perfused, no edema, unknown) right leg externally rotated (unknown) (no (unknown) (unknown) Eos # (Auto) 100 (units (unknown) date) unknown) (unknown) (no (unknown) (unknown) Eos % (Auto) 0.9 L (units (unknown) date) unknown) (unknown) (no (unknown) (unknown) Estimated GFR > 60 (units (unknown) date) unknown) (unknown) (no (unknown) (unknown) Exam Narrative: (units (unknown) date) unknown) (unknown) (no (unknown) (unknown) Exam (units (unkno wn) date) unknown) (unknown) (no (unknown) (unknown) GEN: elderly female, (uni ts (unknown) date) no acute distress. unknown) (unknown) (no (unknown) (unknown) Glaucoma (units (unkno wn) date) unknown) (unknown) (no (unknown) (unknown) Glucose 112 H (units ( unknown) date) unknown) (unknown) (no (unknown) (unknown) H/O: hysterectomy (units (unknown) date) unknown) (unknown) (no (unknown) (unknown) HEENT: moist mucous (unit s (unknown) date) membranes, PERRL unknown) (unknown) (no (unknown) (unknown) Had lots of kicking (unit s (unknown) date) overnight due to unknown) delirium. This morning right hip was (unknown) (no (unknown) (unknown) Hct 37.2 (units (unkno wn) date) unknown) (unknown) (no (unknown) (unknown) Hgb 12.7 (units (unkno wn) date) unknown) (unknown) (no (unknown) (unknown) Hypercholesterolemia (uni ts (unknown) date) unknown) (unknown) (no (unknown) (unknown) Hypertension (units (u nknown) date) unknown) (unknown) (no (unknown) (unknown) Hypothyroidism (units (unknown) date) unknown) (unknown) (no (unknown) (unknown) I have utilized all (unit s (unknown) date) available resources to unknown ) reconcile the patient's home (unknown) (no (unknown) (unknown) I spent a total of [] (un its (unknown) date) minutes of critical unknown) care time on this patient's care (unknown) (no (unknown) (unknown) Interval history: (units (unknown) date) unknown) (unknown) (no (unknown) (unknown) [facility] 1211 (uni ts (unknown) date) [address] [place] [address], unknown ) [place] [id number] (unknown) (no (unknown) (unknown) Laboratory Results - (uni ts (unknown) date) last 24 hr unknown) (unknown) (no (unknown) (unknown) Labs (units (unkno wn) date) unknown) (unknown) (no (unknown) (unknown) Labs: (units (unkno wn) date) unknown) (unknown) (no (unknown) (unknown) Lymph # (Auto) 1300 (unit s (unknown) date) unknown) (unknown) (no (unknown) (unknown) Lymph % (Auto) 13.0 L (un its (unknown) date) unknown) (unknown) (no (unknown) (unknown) MCH 29.3 (units (unkno wn) date) unknown) (unknown) (no (unknown) (unknown) MCHC 34.0 (units (unkn own) date) unknown) (unknown) (no (unknown) (unknown) MCV 86.1 (units (unkno wn) date) unknown) (unknown) (no (unknown) (unknown) Magnesium 1.8 (units ( unknown) date) unknown) (unknown) (no (unknown) (unknown) Medical History (units (unknown) date) (Reviewed 04/12/22 @ unknown) 08:19 by Steve Mason PA-C) (unknown) (no (unknown) (unknown) [place] # (Auto) 1000 H (uni ts (unknown) date) unknown) (unknown) (no (unknown) (unknown) [place] % (Auto) 10.5 (units (unknown) date) unknown) (unknown) (no (unknown) (unknown) NECK: trachea (units ( unknown) date) midline, no JVD unknown) (unknown) (no (unknown) (unknown) NEURO: somnolent (units (unknown) date) unknown) (unknown) (no (unknown) (unknown) Narrative (units (unkn own) date) unknown) (unknown) (no (unknown) (unknown) Neut # (Auto) 7400 H (uni ts (unknown) date) unknown) (unknown) (no (unknown) (unknown) Neut % (Auto) 75.3 H (uni ts (unknown) date) unknown) (unknown) (no (unknown) (unknown) OR today. Patient (units (unknown) date) currently is somnolent unknown ) and unable to provide update. (unknown) (no (unknown) (unknown) Objective (units (unkn own) date) unknown) (unknown) (no (unknown) (unknown) Oxygen Delivery (units (unknown) date) Method Room Air unknown) (unknown) (no (unknown) (unknown) Oxygen Flow Rate 0 (units (unknown) date) unknown) (unknown) (no (unknown) (unknown) PFSH (units (unkno wn) date) unknown) (unknown) (no (unknown) (unknown) PULM: clear (units (un known) date) bilaterally, no unknown) wheezes, rhonchi, rales (unknown) (no (unknown) (unknown) Patient: (units (unkno wn) date) Sheila Marley MR#: unknown) M0 (unknown) (no (unknown) (unknown) Plt Count 190 (units ( unknown) date) unknown) (unknown) (no (unknown) (unknown) Potassium 4.2 (units ( unknown) date) unknown) (unknown) (no (unknown) (unknown) Progress Note (units ( unknown) date) unknown) (unknown) (no (unknown) (unknown) Provider: (units (unkn own) date) Sid Meade D.O. unknown) (unknown) (no (unknown) (unknown) Proxy: Mauro Trivedi, (uni ts (unknown) date) daughter unknown) (unknown) (no (unknown) (unknown) Pulse Oximetry 93 93 (uni ts (unknown) date) unknown) (unknown) (no (unknown) (unknown) Pulse Rate 89 73 (units (unknown) date) unknown) (unknown) (no (unknown) (unknown) RBC 4.32 (units (unkno wn) date) unknown) (unknown) (no (unknown) (unknown) RDW 13.3 (units (unkno wn) date) unknown) (unknown) (no (unknown) (unknown) Respiratory Rate 18 (unit s (unknown) date) 17 unknown) (unknown) (no (unknown) (unknown) Result Diagrams: (units (unknown) date) unknown) (unknown) (no (unknown) (unknown) Signed By: (units (unk nown) date) unknown) (unknown) (no (unknown) (unknown) Smoking Status: Never (un its (unknown) date) smoker unknown) (unknown) (no (unknown) (unknown) Social History (units (unknown) date) (Reviewed 04/12/22 @ unknown) 08:19 by Steve Mason PA-C) (unknown) (no (unknown) (unknown) Sodium 132 L (units (u nknown) date) unknown) (unknown) (no (unknown) (unknown) Subjective (units (unk nown) date) unknown) (unknown) (no (unknown) (unknown) Surgical History (units (unknown) date) (Reviewed 04/12/22 @ unknown) 08:19 by Steve Mason PA-C) (unknown) (no (unknown) (unknown) Temperature 96.1 F L (uni ts (unknown) date) 97.7 F unknown) (unknown) (no (unknown) (unknown) Time Spent With (units (unknown) date) Patient unknown) (unknown) (no (unknown) (unknown) Vital Signs (units (un known) date) unknown) (unknown) (no (unknown) (unknown) WBC 9.8 (units (unkno wn) date) unknown) (unknown) (no (unknown) (unknown) [Embedded Image Not (unit s (unknown) date) Available] unknown) (unknown) (no (unknown) (unknown) alcohol intake: never (un its (unknown) date) unknown) (unknown) (no (unknown) (unknown) externally rotated (units (unknown) date) and hip XR showed unknown) right hip dislocation. She will go back to (unknown) (no (unknown) (unknown) household members: (units (unknown) date) other unknown) (unknown) (no (unknown) (unknown) medications (units (un known) date) unknown) (unknown) (no (unknown) (unknown) neck fracture. (units (unknown) date) unknown) (unknown) (no (unknown) (unknown) recommended. (units (u nknown) date) unknown) (unknown) (no (unknown) (unknown) today; this time is (unit s (unknown) date) exclusive of unknown) procedural time. Result panel 94 (unknown) (no (unknown) (unknown) (no value) (units (unk nown) date) unknown) (unknown) (no (unknown) (unknown) (past 8 hours): (units (unknown) date) unknown) (unknown) (no (unknown) (unknown) - continue home (units (unknown) date) statin unknown) (unknown) (no (unknown) (unknown) - k 2.7 was given (units (unknown) date) repletion yesterday, unknown) improved today. (unknown) (no (unknown) (unknown) -POD1 s/p R (units (unk nown) date) hemiarthoplasty, 2 unknown) week outpatient follow up with [facility] (unknown) (no (unknown) (unknown) -continue home (units (unknown) date) medications, HCTZ and unknown) metoprolol, good BP control today. (unknown) (no (unknown) (unknown) -continue synthroid (unit s (unknown) date) unknown) (unknown) (no (unknown) (unknown) -dislocated hip (units (unknown) date) overnight on 04/12 due unknown) to kicking her legs in bed (unknown) (no (unknown) (unknown) -haldol PRN (units (un known) date) unknown) (unknown) (no (unknown) (unknown) -ortho will take back (un its (unknown) date) to OR tonight unknown) (unknown) (no (unknown) (unknown) -pain medications (units (unknown) date) ordered unknown) (unknown) (no (unknown) (unknown) -plan per orthopedic (uni ts (unknown) date) surgery unknown) (unknown) (no (unknown) (unknown) -reorient as able (units (unknown) date) unknown) (unknown) (no (unknown) (unknown) -start seroquel 25mg (uni ts (unknown) date) nightly unknown) (unknown) (no (unknown) (unknown) [id number] (units (unkno wn) date) unknown) (unknown) (no (unknown) (unknown) 04/12/22 04/12/22 (units (unknown) date) unknown) (unknown) (no (unknown) (unknown) 04/12/22 04:20 (units (unknown) date) unknown) (unknown) (no (unknown) (unknown) 04/12/22 1822 (units ( unknown) date) unknown) (unknown) (no (unknown) (unknown) 04/12/22 (units (unkno wn) date) unknown) (unknown) (no (unknown) (unknown) 04:00 04/12/22 (units (unknown) date) unknown) (unknown) (no (unknown) (unknown) 04:20 04:20 (units (un known) date) unknown) (unknown) (no (unknown) (unknown) 08:00 (units (unkno wn) date) unknown) (unknown) (no (unknown) (unknown) 1. 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 Right displaced (units (unknown) date) ulna fracture unknown) (unknown) (no (unknown) (unknown) 3. Hypertension (units (unknown) date) unknown) (unknown) (no (unknown) (unknown) 4. 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 Hypothyroidism (units (unknown) date) unknown) (unknown) (no (unknown) (unknown) 6. HLD (units (unkno wn) date) unknown) (unknown) (no (unknown) (unknown) 7. Hypokalemia, acute (un its (unknown) date) unknown) (unknown) (no (unknown) (unknown) ABD: soft, nontender, (un its (unknown) date) nondistended, no unknown) organomegaly, normal bowel sounds (unknown) (no (unknown) (unknown) Age/Sex: 82 / F (units (unknown) date) unknown) (unknown) (no (unknown) (unknown) Assessment + Plan (units (unknown) date) narrative: unknown) (unknown) (no (unknown) (unknown) Assessment + Plan (units (unknown) date) unknown) (unknown) (no (unknown) (unknown) BUN 14 (units (unkno wn) date) unknown) (unknown) (no (unknown) (unknown) BUN/Creatinine Ratio (uni ts (unknown) date) 28.6 H unknown) (unknown) (no (unknown) (unknown) Baso # (Auto) 0 (units (unknown) date) unknown) (unknown) (no (unknown) (unknown) Baso % (Auto) 0.3 (units (unknown) date) unknown) (unknown) (no (unknown) (unknown) Blood Pressure 156/70 (un its (unknown) date) H 135/66 unknown) (unknown) (no (unknown) (unknown) CODE: DNR (units (unkn own) date) unknown) (unknown) (no (unknown) (unknown) CV: regular rate and (uni ts (unknown) date) rhythm, no murmurs unknown) (unknown) (no (unknown) (unknown) Calcium 8.1 L (units ( unknown) date) unknown) (unknown) (no (unknown) (unknown) Carbon Dioxide 25 (units (unknown) date) unknown) (unknown) (no (unknown) (unknown) Chloride 102 (units (u nknown) date) unknown) (unknown) (no (unknown) (unknown) Creatinine 0.49 L (units (unknown) date) unknown) (unknown) (no (unknown) (unknown) Critical Care time: (unit s (unknown) date) unknown) (unknown) (no (unknown) (unknown) : 1940 (units (unknown) date) Acct:[id number] unknown) (unknown) (no (unknown) (unknown) Date Patient Seen: (units (unknown) date) 04/12/22 unknown) (unknown) (no (unknown) (unknown) Date of Service: (units (unknown) date) 04/09/22 unknown) (unknown) (no (unknown) (unknown) Dementia (units (unkno wn) date) unknown) (unknown) (no (unknown) (unknown) Dispo: Pending (units (unknown) date) post-surgical course unknown) and likely SNF placement. (unknown) (no (unknown) (unknown) EXT: warm and well (units (unknown) date) perfused, no edema, unknown) right leg externally rotated (unknown) (no (unknown) (unknown) Eos # (Auto) 100 (units (unknown) date) unknown) (unknown) (no (unknown) (unknown) Eos % (Auto) 0.9 L (units (unknown) date) unknown) (unknown) (no (unknown) (unknown) Estimated GFR > 60 (units (unknown) date) unknown) (unknown) (no (unknown) (unknown) Exam Narrative: (units (unknown) date) unknown) (unknown) (no (unknown) (unknown) Exam (units (unkno wn) date) unknown) (unknown) (no (unknown) (unknown) GEN: elderly female, (uni ts (unknown) date) no acute distress. unknown) (unknown) (no (unknown) (unknown) Glaucoma (units (unkno wn) date) unknown) (unknown) (no (unknown) (unknown) Glucose 112 H (units ( unknown) date) unknown) (unknown) (no (unknown) (unknown) H/O: hysterectomy (units (unknown) date) unknown) (unknown) (no (unknown) (unknown) HEENT: moist mucous (unit s (unknown) date) membranes, PERRL unknown) (unknown) (no (unknown) (unknown) Had lots of kicking (unit s (unknown) date) overnight due to unknown) delirium. This morning right hip was (unknown) (no (unknown) (unknown) Hct 37.2 (units (unkno wn) date) unknown) (unknown) (no (unknown) (unknown) Hgb 12.7 (units (unkno wn) date) unknown) (unknown) (no (unknown) (unknown) Hypercholesterolemia (uni ts (unknown) date) unknown) (unknown) (no (unknown) (unknown) Hypertension (units (u nknown) date) unknown) (unknown) (no (unknown) (unknown) Hypothyroidism (units (unknown) date) unknown) (unknown) (no (unknown) (unknown) I spent a total of [] (un its (unknown) date) minutes of critical unknown) care time on this patient's care (unknown) (no (unknown) (unknown) Interval history: (units (unknown) date) unknown) (unknown) (no (unknown) (unknown) [facility] 1211 (uni ts (unknown) date) [address] [place] [address], unknown ) [place] [id number] (unknown) (no (unknown) (unknown) Laboratory Results - (uni ts (unknown) date) last 24 hr unknown) (unknown) (no (unknown) (unknown) Labs (units (unkno wn) date) unknown) (unknown) (no (unknown) (unknown) Labs: (units (unkno wn) date) unknown) (unknown) (no (unknown) (unknown) Lymph # (Auto) 1300 (unit s (unknown) date) unknown) (unknown) (no (unknown) (unknown) Lymph % (Auto) 13.0 L (un its (unknown) date) unknown) (unknown) (no (unknown) (unknown) MCH 29.3 (units (unkno wn) date) unknown) (unknown) (no (unknown) (unknown) MCHC 34.0 (units (unkn own) date) unknown) (unknown) (no (unknown) (unknown) MCV 86.1 (units (unkno wn) date) unknown) (unknown) (no (unknown) (unknown) Magnesium 1.8 (units ( unknown) date) unknown) (unknown) (no (unknown) (unknown) Medical History (units (unknown) date) (Reviewed 04/12/22 @ unknown) 08:19 by Steve Mason PA-C) (unknown) (no (unknown) (unknown) [place] # (Auto) 1000 H (uni ts (unknown) date) unknown) (unknown) (no (unknown) (unknown) [place] % (Auto) 10.5 (units (unknown) date) unknown) (unknown) (no (unknown) (unknown) NECK: trachea (units ( unknown) date) midline, no JVD unknown) (unknown) (no (unknown) (unknown) NEURO: somnolent (units (unknown) date) unknown) (unknown) (no (unknown) (unknown) Narrative (units (unkn own) date) unknown) (unknown) (no (unknown) (unknown) Neut # (Auto) 7400 H (uni ts (unknown) date) unknown) (unknown) (no (unknown) (unknown) Neut % (Auto) 75.3 H (uni ts (unknown) date) unknown) (unknown) (no (unknown) (unknown) OR today. Patient (units (unknown) date) currently is somnolent unknown ) and unable to provide update. (unknown) (no (unknown) (unknown) Objective (units (unkn own) date) unknown) (unknown) (no (unknown) (unknown) Oxygen Delivery (units (unknown) date) Method Room Air unknown) (unknown) (no (unknown) (unknown) Oxygen Flow Rate 0 (units (unknown) date) unknown) (unknown) (no (unknown) (unknown) PFSH (units (unkno wn) date) unknown) (unknown) (no (unknown) (unknown) PULM: clear (units (un known) date) bilaterally, no unknown) wheezes, rhonchi, rales (unknown) (no (unknown) (unknown) Patient: (units (unkno wn) date) Sheila Marley MR#: unknown) M0 (unknown) (no (unknown) (unknown) Plt Count 190 (units ( unknown) date) unknown) (unknown) (no (unknown) (unknown) Potassium 4.2 (units ( unknown) date) unknown) (unknown) (no (unknown) (unknown) Progress Note (units ( unknown) date) unknown) (unknown) (no (unknown) (unknown) Provider: (units (unkn own) date) Sid Meade D.O. unknown) (unknown) (no (unknown) (unknown) Proxy: Mauro Trivedi, (uni ts (unknown) date) daughter unknown) (unknown) (no (unknown) (unknown) Pulse Oximetry 93 93 (uni ts (unknown) date) unknown) (unknown) (no (unknown) (unknown) Pulse Rate 89 73 (units (unknown) date) unknown) (unknown) (no (unknown) (unknown) RBC 4.32 (units (unkno wn) date) unknown) (unknown) (no (unknown) (unknown) RDW 13.3 (units (unkno wn) date) unknown) (unknown) (no (unknown) (unknown) Respiratory Rate 18 (unit s (unknown) date) 17 unknown) (unknown) (no (unknown) (unknown) Result Diagrams: (units (unknown) date) unknown) (unknown) (no (unknown) (unknown) Signed (units (unkno wn) date) By:<Electronically unknown) signed by Sid Meade D.O.> (unknown) (no (unknown) (unknown) Smoking Status: Never (un its (unknown) date) smoker unknown) (unknown) (no (unknown) (unknown) Social History (units (unknown) date) (Reviewed 04/12/22 @ unknown) 08:19 by Steve Mason PA-C) (unknown) (no (unknown) (unknown) Sodium 132 L (units (u nknown) date) unknown) (unknown) (no (unknown) (unknown) Subjective (units (unk nown) date) unknown) (unknown) (no (unknown) (unknown) Surgical History (units (unknown) date) (Reviewed 04/12/22 @ unknown) 08:19 by Steve Mason PA-C) (unknown) (no (unknown) (unknown) Temperature 96.1 F L (uni ts (unknown) date) 97.7 F unknown) (unknown) (no (unknown) (unknown) Time Spent With (units (unknown) date) Patient unknown) (unknown) (no (unknown) (unknown) Vital Signs (units (un known) date) unknown) (unknown) (no (unknown) (unknown) WBC 9.8 (units (unkno wn) date) unknown) (unknown) (no (unknown) (unknown) [Embedded Image Not (unit s (unknown) date) Available] unknown) (unknown) (no (unknown) (unknown) alcohol intake: never (un its (unknown) date) unknown) (unknown) (no (unknown) (unknown) externally rotated (units (unknown) date) and hip XR showed unknown) right hip dislocation. She will go back to (unknown) (no (unknown) (unknown) household members: (units (unknown) date) other unknown) (unknown) (no (unknown) (unknown) neck fracture s/p (units (unknown) date) ORIF, now with hip unknown) dislocation (unknown) (no (unknown) (unknown) recommended. (units (u nknown) date) unknown) (unknown) (no (unknown) (unknown) today; this time is (unit s (unknown) date) exclusive of unknown) procedural time. Result panel 95 (unknown) (no date) (unknown) (unknown) 0 /ul (unkn own) (unknown) (no date) (unknown) (unknown) 0.4 % (unkn own) (unknown) (no date) (unknown) (unknown) 10.5 % (unkn own) (unknown) (no date) (unknown) (unknown) 1200 /ul (unkn own) (unknown) (no date) (unknown) (unknown) 13.6 % (unkn own) (unknown) (no date) (unknown) (unknown) 150 x10 3/ul (unkn own) (unknown) (no date) (unknown) (unknown) 18.9 % (unkn own) (unknown) (no date) (unknown) (unknown) 200 /ul (unkn own) (unknown) (no date) (unknown) (unknown) 26.8 % (unkn own) (unknown) (no date) (unknown) (unknown) 29.5 pg (unkn own) (unknown) (no date) (unknown) (unknown) 3.08 x10 6/ul (unkn own) (unknown) (no date) (unknown) (unknown) 3.6 % (unkn own) (unknown) (no date) (unknown) (unknown) 34.0 % (unkn own) (unknown) (no date) (unknown) (unknown) 4300 /ul (unkn own) (unknown) (no date) (unknown) (unknown) 6.4 x10 3/ul (unkn own) (unknown) (no date) (unknown) (unknown) 66.6 % (unkn own) (unknown) (no date) (unknown) (unknown) 700 /ul (unkn own) (unknown) (no date) (unknown) (unknown) 87.0 fl (unkn own) (unknown) (no date) (unknown) (unknown) 9.1 g/dl (unkn own) Result panel 96 (unknown) (no date) (unknown) (unknown) > 60 ml/min (unkn own) (unknown) (no date) (unknown) (unknown) > 60 ml/min (unkn own) (unknown) (no date) (unknown) (unknown) 0.41 mg/dl (unkn own) (unknown) (no date) (unknown) (unknown) 1.9 mg/dl (unkn own) (unknown) (no date) (unknown) (unknown) 1.9 mg/dl (unkn own) (unknown) (no date) (unknown) (unknown) 102 mmol/l (unkn own) (unknown) (no date) (unknown) (unknown) 13 mg/dl (unkn own) (unknown) (no date) (unknown) (unknown) 134 mmol/l (unkn own) (unknown) (no date) (unknown) (unknown) 134 mmol/l (unkn own) (unknown) (no date) (unknown) (unknown) 25 mmol/l (unkn own) (unknown) (no date) (unknown) (unknown) 31.7 (units unknown) (unknown) (unknown) (no date) (unknown) (unknown) 4.1 mmol/l (unkn own) (unknown) (no date) (unknown) (unknown) 7.9 mg/dl (unkn own) (unknown) (no date) (unknown) (unknown) 81 mg/dl (unkn own) (unknown) (no date) (unknown) (unknown) 81 mg/dl (unkn own) Result panel 97 (unknown) (no date) (unknown) (unknown) 0 /ul (unkn own) (unknown) (no date) (unknown) (unknown) 0.5 % (unkn own) (unknown) (no date) (unknown) (unknown) 10.9 % (unkn own) (unknown) (no date) (unknown) (unknown) 11.8 g/dl (unkn own) (unknown) (no date) (unknown) (unknown) 13.5 % (unkn own) (unknown) (no date) (unknown) (unknown) 1500 /ul (unkn own) (unknown) (no date) (unknown) (unknown) 18.6 % (unkn own) (unknown) (no date) (unknown) (unknown) 199 x10 3/ul (unkn own) (unknown) (no date) (unknown) (unknown) 29.2 pg (unkn own) (unknown) (no date) (unknown) (unknown) 3.5 % (unkn own) (unknown) (no date) (unknown) (unknown) 300 /ul (unkn own) (unknown) (no date) (unknown) (unknown) 33.5 % (unkn own) (unknown) (no date) (unknown) (unknown) 35.2 % (unkn own) (unknown) (no date) (unknown) (unknown) 4.03 x10 6/ul (unkn own) (unknown) (no date) (unknown) (unknown) 5500 /ul (unkn own) (unknown) (no date) (unknown) (unknown) 66.5 % (unkn own) (unknown) (no date) (unknown) (unknown) 8.3 x10 3/ul (unkn own) (unknown) (no date) (unknown) (unknown) 87.1 fl (unkn own) (unknown) (no date) (unknown) (unknown) 900 /ul (unkn own) Result panel 98 (unknown) (no (unknown) (unknown) (no value) (units (unk nown) date) unknown) (unknown) (no (unknown) (unknown) (past 8 hours): (units (unknown) date) unknown) (unknown) (no (unknown) (unknown) - continue home (units (unknown) date) statin unknown) (unknown) (no (unknown) (unknown) - k 2.7 was given (units (unknown) date) repletion yesterday, unknown) improved today. (unknown) (no (unknown) (unknown) -POD1 s/p R (units (unk nown) date) hemiarthoplasty, 2 unknown) week outpatient follow up with [facility] (unknown) (no (unknown) (unknown) -continue home (units (unknown) date) medications, HCTZ and unknown) metoprolol, good BP control today. (unknown) (no (unknown) (unknown) -continue synthroid (unit s (unknown) date) unknown) (unknown) (no (unknown) (unknown) -dislocated hip (units (unknown) date) overnight on 04/12 due unknown) to kicking her legs in bed (unknown) (no (unknown) (unknown) -haldol PRN (units (un known) date) unknown) (unknown) (no (unknown) (unknown) -ortho will take back (un its (unknown) date) to OR tonight unknown) (unknown) (no (unknown) (unknown) -pain medications (units (unknown) date) ordered unknown) (unknown) (no (unknown) (unknown) -plan per orthopedic (uni ts (unknown) date) surgery unknown) (unknown) (no (unknown) (unknown) -reorient as able (units (unknown) date) unknown) (unknown) (no (unknown) (unknown) -start seroquel 25mg (uni ts (unknown) date) nightly unknown) (unknown) (no (unknown) (unknown) [id number] (units (unkno wn) date) unknown) (unknown) (no (unknown) (unknown) 04/12/22 04/13/22 (units (unknown) date) 04/13/22 unknown) (unknown) (no (unknown) (unknown) 04/13/22 05:49 (units (unknown) date) unknown) (unknown) (no (unknown) (unknown) 04/13/22 (units (unkno wn) date) unknown) (unknown) (no (unknown) (unknown) 03:50 04/13/22 (units (unknown) date) unknown) (unknown) (no (unknown) (unknown) 05:49 (units (unkno wn) date) unknown) (unknown) (no (unknown) (unknown) 07:00 (units (unkno wn) date) unknown) (unknown) (no (unknown) (unknown) 1. 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 Right displaced (units (unknown) date) ulna fracture unknown) (unknown) (no (unknown) (unknown) 3. Hypertension (units (unknown) date) unknown) (unknown) (no (unknown) (unknown) 4. 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 Hypothyroidism (units (unknown) date) unknown) (unknown) (no (unknown) (unknown) 6. HLD (units (unkno wn) date) unknown) (unknown) (no (unknown) (unknown) 7. Hypokalemia, acute (un its (unknown) date) unknown) (unknown) (no (unknown) (unknown) ABD: soft, nontender, (un its (unknown) date) nondistended, no unknown) organomegaly, normal bowel sounds (unknown) (no (unknown) (unknown) Age/Sex: 82 / F (units (unknown) date) unknown) (unknown) (no (unknown) (unknown) Assessment + Plan (units (unknown) date) narrative: unknown) (unknown) (no (unknown) (unknown) Assessment + Plan (units (unknown) date) unknown) (unknown) (no (unknown) (unknown) BUN 13 (units (unkno wn) date) unknown) (unknown) (no (unknown) (unknown) BUN (units (unkno wn) date) unknown) (unknown) (no (unknown) (unknown) BUN/Creatinine Ratio (uni ts (unknown) date) 31.7 H unknown) (unknown) (no (unknown) (unknown) BUN/Creatinine Ratio (uni ts (unknown) date) unknown) (unknown) (no (unknown) (unknown) Baso # (Auto) 0 (units (unknown) date) unknown) (unknown) (no (unknown) (unknown) Baso # (Auto) (units ( unknown) date) Cancelled unknown) (unknown) (no (unknown) (unknown) Baso % (Auto) 0.5 (units (unknown) date) unknown) (unknown) (no (unknown) (unknown) Baso % (Auto) (units ( unknown) date) Cancelled unknown) (unknown) (no (unknown) (unknown) Blood Pressure 160/67 (un its (unknown) date) H unknown) (unknown) (no (unknown) (unknown) CODE: DNR (units (unkn own) date) unknown) (unknown) (no (unknown) (unknown) CV: regular rate and (uni ts (unknown) date) rhythm, no murmurs unknown) (unknown) (no (unknown) (unknown) Calcium 7.9 L (units ( unknown) date) unknown) (unknown) (no (unknown) (unknown) Calcium (units (unkno wn) date) unknown) (unknown) (no (unknown) (unknown) Carbon Dioxide 25 (units (unknown) date) unknown) (unknown) (no (unknown) (unknown) Carbon Dioxide (units (unknown) date) unknown) (unknown) (no (unknown) (unknown) Chloride 102 (units (u nknown) date) unknown) (unknown) (no (unknown) (unknown) Chloride (units (unkno wn) date) unknown) (unknown) (no (unknown) (unknown) Creatinine 0.41 L (units (unknown) date) unknown) (unknown) (no (unknown) (unknown) Creatinine (units (unk nown) date) unknown) (unknown) (no (unknown) (unknown) Critical Care time: (unit s (unknown) date) unknown) (unknown) (no (unknown) (unknown) : 1940 (units (unknown) date) Acct:[id number] unknown) (unknown) (no (unknown) (unknown) Date of Service: (units (unknown) date) 04/09/22 unknown) (unknown) (no (unknown) (unknown) Dementia (units (unkno wn) date) unknown) (unknown) (no (unknown) (unknown) Dispo: Pending (units (unknown) date) post-surgical course unknown) and likely SNF placement. (unknown) (no (unknown) (unknown) EXT: warm and well (units (unknown) date) perfused, no edema, unknown) right leg externally rotated (unknown) (no (unknown) (unknown) Eos # (Auto) 300 (units (unknown) date) unknown) (unknown) (no (unknown) (unknown) Eos # (Auto) (units (u nknown) date) Cancelled unknown) (unknown) (no (unknown) (unknown) Eos % (Auto) 3.5 (units (unknown) date) unknown) (unknown) (no (unknown) (unknown) Eos % (Auto) (units (u nknown) date) Cancelled unknown) (unknown) (no (unknown) (unknown) Estimated GFR > 60 (units (unknown) date) unknown) (unknown) (no (unknown) (unknown) Estimated GFR (units ( unknown) date) unknown) (unknown) (no (unknown) (unknown) Exam Narrative: (units (unknown) date) unknown) (unknown) (no (unknown) (unknown) Exam (units (unkno wn) date) unknown) (unknown) (no (unknown) (unknown) GEN: elderly female, (uni ts (unknown) date) no acute distress. unknown) (unknown) (no (unknown) (unknown) Glaucoma (units (unkno wn) date) unknown) (unknown) (no (unknown) (unknown) Glucose 81 (units (unk nown) date) unknown) (unknown) (no (unknown) (unknown) Glucose (units (unkno wn) date) unknown) (unknown) (no (unknown) (unknown) H/O: hysterectomy (units (unknown) date) unknown) (unknown) (no (unknown) (unknown) HEENT: moist mucous (unit s (unknown) date) membranes, PERRL unknown) (unknown) (no (unknown) (unknown) Hct 35.2 L (units (unk nown) date) unknown) (unknown) (no (unknown) (unknown) Hct Cancelled (units ( unknown) date) unknown) (unknown) (no (unknown) (unknown) Hgb 11.8 L (units (unk nown) date) unknown) (unknown) (no (unknown) (unknown) Hgb Cancelled (units ( unknown) date) unknown) (unknown) (no (unknown) (unknown) Hypercholesterolemia (uni ts (unknown) date) unknown) (unknown) (no (unknown) (unknown) Hypertension (units (u nknown) date) unknown) (unknown) (no (unknown) (unknown) Hypothyroidism (units (unknown) date) unknown) (unknown) (no (unknown) (unknown) I spent a total of [] (un its (unknown) date) minutes of critical unknown) care time on this patient's care (unknown) (no (unknown) (unknown) [facility] [address] (uni ts (unknown) date) [address] [place], unknown ) [place] [id number] (unknown) (no (unknown) (unknown) Laboratory Results - (uni ts (unknown) date) last 24 hr unknown) (unknown) (no (unknown) (unknown) Labs (units (unkno wn) date) unknown) (unknown) (no (unknown) (unknown) Labs: (units (unkno wn) date) unknown) (unknown) (no (unknown) (unknown) Lymph # (Auto) 1500 (unit s (unknown) date) unknown) (unknown) (no (unknown) (unknown) Lymph # (Auto) (units (unknown) date) Cancelled unknown) (unknown) (no (unknown) (unknown) Lymph % (Auto) 18.6 L (un its (unknown) date) unknown) (unknown) (no (unknown) (unknown) Lymph % (Auto) (units (unknown) date) Cancelled unknown) (unknown) (no (unknown) (unknown) MCH 29.2 (units (unkno wn) date) unknown) (unknown) (no (unknown) (unknown) MCH Cancelled (units ( unknown) date) unknown) (unknown) (no (unknown) (unknown) MCHC 33.5 (units (unkn own) date) unknown) (unknown) (no (unknown) (unknown) MCHC Cancelled (units (unknown) date) unknown) (unknown) (no (unknown) (unknown) MCV 87.1 (units (unkno wn) date) unknown) (unknown) (no (unknown) (unknown) MCV Cancelled (units ( unknown) date) unknown) (unknown) (no (unknown) (unknown) Magnesium 1.9 (units ( unknown) date) unknown) (unknown) (no (unknown) (unknown) Magnesium (units (unkn own) date) unknown) (unknown) (no (unknown) (unknown) Medical History (units (unknown) date) (Reviewed 04/12/22 @ unknown) 08:19 by Steve Mason PA-C) (unknown) (no (unknown) (unknown) [place] # (Auto) 900 (units (unknown) date) unknown) (unknown) (no (unknown) (unknown) [place] # (Auto) (units ( unknown) date) Cancelled unknown) (unknown) (no (unknown) (unknown) [place] % (Auto) 10.9 (units (unknown) date) unknown) (unknown) (no (unknown) (unknown) [place] % (Auto) (units ( unknown) date) Cancelled unknown) (unknown) (no (unknown) (unknown) NECK: trachea (units ( unknown) date) midline, no JVD unknown) (unknown) (no (unknown) (unknown) NEURO: somnolent (units (unknown) date) unknown) (unknown) (no (unknown) (unknown) Narrative (units (unkn own) date) unknown) (unknown) (no (unknown) (unknown) Neut # (Auto) 5500 (units (unknown) date) unknown) (unknown) (no (unknown) (unknown) Neut # (Auto) (units ( unknown) date) Cancelled unknown) (unknown) (no (unknown) (unknown) Neut % (Auto) 66.5 (units (unknown) date) unknown) (unknown) (no (unknown) (unknown) Neut % (Auto) (units ( unknown) date) Cancelled unknown) (unknown) (no (unknown) (unknown) Objective (units (unkn own) date) unknown) (unknown) (no (unknown) (unknown) Oxygen Delivery (units (unknown) date) Method Room Air unknown) (unknown) (no (unknown) (unknown) Oxygen Flow Rate 0 (units (unknown) date) unknown) (unknown) (no (unknown) (unknown) PFSH (units (unkno wn) date) unknown) (unknown) (no (unknown) (unknown) PULM: clear (units (un known) date) bilaterally, no unknown) wheezes, rhonchi, rales (unknown) (no (unknown) (unknown) Patient: (units (unkno wn) date) Sheila Marley MR#: unknown) M0 (unknown) (no (unknown) (unknown) Plt Count 199 (units ( unknown) date) unknown) (unknown) (no (unknown) (unknown) Plt Count Cancelled (unit s (unknown) date) unknown) (unknown) (no (unknown) (unknown) Potassium 4.1 (units ( unknown) date) unknown) (unknown) (no (unknown) (unknown) Potassium (units (unkn own) date) unknown) (unknown) (no (unknown) (unknown) Progress Note (units ( unknown) date) unknown) (unknown) (no (unknown) (unknown) Provider: (units (unkn own) date) Sid Meade D.O. unknown) (unknown) (no (unknown) (unknown) Proxy: Mauro Trivedi, (uni ts (unknown) date) daughter unknown) (unknown) (no (unknown) (unknown) Pulse Oximetry 97 94 (uni ts (unknown) date) unknown) (unknown) (no (unknown) (unknown) Pulse Rate 67 (units ( unknown) date) unknown) (unknown) (no (unknown) (unknown) RBC 4.03 (units (unkno wn) date) unknown) (unknown) (no (unknown) (unknown) RBC Cancelled (units ( unknown) date) unknown) (unknown) (no (unknown) (unknown) RDW 13.5 (units (unkno wn) date) unknown) (unknown) (no (unknown) (unknown) RDW Cancelled (units ( unknown) date) unknown) (unknown) (no (unknown) (unknown) Respiratory Rate 18 (unit s (unknown) date) unknown) (unknown) (no (unknown) (unknown) Result Diagrams: (units (unknown) date) unknown) (unknown) (no (unknown) (unknown) SARS-CoV-2 (PCR) (units (unknown) date) Negative unknown) (unknown) (no (unknown) (unknown) SARS-CoV-2 (PCR) (units (unknown) date) unknown) (unknown) (no (unknown) (unknown) Signed By: (units (unk nown) date) unknown) (unknown) (no (unknown) (unknown) Smoking Status: Never (un its (unknown) date) smoker unknown) (unknown) (no (unknown) (unknown) Social History (units (unknown) date) (Reviewed 04/12/22 @ unknown) 08:19 by Steve Mason PA-C) (unknown) (no (unknown) (unknown) Sodium 134 L (units (u nknown) date) unknown) (unknown) (no (unknown) (unknown) Sodium (units (unkno wn) date) unknown) (unknown) (no (unknown) (unknown) Surgical History (units (unknown) date) (Reviewed 04/12/22 @ unknown) 08:19 by Steve Mason PA-C) (unknown) (no (unknown) (unknown) Temperature 98.1 F (units (unknown) date) unknown) (unknown) (no (unknown) (unknown) Time Spent With (units (unknown) date) Patient unknown) (unknown) (no (unknown) (unknown) Vital Signs (units (un known) date) unknown) (unknown) (no (unknown) (unknown) WBC 8.3 (units (unkno wn) date) unknown) (unknown) (no (unknown) (unknown) WBC Cancelled (units ( unknown) date) unknown) (unknown) (no (unknown) (unknown) [Embedded Image Not (unit s (unknown) date) Available] unknown) (unknown) (no (unknown) (unknown) alcohol intake: never (un its (unknown) date) unknown) (unknown) (no (unknown) (unknown) household members: (units (unknown) date) other unknown) (unknown) (no (unknown) (unknown) neck fracture s/p (units (unknown) date) ORIF, now with hip unknown) dislocation (unknown) (no (unknown) (unknown) recommended. (units (u nknown) date) unknown) (unknown) (no (unknown) (unknown) today; this time is (unit s (unknown) date) exclusive of unknown) procedural time. Result panel 99 (unknown) (no (unknown) (unknown) (no value) (units (unk nown) date) unknown) (unknown) (no (unknown) (unknown) (past 8 hours): (units (unknown) date) unknown) (unknown) (no (unknown) (unknown) - continue home (units (unknown) date) statin unknown) (unknown) (no (unknown) (unknown) - k 2.7 was given (units (unknown) date) repletion yesterday, unknown) improved today. (unknown) (no (unknown) (unknown) -POD1 s/p R (units (unk nown) date) hemiarthoplasty, 2 unknown) week outpatient follow up with [facility] (unknown) (no (unknown) (unknown) -continue home (units (unknown) date) medications, HCTZ and unknown) metoprolol, good BP control today. (unknown) (no (unknown) (unknown) -continue synthroid (unit s (unknown) date) unknown) (unknown) (no (unknown) (unknown) -dislocated hip (units (unknown) date) overnight on 04/12 due unknown) to kicking her legs in bed (unknown) (no (unknown) (unknown) -haldol PRN (units (un known) date) unknown) (unknown) (no (unknown) (unknown) -ortho will take back (un its (unknown) date) to OR tonight unknown) (unknown) (no (unknown) (unknown) -pain medications (units (unknown) date) ordered unknown) (unknown) (no (unknown) (unknown) -plan per orthopedic (uni ts (unknown) date) surgery unknown) (unknown) (no (unknown) (unknown) -reorient as able (units (unknown) date) unknown) (unknown) (no (unknown) (unknown) -start seroquel 25mg (uni ts (unknown) date) nightly unknown) (unknown) (no (unknown) (unknown) [id number] (units (unkno wn) date) unknown) (unknown) (no (unknown) (unknown) 04/12/22 04/13/22 (units (unknown) date) 04/13/22 unknown) (unknown) (no (unknown) (unknown) 04/13/22 05:49 (units (unknown) date) unknown) (unknown) (no (unknown) (unknown) 04/13/22 (units (unkno wn) date) unknown) (unknown) (no (unknown) (unknown) 03:50 04/13/22 (units (unknown) date) unknown) (unknown) (no (unknown) (unknown) 05:49 (units (unkno wn) date) unknown) (unknown) (no (unknown) (unknown) 07:00 (units (unkno wn) date) unknown) (unknown) (no (unknown) (unknown) 1. 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 Right displaced (units (unknown) date) ulna fracture unknown) (unknown) (no (unknown) (unknown) 3. Hypertension (units (unknown) date) unknown) (unknown) (no (unknown) (unknown) 4. 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 Hypothyroidism (units (unknown) date) unknown) (unknown) (no (unknown) (unknown) 6. HLD (units (unkno wn) date) unknown) (unknown) (no (unknown) (unknown) 7. Hypokalemia, acute (un its (unknown) date) unknown) (unknown) (no (unknown) (unknown) ABD: soft, nontender, (un its (unknown) date) nondistended, no unknown) organomegaly, normal bowel sounds (unknown) (no (unknown) (unknown) Age/Sex: 82 / F (units (unknown) date) unknown) (unknown) (no (unknown) (unknown) Assessment + Plan (units (unknown) date) narrative: unknown) (unknown) (no (unknown) (unknown) Assessment + Plan (units (unknown) date) unknown) (unknown) (no (unknown) (unknown) BUN 13 (units (unkno wn) date) unknown) (unknown) (no (unknown) (unknown) BUN (units (unkno wn) date) unknown) (unknown) (no (unknown) (unknown) BUN/Creatinine Ratio (uni ts (unknown) date) 31.7 H unknown) (unknown) (no (unknown) (unknown) BUN/Creatinine Ratio (uni ts (unknown) date) unknown) (unknown) (no (unknown) (unknown) Baso # (Auto) 0 (units (unknown) date) unknown) (unknown) (no (unknown) (unknown) Baso # (Auto) (units ( unknown) date) Cancelled unknown) (unknown) (no (unknown) (unknown) Baso % (Auto) 0.5 (units (unknown) date) unknown) (unknown) (no (unknown) (unknown) Baso % (Auto) (units ( unknown) date) Cancelled unknown) (unknown) (no (unknown) (unknown) Blood Pressure 160/67 (un its (unknown) date) H unknown) (unknown) (no (unknown) (unknown) CODE: DNR (units (unkn own) date) unknown) (unknown) (no (unknown) (unknown) CV: regular rate and (uni ts (unknown) date) rhythm, no murmurs unknown) (unknown) (no (unknown) (unknown) Calcium 7.9 L (units ( unknown) date) unknown) (unknown) (no (unknown) (unknown) Calcium (units (unkno wn) date) unknown) (unknown) (no (unknown) (unknown) Carbon Dioxide 25 (units (unknown) date) unknown) (unknown) (no (unknown) (unknown) Carbon Dioxide (units (unknown) date) unknown) (unknown) (no (unknown) (unknown) Chloride 102 (units (u nknown) date) unknown) (unknown) (no (unknown) (unknown) Chloride (units (unkno wn) date) unknown) (unknown) (no (unknown) (unknown) Creatinine 0.41 L (units (unknown) date) unknown) (unknown) (no (unknown) (unknown) Creatinine (units (unk nown) date) unknown) (unknown) (no (unknown) (unknown) Critical Care time: (unit s (unknown) date) unknown) (unknown) (no (unknown) (unknown) : 1940 (units (unknown) date) Acct:[id number] unknown) (unknown) (no (unknown) (unknown) Date of Service: (units (unknown) date) 04/09/22 unknown) (unknown) (no (unknown) (unknown) Dementia (units (unkno wn) date) unknown) (unknown) (no (unknown) (unknown) Dispo: Pending (units (unknown) date) post-surgical course unknown) and likely SNF placement. (unknown) (no (unknown) (unknown) EXT: warm and well (units (unknown) date) perfused, no edema, unknown) right leg externally rotated (unknown) (no (unknown) (unknown) Eos # (Auto) 300 (units (unknown) date) unknown) (unknown) (no (unknown) (unknown) Eos # (Auto) (units (u nknown) date) Cancelled unknown) (unknown) (no (unknown) (unknown) Eos % (Auto) 3.5 (units (unknown) date) unknown) (unknown) (no (unknown) (unknown) Eos % (Auto) (units (u nknown) date) Cancelled unknown) (unknown) (no (unknown) (unknown) Estimated GFR > 60 (units (unknown) date) unknown) (unknown) (no (unknown) (unknown) Estimated GFR (units ( unknown) date) unknown) (unknown) (no (unknown) (unknown) Exam Narrative: (units (unknown) date) unknown) (unknown) (no (unknown) (unknown) Exam (units (unkno wn) date) unknown) (unknown) (no (unknown) (unknown) GEN: elderly female, (uni ts (unknown) date) no acute distress. unknown) (unknown) (no (unknown) (unknown) Glaucoma (units (unkno wn) date) unknown) (unknown) (no (unknown) (unknown) Glucose 81 (units (unk nown) date) unknown) (unknown) (no (unknown) (unknown) Glucose (units (unkno wn) date) unknown) (unknown) (no (unknown) (unknown) H/O: hysterectomy (units (unknown) date) unknown) (unknown) (no (unknown) (unknown) HEENT: moist mucous (unit s (unknown) date) membranes, PERRL unknown) (unknown) (no (unknown) (unknown) Hct 35.2 L (units (unk nown) date) unknown) (unknown) (no (unknown) (unknown) Hct Cancelled (units ( unknown) date) unknown) (unknown) (no (unknown) (unknown) Hgb 11.8 L (units (unk nown) date) unknown) (unknown) (no (unknown) (unknown) Hgb Cancelled (units ( unknown) date) unknown) (unknown) (no (unknown) (unknown) Hypercholesterolemia (uni ts (unknown) date) unknown) (unknown) (no (unknown) (unknown) Hypertension (units (u nknown) date) unknown) (unknown) (no (unknown) (unknown) Hypothyroidism (units (unknown) date) unknown) (unknown) (no (unknown) (unknown) I spent a total of [] (un its (unknown) date) minutes of critical unknown) care time on this patient's care (unknown) (no (unknown) (unknown) [facility] [address] (uni ts (unknown) date) [address] [place], unknown ) [place] [id number] (unknown) (no (unknown) (unknown) Laboratory Results - (uni ts (unknown) date) last 24 hr unknown) (unknown) (no (unknown) (unknown) Labs (units (unkno wn) date) unknown) (unknown) (no (unknown) (unknown) Labs: (units (unkno wn) date) unknown) (unknown) (no (unknown) (unknown) Lymph # (Auto) 1500 (unit s (unknown) date) unknown) (unknown) (no (unknown) (unknown) Lymph # (Auto) (units (unknown) date) Cancelled unknown) (unknown) (no (unknown) (unknown) Lymph % (Auto) 18.6 L (un its (unknown) date) unknown) (unknown) (no (unknown) (unknown) Lymph % (Auto) (units (unknown) date) Cancelled unknown) (unknown) (no (unknown) (unknown) MCH 29.2 (units (unkno wn) date) unknown) (unknown) (no (unknown) (unknown) MCH Cancelled (units ( unknown) date) unknown) (unknown) (no (unknown) (unknown) MCHC 33.5 (units (unkn own) date) unknown) (unknown) (no (unknown) (unknown) MCHC Cancelled (units (unknown) date) unknown) (unknown) (no (unknown) (unknown) MCV 87.1 (units (unkno wn) date) unknown) (unknown) (no (unknown) (unknown) MCV Cancelled (units ( unknown) date) unknown) (unknown) (no (unknown) (unknown) Magnesium 1.9 (units ( unknown) date) unknown) (unknown) (no (unknown) (unknown) Magnesium (units (unkn own) date) unknown) (unknown) (no (unknown) (unknown) Medical History (units (unknown) date) (Reviewed 04/12/22 @ unknown) 08:19 by Steve Mason PA-C) (unknown) (no (unknown) (unknown) [place] # (Auto) 900 (units (unknown) date) unknown) (unknown) (no (unknown) (unknown) [place] # (Auto) (units ( unknown) date) Cancelled unknown) (unknown) (no (unknown) (unknown) [place] % (Auto) 10.9 (units (unknown) date) unknown) (unknown) (no (unknown) (unknown) [place] % (Auto) (units ( unknown) date) Cancelled unknown) (unknown) (no (unknown) (unknown) NECK: trachea (units ( unknown) date) midline, no JVD unknown) (unknown) (no (unknown) (unknown) NEURO: somnolent (units (unknown) date) unknown) (unknown) (no (unknown) (unknown) Narrative (units (unkn own) date) unknown) (unknown) (no (unknown) (unknown) Neut # (Auto) 5500 (units (unknown) date) unknown) (unknown) (no (unknown) (unknown) Neut # (Auto) (units ( unknown) date) Cancelled unknown) (unknown) (no (unknown) (unknown) Neut % (Auto) 66.5 (units (unknown) date) unknown) (unknown) (no (unknown) (unknown) Neut % (Auto) (units ( unknown) date) Cancelled unknown) (unknown) (no (unknown) (unknown) Objective (units (unkn own) date) unknown) (unknown) (no (unknown) (unknown) Oxygen Delivery (units (unknown) date) Method Room Air unknown) (unknown) (no (unknown) (unknown) Oxygen Flow Rate 0 (units (unknown) date) unknown) (unknown) (no (unknown) (unknown) PFSH (units (unkno wn) date) unknown) (unknown) (no (unknown) (unknown) PULM: clear (units (un known) date) bilaterally, no unknown) wheezes, rhonchi, rales (unknown) (no (unknown) (unknown) Patient: (units (unkno wn) date) Sheila Marley MR#: unknown) M0 (unknown) (no (unknown) (unknown) Plt Count 199 (units ( unknown) date) unknown) (unknown) (no (unknown) (unknown) Plt Count Cancelled (unit s (unknown) date) unknown) (unknown) (no (unknown) (unknown) Potassium 4.1 (units ( unknown) date) unknown) (unknown) (no (unknown) (unknown) Potassium (units (unkn own) date) unknown) (unknown) (no (unknown) (unknown) Progress Note (units ( unknown) date) unknown) (unknown) (no (unknown) (unknown) Provider: (units (unkn own) date) Sid Meade D.O. unknown) (unknown) (no (unknown) (unknown) Proxy: Mauro Trivedi, (uni ts (unknown) date) daughter unknown) (unknown) (no (unknown) (unknown) Pulse Oximetry 97 94 (uni ts (unknown) date) unknown) (unknown) (no (unknown) (unknown) Pulse Rate 67 (units ( unknown) date) unknown) (unknown) (no (unknown) (unknown) RBC 4.03 (units (unkno wn) date) unknown) (unknown) (no (unknown) (unknown) RBC Cancelled (units ( unknown) date) unknown) (unknown) (no (unknown) (unknown) RDW 13.5 (units (unkno wn) date) unknown) (unknown) (no (unknown) (unknown) RDW Cancelled (units ( unknown) date) unknown) (unknown) (no (unknown) (unknown) Respiratory Rate 18 (unit s (unknown) date) unknown) (unknown) (no (unknown) (unknown) Result Diagrams: (units (unknown) date) unknown) (unknown) (no (unknown) (unknown) SARS-CoV-2 (PCR) (units (unknown) date) Negative unknown) (unknown) (no (unknown) (unknown) SARS-CoV-2 (PCR) (units (unknown) date) unknown) (unknown) (no (unknown) (unknown) Signed By: (units (unk nown) date) unknown) (unknown) (no (unknown) (unknown) Smoking Status: Never (un its (unknown) date) smoker unknown) (unknown) (no (unknown) (unknown) Social History (units (unknown) date) (Reviewed 04/12/22 @ unknown) 08:19 by Steve Mason PA-C) (unknown) (no (unknown) (unknown) Sodium 134 L (units (u nknown) date) unknown) (unknown) (no (unknown) (unknown) Sodium (units (unkno wn) date) unknown) (unknown) (no (unknown) (unknown) Surgical History (units (unknown) date) (Reviewed 04/12/22 @ unknown) 08:19 by Steve Mason PA-C) (unknown) (no (unknown) (unknown) Temperature 98.1 F (units (unknown) date) unknown) (unknown) (no (unknown) (unknown) Time Spent With (units (unknown) date) Patient unknown) (unknown) (no (unknown) (unknown) Vital Signs (units (un known) date) unknown) (unknown) (no (unknown) (unknown) WBC 8.3 (units (unkno wn) date) unknown) (unknown) (no (unknown) (unknown) WBC Cancelled (units ( unknown) date) unknown) (unknown) (no (unknown) (unknown) [Embedded Image Not (unit s (unknown) date) Available] unknown) (unknown) (no (unknown) (unknown) alcohol intake: never (un its (unknown) date) unknown) (unknown) (no (unknown) (unknown) household members: (units (unknown) date) other unknown) (unknown) (no (unknown) (unknown) neck fracture s/p (units (unknown) date) ORIF, now with hip unknown) dislocation (unknown) (no (unknown) (unknown) recommended. (units (u nknown) date) unknown) (unknown) (no (unknown) (unknown) today; this time is (unit s (unknown) date) exclusive of unknown) procedural time. Result panel 100 (unknown) (no (unknown) (unknown) (no value) (units (unk nown) date) unknown) (unknown) (no (unknown) (unknown) (past 8 hours): (units (unknown) date) unknown) (unknown) (no (unknown) (unknown) - continue home (units (unknown) date) statin unknown) (unknown) (no (unknown) (unknown) - k 2.7 was given (units (unknown) date) repletion yesterday, unknown) improved today. (unknown) (no (unknown) (unknown) -POD1 s/p R (units (unk nown) date) hemiarthoplasty, 2 unknown) week outpatient follow up with [facility] (unknown) (no (unknown) (unknown) -continue home (units (unknown) date) medications, HCTZ and unknown) metoprolol, good BP control today. (unknown) (no (unknown) (unknown) -continue synthroid (unit s (unknown) date) unknown) (unknown) (no (unknown) (unknown) -dislocated hip (units (unknown) date) overnight on 04/12 due unknown) to kicking her legs in bed (unknown) (no (unknown) (unknown) -haldol PRN (units (un known) date) unknown) (unknown) (no (unknown) (unknown) -ortho will take back (un its (unknown) date) to OR tonight unknown) (unknown) (no (unknown) (unknown) -pain medications (units (unknown) date) ordered unknown) (unknown) (no (unknown) (unknown) -plan per orthopedic (uni ts (unknown) date) surgery unknown) (unknown) (no (unknown) (unknown) -reorient as able (units (unknown) date) unknown) (unknown) (no (unknown) (unknown) -start seroquel 25mg (uni ts (unknown) date) nightly unknown) (unknown) (no (unknown) (unknown) [id number] (units (unkno wn) date) unknown) (unknown) (no (unknown) (unknown) 04/09/22 19:03 (units (unknown) date) unknown) (unknown) (no (unknown) (unknown) 04/09/22 20:53 (units (unknown) date) unknown) (unknown) (no (unknown) (unknown) 04/09/22 21:19 (units (unknown) date) unknown) (unknown) (no (unknown) (unknown) 04/10/22 22:32 (units (unknown) date) unknown) (unknown) (no (unknown) (unknown) 04/11/22 12:15 (units (unknown) date) unknown) (unknown) (no (unknown) (unknown) 04/12/22 04/13/22 (units (unknown) date) 04/13/22 unknown) (unknown) (no (unknown) (unknown) 04/13/22 05:49 (units (unknown) date) unknown) (unknown) (no (unknown) (unknown) 04/13/22 (units (unkno wn) date) unknown) (unknown) (no (unknown) (unknown) 05:49 (units (unkno wn) date) unknown) (unknown) (no (unknown) (unknown) 07:00 04/13/22 (units (unknown) date) unknown) (unknown) (no (unknown) (unknown) 1 drp OPHTHALMIC (units (unknown) date) (EYE) BEDTIME unknown) (unknown) (no (unknown) (unknown) 1 drp OPHTHALMIC (units (unknown) date) (EYE) BID unknown) (unknown) (no (unknown) (unknown) 1. 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 Right displaced (units (unknown) date) ulna fracture unknown) (unknown) (no (unknown) (unknown) 20 meq PO DAILY Qty: (uni ts (unknown) date) 60 0RF unknown) (unknown) (no (unknown) (unknown) 25 mg PO BEDTIME Qty: (un its (unknown) date) 30 0RF unknown) (unknown) (no (unknown) (unknown) 25 mg PO DAILY (units (unknown) date) unknown) (unknown) (no (unknown) (unknown) 3. Hypertension (units (unknown) date) unknown) (unknown) (no (unknown) (unknown) 4. Dementia with (units (unknown) date) superimposed hospital unknown) delirium (unknown) (no (unknown) (unknown) 40 mg PO DAILY (units (unknown) date) unknown) (unknown) (no (unknown) (unknown) 5 mg PO Q4HR PRN (units (unknown) date) (Reason: Pain, unknown) Moderate (4-6)) Qty: 30 0RF (unknown) (no (unknown) (unknown) 5. Hypothyroidism (units (unknown) date) unknown) (unknown) (no (unknown) (unknown) 50 mcg PO DAILY (units (unknown) date) unknown) (unknown) (no (unknown) (unknown) 500 mg PO Q6H PRN (units (unknown) date) (Reason: pain) unknown) (unknown) (no (unknown) (unknown) 6. HLD (units (unkno wn) date) unknown) (unknown) (no (unknown) (unknown) 7. Hypokalemia, acute (un its (unknown) date) unknown) (unknown) (no (unknown) (unknown) 75 mg PO DAILY (units (unknown) date) unknown) (unknown) (no (unknown) (unknown) 8.6 mg PO DAILY PRN (unit s (unknown) date) (Reason: Constipation) unknown ) (unknown) (no (unknown) (unknown) 81 mg PO BID 42 Days (uni ts (unknown) date) Qty: 84 0RF unknown) (unknown) (no (unknown) (unknown) Age/Sex: 82 / F (units (unknown) date) unknown) (unknown) (no (unknown) (unknown) BUN 13 (units (unkno wn) date) unknown) (unknown) (no (unknown) (unknown) BUN (units (unkno wn) date) unknown) (unknown) (no (unknown) (unknown) BUN/Creatinine Ratio (uni ts (unknown) date) 31.7 H unknown) (unknown) (no (unknown) (unknown) BUN/Creatinine Ratio (uni ts (unknown) date) unknown) (unknown) (no (unknown) (unknown) Sheila is an (units ( unknown) date) 82-year-old woman with unknown ) a history of dementia. She lives at an (unknown) (no (unknown) (unknown) Baso # (Auto) 0 (units (unknown) date) unknown) (unknown) (no (unknown) (unknown) Baso # (Auto) (units ( unknown) date) Cancelled unknown) (unknown) (no (unknown) (unknown) Baso % (Auto) 0.5 (units (unknown) date) unknown) (unknown) (no (unknown) (unknown) Baso % (Auto) (units ( unknown) date) Cancelled unknown) (unknown) (no (unknown) (unknown) Blood Pressure 124/49 (un its (unknown) date) L unknown) (unknown) (no (unknown) (unknown) CODE: DNR (units (unkn own) date) unknown) (unknown) (no (unknown) (unknown) Calcium 7.9 L (units ( unknown) date) unknown) (unknown) (no (unknown) (unknown) Calcium (units (unkno wn) date) unknown) (unknown) (no (unknown) (unknown) Carbon Dioxide 25 (units (unknown) date) unknown) (unknown) (no (unknown) (unknown) Carbon Dioxide (units (unknown) date) unknown) (unknown) (no (unknown) (unknown) Chief complaint: INPT (un its (unknown) date) DIRECT ADMIT unknown) (unknown) (no (unknown) (unknown) Chloride 102 (units (u nknown) date) unknown) (unknown) (no (unknown) (unknown) Chloride (units (unkno wn) date) unknown) (unknown) (no (unknown) (unknown) Comment: Platform (units (unknown) date) walker for right arm, unknown) can WB on elbow (unknown) (no (unknown) (unknown) Comment: (units (unkno wn) date) unknown) (unknown) (no (unknown) (unknown) Consult to Dietitian, (un its (unknown) date) Adult Routine unknown) (unknown) (no (unknown) (unknown) Consult to Discharge (uni ts (unknown) date) Planning Routine unknown) (unknown) (no (unknown) (unknown) Consult to (units (unk nown) date) Hospitalist Service unknown) Routine (unknown) (no (unknown) (unknown) Consult to (units (unk nown) date) Occupational Therapy unknown) Evaluate + Treat (unknown) (no (unknown) (unknown) Consult to Physical (unit s (unknown) date) Therapy Evaluate + unknown) Treat (unknown) (no (unknown) (unknown) Consulting Provider: (uni ts (unknown) date) Jorge Camarena unknown) (unknown) (no (unknown) (unknown) Consults: (units (unkn own) date) unknown) (unknown) (no (unknown) (unknown) Continued (units (unkn own) date) unknown) (unknown) (no (unknown) (unknown) Creatinine 0.41 L (units (unknown) date) unknown) (unknown) (no (unknown) (unknown) Creatinine (units (unk nown) date) unknown) (unknown) (no (unknown) (unknown) : 1940 (units (unknown) date) Acct:[id number] unknown) (unknown) (no (unknown) (unknown) Date Patient Seen: (units (unknown) date) 04/13/22 unknown) (unknown) (no (unknown) (unknown) Date of Service: (units (unknown) date) 04/09/22 unknown) (unknown) (no (unknown) (unknown) Date of admission: (units (unknown) date) unknown) (unknown) (no (unknown) (unknown) Dementia (units (unkno wn) date) unknown) (unknown) (no (unknown) (unknown) Discharge Data (units (unknown) date) unknown) (unknown) (no (unknown) (unknown) Discharge Date: (units (unknown) date) 04/13/22 unknown) (unknown) (no (unknown) (unknown) Discharge Diagnosis: (uni ts (unknown) date) unknown) (unknown) (no (unknown) (unknown) Discharge Plan (units (unknown) date) unknown) (unknown) (no (unknown) (unknown) Discharge Providers (unit s (unknown) date) unknown) (unknown) (no (unknown) (unknown) Discharge Summary (units (unknown) date) unknown) (unknown) (no (unknown) (unknown) Discharge orders + (units (unknown) date) Medications unknown) (unknown) (no (unknown) (unknown) Discharge provider: (unit s (unknown) date) unknown) (unknown) (no (unknown) (unknown) Discontinued (units (u nknown) date) unknown) (unknown) (no (unknown) (unknown) Dispo: Pending (units (unknown) date) post-surgical course unknown) and likely SNF placement. (unknown) (no (unknown) (unknown) Doctor Miscellaneous, (un its (unknown) date) MD unknown) (unknown) (no (unknown) (unknown) Eos # (Auto) 300 (units (unknown) date) unknown) (unknown) (no (unknown) (unknown) Eos # (Auto) (units (u nknown) date) Cancelled unknown) (unknown) (no (unknown) (unknown) Eos % (Auto) 3.5 (units (unknown) date) unknown) (unknown) (no (unknown) (unknown) Eos % (Auto) (units (u nknown) date) Cancelled unknown) (unknown) (no (unknown) (unknown) Estimated GFR > 60 (units (unknown) date) unknown) (unknown) (no (unknown) (unknown) Estimated GFR (units ( unknown) date) unknown) (unknown) (no (unknown) (unknown) Exam (units (unkno wn) date) unknown) (unknown) (no (unknown) (unknown) Follow up/Referrals: (uni ts (unknown) date) unknown) (unknown) (no (unknown) (unknown) Glaucoma (units (unkno wn) date) unknown) (unknown) (no (unknown) (unknown) Glucose 81 (units (unk nown) date) unknown) (unknown) (no (unknown) (unknown) Glucose (units (unkno wn) date) unknown) (unknown) (no (unknown) (unknown) H/O: hysterectomy (units (unknown) date) unknown) (unknown) (no (unknown) (unknown) Has provider been (units (unknown) date) notified: Yes unknown) (unknown) (no (unknown) (unknown) Hct 35.2 L (units (unk nown) date) unknown) (unknown) (no (unknown) (unknown) Hct Cancelled (units ( unknown) date) unknown) (unknown) (no (unknown) (unknown) Hgb 11.8 L (units (unk nown) date) unknown) (unknown) (no (unknown) (unknown) Hgb Cancelled (units ( unknown) date) unknown) (unknown) (no (unknown) (unknown) History of Present (units (unknown) date) Illness unknown) (unknown) (no (unknown) (unknown) Hospital Course (units (unknown) date) unknown) (unknown) (no (unknown) (unknown) Hypercholesterolemia (uni ts (unknown) date) unknown) (unknown) (no (unknown) (unknown) Hypertension (units (u nknown) date) unknown) (unknown) (no (unknown) (unknown) Hypothyroidism (units (unknown) date) unknown) (unknown) (no (unknown) (unknown) [facility] 1211 (uni ts (unknown) date) [address] [place] [address], unknown ) [place] [id number] (unknown) (no (unknown) (unknown) Laboratory Results - (uni ts (unknown) date) last 24 hr unknown) (unknown) (no (unknown) (unknown) Labs (units (unkno wn) date) unknown) (unknown) (no (unknown) (unknown) Labs: (units (unkno wn) date) unknown) (unknown) (no (unknown) (unknown) Lymph # (Auto) 1500 (unit s (unknown) date) unknown) (unknown) (no (unknown) (unknown) Lymph # (Auto) (units (unknown) date) Cancelled unknown) (unknown) (no (unknown) (unknown) Lymph % (Auto) 18.6 L (un its (unknown) date) unknown) (unknown) (no (unknown) (unknown) Lymph % (Auto) (units (unknown) date) Cancelled unknown) (unknown) (no (unknown) (unknown) MCH 29.2 (units (unkno wn) date) unknown) (unknown) (no (unknown) (unknown) MCH Cancelled (units ( unknown) date) unknown) (unknown) (no (unknown) (unknown) MCHC 33.5 (units (unkn own) date) unknown) (unknown) (no (unknown) (unknown) MCHC Cancelled (units (unknown) date) unknown) (unknown) (no (unknown) (unknown) MCV 87.1 (units (unkno wn) date) unknown) (unknown) (no (unknown) (unknown) MCV Cancelled (units ( unknown) date) unknown) (unknown) (no (unknown) (unknown) Magnesium 1.9 (units ( unknown) date) unknown) (unknown) (no (unknown) (unknown) Magnesium (units (unkn own) date) unknown) (unknown) (no (unknown) (unknown) Sid Meade DO (unit s (unknown) date) unknown) (unknown) (no (unknown) (unknown) Medical History (units (unknown) date) (Reviewed 04/12/22 @ unknown) 08:19 by Steve Mason PA-C) (unknown) (no (unknown) (unknown) Miscellaneous,Doctor, (un its (unknown) date) MD [Primary Care unknown) Provider] (unknown) (no (unknown) (unknown) [place] # (Auto) 900 (units (unknown) date) unknown) (unknown) (no (unknown) (unknown) [place] # (Auto) (units ( unknown) date) Cancelled unknown) (unknown) (no (unknown) (unknown) [place] % (Auto) 10.9 (units (unknown) date) unknown) (unknown) (no (unknown) (unknown) [place] % (Auto) (units ( unknown) date) Cancelled unknown) (unknown) (no (unknown) (unknown) Narrative: (units (unk nown) date) unknown) (unknown) (no (unknown) (unknown) Neut # (Auto) 5500 (units (unknown) date) unknown) (unknown) (no (unknown) (unknown) Neut # (Auto) (units ( unknown) date) Cancelled unknown) (unknown) (no (unknown) (unknown) Neut % (Auto) 66.5 (units (unknown) date) unknown) (unknown) (no (unknown) (unknown) Neut % (Auto) (units ( unknown) date) Cancelled unknown) (unknown) (no (unknown) (unknown) New (units (unkno wn) date) unknown) (unknown) (no (unknown) (unknown) Objective (units (unkn own) date) unknown) (unknown) (no (unknown) (unknown) Oxygen Delivery (units (unknown) date) Method Room Air unknown) (unknown) (no (unknown) (unknown) Oxygen Flow Rate 0 (units (unknown) date) unknown) (unknown) (no (unknown) (unknown) PFSH (units (unkno wn) date) unknown) (unknown) (no (unknown) (unknown) Patient Disposition: (uni ts (unknown) date) SNF unknown) (unknown) (no (unknown) (unknown) Patient: (units (unkno wn) date) Shiela Marley MR#: unknown) M0 (unknown) (no (unknown) (unknown) Physician (units (unkn own) date) Instructions: Evaluate unknown ) and treat (unknown) (no (unknown) (unknown) Physician (units (unkn own) date) Instructions: post op unknown) KENDALL protocol (unknown) (no (unknown) (unknown) Plt Count 199 (units ( unknown) date) unknown) (unknown) (no (unknown) (unknown) Plt Count Cancelled (unit s (unknown) date) unknown) (unknown) (no (unknown) (unknown) Potassium 4.1 (units ( unknown) date) unknown) (unknown) (no (unknown) (unknown) Potassium (units (unkn own) date) unknown) (unknown) (no (unknown) (unknown) Prescriptions: (units (unknown) date) unknown) (unknown) (no (unknown) (unknown) Primary Care (units (u nknown) date) Provider: unknown) Miscellaneous,Doctor (unknown) (no (unknown) (unknown) Primary care (units (u nknown) date) physician: unknown) (unknown) (no (unknown) (unknown) Provider (units (unkno wn) date) unknown) (unknown) (no (unknown) (unknown) Provider: (units (unkn own) date) Sid Meade D.O. unknown) (unknown) (no (unknown) (unknown) Proxy: Mauro Trivedi, (uni ts (unknown) date) daughter unknown) (unknown) (no (unknown) (unknown) Pulse Oximetry 94 94 (uni ts (unknown) date) unknown) (unknown) (no (unknown) (unknown) Pulse Rate 65 82 (units (unknown) date) unknown) (unknown) (no (unknown) (unknown) RBC 4.03 (units (unkno wn) date) unknown) (unknown) (no (unknown) (unknown) RBC Cancelled (units ( unknown) date) unknown) (unknown) (no (unknown) (unknown) RDW 13.5 (units (unkno wn) date) unknown) (unknown) (no (unknown) (unknown) RDW Cancelled (units ( unknown) date) unknown) (unknown) (no (unknown) (unknown) Reason For Exam: MNA (uni ts (unknown) date) = 11 unknown) (unknown) (no (unknown) (unknown) Reason for (units (unk nown) date) consultation: medical unknown) coverage after hip and forearm fracture (unknown) (no (unknown) (unknown) Respiratory Rate 16 (unit s (unknown) date) unknown) (unknown) (no (unknown) (unknown) Result Diagrams: (units (unknown) date) unknown) (unknown) (no (unknown) (unknown) Rx Instructions: (units (unknown) date) unknown) (unknown) (no (unknown) (unknown) SARS-CoV-2 (PCR) (units (unknown) date) Negative unknown) (unknown) (no (unknown) (unknown) SARS-CoV-2 (PCR) (units (unknown) date) unknown) (unknown) (no (unknown) (unknown) She was sent home in (uni ts (unknown) date) a splint with unknown) instructions to call our office for follow (unknown) (no (unknown) (unknown) Signed By: (units (unk nown) date) unknown) (unknown) (no (unknown) (unknown) Smoking Status: Never (un its (unknown) date) smoker unknown) (unknown) (no (unknown) (unknown) Social History (units (unknown) date) (Reviewed 04/12/22 @ unknown) 08:19 by Steve Mason PA-C) (unknown) (no (unknown) (unknown) Sodium 134 L (units (u nknown) date) unknown) (unknown) (no (unknown) (unknown) Sodium (units (unkno wn) date) unknown) (unknown) (no (unknown) (unknown) Stand Alone Forms: (units (unknown) date) Patient Portal/API unknown) (unknown) (no (unknown) (unknown) Summary (units (unkno wn) date) unknown) (unknown) (no (unknown) (unknown) Surgical History (units (unknown) date) (Reviewed 04/12/22 @ unknown) 08:19 by Steve Mason PA-C) (unknown) (no (unknown) (unknown) Temperature 97.2 F L (uni ts (unknown) date) unknown) (unknown) (no (unknown) (unknown) Time Patient Seen: (units (unknown) date) 12:11 unknown) (unknown) (no (unknown) (unknown) Time Spent with (units (unknown) date) Patient unknown) (unknown) (no (unknown) (unknown) Time spent: Greater (unit s (unknown) date) than 30 minutes unknown) (unknown) (no (unknown) (unknown) Visit (units (unkno wn) date) Report/Discharge unknown) Packet (unknown) (no (unknown) (unknown) Vital Signs (units (un known) date) unknown) (unknown) (no (unknown) (unknown) WBC 8.3 (units (unkno wn) date) unknown) (unknown) (no (unknown) (unknown) WBC Cancelled (units ( unknown) date) unknown) (unknown) (no (unknown) (unknown) [Embedded Image Not (unit s (unknown) date) Available] unknown) (unknown) (no (unknown) (unknown) acetaminophen 500 mg (uni ts (unknown) date) Capsule unknown) (unknown) (no (unknown) (unknown) alcohol intake: never (un its (unknown) date) unknown) (unknown) (no (unknown) (unknown) aspirin 81 mg (units ( unknown) date) Tablet,Delayed Release unknown ) (Dr/Ec) (unknown) (no (unknown) (unknown) assisted living home (uni ts (unknown) date) in [place]. She is unknown) had 2 recent falls. She was seen in (unknown) (no (unknown) (unknown) atorvastatin 40 mg (units (unknown) date) Tablet unknown) (unknown) (no (unknown) (unknown) been transferred to (units (unknown) date) [facility] from unknown) [facility] for definitive (unknown) (no (unknown) (unknown) both eyes (units (unkn own) date) unknown) (unknown) (no (unknown) (unknown) docusate sodium 100 (unit s (unknown) date) mg Capsule unknown) (unknown) (no (unknown) (unknown) fixation (units (unkno wn) date) unknown) (unknown) (no (unknown) (unknown) household members: (units (unknown) date) other unknown) (unknown) (no (unknown) (unknown) hydrochlorothiazide (unit s (unknown) date) 12.5 mg Capsule unknown) (unknown) (no (unknown) (unknown) latanoprost 0.005 % (unit s (unknown) date) Drops unknown) (unknown) (no (unknown) (unknown) levothyroxine 50 mcg (uni ts (unknown) date) Tablet unknown) (unknown) (no (unknown) (unknown) loperamide 2 mg (units (unknown) date) Capsule unknown) (unknown) (no (unknown) (unknown) management of these (unit s (unknown) date) fractures. unknown) (unknown) (no (unknown) (unknown) metoprolol succinate (uni ts (unknown) date) 25 mg unknown) Capsule,Sprinkle,Er 24hr (unknown) (no (unknown) (unknown) neck fracture s/p (units (unknown) date) ORIF, now with hip unknown) dislocation (unknown) (no (unknown) (unknown) oxycodone 5 mg Tablet (un its (unknown) date) unknown) (unknown) (no (unknown) (unknown) potassium chloride 20 (un its (unknown) date) mEq tablet extended unknown) release (unknown) (no (unknown) (unknown) potassium chloride (units (unknown) date) [Klor-Con 10] 10 mEq unknown) Tablet Extended Release (unknown) (no (unknown) (unknown) quetiapine 25 mg (units (unknown) date) Tablet unknown) (unknown) (no (unknown) (unknown) recommended. (units (u nknown) date) unknown) (unknown) (no (unknown) (unknown) rise. Radiographs (units (unknown) date) there have shown a unknown) displaced femoral neck fracture. She is (unknown) (no (unknown) (unknown) senna 8.6 mg Capsule (uni ts (unknown) date) unknown) (unknown) (no (unknown) (unknown) sertraline 50 mg (units (unknown) date) Tablet unknown) (unknown) (no (unknown) (unknown) the emergency room on (uni ts (unknown) date) April 07 where a unknown) radial shaft fracture was diagnosed. (unknown) (no (unknown) (unknown) timolol 0.5 % Drops (unit s (unknown) date) unknown) (unknown) (no (unknown) (unknown) up. She subsequently (uni ts (unknown) date) had a 2nd fall landing unknown ) on her right hip and was unable to Result panel 101 (unknown) (no (unknown) (unknown) (no value) (units (unk nown) date) unknown) (unknown) (no (unknown) (unknown) (past 8 hours): (units (unknown) date) unknown) (unknown) (no (unknown) (unknown) - continue home (units (unknown) date) statin unknown) (unknown) (no (unknown) (unknown) - discharged on 20mEq (un its (unknown) date) K po daily unknown) (unknown) (no (unknown) (unknown) - k 2.7 was given (units (unknown) date) repletion yesterday, unknown) improved today. (unknown) (no (unknown) (unknown) -POD1 s/p R (units (unk nown) date) hemiarthoplasty, 2 unknown) week outpatient follow up with [facility] (unknown) (no (unknown) (unknown) -abduction pillow now (un its (unknown) date) in place unknown) (unknown) (no (unknown) (unknown) -continue home (units (unknown) date) metoprolol, good BP unknown) control (unknown) (no (unknown) (unknown) -continue synthroid (unit s (unknown) date) unknown) (unknown) (no (unknown) (unknown) -dislocated hip (units (unknown) date) overnight on 04/11-04/12 unknown) due to kicking her legs in bed (unknown) (no (unknown) (unknown) -ortho took back to (unit s (unknown) date) OR on 04/12 and fixed unknown) hip (unknown) (no (unknown) (unknown) -pain medications (units (unknown) date) ordered unknown) (unknown) (no (unknown) (unknown) -reorient as able (units (unknown) date) unknown) (unknown) (no (unknown) (unknown) -started seroquel (units (unknown) date) 25mg nightly with good unknown ) effect (unknown) (no (unknown) (unknown) -stopped HCTZ on (units (unknown) date) discharge due to unknown) hyponatremia (unknown) (no (unknown) (unknown) -wrapped in splint (units (unknown) date) and no surgery unknown) indicated per ortho (unknown) (no (unknown) (unknown) [id number] (units (unkno wn) date) unknown) (unknown) (no (unknown) (unknown) 04/09/22 19:03 (units (unknown) date) unknown) (unknown) (no (unknown) (unknown) 04/09/22 20:53 (units (unknown) date) unknown) (unknown) (no (unknown) (unknown) 04/09/22 21:19 (units (unknown) date) unknown) (unknown) (no (unknown) (unknown) 04/10/22 22:32 (units (unknown) date) unknown) (unknown) (no (unknown) (unknown) 04/11/22 12:15 (units (unknown) date) unknown) (unknown) (no (unknown) (unknown) 04/12/22 04/13/22 (units (unknown) date) 04/13/22 unknown) (unknown) (no (unknown) (unknown) 04/13/22 05:49 (units (unknown) date) unknown) (unknown) (no (unknown) (unknown) 04/13/22 (units (unkno wn) date) unknown) (unknown) (no (unknown) (unknown) 05:49 (units (unkno wn) date) unknown) (unknown) (no (unknown) (unknown) 07:00 04/13/22 (units (unknown) date) unknown) (unknown) (no (unknown) (unknown) 1 drp OPHTHALMIC (units (unknown) date) (EYE) BEDTIME unknown) (unknown) (no (unknown) (unknown) 1 drp OPHTHALMIC (units (unknown) date) (EYE) BID unknown) (unknown) (no (unknown) (unknown) 1. 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 Right displaced (units (unknown) date) ulna fracture unknown) (unknown) (no (unknown) (unknown) 20 meq PO DAILY Qty: (uni ts (unknown) date) 60 0RF unknown) (unknown) (no (unknown) (unknown) 25 mg PO BEDTIME Qty: (un its (unknown) date) 30 0RF unknown) (unknown) (no (unknown) (unknown) 25 mg PO DAILY (units (unknown) date) unknown) (unknown) (no (unknown) (unknown) 3. Hypertension (units (unknown) date) unknown) (unknown) (no (unknown) (unknown) 4. Dementia with (units (unknown) date) superimposed hospital unknown) delirium (unknown) (no (unknown) (unknown) 40 mg PO DAILY (units (unknown) date) unknown) (unknown) (no (unknown) (unknown) 5 mg PO Q4HR PRN (units (unknown) date) (Reason: Pain, unknown) Moderate (4-6)) Qty: 30 0RF (unknown) (no (unknown) (unknown) 5. Hypothyroidism (units (unknown) date) unknown) (unknown) (no (unknown) (unknown) 50 mcg PO DAILY (units (unknown) date) unknown) (unknown) (no (unknown) (unknown) 500 mg PO Q6H PRN (units (unknown) date) (Reason: pain) unknown) (unknown) (no (unknown) (unknown) 6. HLD (units (unkno wn) date) unknown) (unknown) (no (unknown) (unknown) 7. Hypokalemia, acute (un its (unknown) date) unknown) (unknown) (no (unknown) (unknown) 75 mg PO DAILY (units (unknown) date) unknown) (unknown) (no (unknown) (unknown) 8.6 mg PO DAILY PRN (unit s (unknown) date) (Reason: Constipation) unknown ) (unknown) (no (unknown) (unknown) 81 mg PO BID 42 Days (uni ts (unknown) date) Qty: 84 0RF unknown) (unknown) (no (unknown) (unknown) ABD: soft, nontender, (un its (unknown) date) nondistended, no unknown) organomegaly, normal bowel sounds (unknown) (no (unknown) (unknown) Age/Sex: 82 / F (units (unknown) date) unknown) (unknown) (no (unknown) (unknown) BUN 13 (units (unkno wn) date) unknown) (unknown) (no (unknown) (unknown) BUN (units (unkno wn) date) unknown) (unknown) (no (unknown) (unknown) BUN/Creatinine Ratio (uni ts (unknown) date) 31.7 H unknown) (unknown) (no (unknown) (unknown) BUN/Creatinine Ratio (uni ts (unknown) date) unknown) (unknown) (no (unknown) (unknown) Sheila is an (units ( unknown) date) 82-year-old woman with unknown ) a history of dementia. She lives at an (unknown) (no (unknown) (unknown) Baso # (Auto) 0 (units (unknown) date) unknown) (unknown) (no (unknown) (unknown) Baso # (Auto) (units ( unknown) date) Cancelled unknown) (unknown) (no (unknown) (unknown) Baso % (Auto) 0.5 (units (unknown) date) unknown) (unknown) (no (unknown) (unknown) Baso % (Auto) (units ( unknown) date) Cancelled unknown) (unknown) (no (unknown) (unknown) Blood Pressure 124/49 (un its (unknown) date) L unknown) (unknown) (no (unknown) (unknown) CV: regular rate and (uni ts (unknown) date) rhythm, no murmurs unknown) (unknown) (no (unknown) (unknown) Calcium 7.9 L (units ( unknown) date) unknown) (unknown) (no (unknown) (unknown) Calcium (units (unkno wn) date) unknown) (unknown) (no (unknown) (unknown) Carbon Dioxide 25 (units (unknown) date) unknown) (unknown) (no (unknown) (unknown) Carbon Dioxide (units (unknown) date) unknown) (unknown) (no (unknown) (unknown) Chief complaint: INPT (un its (unknown) date) DIRECT ADMIT unknown) (unknown) (no (unknown) (unknown) Chloride 102 (units (u nknown) date) unknown) (unknown) (no (unknown) (unknown) Chloride (units (unkno wn) date) unknown) (unknown) (no (unknown) (unknown) Comment: Platform (units (unknown) date) walker for right arm, unknown) can WB on elbow (unknown) (no (unknown) (unknown) Comment: (units (unkno wn) date) unknown) (unknown) (no (unknown) (unknown) Consult to Dietitian, (un its (unknown) date) Adult Routine unknown) (unknown) (no (unknown) (unknown) Consult to Discharge (uni ts (unknown) date) Planning Routine unknown) (unknown) (no (unknown) (unknown) Consult to (units (unk nown) date) Hospitalist Service unknown) Routine (unknown) (no (unknown) (unknown) Consult to (units (unk nown) date) Occupational Therapy unknown) Evaluate + Treat (unknown) (no (unknown) (unknown) Consult to Physical (unit s (unknown) date) Therapy Evaluate + unknown) Treat (unknown) (no (unknown) (unknown) Consulting Provider: (uni ts (unknown) date) Jorge Camarena unknown) (unknown) (no (unknown) (unknown) Consults: (units (unkn own) date) unknown) (unknown) (no (unknown) (unknown) Continued (units (unkn own) date) unknown) (unknown) (no (unknown) (unknown) Creatinine 0.41 L (units (unknown) date) unknown) (unknown) (no (unknown) (unknown) Creatinine (units (unk nown) date) unknown) (unknown) (no (unknown) (unknown) : 1940 (units (unknown) date) Acct:[id number] unknown) (unknown) (no (unknown) (unknown) Date Patient Seen: (units (unknown) date) 04/13/22 unknown) (unknown) (no (unknown) (unknown) Date of Service: (units (unknown) date) 04/09/22 unknown) (unknown) (no (unknown) (unknown) Date of admission: (units (unknown) date) unknown) (unknown) (no (unknown) (unknown) Dementia (units (unkno wn) date) unknown) (unknown) (no (unknown) (unknown) Discharge Data (units (unknown) date) unknown) (unknown) (no (unknown) (unknown) Discharge Date: (units (unknown) date) 04/13/22 unknown) (unknown) (no (unknown) (unknown) Discharge Diagnosis: (uni ts (unknown) date) unknown) (unknown) (no (unknown) (unknown) Discharge Plan (units (unknown) date) unknown) (unknown) (no (unknown) (unknown) Discharge Providers (unit s (unknown) date) unknown) (unknown) (no (unknown) (unknown) Discharge Summary (units (unknown) date) unknown) (unknown) (no (unknown) (unknown) Discharge orders + (units (unknown) date) Medications unknown) (unknown) (no (unknown) (unknown) Discharge provider: (unit s (unknown) date) unknown) (unknown) (no (unknown) (unknown) Discontinued (units (u nknown) date) unknown) (unknown) (no (unknown) (unknown) Doctor Miscellaneous, (un its (unknown) date) MD unknown) (unknown) (no (unknown) (unknown) EXT: warm and well (units (unknown) date) perfused, no edema unknown) (unknown) (no (unknown) (unknown) Eos # (Auto) 300 (units (unknown) date) unknown) (unknown) (no (unknown) (unknown) Eos # (Auto) (units (u nknown) date) Cancelled unknown) (unknown) (no (unknown) (unknown) Eos % (Auto) 3.5 (units (unknown) date) unknown) (unknown) (no (unknown) (unknown) Eos % (Auto) (units (u nknown) date) Cancelled unknown) (unknown) (no (unknown) (unknown) Estimated GFR > 60 (units (unknown) date) unknown) (unknown) (no (unknown) (unknown) Estimated GFR (units ( unknown) date) unknown) (unknown) (no (unknown) (unknown) Exam Narrative: (units (unknown) date) unknown) (unknown) (no (unknown) (unknown) Exam (units (unkno wn) date) unknown) (unknown) (no (unknown) (unknown) Follow up/Referrals: (uni ts (unknown) date) unknown) (unknown) (no (unknown) (unknown) GEN: elderly female, (uni ts (unknown) date) no acute distress. unknown) Demented. (unknown) (no (unknown) (unknown) Glaucoma (units (unkno wn) date) unknown) (unknown) (no (unknown) (unknown) Glucose 81 (units (unk nown) date) unknown) (unknown) (no (unknown) (unknown) Glucose (units (unkno wn) date) unknown) (unknown) (no (unknown) (unknown) H/O: hysterectomy (units (unknown) date) unknown) (unknown) (no (unknown) (unknown) HEENT: moist mucous (unit s (unknown) date) membranes, PERRL unknown) (unknown) (no (unknown) (unknown) Has provider been (units (unknown) date) notified: Yes unknown) (unknown) (no (unknown) (unknown) Hct 35.2 L (units (unk nown) date) unknown) (unknown) (no (unknown) (unknown) Hct Cancelled (units ( unknown) date) unknown) (unknown) (no (unknown) (unknown) Hgb 11.8 L (units (unk nown) date) unknown) (unknown) (no (unknown) (unknown) Hgb Cancelled (units ( unknown) date) unknown) (unknown) (no (unknown) (unknown) History of Present (units (unknown) date) Illness unknown) (unknown) (no (unknown) (unknown) Hospital Course (units (unknown) date) unknown) (unknown) (no (unknown) (unknown) Hypercholesterolemia (uni ts (unknown) date) unknown) (unknown) (no (unknown) (unknown) Hypertension (units (u nknown) date) unknown) (unknown) (no (unknown) (unknown) Hypothyroidism (units (unknown) date) unknown) (unknown) (no (unknown) (unknown) [facility] 1211 (uni ts (unknown) date) [address] [place] [address], unknown ) [place] [address] (unknown) (no (unknown) (unknown) Laboratory Results - (uni ts (unknown) date) last 24 hr unknown) (unknown) (no (unknown) (unknown) Labs (units (unkno wn) date) unknown) (unknown) (no (unknown) (unknown) Labs: (units (unkno wn) date) unknown) (unknown) (no (unknown) (unknown) Lymph # (Auto) 1500 (unit s (unknown) date) unknown) (unknown) (no (unknown) (unknown) Lymph # (Auto) (units (unknown) date) Cancelled unknown) (unknown) (no (unknown) (unknown) Lymph % (Auto) 18.6 L (un its (unknown) date) unknown) (unknown) (no (unknown) (unknown) Lymph % (Auto) (units (unknown) date) Cancelled unknown) (unknown) (no (unknown) (unknown) MCH 29.2 (units (unkno wn) date) unknown) (unknown) (no (unknown) (unknown) MCH Cancelled (units ( unknown) date) unknown) (unknown) (no (unknown) (unknown) MCHC 33.5 (units (unkn own) date) unknown) (unknown) (no (unknown) (unknown) MCHC Cancelled (units (unknown) date) unknown) (unknown) (no (unknown) (unknown) MCV 87.1 (units (unkno wn) date) unknown) (unknown) (no (unknown) (unknown) MCV Cancelled (units ( unknown) date) unknown) (unknown) (no (unknown) (unknown) Magnesium 1.9 (units ( unknown) date) unknown) (unknown) (no (unknown) (unknown) Magnesium (units (unkn own) date) unknown) (unknown) (no (unknown) (unknown) Sid Meade DO (unit s (unknown) date) unknown) (unknown) (no (unknown) (unknown) Medical History (units (unknown) date) (Reviewed 04/12/22 @ unknown) 08:19 by Steve Mason PA-C) (unknown) (no (unknown) (unknown) Miscellaneous,Doctor, (un its (unknown) date) MD [Primary Care unknown) Provider] (unknown) (no (unknown) (unknown) [place] # (Auto) 900 (units (unknown) date) unknown) (unknown) (no (unknown) (unknown) [place] # (Auto) (units ( unknown) date) Cancelled unknown) (unknown) (no (unknown) (unknown) [place] % (Auto) 10.9 (units (unknown) date) unknown) (unknown) (no (unknown) (unknown) [place] % (Auto) (units ( unknown) date) Cancelled unknown) (unknown) (no (unknown) (unknown) NECK: trachea (units ( unknown) date) midline, no JVD unknown) (unknown) (no (unknown) (unknown) NEURO: no focal (units (unknown) date) deficits unknown) (unknown) (no (unknown) (unknown) Narrative (units (unkn own) date) unknown) (unknown) (no (unknown) (unknown) Narrative: (units (unk nown) date) unknown) (unknown) (no (unknown) (unknown) Neut # (Auto) 5500 (units (unknown) date) unknown) (unknown) (no (unknown) (unknown) Neut # (Auto) (units ( unknown) date) Cancelled unknown) (unknown) (no (unknown) (unknown) Neut % (Auto) 66.5 (units (unknown) date) unknown) (unknown) (no (unknown) (unknown) Neut % (Auto) (units ( unknown) date) Cancelled unknown) (unknown) (no (unknown) (unknown) New (units (unkno wn) date) unknown) (unknown) (no (unknown) (unknown) Objective (units (unkn own) date) unknown) (unknown) (no (unknown) (unknown) Oxygen Delivery (units (unknown) date) Method Room Air unknown) (unknown) (no (unknown) (unknown) Oxygen Flow Rate 0 (units (unknown) date) unknown) (unknown) (no (unknown) (unknown) PFSH (units (unkno wn) date) unknown) (unknown) (no (unknown) (unknown) PULM: clear (units (un known) date) bilaterally, no unknown) wheezes, rhonchi, rales (unknown) (no (unknown) (unknown) Patient Disposition: (uni ts (unknown) date) SNF unknown) (unknown) (no (unknown) (unknown) Patient: (units (unkno wn) date) Sheila Marley MR#: unknown) M0 (unknown) (no (unknown) (unknown) Physician (units (unkn own) date) Instructions: Evaluate unknown ) and treat (unknown) (no (unknown) (unknown) Physician (units (unkn own) date) Instructions: post op unknown) KENDALL protocol (unknown) (no (unknown) (unknown) Plt Count 199 (units ( unknown) date) unknown) (unknown) (no (unknown) (unknown) Plt Count Cancelled (unit s (unknown) date) unknown) (unknown) (no (unknown) (unknown) Potassium 4.1 (units ( unknown) date) unknown) (unknown) (no (unknown) (unknown) Potassium (units (unkn own) date) unknown) (unknown) (no (unknown) (unknown) Prescriptions: (units (unknown) date) unknown) (unknown) (no (unknown) (unknown) Primary Care (units (u nknown) date) Provider: unknown) Miscellaneous,Doctor (unknown) (no (unknown) (unknown) Primary care (units (u nknown) date) physician: unknown) (unknown) (no (unknown) (unknown) Provider (units (unkno wn) date) unknown) (unknown) (no (unknown) (unknown) Provider: (units (unkn own) date) Sid Meade D.O. unknown) (unknown) (no (unknown) (unknown) Pulse Oximetry 94 94 (uni ts (unknown) date) unknown) (unknown) (no (unknown) (unknown) Pulse Rate 65 82 (units (unknown) date) unknown) (unknown) (no (unknown) (unknown) RBC 4.03 (units (unkno wn) date) unknown) (unknown) (no (unknown) (unknown) RBC Cancelled (units ( unknown) date) unknown) (unknown) (no (unknown) (unknown) RDW 13.5 (units (unkno wn) date) unknown) (unknown) (no (unknown) (unknown) RDW Cancelled (units ( unknown) date) unknown) (unknown) (no (unknown) (unknown) Reason For Exam: MNA (uni ts (unknown) date) = 11 unknown) (unknown) (no (unknown) (unknown) Reason for (units (unk nown) date) consultation: medical unknown) coverage after hip and forearm fracture (unknown) (no (unknown) (unknown) Respiratory Rate 16 (unit s (unknown) date) unknown) (unknown) (no (unknown) (unknown) Result Diagrams: (units (unknown) date) unknown) (unknown) (no (unknown) (unknown) Rx Instructions: (units (unknown) date) unknown) (unknown) (no (unknown) (unknown) SARS-CoV-2 (PCR) (units (unknown) date) Negative unknown) (unknown) (no (unknown) (unknown) SARS-CoV-2 (PCR) (units (unknown) date) unknown) (unknown) (no (unknown) (unknown) She was sent home in (uni ts (unknown) date) a splint with unknown) instructions to call our office for follow (unknown) (no (unknown) (unknown) Signed By: (units (unk nown) date) unknown) (unknown) (no (unknown) (unknown) Smoking Status: Never (un its (unknown) date) smoker unknown) (unknown) (no (unknown) (unknown) Social History (units (unknown) date) (Reviewed 04/12/22 @ unknown) 08:19 by Steve Mason PA-C) (unknown) (no (unknown) (unknown) Sodium 134 L (units (u nknown) date) unknown) (unknown) (no (unknown) (unknown) Sodium (units (unkno wn) date) unknown) (unknown) (no (unknown) (unknown) Stand Alone Forms: (units (unknown) date) Patient Portal/API unknown) (unknown) (no (unknown) (unknown) Summary (units (unkno wn) date) unknown) (unknown) (no (unknown) (unknown) Surgical History (units (unknown) date) (Reviewed 04/12/22 @ unknown) 08:19 by Steve Mason PA-C) (unknown) (no (unknown) (unknown) Temperature 97.2 F L (uni ts (unknown) date) unknown) (unknown) (no (unknown) (unknown) Time Patient Seen: (units (unknown) date) 12:11 unknown) (unknown) (no (unknown) (unknown) Time Spent with (units (unknown) date) Patient unknown) (unknown) (no (unknown) (unknown) Time spent: Greater (unit s (unknown) date) than 30 minutes unknown) (unknown) (no (unknown) (unknown) Visit (units (unkno wn) date) Report/Discharge unknown) Packet (unknown) (no (unknown) (unknown) Vital Signs (units (un known) date) unknown) (unknown) (no (unknown) (unknown) WBC 8.3 (units (unkno wn) date) unknown) (unknown) (no (unknown) (unknown) WBC Cancelled (units ( unknown) date) unknown) (unknown) (no (unknown) (unknown) [Embedded Image Not (unit s (unknown) date) Available] unknown) (unknown) (no (unknown) (unknown) acetaminophen 500 mg (uni ts (unknown) date) Capsule unknown) (unknown) (no (unknown) (unknown) alcohol intake: never (un its (unknown) date) unknown) (unknown) (no (unknown) (unknown) aspirin 81 mg (units ( unknown) date) Tablet,Delayed Release unknown ) (Dr/Ec) (unknown) (no (unknown) (unknown) assisted living home (uni ts (unknown) date) in [place]. She is unknown) had 2 recent falls. She was seen in (unknown) (no (unknown) (unknown) atorvastatin 40 mg (units (unknown) date) Tablet unknown) (unknown) (no (unknown) (unknown) been transferred to (units (unknown) date) [facility] from unknown) [facility] for definitive (unknown) (no (unknown) (unknown) both eyes (units (unkn own) date) unknown) (unknown) (no (unknown) (unknown) docusate sodium 100 (unit s (unknown) date) mg Capsule unknown) (unknown) (no (unknown) (unknown) fixation (units (unkno wn) date) unknown) (unknown) (no (unknown) (unknown) household members: (units (unknown) date) other unknown) (unknown) (no (unknown) (unknown) hydrochlorothiazide (unit s (unknown) date) 12.5 mg Capsule unknown) (unknown) (no (unknown) (unknown) latanoprost 0.005 % (unit s (unknown) date) Drops unknown) (unknown) (no (unknown) (unknown) levothyroxine 50 mcg (uni ts (unknown) date) Tablet unknown) (unknown) (no (unknown) (unknown) loperamide 2 mg (units (unknown) date) Capsule unknown) (unknown) (no (unknown) (unknown) management of these (unit s (unknown) date) fractures. unknown) (unknown) (no (unknown) (unknown) metoprolol succinate (uni ts (unknown) date) 25 mg unknown) Capsule,Sprinkle,Er 24hr (unknown) (no (unknown) (unknown) neck fracture s/p (units (unknown) date) ORIF, now with hip unknown) dislocation (unknown) (no (unknown) (unknown) oxycodone 5 mg Tablet (un its (unknown) date) unknown) (unknown) (no (unknown) (unknown) potassium chloride 20 (un its (unknown) date) mEq tablet extended unknown) release (unknown) (no (unknown) (unknown) potassium chloride (units (unknown) date) [Klor-Con 10] 10 mEq unknown) Tablet Extended Release (unknown) (no (unknown) (unknown) quetiapine 25 mg (units (unknown) date) Tablet unknown) (unknown) (no (unknown) (unknown) recommended. (units (u nknown) date) unknown) (unknown) (no (unknown) (unknown) rise. Radiographs (units (unknown) date) there have shown a unknown) displaced femoral neck fracture. She is (unknown) (no (unknown) (unknown) senna 8.6 mg Capsule (uni ts (unknown) date) unknown) (unknown) (no (unknown) (unknown) sertraline 50 mg (units (unknown) date) Tablet unknown) (unknown) (no (unknown) (unknown) the emergency room on (uni ts (unknown) date) April 07 where a unknown) radial shaft fracture was diagnosed. (unknown) (no (unknown) (unknown) timolol 0.5 % Drops (unit s (unknown) date) unknown) (unknown) (no (unknown) (unknown) up. She subsequently (uni ts (unknown) date) had a 2nd fall landing unknown ) on her right hip and was unable to Result panel 102 (unknown) (no (unknown) (unknown) (no value) (units (unk nown) date) unknown) (unknown) (no (unknown) (unknown) (past 8 hours): (units (unknown) date) unknown) (unknown) (no (unknown) (unknown) - continue home (units (unknown) date) statin unknown) (unknown) (no (unknown) (unknown) - discharged on 20mEq (un its (unknown) date) K po daily unknown) (unknown) (no (unknown) (unknown) - k 2.7 was given (units (unknown) date) repletion yesterday, unknown) improved today. (unknown) (no (unknown) (unknown) -POD1 s/p R (units (unk nown) date) hemiarthoplasty, 2 unknown) week outpatient follow up with [facility] (unknown) (no (unknown) (unknown) -abduction pillow now (un its (unknown) date) in place unknown) (unknown) (no (unknown) (unknown) -continue home (units (unknown) date) metoprolol, good BP unknown) control (unknown) (no (unknown) (unknown) -continue synthroid (unit s (unknown) date) unknown) (unknown) (no (unknown) (unknown) -dislocated hip (units (unknown) date) overnight on 04/11-04/12 unknown) due to kicking her legs in bed (unknown) (no (unknown) (unknown) -ortho took back to (unit s (unknown) date) OR on 04/12 and fixed unknown) hip (unknown) (no (unknown) (unknown) -pain medications (units (unknown) date) ordered unknown) (unknown) (no (unknown) (unknown) -reorient as able (units (unknown) date) unknown) (unknown) (no (unknown) (unknown) -started seroquel (units (unknown) date) 25mg nightly with good unknown ) effect (unknown) (no (unknown) (unknown) -stopped HCTZ on (units (unknown) date) discharge due to unknown) hyponatremia (unknown) (no (unknown) (unknown) -wrapped in splint (units (unknown) date) and no surgery unknown) indicated per ortho (unknown) (no (unknown) (unknown) [id number] (units (unkno wn) date) unknown) (unknown) (no (unknown) (unknown) 04/09/22 19:03 (units (unknown) date) unknown) (unknown) (no (unknown) (unknown) 04/09/22 20:53 (units (unknown) date) unknown) (unknown) (no (unknown) (unknown) 04/09/22 21:19 (units (unknown) date) unknown) (unknown) (no (unknown) (unknown) 04/10/22 22:32 (units (unknown) date) unknown) (unknown) (no (unknown) (unknown) 04/11/22 12:15 (units (unknown) date) unknown) (unknown) (no (unknown) (unknown) 04/12/22 04/13/22 (units (unknown) date) 04/13/22 unknown) (unknown) (no (unknown) (unknown) 04/13/22 05:49 (units (unknown) date) unknown) (unknown) (no (unknown) (unknown) 04/13/22 (units (unkno wn) date) unknown) (unknown) (no (unknown) (unknown) 05:49 (units (unkno wn) date) unknown) (unknown) (no (unknown) (unknown) 07:00 04/13/22 (units (unknown) date) unknown) (unknown) (no (unknown) (unknown) 1 drp OPHTHALMIC (units (unknown) date) (EYE) BEDTIME unknown) (unknown) (no (unknown) (unknown) 1 drp OPHTHALMIC (units (unknown) date) (EYE) BID unknown) (unknown) (no (unknown) (unknown) 1. 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 Right displaced (units (unknown) date) ulna fracture unknown) (unknown) (no (unknown) (unknown) 20 meq PO DAILY Qty: (uni ts (unknown) date) 60 0RF unknown) (unknown) (no (unknown) (unknown) 25 mg PO BEDTIME Qty: (un its (unknown) date) 30 0RF unknown) (unknown) (no (unknown) (unknown) 25 mg PO DAILY (units (unknown) date) unknown) (unknown) (no (unknown) (unknown) 3. Hypertension (units (unknown) date) unknown) (unknown) (no (unknown) (unknown) 4. Dementia with (units (unknown) date) superimposed hospital unknown) delirium (unknown) (no (unknown) (unknown) 40 mg PO DAILY (units (unknown) date) unknown) (unknown) (no (unknown) (unknown) 5 mg PO Q4HR PRN (units (unknown) date) (Reason: Pain, unknown) Moderate (4-6)) Qty: 30 0RF (unknown) (no (unknown) (unknown) 5. Hypothyroidism (units (unknown) date) unknown) (unknown) (no (unknown) (unknown) 50 mcg PO DAILY (units (unknown) date) unknown) (unknown) (no (unknown) (unknown) 500 mg PO Q6H PRN (units (unknown) date) (Reason: pain) unknown) (unknown) (no (unknown) (unknown) 6. HLD (units (unkno wn) date) unknown) (unknown) (no (unknown) (unknown) 7. Hypokalemia, acute (un its (unknown) date) unknown) (unknown) (no (unknown) (unknown) 75 mg PO DAILY (units (unknown) date) unknown) (unknown) (no (unknown) (unknown) 8.6 mg PO DAILY PRN (unit s (unknown) date) (Reason: Constipation) unknown ) (unknown) (no (unknown) (unknown) 81 mg PO BID 42 Days (uni ts (unknown) date) Qty: 84 0RF unknown) (unknown) (no (unknown) (unknown) ABD: soft, nontender, (un its (unknown) date) nondistended, no unknown) organomegaly, normal bowel sounds (unknown) (no (unknown) (unknown) Age/Sex: 82 / F (units (unknown) date) unknown) (unknown) (no (unknown) (unknown) BUN 13 (units (unkno wn) date) unknown) (unknown) (no (unknown) (unknown) BUN (units (unkno wn) date) unknown) (unknown) (no (unknown) (unknown) BUN/Creatinine Ratio (uni ts (unknown) date) 31.7 H unknown) (unknown) (no (unknown) (unknown) BUN/Creatinine Ratio (uni ts (unknown) date) unknown) (unknown) (no (unknown) (unknown) Sheila is an (units ( unknown) date) 82-year-old woman with unknown ) a history of dementia. She lives at an (unknown) (no (unknown) (unknown) Baso # (Auto) 0 (units (unknown) date) unknown) (unknown) (no (unknown) (unknown) Baso # (Auto) (units ( unknown) date) Cancelled unknown) (unknown) (no (unknown) (unknown) Baso % (Auto) 0.5 (units (unknown) date) unknown) (unknown) (no (unknown) (unknown) Baso % (Auto) (units ( unknown) date) Cancelled unknown) (unknown) (no (unknown) (unknown) Blood Pressure 124/49 (un its (unknown) date) L unknown) (unknown) (no (unknown) (unknown) CV: regular rate and (uni ts (unknown) date) rhythm, no murmurs unknown) (unknown) (no (unknown) (unknown) Calcium 7.9 L (units ( unknown) date) unknown) (unknown) (no (unknown) (unknown) Calcium (units (unkno wn) date) unknown) (unknown) (no (unknown) (unknown) Carbon Dioxide 25 (units (unknown) date) unknown) (unknown) (no (unknown) (unknown) Carbon Dioxide (units (unknown) date) unknown) (unknown) (no (unknown) (unknown) Chief complaint: INPT (un its (unknown) date) DIRECT ADMIT unknown) (unknown) (no (unknown) (unknown) Chloride 102 (units (u nknown) date) unknown) (unknown) (no (unknown) (unknown) Chloride (units (unkno wn) date) unknown) (unknown) (no (unknown) (unknown) Comment: Platform (units (unknown) date) walker for right arm, unknown) can WB on elbow (unknown) (no (unknown) (unknown) Comment: (units (unkno wn) date) unknown) (unknown) (no (unknown) (unknown) Consult to Dietitian, (un its (unknown) date) Adult Routine unknown) (unknown) (no (unknown) (unknown) Consult to Discharge (uni ts (unknown) date) Planning Routine unknown) (unknown) (no (unknown) (unknown) Consult to (units (unk nown) date) Hospitalist Service unknown) Routine (unknown) (no (unknown) (unknown) Consult to (units (unk nown) date) Occupational Therapy unknown) Evaluate + Treat (unknown) (no (unknown) (unknown) Consult to Physical (unit s (unknown) date) Therapy Evaluate + unknown) Treat (unknown) (no (unknown) (unknown) Consulting Provider: (uni ts (unknown) date) Jorge Camarena unknown) (unknown) (no (unknown) (unknown) Consults: (units (unkn own) date) unknown) (unknown) (no (unknown) (unknown) Continued (units (unkn own) date) unknown) (unknown) (no (unknown) (unknown) Creatinine 0.41 L (units (unknown) date) unknown) (unknown) (no (unknown) (unknown) Creatinine (units (unk nown) date) unknown) (unknown) (no (unknown) (unknown) : 1940 (units (unknown) date) Acct:[id number] unknown) (unknown) (no (unknown) (unknown) Date Patient Seen: (units (unknown) date) 04/13/22 unknown) (unknown) (no (unknown) (unknown) Date of Service: (units (unknown) date) 04/09/22 unknown) (unknown) (no (unknown) (unknown) Date of admission: (units (unknown) date) unknown) (unknown) (no (unknown) (unknown) Dementia (units (unkno wn) date) unknown) (unknown) (no (unknown) (unknown) Discharge Data (units (unknown) date) unknown) (unknown) (no (unknown) (unknown) Discharge Date: (units (unknown) date) 04/13/22 unknown) (unknown) (no (unknown) (unknown) Discharge Diagnosis: (uni ts (unknown) date) unknown) (unknown) (no (unknown) (unknown) Discharge Plan (units (unknown) date) unknown) (unknown) (no (unknown) (unknown) Discharge Providers (unit s (unknown) date) unknown) (unknown) (no (unknown) (unknown) Discharge Summary (units (unknown) date) unknown) (unknown) (no (unknown) (unknown) Discharge orders + (units (unknown) date) Medications unknown) (unknown) (no (unknown) (unknown) Discharge provider: (unit s (unknown) date) unknown) (unknown) (no (unknown) (unknown) Discontinued (units (u nknown) date) unknown) (unknown) (no (unknown) (unknown) Doctor Miscellaneous, (un its (unknown) date) MD unknown) (unknown) (no (unknown) (unknown) EXT: warm and well (units (unknown) date) perfused, no edema unknown) (unknown) (no (unknown) (unknown) Eos # (Auto) 300 (units (unknown) date) unknown) (unknown) (no (unknown) (unknown) Eos # (Auto) (units (u nknown) date) Cancelled unknown) (unknown) (no (unknown) (unknown) Eos % (Auto) 3.5 (units (unknown) date) unknown) (unknown) (no (unknown) (unknown) Eos % (Auto) (units (u nknown) date) Cancelled unknown) (unknown) (no (unknown) (unknown) Estimated GFR > 60 (units (unknown) date) unknown) (unknown) (no (unknown) (unknown) Estimated GFR (units ( unknown) date) unknown) (unknown) (no (unknown) (unknown) Exam Narrative: (units (unknown) date) unknown) (unknown) (no (unknown) (unknown) Exam (units (unkno wn) date) unknown) (unknown) (no (unknown) (unknown) Follow up/Referrals: (uni ts (unknown) date) unknown) (unknown) (no (unknown) (unknown) GEN: elderly female, (uni ts (unknown) date) no acute distress. unknown) Demented. (unknown) (no (unknown) (unknown) Glaucoma (units (unkno wn) date) unknown) (unknown) (no (unknown) (unknown) Glucose 81 (units (unk nown) date) unknown) (unknown) (no (unknown) (unknown) Glucose (units (unkno wn) date) unknown) (unknown) (no (unknown) (unknown) H/O: hysterectomy (units (unknown) date) unknown) (unknown) (no (unknown) (unknown) HEENT: moist mucous (unit s (unknown) date) membranes, PERRL unknown) (unknown) (no (unknown) (unknown) Has provider been (units (unknown) date) notified: Yes unknown) (unknown) (no (unknown) (unknown) Hct 35.2 L (units (unk nown) date) unknown) (unknown) (no (unknown) (unknown) Hct Cancelled (units ( unknown) date) unknown) (unknown) (no (unknown) (unknown) Hgb 11.8 L (units (unk nown) date) unknown) (unknown) (no (unknown) (unknown) Hgb Cancelled (units ( unknown) date) unknown) (unknown) (no (unknown) (unknown) History of Present (units (unknown) date) Illness unknown) (unknown) (no (unknown) (unknown) Hospital Course (units (unknown) date) unknown) (unknown) (no (unknown) (unknown) Hypercholesterolemia (uni ts (unknown) date) unknown) (unknown) (no (unknown) (unknown) Hypertension (units (u nknown) date) unknown) (unknown) (no (unknown) (unknown) Hypothyroidism (units (unknown) date) unknown) (unknown) (no (unknown) (unknown) [facility] [address] (uni ts (unknown) date) [address] [place], unknown ) [place] [id number] (unknown) (no (unknown) (unknown) Laboratory Results - (uni ts (unknown) date) last 24 hr unknown) (unknown) (no (unknown) (unknown) Labs (units (unkno wn) date) unknown) (unknown) (no (unknown) (unknown) Labs: (units (unkno wn) date) unknown) (unknown) (no (unknown) (unknown) Lymph # (Auto) 1500 (unit s (unknown) date) unknown) (unknown) (no (unknown) (unknown) Lymph # (Auto) (units (unknown) date) Cancelled unknown) (unknown) (no (unknown) (unknown) Lymph % (Auto) 18.6 L (un its (unknown) date) unknown) (unknown) (no (unknown) (unknown) Lymph % (Auto) (units (unknown) date) Cancelled unknown) (unknown) (no (unknown) (unknown) MCH 29.2 (units (unkno wn) date) unknown) (unknown) (no (unknown) (unknown) MCH Cancelled (units ( unknown) date) unknown) (unknown) (no (unknown) (unknown) MCHC 33.5 (units (unkn own) date) unknown) (unknown) (no (unknown) (unknown) MCHC Cancelled (units (unknown) date) unknown) (unknown) (no (unknown) (unknown) MCV 87.1 (units (unkno wn) date) unknown) (unknown) (no (unknown) (unknown) MCV Cancelled (units ( unknown) date) unknown) (unknown) (no (unknown) (unknown) Magnesium 1.9 (units ( unknown) date) unknown) (unknown) (no (unknown) (unknown) Magnesium (units (unkn own) date) unknown) (unknown) (no (unknown) (unknown) Sid Meade DO (unit s (unknown) date) unknown) (unknown) (no (unknown) (unknown) Medical History (units (unknown) date) (Reviewed 04/12/22 @ unknown) 08:19 by Steve Mason PA-C) (unknown) (no (unknown) (unknown) Miscellaneous,Doctor, (un its (unknown) date) MD [Primary Care unknown) Provider] (unknown) (no (unknown) (unknown) [place] # (Auto) 900 (units (unknown) date) unknown) (unknown) (no (unknown) (unknown) [place] # (Auto) (units ( unknown) date) Cancelled unknown) (unknown) (no (unknown) (unknown) [place] % (Auto) 10.9 (units (unknown) date) unknown) (unknown) (no (unknown) (unknown) [place] % (Auto) (units ( unknown) date) Cancelled unknown) (unknown) (no (unknown) (unknown) NECK: trachea (units ( unknown) date) midline, no JVD unknown) (unknown) (no (unknown) (unknown) NEURO: no focal (units (unknown) date) deficits unknown) (unknown) (no (unknown) (unknown) Narrative (units (unkn own) date) unknown) (unknown) (no (unknown) (unknown) Narrative: (units (unk nown) date) unknown) (unknown) (no (unknown) (unknown) Neut # (Auto) 5500 (units (unknown) date) unknown) (unknown) (no (unknown) (unknown) Neut # (Auto) (units ( unknown) date) Cancelled unknown) (unknown) (no (unknown) (unknown) Neut % (Auto) 66.5 (units (unknown) date) unknown) (unknown) (no (unknown) (unknown) Neut % (Auto) (units ( unknown) date) Cancelled unknown) (unknown) (no (unknown) (unknown) New (units (unkno wn) date) unknown) (unknown) (no (unknown) (unknown) Objective (units (unkn own) date) unknown) (unknown) (no (unknown) (unknown) Oxygen Delivery (units (unknown) date) Method Room Air unknown) (unknown) (no (unknown) (unknown) Oxygen Flow Rate 0 (units (unknown) date) unknown) (unknown) (no (unknown) (unknown) PFSH (units (unkno wn) date) unknown) (unknown) (no (unknown) (unknown) PULM: clear (units (un known) date) bilaterally, no unknown) wheezes, rhonchi, rales (unknown) (no (unknown) (unknown) Patient Disposition: (uni ts (unknown) date) SNF unknown) (unknown) (no (unknown) (unknown) Patient: (units (unkno wn) date) Sheila Marley MR#: unknown) M0 (unknown) (no (unknown) (unknown) Physician (units (unkn own) date) Instructions: Evaluate unknown ) and treat (unknown) (no (unknown) (unknown) Physician (units (unkn own) date) Instructions: post op unknown) KENDALL protocol (unknown) (no (unknown) (unknown) Plt Count 199 (units ( unknown) date) unknown) (unknown) (no (unknown) (unknown) Plt Count Cancelled (unit s (unknown) date) unknown) (unknown) (no (unknown) (unknown) Potassium 4.1 (units ( unknown) date) unknown) (unknown) (no (unknown) (unknown) Potassium (units (unkn own) date) unknown) (unknown) (no (unknown) (unknown) Prescriptions: (units (unknown) date) unknown) (unknown) (no (unknown) (unknown) Primary Care (units (u nknown) date) Provider: unknown) Miscellaneous,Doctor (unknown) (no (unknown) (unknown) Primary care (units (u nknown) date) physician: unknown) (unknown) (no (unknown) (unknown) Provider (units (unkno wn) date) unknown) (unknown) (no (unknown) (unknown) Provider: (units (unkn own) date) Sid Meade D.O. unknown) (unknown) (no (unknown) (unknown) Pulse Oximetry 94 94 (uni ts (unknown) date) unknown) (unknown) (no (unknown) (unknown) Pulse Rate 65 82 (units (unknown) date) unknown) (unknown) (no (unknown) (unknown) RBC 4.03 (units (unkno wn) date) unknown) (unknown) (no (unknown) (unknown) RBC Cancelled (units ( unknown) date) unknown) (unknown) (no (unknown) (unknown) RDW 13.5 (units (unkno wn) date) unknown) (unknown) (no (unknown) (unknown) RDW Cancelled (units ( unknown) date) unknown) (unknown) (no (unknown) (unknown) Reason For Exam: MNA (uni ts (unknown) date) = 11 unknown) (unknown) (no (unknown) (unknown) Reason for (units (unk nown) date) consultation: medical unknown) coverage after hip and forearm fracture (unknown) (no (unknown) (unknown) Respiratory Rate 16 (unit s (unknown) date) unknown) (unknown) (no (unknown) (unknown) Result Diagrams: (units (unknown) date) unknown) (unknown) (no (unknown) (unknown) Rx Instructions: (units (unknown) date) unknown) (unknown) (no (unknown) (unknown) SARS-CoV-2 (PCR) (units (unknown) date) Negative unknown) (unknown) (no (unknown) (unknown) SARS-CoV-2 (PCR) (units (unknown) date) unknown) (unknown) (no (unknown) (unknown) She was sent home in (uni ts (unknown) date) a splint with unknown) instructions to call our office for follow (unknown) (no (unknown) (unknown) Signed By: (units (unk nown) date) unknown) (unknown) (no (unknown) (unknown) Smoking Status: Never (un its (unknown) date) smoker unknown) (unknown) (no (unknown) (unknown) Social History (units (unknown) date) (Reviewed 04/12/22 @ unknown) 08:19 by Steve Mason PA-C) (unknown) (no (unknown) (unknown) Sodium 134 L (units (u nknown) date) unknown) (unknown) (no (unknown) (unknown) Sodium (units (unkno wn) date) unknown) (unknown) (no (unknown) (unknown) Stand Alone Forms: (units (unknown) date) Patient Portal/API unknown) (unknown) (no (unknown) (unknown) Summary (units (unkno wn) date) unknown) (unknown) (no (unknown) (unknown) Surgical History (units (unknown) date) (Reviewed 04/12/22 @ unknown) 08:19 by Steve Mason PA-C) (unknown) (no (unknown) (unknown) Temperature 97.2 F L (uni ts (unknown) date) unknown) (unknown) (no (unknown) (unknown) Time Patient Seen: (units (unknown) date) 12:11 unknown) (unknown) (no (unknown) (unknown) Time Spent with (units (unknown) date) Patient unknown) (unknown) (no (unknown) (unknown) Time spent: Greater (unit s (unknown) date) than 30 minutes unknown) (unknown) (no (unknown) (unknown) Visit (units (unkno wn) date) Report/Discharge unknown) Packet (unknown) (no (unknown) (unknown) Vital Signs (units (un known) date) unknown) (unknown) (no (unknown) (unknown) WBC 8.3 (units (unkno wn) date) unknown) (unknown) (no (unknown) (unknown) WBC Cancelled (units ( unknown) date) unknown) (unknown) (no (unknown) (unknown) [Embedded Image Not (unit s (unknown) date) Available] unknown) (unknown) (no (unknown) (unknown) acetaminophen 500 mg (uni ts (unknown) date) Capsule unknown) (unknown) (no (unknown) (unknown) alcohol intake: never (un its (unknown) date) unknown) (unknown) (no (unknown) (unknown) aspirin 81 mg (units ( unknown) date) Tablet,Delayed Release unknown ) (Dr/Ec) (unknown) (no (unknown) (unknown) assisted living home (uni ts (unknown) date) in [place]. She is unknown) had 2 recent falls. She was seen in (unknown) (no (unknown) (unknown) atorvastatin 40 mg (units (unknown) date) Tablet unknown) (unknown) (no (unknown) (unknown) been transferred to (units (unknown) date) [facility] from unknown) [facility] for definitive (unknown) (no (unknown) (unknown) both eyes (units (unkn own) date) unknown) (unknown) (no (unknown) (unknown) docusate sodium 100 (unit s (unknown) date) mg Capsule unknown) (unknown) (no (unknown) (unknown) fixation (units (unkno wn) date) unknown) (unknown) (no (unknown) (unknown) household members: (units (unknown) date) other unknown) (unknown) (no (unknown) (unknown) hydrochlorothiazide (unit s (unknown) date) 12.5 mg Capsule unknown) (unknown) (no (unknown) (unknown) latanoprost 0.005 % (unit s (unknown) date) Drops unknown) (unknown) (no (unknown) (unknown) levothyroxine 50 mcg (uni ts (unknown) date) Tablet unknown) (unknown) (no (unknown) (unknown) loperamide 2 mg (units (unknown) date) Capsule unknown) (unknown) (no (unknown) (unknown) management of these (unit s (unknown) date) fractures. unknown) (unknown) (no (unknown) (unknown) metoprolol succinate (uni ts (unknown) date) 25 mg unknown) Capsule,Sprinkle,Er 24hr (unknown) (no (unknown) (unknown) neck fracture s/p (units (unknown) date) ORIF, now with hip unknown) dislocation (unknown) (no (unknown) (unknown) oxycodone 5 mg Tablet (un its (unknown) date) unknown) (unknown) (no (unknown) (unknown) potassium chloride 20 (un its (unknown) date) mEq tablet extended unknown) release (unknown) (no (unknown) (unknown) potassium chloride (units (unknown) date) [Klor-Con 10] 10 mEq unknown) Tablet Extended Release (unknown) (no (unknown) (unknown) quetiapine 25 mg (units (unknown) date) Tablet unknown) (unknown) (no (unknown) (unknown) recommended. (units (u nknown) date) unknown) (unknown) (no (unknown) (unknown) rise. Radiographs (units (unknown) date) there have shown a unknown) displaced femoral neck fracture. She is (unknown) (no (unknown) (unknown) senna 8.6 mg Capsule (uni ts (unknown) date) unknown) (unknown) (no (unknown) (unknown) sertraline 50 mg (units (unknown) date) Tablet unknown) (unknown) (no (unknown) (unknown) the emergency room on (uni ts (unknown) date) April 07 where a unknown) radial shaft fracture was diagnosed. (unknown) (no (unknown) (unknown) timolol 0.5 % Drops (unit s (unknown) date) unknown) (unknown) (no (unknown) (unknown) up. She subsequently (uni ts (unknown) date) had a 2nd fall landing unknown ) on her right hip and was unable to Result panel 103 (unknown) (no (unknown) (unknown) (no value) (units (unk nown) date) unknown) (unknown) (no (unknown) (unknown) (past 8 hours): (units (unknown) date) unknown) (unknown) (no (unknown) (unknown) - continue home (units (unknown) date) statin unknown) (unknown) (no (unknown) (unknown) - discharged on 20mEq (un its (unknown) date) K po daily unknown) (unknown) (no (unknown) (unknown) - k 2.7 was given (units (unknown) date) repletion yesterday, unknown) improved today. (unknown) (no (unknown) (unknown) -POD1 s/p R (units (unk nown) date) hemiarthoplasty, 2 unknown) week outpatient follow up with [facility] (unknown) (no (unknown) (unknown) -SNF recs per ortho (unit s (unknown) date) unknown) (unknown) (no (unknown) (unknown) -abduction pillow now (un its (unknown) date) in place unknown) (unknown) (no (unknown) (unknown) -continue home (units (unknown) date) metoprolol unknown) (unknown) (no (unknown) (unknown) -continue synthroid (unit s (unknown) date) unknown) (unknown) (no (unknown) (unknown) -dislocated hip (units (unknown) date) overnight on 04/11-04/12 unknown) due to kicking her legs in bed (unknown) (no (unknown) (unknown) -ortho took back to (unit s (unknown) date) OR on 04/12 and fixed unknown) hip (unknown) (no (unknown) (unknown) -pain medications (units (unknown) date) ordered unknown) (unknown) (no (unknown) (unknown) -reorient as able (units (unknown) date) unknown) (unknown) (no (unknown) (unknown) -started seroquel (units (unknown) date) 25mg nightly with good unknown ) effect (unknown) (no (unknown) (unknown) -stopped HCTZ on (units (unknown) date) discharge due to unknown) hyponatremia (unknown) (no (unknown) (unknown) -would discharge with (un its (unknown) date) seroquel to use at SNF unknown ) while she is there (unknown) (no (unknown) (unknown) -wrapped in splint (units (unknown) date) and no surgery unknown) indicated per ortho (unknown) (no (unknown) (unknown) [id number] (units (unkno wn) date) unknown) (unknown) (no (unknown) (unknown) 04/12/22 04/13/22 (units (unknown) date) 04/13/22 unknown) (unknown) (no (unknown) (unknown) 04/13/22 05:49 (units (unknown) date) unknown) (unknown) (no (unknown) (unknown) 04/13/22 1232 (units ( unknown) date) unknown) (unknown) (no (unknown) (unknown) 04/13/22 (units (unkno wn) date) unknown) (unknown) (no (unknown) (unknown) 05:49 (units (unkno wn) date) unknown) (unknown) (no (unknown) (unknown) 07:00 04/13/22 (units (unknown) date) unknown) (unknown) (no (unknown) (unknown) 1. 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 Right displaced (units (unknown) date) ulna fracture unknown) (unknown) (no (unknown) (unknown) 3. Hypertension (units (unknown) date) unknown) (unknown) (no (unknown) (unknown) 4. 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 Hypothyroidism (units (unknown) date) unknown) (unknown) (no (unknown) (unknown) 6. HLD (units (unkno wn) date) unknown) (unknown) (no (unknown) (unknown) 7. Hypokalemia, acute (un its (unknown) date) unknown) (unknown) (no (unknown) (unknown) ABD: soft, nontender, (un its (unknown) date) nondistended, no unknown) organomegaly, normal bowel sounds (unknown) (no (unknown) (unknown) Age/Sex: 82 / F (units (unknown) date) unknown) (unknown) (no (unknown) (unknown) Assessment + Plan (units (unknown) date) narrative: unknown) (unknown) (no (unknown) (unknown) Assessment + Plan (units (unknown) date) unknown) (unknown) (no (unknown) (unknown) BUN 13 (units (unkno wn) date) unknown) (unknown) (no (unknown) (unknown) BUN (units (unkno wn) date) unknown) (unknown) (no (unknown) (unknown) BUN/Creatinine Ratio (uni ts (unknown) date) 31.7 H unknown) (unknown) (no (unknown) (unknown) BUN/Creatinine Ratio (uni ts (unknown) date) unknown) (unknown) (no (unknown) (unknown) Baso # (Auto) 0 (units (unknown) date) unknown) (unknown) (no (unknown) (unknown) Baso # (Auto) (units ( unknown) date) Cancelled unknown) (unknown) (no (unknown) (unknown) Baso % (Auto) 0.5 (units (unknown) date) unknown) (unknown) (no (unknown) (unknown) Baso % (Auto) (units ( unknown) date) Cancelled unknown) (unknown) (no (unknown) (unknown) Blood Pressure 124/49 (un its (unknown) date) L unknown) (unknown) (no (unknown) (unknown) CV: regular rate and (uni ts (unknown) date) rhythm, no murmurs unknown) (unknown) (no (unknown) (unknown) Calcium 7.9 L (units ( unknown) date) unknown) (unknown) (no (unknown) (unknown) Calcium (units (unkno wn) date) unknown) (unknown) (no (unknown) (unknown) Carbon Dioxide 25 (units (unknown) date) unknown) (unknown) (no (unknown) (unknown) Carbon Dioxide (units (unknown) date) unknown) (unknown) (no (unknown) (unknown) Chloride 102 (units (u nknown) date) unknown) (unknown) (no (unknown) (unknown) Chloride (units (unkno wn) date) unknown) (unknown) (no (unknown) (unknown) Creatinine 0.41 L (units (unknown) date) unknown) (unknown) (no (unknown) (unknown) Creatinine (units (unk nown) date) unknown) (unknown) (no (unknown) (unknown) Critical Care time: (unit s (unknown) date) unknown) (unknown) (no (unknown) (unknown) : 1940 (units (unknown) date) Acct:[id number] unknown) (unknown) (no (unknown) (unknown) Date Patient Seen: (units (unknown) date) 04/13/22 unknown) (unknown) (no (unknown) (unknown) Date of Service: (units (unknown) date) 04/09/22 unknown) (unknown) (no (unknown) (unknown) Dementia (units (unkno wn) date) unknown) (unknown) (no (unknown) (unknown) EXT: warm and well (units (unknown) date) perfused, no edema, unknown) right leg externally rotated (unknown) (no (unknown) (unknown) Eos # (Auto) 300 (units (unknown) date) unknown) (unknown) (no (unknown) (unknown) Eos # (Auto) (units (u nknown) date) Cancelled unknown) (unknown) (no (unknown) (unknown) Eos % (Auto) 3.5 (units (unknown) date) unknown) (unknown) (no (unknown) (unknown) Eos % (Auto) (units (u nknown) date) Cancelled unknown) (unknown) (no (unknown) (unknown) Estimated GFR > 60 (units (unknown) date) unknown) (unknown) (no (unknown) (unknown) Estimated GFR (units ( unknown) date) unknown) (unknown) (no (unknown) (unknown) Exam Narrative: (units (unknown) date) unknown) (unknown) (no (unknown) (unknown) Exam (units (unkno wn) date) unknown) (unknown) (no (unknown) (unknown) GEN: elderly female, (uni ts (unknown) date) no acute distress. unknown) (unknown) (no (unknown) (unknown) Glaucoma (units (unkno wn) date) unknown) (unknown) (no (unknown) (unknown) Glucose 81 (units (unk nown) date) unknown) (unknown) (no (unknown) (unknown) Glucose (units (unkno wn) date) unknown) (unknown) (no (unknown) (unknown) H/O: hysterectomy (units (unknown) date) unknown) (unknown) (no (unknown) (unknown) HEENT: moist mucous (unit s (unknown) date) membranes, PERRL unknown) (unknown) (no (unknown) (unknown) Hct 35.2 L (units (unk nown) date) unknown) (unknown) (no (unknown) (unknown) Hct Cancelled (units ( unknown) date) unknown) (unknown) (no (unknown) (unknown) Hgb 11.8 L (units (unk nown) date) unknown) (unknown) (no (unknown) (unknown) Hgb Cancelled (units ( unknown) date) unknown) (unknown) (no (unknown) (unknown) Hypercholesterolemia (uni ts (unknown) date) unknown) (unknown) (no (unknown) (unknown) Hypertension (units (u nknown) date) unknown) (unknown) (no (unknown) (unknown) Hypothyroidism (units (unknown) date) unknown) (unknown) (no (unknown) (unknown) I spent a total of [] (un its (unknown) date) minutes of critical unknown) care time on this patient's care (unknown) (no (unknown) (unknown) Interval history: (units (unknown) date) unknown) (unknown) (no (unknown) (unknown) [facility] 1211 (uni ts (unknown) date) [address] [place] [address], unknown ) [place] [id number] (unknown) (no (unknown) (unknown) Laboratory Results - (uni ts (unknown) date) last 24 hr unknown) (unknown) (no (unknown) (unknown) Labs (units (unkno wn) date) unknown) (unknown) (no (unknown) (unknown) Labs: (units (unkno wn) date) unknown) (unknown) (no (unknown) (unknown) Lymph # (Auto) 1500 (unit s (unknown) date) unknown) (unknown) (no (unknown) (unknown) Lymph # (Auto) (units (unknown) date) Cancelled unknown) (unknown) (no (unknown) (unknown) Lymph % (Auto) 18.6 L (un its (unknown) date) unknown) (unknown) (no (unknown) (unknown) Lymph % (Auto) (units (unknown) date) Cancelled unknown) (unknown) (no (unknown) (unknown) MCH 29.2 (units (unkno wn) date) unknown) (unknown) (no (unknown) (unknown) MCH Cancelled (units ( unknown) date) unknown) (unknown) (no (unknown) (unknown) MCHC 33.5 (units (unkn own) date) unknown) (unknown) (no (unknown) (unknown) MCHC Cancelled (units (unknown) date) unknown) (unknown) (no (unknown) (unknown) MCV 87.1 (units (unkno wn) date) unknown) (unknown) (no (unknown) (unknown) MCV Cancelled (units ( unknown) date) unknown) (unknown) (no (unknown) (unknown) Magnesium 1.9 (units ( unknown) date) unknown) (unknown) (no (unknown) (unknown) Magnesium (units (unkn own) date) unknown) (unknown) (no (unknown) (unknown) Medical History (units (unknown) date) (Reviewed 04/12/22 @ unknown) 08:19 by Steve Mason PA-C) (unknown) (no (unknown) (unknown) Medicine will sign (units (unknown) date) off today. Thank you unknown) for allowing us to participate in the (unknown) (no (unknown) (unknown) [place] # (Auto) 900 (units (unknown) date) unknown) (unknown) (no (unknown) (unknown) [place] # (Auto) (units ( unknown) date) Cancelled unknown) (unknown) (no (unknown) (unknown) [place] % (Auto) 10.9 (units (unknown) date) unknown) (unknown) (no (unknown) (unknown) [place] % (Auto) (units ( unknown) date) Cancelled unknown) (unknown) (no (unknown) (unknown) NECK: trachea (units ( unknown) date) midline, no JVD unknown) (unknown) (no (unknown) (unknown) NEURO: somnolent (units (unknown) date) unknown) (unknown) (no (unknown) (unknown) Narrative (units (unkn own) date) unknown) (unknown) (no (unknown) (unknown) Neut # (Auto) 5500 (units (unknown) date) unknown) (unknown) (no (unknown) (unknown) Neut # (Auto) (units ( unknown) date) Cancelled unknown) (unknown) (no (unknown) (unknown) Neut % (Auto) 66.5 (units (unknown) date) unknown) (unknown) (no (unknown) (unknown) Neut % (Auto) (units ( unknown) date) Cancelled unknown) (unknown) (no (unknown) (unknown) Objective (units (unkn own) date) unknown) (unknown) (no (unknown) (unknown) Oxygen Delivery (units (unknown) date) Method Room Air unknown) (unknown) (no (unknown) (unknown) Oxygen Flow Rate 0 (units (unknown) date) unknown) (unknown) (no (unknown) (unknown) PFSH (units (unkno wn) date) unknown) (unknown) (no (unknown) (unknown) PULM: clear (units (un known) date) bilaterally, no unknown) wheezes, rhonchi, rales (unknown) (no (unknown) (unknown) Patient: (units (unkno wn) date) Sheila Marley MR#: unknown) M0 (unknown) (no (unknown) (unknown) Plt Count 199 (units ( unknown) date) unknown) (unknown) (no (unknown) (unknown) Plt Count Cancelled (unit s (unknown) date) unknown) (unknown) (no (unknown) (unknown) Potassium 4.1 (units ( unknown) date) unknown) (unknown) (no (unknown) (unknown) Potassium (units (unkn own) date) unknown) (unknown) (no (unknown) (unknown) Progress Note (units ( unknown) date) unknown) (unknown) (no (unknown) (unknown) Provider: (units (unkn own) date) Sid Meade D.O. unknown) (unknown) (no (unknown) (unknown) Pulse Oximetry 94 94 (uni ts (unknown) date) unknown) (unknown) (no (unknown) (unknown) Pulse Rate 65 82 (units (unknown) date) unknown) (unknown) (no (unknown) (unknown) RBC 4.03 (units (unkno wn) date) unknown) (unknown) (no (unknown) (unknown) RBC Cancelled (units ( unknown) date) unknown) (unknown) (no (unknown) (unknown) RDW 13.5 (units (unkno wn) date) unknown) (unknown) (no (unknown) (unknown) RDW Cancelled (units ( unknown) date) unknown) (unknown) (no (unknown) (unknown) Respiratory Rate 16 (unit s (unknown) date) unknown) (unknown) (no (unknown) (unknown) Result Diagrams: (units (unknown) date) unknown) (unknown) (no (unknown) (unknown) SARS-CoV-2 (PCR) (units (unknown) date) Negative unknown) (unknown) (no (unknown) (unknown) SARS-CoV-2 (PCR) (units (unknown) date) unknown) (unknown) (no (unknown) (unknown) Seroquel seemed to (units (unknown) date) work well overnight as unknown ) patient did not have agitation. She is (unknown) (no (unknown) (unknown) Signed (units (unkno wn) date) By:<Electronically unknown) signed by Sid Meade D.O.> (unknown) (no (unknown) (unknown) Smoking Status: Never (un its (unknown) date) smoker unknown) (unknown) (no (unknown) (unknown) Social History (units (unknown) date) (Reviewed 04/12/22 @ unknown) 08:19 by Steve Mason PA-C) (unknown) (no (unknown) (unknown) Sodium 134 L (units (u nknown) date) unknown) (unknown) (no (unknown) (unknown) Sodium (units (unkno wn) date) unknown) (unknown) (no (unknown) (unknown) Subjective (units (unk nown) date) unknown) (unknown) (no (unknown) (unknown) Surgical History (units (unknown) date) (Reviewed 04/12/22 @ unknown) 08:19 by Steve Mason PA-C) (unknown) (no (unknown) (unknown) Temperature 97.2 F L (uni ts (unknown) date) unknown) (unknown) (no (unknown) (unknown) Time Patient Seen: (units (unknown) date) 12:30 unknown) (unknown) (no (unknown) (unknown) Time Spent With (units (unknown) date) Patient unknown) (unknown) (no (unknown) (unknown) Vital Signs (units (un known) date) unknown) (unknown) (no (unknown) (unknown) WBC 8.3 (units (unkno wn) date) unknown) (unknown) (no (unknown) (unknown) WBC Cancelled (units ( unknown) date) unknown) (unknown) (no (unknown) (unknown) [Embedded Image Not (unit s (unknown) date) Available] unknown) (unknown) (no (unknown) (unknown) alcohol intake: never (un its (unknown) date) unknown) (unknown) (no (unknown) (unknown) at her baseline this (uni ts (unknown) date) morning of dementia. unknown) Son is at bedside, and when asked who (unknown) (no (unknown) (unknown) care of this patient. (un its (unknown) date) Should you have any unknown) further questions, do not hesitate to (unknown) (no (unknown) (unknown) he is she states (units (unknown) date) 'that's my unknown) ex-'. (unknown) (no (unknown) (unknown) household members: (units (unknown) date) other unknown) (unknown) (no (unknown) (unknown) neck fracture s/p (units (unknown) date) ORIF, now with hip unknown) dislocation (unknown) (no (unknown) (unknown) recommended. (units (u nknown) date) unknown) (unknown) (no (unknown) (unknown) speak with us (units ( unknown) date) directly or call us. unknown) (unknown) (no (unknown) (unknown) today; this time is (unit s (unknown) date) exclusive of unknown) procedural time. Result panel 104 (unknown) (no (unknown) (unknown) (no value) (units (unk nown) date) unknown) (unknown) (no (unknown) (unknown) (past 8 hours): (units (unknown) date) unknown) (unknown) (no (unknown) (unknown) [id number] (units (unkno wn) date) unknown) (unknown) (no (unknown) (unknown) 04/09/22 19:03 (units (unknown) date) unknown) (unknown) (no (unknown) (unknown) 04/09/22 20:53 (units (unknown) date) unknown) (unknown) (no (unknown) (unknown) 04/09/22 21:19 (units (unknown) date) unknown) (unknown) (no (unknown) (unknown) 04/10/22 22:32 (units (unknown) date) unknown) (unknown) (no (unknown) (unknown) 04/11/22 12:15 (units (unknown) date) unknown) (unknown) (no (unknown) (unknown) 04/12/22 04/13/22 (units (unknown) date) 04/13/22 unknown) (unknown) (no (unknown) (unknown) 04/13/22 05:49 (units (unknown) date) unknown) (unknown) (no (unknown) (unknown) 04/13/22 (units (unkno wn) date) unknown) (unknown) (no (unknown) (unknown) 05:49 (units (unkno wn) date) unknown) (unknown) (no (unknown) (unknown) 07:00 04/13/22 (units (unknown) date) unknown) (unknown) (no (unknown) (unknown) 1 drp OPHTHALMIC (units (unknown) date) (EYE) BEDTIME unknown) (unknown) (no (unknown) (unknown) 1 drp OPHTHALMIC (units (unknown) date) (EYE) BID unknown) (unknown) (no (unknown) (unknown) 10 meq PO DAILY (units (unknown) date) unknown) (unknown) (no (unknown) (unknown) 100 mg PO DAILY PRN (unit s (unknown) date) (Reason: Constipation) unknown ) (unknown) (no (unknown) (unknown) 10:48 (units (unkno wn) date) unknown) (unknown) (no (unknown) (unknown) 12.5 mg PO DAILY (units (unknown) date) unknown) (unknown) (no (unknown) (unknown) 15:36 04:25 05:49 (units (unknown) date) unknown) (unknown) (no (unknown) (unknown) 2 mg PO QID PRN (units (unknown) date) (Reason: Diarrhea) unknown) (unknown) (no (unknown) (unknown) 20 meq PO DAILY Qty: (uni ts (unknown) date) 60 0RF unknown) (unknown) (no (unknown) (unknown) 25 mg PO BEDTIME Qty: (un its (unknown) date) 30 0RF unknown) (unknown) (no (unknown) (unknown) 25 mg PO DAILY (units (unknown) date) unknown) (unknown) (no (unknown) (unknown) 40 mg PO DAILY (units (unknown) date) unknown) (unknown) (no (unknown) (unknown) 5 mg PO Q4HR PRN (units (unknown) date) (Reason: Pain, unknown) Moderate (4-6)) Qty: 30 0RF (unknown) (no (unknown) (unknown) 50 mcg PO DAILY (units (unknown) date) unknown) (unknown) (no (unknown) (unknown) 500 mg PO Q6H PRN (units (unknown) date) (Reason: pain) unknown) (unknown) (no (unknown) (unknown) 75 mg PO DAILY (units (unknown) date) unknown) (unknown) (no (unknown) (unknown) 8.6 mg PO DAILY PRN (unit s (unknown) date) (Reason: Constipation) unknown ) (unknown) (no (unknown) (unknown) 81 mg PO BID 42 Days (uni ts (unknown) date) Qty: 84 0RF unknown) (unknown) (no (unknown) (unknown) Activity: The patient (un its (unknown) date) will be maintained in unknown) the abduction pillow at all times (unknown) (no (unknown) (unknown) Age/Sex: 82 / F (units (unknown) date) unknown) (unknown) (no (unknown) (unknown) Steve Mason PA-C (units (unknown) date) unknown) (unknown) (no (unknown) (unknown) BUN 13 (units (unkno wn) date) unknown) (unknown) (no (unknown) (unknown) BUN (units (unkno wn) date) unknown) (unknown) (no (unknown) (unknown) BUN/Creatinine Ratio (uni ts (unknown) date) 31.7 H unknown) (unknown) (no (unknown) (unknown) BUN/Creatinine Ratio (uni ts (unknown) date) unknown) (unknown) (no (unknown) (unknown) Baso # (Auto) 0 (units (unknown) date) unknown) (unknown) (no (unknown) (unknown) Baso # (Auto) (units ( unknown) date) Cancelled unknown) (unknown) (no (unknown) (unknown) Baso % (Auto) 0.5 (units (unknown) date) unknown) (unknown) (no (unknown) (unknown) Baso % (Auto) (units ( unknown) date) Cancelled unknown) (unknown) (no (unknown) (unknown) Blood Pressure 124/49 (un its (unknown) date) L unknown) (unknown) (no (unknown) (unknown) Calcium 7.9 L (units ( unknown) date) unknown) (unknown) (no (unknown) (unknown) Calcium (units (unkno wn) date) unknown) (unknown) (no (unknown) (unknown) Carbon Dioxide 25 (units (unknown) date) unknown) (unknown) (no (unknown) (unknown) Carbon Dioxide (units (unknown) date) unknown) (unknown) (no (unknown) (unknown) Chief complaint: hip (uni ts (unknown) date) pain unknown) (unknown) (no (unknown) (unknown) Chloride 102 (units (u nknown) date) unknown) (unknown) (no (unknown) (unknown) Chloride (units (unkno wn) date) unknown) (unknown) (no (unknown) (unknown) Cold/Heat Therapy: (units (unknown) date) Ice to hip as needed unknown) (unknown) (no (unknown) (unknown) Comment: Platform (units (unknown) date) walker for right arm, unknown) can WB on elbow (unknown) (no (unknown) (unknown) Comment: (units (unkno wn) date) unknown) (unknown) (no (unknown) (unknown) Consult to Dietitian, (un its (unknown) date) Adult Routine unknown) (unknown) (no (unknown) (unknown) Consult to Discharge (uni ts (unknown) date) Planning Routine unknown) (unknown) (no (unknown) (unknown) Consult to (units (unk nown) date) Hospitalist Service unknown) Routine (unknown) (no (unknown) (unknown) Consult to (units (unk nown) date) Occupational Therapy unknown) Evaluate + Treat (unknown) (no (unknown) (unknown) Consult to Physical (unit s (unknown) date) Therapy Evaluate + unknown) Treat (unknown) (no (unknown) (unknown) Consulting Provider: (uni ts (unknown) date) Jorge Camarena unknown) (unknown) (no (unknown) (unknown) Consults: (units (unkn own) date) unknown) (unknown) (no (unknown) (unknown) Continued (units (unkn own) date) unknown) (unknown) (no (unknown) (unknown) Creatinine 0.41 L (units (unknown) date) unknown) (unknown) (no (unknown) (unknown) Creatinine (units (unk nown) date) unknown) (unknown) (no (unknown) (unknown) : 1940 (units (unknown) date) Acct:[id number] unknown) (unknown) (no (unknown) (unknown) Date Patient Seen: (units (unknown) date) 04/13/22 unknown) (unknown) (no (unknown) (unknown) Date of Service: (units (unknown) date) 04/09/22 unknown) (unknown) (no (unknown) (unknown) Date of admission: (units (unknown) date) unknown) (unknown) (no (unknown) (unknown) Dementia (units (unkno wn) date) unknown) (unknown) (no (unknown) (unknown) Diet/Activity/Treatme (un its (unknown) date) nts unknown) (unknown) (no (unknown) (unknown) Discharge Data (units (unknown) date) unknown) (unknown) (no (unknown) (unknown) Discharge Health (units (unknown) date) Status unknown) (unknown) (no (unknown) (unknown) Discharge Plan (units (unknown) date) unknown) (unknown) (no (unknown) (unknown) Discharge Providers (unit s (unknown) date) unknown) (unknown) (no (unknown) (unknown) Discharge Summary (units (unknown) date) unknown) (unknown) (no (unknown) (unknown) Discharge orders + (units (unknown) date) Medications unknown) (unknown) (no (unknown) (unknown) Discharge provider: (unit s (unknown) date) unknown) (unknown) (no (unknown) (unknown) Discontinued (units (u nknown) date) unknown) (unknown) (no (unknown) (unknown) Doctor Miscellaneous, (un its (unknown) date) MD unknown) (unknown) (no (unknown) (unknown) Dressing: Keep (units (unknown) date) dressing clean and dry unknown ) (unknown) (no (unknown) (unknown) Eos # (Auto) 300 (units (unknown) date) unknown) (unknown) (no (unknown) (unknown) Eos # (Auto) (units (u nknown) date) Cancelled unknown) (unknown) (no (unknown) (unknown) Eos % (Auto) 3.5 (units (unknown) date) unknown) (unknown) (no (unknown) (unknown) Eos % (Auto) (units (u nknown) date) Cancelled unknown) (unknown) (no (unknown) (unknown) Estimated GFR > 60 (units (unknown) date) unknown) (unknown) (no (unknown) (unknown) Estimated GFR (units ( unknown) date) unknown) (unknown) (no (unknown) (unknown) Exam (units (unkno wn) date) unknown) (unknown) (no (unknown) (unknown) Follow up/Referrals: (uni ts (unknown) date) unknown) (unknown) (no (unknown) (unknown) Glaucoma (units (unkno wn) date) unknown) (unknown) (no (unknown) (unknown) Glucose 81 (units (unk nown) date) unknown) (unknown) (no (unknown) (unknown) Glucose (units (unkno wn) date) unknown) (unknown) (no (unknown) (unknown) H/O: hysterectomy (units (unknown) date) unknown) (unknown) (no (unknown) (unknown) Has provider been (units (unknown) date) notified: Yes unknown) (unknown) (no (unknown) (unknown) Hct 35.2 L (units (unk nown) date) unknown) (unknown) (no (unknown) (unknown) Hct Cancelled (units ( unknown) date) unknown) (unknown) (no (unknown) (unknown) Hgb 11.8 L (units (unk nown) date) unknown) (unknown) (no (unknown) (unknown) Hgb Cancelled (units ( unknown) date) unknown) (unknown) (no (unknown) (unknown) History of Present (units (unknown) date) Illness unknown) (unknown) (no (unknown) (unknown) Hypercholesterolemia (uni ts (unknown) date) unknown) (unknown) (no (unknown) (unknown) Hypertension (units (u nknown) date) unknown) (unknown) (no (unknown) (unknown) Hypothyroidism (units (unknown) date) unknown) (unknown) (no (unknown) (unknown) Instructions: DI for (uni ts (unknown) date) Hip Replacement, DI unknown) for Open Reduction Internal Fixation (unknown) (no (unknown) (unknown) [facility] 1211 (uni ts (unknown) date) [address] [place] [address] [place], unknown ) [place] [id number] (unknown) (no (unknown) (unknown) Laboratory Results - (uni ts (unknown) date) last 24 hr unknown) (unknown) (no (unknown) (unknown) Labs (units (unkno wn) date) unknown) (unknown) (no (unknown) (unknown) Labs: (units (unkno wn) date) unknown) (unknown) (no (unknown) (unknown) Lymph # (Auto) 1500 (unit s (unknown) date) unknown) (unknown) (no (unknown) (unknown) Lymph # (Auto) (units (unknown) date) Cancelled unknown) (unknown) (no (unknown) (unknown) Lymph % (Auto) 18.6 L (un its (unknown) date) unknown) (unknown) (no (unknown) (unknown) Lymph % (Auto) (units (unknown) date) Cancelled unknown) (unknown) (no (unknown) (unknown) MCH 29.2 (units (unkno wn) date) unknown) (unknown) (no (unknown) (unknown) MCH Cancelled (units ( unknown) date) unknown) (unknown) (no (unknown) (unknown) MCHC 33.5 (units (unkn own) date) unknown) (unknown) (no (unknown) (unknown) MCHC Cancelled (units (unknown) date) unknown) (unknown) (no (unknown) (unknown) MCV 87.1 (units (unkno wn) date) unknown) (unknown) (no (unknown) (unknown) MCV Cancelled (units ( unknown) date) unknown) (unknown) (no (unknown) (unknown) Magnesium 1.9 (units ( unknown) date) unknown) (unknown) (no (unknown) (unknown) Magnesium (units (unkn own) date) unknown) (unknown) (no (unknown) (unknown) Medical History (units (unknown) date) (Reviewed 04/12/22 @ unknown) 08:19 by Steve Mason PA-C) (unknown) (no (unknown) (unknown) Miscellaneous,Doctor, (un its (unknown) date) [Primary Care unknown) Provider] (unknown) (no (unknown) (unknown) [place] # (Auto) 900 (units (unknown) date) unknown) (unknown) (no (unknown) (unknown) [place] # (Auto) (units ( unknown) date) Cancelled unknown) (unknown) (no (unknown) (unknown) [place] % (Auto) 10.9 (units (unknown) date) unknown) (unknown) (no (unknown) (unknown) [place] % (Auto) (units ( unknown) date) Cancelled unknown) (unknown) (no (unknown) (unknown) Multidrug resistant (unit s (unknown) date) organism: No MDRO unknown) (unknown) (no (unknown) (unknown) Neut # (Auto) 5500 (units (unknown) date) unknown) (unknown) (no (unknown) (unknown) Neut # (Auto) (units ( unknown) date) Cancelled unknown) (unknown) (no (unknown) (unknown) Neut % (Auto) 66.5 (units (unknown) date) unknown) (unknown) (no (unknown) (unknown) Neut % (Auto) (units ( unknown) date) Cancelled unknown) (unknown) (no (unknown) (unknown) New (units (unkno wn) date) unknown) (unknown) (no (unknown) (unknown) Jorge Camarena MD (unit s (unknown) date) [Physician] - unknown) (Follow-up in [address] Camarena or ISIDRA) (unknown) (no (unknown) (unknown) Objective (units (unkn own) date) unknown) (unknown) (no (unknown) (unknown) Oxygen Delivery (units (unknown) date) Method Room Air unknown) (unknown) (no (unknown) (unknown) Oxygen Flow Rate 0 (units (unknown) date) unknown) (unknown) (no (unknown) (unknown) PFSH (units (unkno wn) date) unknown) (unknown) (no (unknown) (unknown) Patient Disposition: (uni ts (unknown) date) SNF unknown) (unknown) (no (unknown) (unknown) Patient: (units (unkno wn) date) Sheila Marley MR#: unknown) M0 (unknown) (no (unknown) (unknown) Physician (units (unkn own) date) Instructions: Evaluate unknown ) and treat (unknown) (no (unknown) (unknown) Physician (units (unkn own) date) Instructions: post op unknown) [place] protocol (unknown) (no (unknown) (unknown) Plt Count 199 (units ( unknown) date) unknown) (unknown) (no (unknown) (unknown) Plt Count Cancelled (unit s (unknown) date) unknown) (unknown) (no (unknown) (unknown) Potassium 4.1 (units ( unknown) date) unknown) (unknown) (no (unknown) (unknown) Potassium (units (unkn own) date) unknown) (unknown) (no (unknown) (unknown) Prescriptions: (units (unknown) date) unknown) (unknown) (no (unknown) (unknown) Primary Care (units (u nknown) date) Provider: unknown) Miscellaneous,Doctor (unknown) (no (unknown) (unknown) Primary care (units (u nknown) date) physician: unknown) (unknown) (no (unknown) (unknown) Provider (units (unkno wn) date) unknown) (unknown) (no (unknown) (unknown) Provider: Steve Mason (uni ts (unknown) date) W P.A-C unknown) (unknown) (no (unknown) (unknown) Pulse Oximetry 94 94 (uni ts (unknown) date) unknown) (unknown) (no (unknown) (unknown) Pulse Rate 65 82 (units (unknown) date) unknown) (unknown) (no (unknown) (unknown) RBC 4.03 (units (unkno wn) date) unknown) (unknown) (no (unknown) (unknown) RBC Cancelled (units ( unknown) date) unknown) (unknown) (no (unknown) (unknown) RDW 13.5 (units (unkno wn) date) unknown) (unknown) (no (unknown) (unknown) RDW Cancelled (units ( unknown) date) unknown) (unknown) (no (unknown) (unknown) Reason For Exam: MNA (uni ts (unknown) date) = 11 unknown) (unknown) (no (unknown) (unknown) Reason for (units (unk nown) date) consultation: medical unknown) coverage after hip and forearm fracture (unknown) (no (unknown) (unknown) Reason for (units (unk nown) date) rehabilitation: unknown) Post-operative therapy (unknown) (no (unknown) (unknown) Rehab type: Physical (uni ts (unknown) date) therapy and unknown) Occupational therapy (unknown) (no (unknown) (unknown) Respiratory Rate 16 (unit s (unknown) date) unknown) (unknown) (no (unknown) (unknown) Restrictions to (units (unknown) date) mobility: The patient unknown) will be maintained in the abduction pillow (unknown) (no (unknown) (unknown) Result Diagrams: (units (unknown) date) unknown) (unknown) (no (unknown) (unknown) Rx Instructions: (units (unknown) date) unknown) (unknown) (no (unknown) (unknown) SARS-CoV-2 (PCR) (units (unknown) date) Negative unknown) (unknown) (no (unknown) (unknown) SARS-CoV-2 (PCR) (units (unknown) date) unknown) (unknown) (no (unknown) (unknown) Signed By: (units (unk nown) date) unknown) (unknown) (no (unknown) (unknown) Skin/Wound/Dressing (unit s (unknown) date) Care unknown) (unknown) (no (unknown) (unknown) Smoking Status: Never (un its (unknown) date) smoker unknown) (unknown) (no (unknown) (unknown) Social History (units (unknown) date) (Reviewed 04/12/22 @ unknown) 08:19 by Steve Mason PA-C) (unknown) (no (unknown) (unknown) Sodium 134 L (units (u nknown) date) unknown) (unknown) (no (unknown) (unknown) Sodium (units (unkno wn) date) unknown) (unknown) (no (unknown) (unknown) Special (units (unkno wn) date) Rehabilitation unknown) Services (unknown) (no (unknown) (unknown) Stand Alone Forms: (units (unknown) date) Patient Portal/API, unknown) Surgery Discharge (unknown) (no (unknown) (unknown) Surgery, DI for (units (unknown) date) Prescription Opioid unknown) Use (unknown) (no (unknown) (unknown) Surgical History (units (unknown) date) (Reviewed 04/12/22 @ unknown) 08:19 by Steve Mason PA-C) (unknown) (no (unknown) (unknown) Temperature 97.2 F L (uni ts (unknown) date) unknown) (unknown) (no (unknown) (unknown) Visit (units (unkno wn) date) Report/Discharge unknown) Packet (unknown) (no (unknown) (unknown) Vital Signs (units (un known) date) unknown) (unknown) (no (unknown) (unknown) WBC 8.3 (units (unkno wn) date) unknown) (unknown) (no (unknown) (unknown) WBC Cancelled (units ( unknown) date) unknown) (unknown) (no (unknown) (unknown) [Embedded Image Not (unit s (unknown) date) Available] unknown) (unknown) (no (unknown) (unknown) acetaminophen 500 mg (uni ts (unknown) date) Capsule unknown) (unknown) (no (unknown) (unknown) alcohol intake: never (un its (unknown) date) unknown) (unknown) (no (unknown) (unknown) aspirin 81 mg (units ( unknown) date) Tablet,Delayed Release unknown ) (Dr/Ec) (unknown) (no (unknown) (unknown) at all times except (unit s (unknown) date) physical therapy. unknown) (unknown) (no (unknown) (unknown) atorvastatin 40 mg (units (unknown) date) Tablet unknown) (unknown) (no (unknown) (unknown) both eyes (units (unkn own) date) unknown) (unknown) (no (unknown) (unknown) docusate sodium 100 (unit s (unknown) date) mg Capsule unknown) (unknown) (no (unknown) (unknown) except physical (units (unknown) date) therapy. unknown) (unknown) (no (unknown) (unknown) fixation (units (unkno wn) date) unknown) (unknown) (no (unknown) (unknown) household members: (units (unknown) date) other unknown) (unknown) (no (unknown) (unknown) hydrochlorothiazide (unit s (unknown) date) 12.5 mg Capsule unknown) (unknown) (no (unknown) (unknown) latanoprost 0.005 % (unit s (unknown) date) Drops unknown) (unknown) (no (unknown) (unknown) levothyroxine 50 mcg (uni ts (unknown) date) Tablet unknown) (unknown) (no (unknown) (unknown) loperamide 2 mg (units (unknown) date) Capsule unknown) (unknown) (no (unknown) (unknown) metoprolol succinate (uni ts (unknown) date) 25 mg unknown) Capsule,Sprinkle,Er 24hr (unknown) (no (unknown) (unknown) oxycodone 5 mg Tablet (un its (unknown) date) unknown) (unknown) (no (unknown) (unknown) potassium chloride 20 (un its (unknown) date) mEq tablet extended unknown) release (unknown) (no (unknown) (unknown) potassium chloride (units (unknown) date) [Klor-Con 10] 10 mEq unknown) Tablet Extended Release (unknown) (no (unknown) (unknown) quetiapine 25 mg (units (unknown) date) Tablet unknown) (unknown) (no (unknown) (unknown) senna 8.6 mg Capsule (uni ts (unknown) date) unknown) (unknown) (no (unknown) (unknown) sertraline 50 mg (units (unknown) date) Tablet unknown) (unknown) (no (unknown) (unknown) timolol 0.5 % Drops (unit s (unknown) date) unknown) Result panel 105 (unknown) (no (unknown) (unknown) (no value) (units (unk nown) date) unknown) (unknown) (no (unknown) (unknown) (past 8 hours): (units (unknown) date) unknown) (unknown) (no (unknown) (unknown) [id number] (units (unkno wn) date) unknown) (unknown) (no (unknown) (unknown) 04/09/22 19:03 (units (unknown) date) unknown) (unknown) (no (unknown) (unknown) 04/09/22 20:53 (units (unknown) date) unknown) (unknown) (no (unknown) (unknown) 04/09/22 21:19 (units (unknown) date) unknown) (unknown) (no (unknown) (unknown) 04/10/22 22:32 (units (unknown) date) unknown) (unknown) (no (unknown) (unknown) 04/11/22 12:15 (units (unknown) date) unknown) (unknown) (no (unknown) (unknown) 04/12/22 04/13/22 (units (unknown) date) 04/13/22 unknown) (unknown) (no (unknown) (unknown) 04/13/22 05:49 (units (unknown) date) unknown) (unknown) (no (unknown) (unknown) 04/13/22 1315 (units ( unknown) date) unknown) (unknown) (no (unknown) (unknown) 04/13/22 (units (unkno wn) date) unknown) (unknown) (no (unknown) (unknown) 05:49 (units (unkno wn) date) unknown) (unknown) (no (unknown) (unknown) 07:00 04/13/22 (units (unknown) date) unknown) (unknown) (no (unknown) (unknown) 1 drp OPHTHALMIC (units (unknown) date) (EYE) BEDTIME unknown) (unknown) (no (unknown) (unknown) 1 drp OPHTHALMIC (units (unknown) date) (EYE) BID unknown) (unknown) (no (unknown) (unknown) 1. Right hip (units (u nknown) date) hemiarthroplasty unknown) (unknown) (no (unknown) (unknown) 10 meq PO DAILY (units (unknown) date) unknown) (unknown) (no (unknown) (unknown) 100 mg PO DAILY PRN (unit s (unknown) date) (Reason: Constipation) unknown ) (unknown) (no (unknown) (unknown) 10:48 (units (unkno wn) date) unknown) (unknown) (no (unknown) (unknown) 12.5 mg PO DAILY (units (unknown) date) unknown) (unknown) (no (unknown) (unknown) 15:36 04:25 05:49 (units (unknown) date) unknown) (unknown) (no (unknown) (unknown) 2 mg PO QID PRN (units (unknown) date) (Reason: Diarrhea) unknown) (unknown) (no (unknown) (unknown) 2. Open reduction (units (unknown) date) internal fixation of unknown) right radial shaft fracture. (unknown) (no (unknown) (unknown) 20 meq PO DAILY Qty: (uni ts (unknown) date) 60 0RF unknown) (unknown) (no (unknown) (unknown) 25 mg PO BEDTIME Qty: (un its (unknown) date) 30 0RF unknown) (unknown) (no (unknown) (unknown) 25 mg PO DAILY (units (unknown) date) unknown) (unknown) (no (unknown) (unknown) 40 mg PO DAILY (units (unknown) date) unknown) (unknown) (no (unknown) (unknown) 5 mg PO Q4HR PRN (units (unknown) date) (Reason: Pain, unknown) Moderate (4-6)) Qty: 30 0RF (unknown) (no (unknown) (unknown) 50 mcg PO DAILY (units (unknown) date) unknown) (unknown) (no (unknown) (unknown) 500 mg PO Q6H PRN (units (unknown) date) (Reason: pain) unknown) (unknown) (no (unknown) (unknown) 75 mg PO DAILY (units (unknown) date) unknown) (unknown) (no (unknown) (unknown) 8.6 mg PO DAILY PRN (unit s (unknown) date) (Reason: Constipation) unknown ) (unknown) (no (unknown) (unknown) 81 mg PO BID 42 Days (uni ts (unknown) date) Qty: 84 0RF unknown) (unknown) (no (unknown) (unknown) 82-year-old female (units (unknown) date) sitting comfortably in unknown ) bedside chair in no apparent distress. (unknown) (no (unknown) (unknown) 82-year-old female (units (unknown) date) with dementia sitting unknown) comfortably in bedside chair. Son is (unknown) (no (unknown) (unknown) Abduction pillow in (unit s (unknown) date) place. Catheter in unknown) place. Right upper extremity is in a (unknown) (no (unknown) (unknown) Activity: The patient (un its (unknown) date) will be maintained in unknown) the abduction pillow at all times (unknown) (no (unknown) (unknown) Age/Sex: 82 / F (units (unknown) date) unknown) (unknown) (no (unknown) (unknown) Steve Mason PA-C (units (unknown) date) unknown) (unknown) (no (unknown) (unknown) Anesthesia Type: (units (unknown) date) General and Local unknown) (unknown) (no (unknown) (unknown) Applied: cast(s) and (uni ts (unknown) date) implant(s) unknown) (unknown) (no (unknown) (unknown) Assessment and Plan (unit s (unknown) date) unknown) (unknown) (no (unknown) (unknown) Assessment: (units (un known) date) unknown) (unknown) (no (unknown) (unknown) Physical Director: Valery A (units (unknown) date) Walker unknown) (unknown) (no (unknown) (unknown) BUN 13 (units (unkno wn) date) unknown) (unknown) (no (unknown) (unknown) BUN (units (unkno wn) date) unknown) (unknown) (no (unknown) (unknown) BUN/Creatinine Ratio (uni ts (unknown) date) 31.7 H unknown) (unknown) (no (unknown) (unknown) BUN/Creatinine Ratio (uni ts (unknown) date) unknown) (unknown) (no (unknown) (unknown) Baso # (Auto) 0 (units (unknown) date) unknown) (unknown) (no (unknown) (unknown) Baso # (Auto) (units ( unknown) date) Cancelled unknown) (unknown) (no (unknown) (unknown) Baso % (Auto) 0.5 (units (unknown) date) unknown) (unknown) (no (unknown) (unknown) Baso % (Auto) (units ( unknown) date) Cancelled unknown) (unknown) (no (unknown) (unknown) Blood Pressure 124/49 (un its (unknown) date) L unknown) (unknown) (no (unknown) (unknown) Blood products (units (unknown) date) transfused: none unknown) (unknown) (no (unknown) (unknown) Calcium 7.9 L (units ( unknown) date) unknown) (unknown) (no (unknown) (unknown) Calcium (units (unkno wn) date) unknown) (unknown) (no (unknown) (unknown) Carbon Dioxide 25 (units (unknown) date) unknown) (unknown) (no (unknown) (unknown) Carbon Dioxide (units (unknown) date) unknown) (unknown) (no (unknown) (unknown) Chest (units (unkno wn) date) unknown) (unknown) (no (unknown) (unknown) Chest: normal (units ( unknown) date) inspection of the unknown) chest (unknown) (no (unknown) (unknown) Chief complaint: Hip (uni ts (unknown) date) pain unknown) (unknown) (no (unknown) (unknown) Chloride 102 (units (u nknown) date) unknown) (unknown) (no (unknown) (unknown) Chloride (units (unkno wn) date) unknown) (unknown) (no (unknown) (unknown) Click Yes if (units (u nknown) date) Unassisted: No unknown) (unknown) (no (unknown) (unknown) Closed reduction (units (unknown) date) dislocated right hip unknown) hemiarthroplasty April 12, 2022 (unknown) (no (unknown) (unknown) Closure Type: primary (un its (unknown) date) unknown) (unknown) (no (unknown) (unknown) Cognitive/behavioral (uni ts (unknown) date) status at discharge: unknown) confused (unknown) (no (unknown) (unknown) Cold/Heat Therapy: (units (unknown) date) Ice to hip as needed unknown) (unknown) (no (unknown) (unknown) Comment: Platform (units (unknown) date) walker for right arm, unknown) can WB on elbow (unknown) (no (unknown) (unknown) Comment: (units (unkno wn) date) unknown) (unknown) (no (unknown) (unknown) Const (units (unkno wn) date) unknown) (unknown) (no (unknown) (unknown) Consult as needed: (units (unknown) date) Mental health unknown) (unknown) (no (unknown) (unknown) Consult to Dietitian, (un its (unknown) date) Adult Routine unknown) (unknown) (no (unknown) (unknown) Consult to Discharge (uni ts (unknown) date) Planning Routine unknown) (unknown) (no (unknown) (unknown) Consult to (units (unk nown) date) Hospitalist Service unknown) Routine (unknown) (no (unknown) (unknown) Consult to (units (unk nown) date) Occupational Therapy unknown) Evaluate + Treat (unknown) (no (unknown) (unknown) Consult to Physical (unit s (unknown) date) Therapy Evaluate + unknown) Treat (unknown) (no (unknown) (unknown) Consulting Provider: (uni ts (unknown) date) Jorge Camarena unknown) (unknown) (no (unknown) (unknown) Consults: (units (unkn own) date) unknown) (unknown) (no (unknown) (unknown) Continued (units (unkn own) date) unknown) (unknown) (no (unknown) (unknown) Corporation for the (unit s (unknown) date) hip and included a unknown) size 10 synergy cemented stem with a 45 (unknown) (no (unknown) (unknown) Creatinine 0.41 L (units (unknown) date) unknown) (unknown) (no (unknown) (unknown) Creatinine (units (unk nown) date) unknown) (unknown) (no (unknown) (unknown) : 1940 (units (unknown) date) Acct:[id number] unknown) (unknown) (no (unknown) (unknown) Date Patient Seen: (units (unknown) date) 04/13/22 unknown) (unknown) (no (unknown) (unknown) Date of Service: (units (unknown) date) 04/09/22 unknown) (unknown) (no (unknown) (unknown) Date of admission: (units (unknown) date) unknown) (unknown) (no (unknown) (unknown) Dementia (units (unkno wn) date) unknown) (unknown) (no (unknown) (unknown) Diet/Activity/Treatme (un its (unknown) date) nts unknown) (unknown) (no (unknown) (unknown) Diet: Diet as (units ( unknown) date) Tolerated unknown) (unknown) (no (unknown) (unknown) Discharge Assessment (uni ts (unknown) date) + Plan unknown) (unknown) (no (unknown) (unknown) Discharge Data (units (unknown) date) unknown) (unknown) (no (unknown) (unknown) Discharge Date: (units (unknown) date) 04/13/22 unknown) (unknown) (no (unknown) (unknown) Discharge Diagnosis: (uni ts (unknown) date) unknown) (unknown) (no (unknown) (unknown) Discharge Health (units (unknown) date) Status unknown) (unknown) (no (unknown) (unknown) Discharge Plan (units (unknown) date) unknown) (unknown) (no (unknown) (unknown) Discharge Providers (unit s (unknown) date) unknown) (unknown) (no (unknown) (unknown) Discharge Summary (units (unknown) date) unknown) (unknown) (no (unknown) (unknown) Discharge orders + (units (unknown) date) Medications unknown) (unknown) (no (unknown) (unknown) Discharge provider: (unit s (unknown) date) unknown) (unknown) (no (unknown) (unknown) Discharge to skilled (uni ts (unknown) date) nursing facility unknown) today. (unknown) (no (unknown) (unknown) Discontinued (units (u nknown) date) unknown) (unknown) (no (unknown) (unknown) Displaced femoral neck (un its (unknown) date) and radial shaft unknown) fractures significant comminution of the (unknown) (no (unknown) (unknown) Doctor Miscellaneous, (un its (unknown) date) MD unknown) (unknown) (no (unknown) (unknown) Dressing: Keep (units (unknown) date) dressing clean and dry unknown ) (unknown) (no (unknown) (unknown) Due to her dementia (units (unknown) date) patient has not been unknown) compliant with her postop restrictions. (unknown) (no (unknown) (unknown) Effort + Inspection: (uni ts (unknown) date) normal respiratory unknown) effort (unknown) (no (unknown) (unknown) Eos # (Auto) 300 (units (unknown) date) unknown) (unknown) (no (unknown) (unknown) Eos # (Auto) (units (u nknown) date) Cancelled unknown) (unknown) (no (unknown) (unknown) Eos % (Auto) 3.5 (units (unknown) date) unknown) (unknown) (no (unknown) (unknown) Eos % (Auto) (units (u nknown) date) Cancelled unknown) (unknown) (no (unknown) (unknown) Estimated Blood Loss (uni ts (unknown) date) (mL): 150 unknown) (unknown) (no (unknown) (unknown) Estimated GFR > 60 (units (unknown) date) unknown) (unknown) (no (unknown) (unknown) Estimated GFR (units ( unknown) date) unknown) (unknown) (no (unknown) (unknown) Exam Narrative: (units (unknown) date) unknown) (unknown) (no (unknown) (unknown) Exam (units (unkno wn) date) unknown) (unknown) (no (unknown) (unknown) Findings: (units (unkn own) date) unknown) (unknown) (no (unknown) (unknown) Follow up/Referrals: (uni ts (unknown) date) unknown) (unknown) (no (unknown) (unknown) Follow-up with (units (unknown) date) [facility] unknown) Orthopedics in 2 weeks (unknown) (no (unknown) (unknown) Functional status at (uni ts (unknown) date) discharge: uses unknown) cane/walker (unknown) (no (unknown) (unknown) General: comfortable (uni ts (unknown) date) unknown) (unknown) (no (unknown) (unknown) Glaucoma (units (unkno wn) date) unknown) (unknown) (no (unknown) (unknown) Glucose 81 (units (unk nown) date) unknown) (unknown) (no (unknown) (unknown) Glucose (units (unkno wn) date) unknown) (unknown) (no (unknown) (unknown) H/O: hysterectomy (units (unknown) date) unknown) (unknown) (no (unknown) (unknown) HENMT (units (unkno wn) date) unknown) (unknown) (no (unknown) (unknown) Has provider been (units (unknown) date) notified: Yes unknown) (unknown) (no (unknown) (unknown) Hct 35.2 L (units (unk nown) date) unknown) (unknown) (no (unknown) (unknown) Hct Cancelled (units ( unknown) date) unknown) (unknown) (no (unknown) (unknown) Head: normal to (units (unknown) date) inspection unknown) (unknown) (no (unknown) (unknown) Hgb 11.8 L (units (unk nown) date) unknown) (unknown) (no (unknown) (unknown) Hgb Cancelled (units ( unknown) date) unknown) (unknown) (no (unknown) (unknown) History of Present (units (unknown) date) Illness unknown) (unknown) (no (unknown) (unknown) Hospital Course (units (unknown) date) unknown) (unknown) (no (unknown) (unknown) Hospital Course: (units (unknown) date) unknown) (unknown) (no (unknown) (unknown) Hypercholesterolemia (uni ts (unknown) date) unknown) (unknown) (no (unknown) (unknown) Hypertension (units (u nknown) date) unknown) (unknown) (no (unknown) (unknown) Hypothyroidism (units (unknown) date) unknown) (unknown) (no (unknown) (unknown) Implants used in this (un its (unknown) date) procedure were unknown) manufactured by the [employer] (unknown) (no (unknown) (unknown) Indications: (units (u nknown) date) unknown) (unknown) (no (unknown) (unknown) Instructions: DI for (uni ts (unknown) date) Hip Replacement, DI unknown) for Open Reduction Internal Fixation (unknown) (no (unknown) (unknown) [facility] [address] (uni ts (unknown) date) [address] [place] [address], unknown ) [place] [id number] (unknown) (no (unknown) (unknown) April 12, 2022. (units (unknown) date) X-rays confirmed unknown) dislocated right hip hemiarthroplasty. (unknown) (no (unknown) (unknown) Laboratory Results - (uni ts (unknown) date) last 24 hr unknown) (unknown) (no (unknown) (unknown) Labs (units (unkno wn) date) unknown) (unknown) (no (unknown) (unknown) Labs: (units (unkno wn) date) unknown) (unknown) (no (unknown) (unknown) Lymph # (Auto) 1500 (unit s (unknown) date) unknown) (unknown) (no (unknown) (unknown) Lymph # (Auto) (units (unknown) date) Cancelled unknown) (unknown) (no (unknown) (unknown) Lymph % (Auto) 18.6 L (un its (unknown) date) unknown) (unknown) (no (unknown) (unknown) Lymph % (Auto) (units (unknown) date) Cancelled unknown) (unknown) (no (unknown) (unknown) MCH 29.2 (units (unkno wn) date) unknown) (unknown) (no (unknown) (unknown) MCH Cancelled (units ( unknown) date) unknown) (unknown) (no (unknown) (unknown) MCHC 33.5 (units (unkn own) date) unknown) (unknown) (no (unknown) (unknown) MCHC Cancelled (units (unknown) date) unknown) (unknown) (no (unknown) (unknown) MCV 87.1 (units (unkno wn) date) unknown) (unknown) (no (unknown) (unknown) MCV Cancelled (units ( unknown) date) unknown) (unknown) (no (unknown) (unknown) Magnesium 1.9 (units ( unknown) date) unknown) (unknown) (no (unknown) (unknown) Magnesium (units (unkn own) date) unknown) (unknown) (no (unknown) (unknown) Medical History (units (unknown) date) (Reviewed 04/13/22 @ unknown) 13:13 by Steve Mason PA-C) (unknown) (no (unknown) (unknown) Miscellaneous,Doctor, (un its (unknown) date) MD [Primary Care unknown) Provider] (unknown) (no (unknown) (unknown) [place] # (Auto) 900 (units (unknown) date) unknown) (unknown) (no (unknown) (unknown) [place] # (Auto) (units ( unknown) date) Cancelled unknown) (unknown) (no (unknown) (unknown) [place] % (Auto) 10.9 (units (unknown) date) unknown) (unknown) (no (unknown) (unknown) [place] % (Auto) (units ( unknown) date) Cancelled unknown) (unknown) (no (unknown) (unknown) Multidrug resistant (unit s (unknown) date) organism: No MDRO unknown) (unknown) (no (unknown) (unknown) Multimodal pain (units (unknown) date) management unknown) (unknown) (no (unknown) (unknown) Narrative (units (unkn own) date) unknown) (unknown) (no (unknown) (unknown) Narrative: (units (unk nown) date) unknown) (unknown) (no (unknown) (unknown) Neut # (Auto) 5500 (units (unknown) date) unknown) (unknown) (no (unknown) (unknown) Neut # (Auto) (units ( unknown) date) Cancelled unknown) (unknown) (no (unknown) (unknown) Neut % (Auto) 66.5 (units (unknown) date) unknown) (unknown) (no (unknown) (unknown) Neut % (Auto) (units ( unknown) date) Cancelled unknown) (unknown) (no (unknown) (unknown) New (units (unkno wn) date) unknown) (unknown) (no (unknown) (unknown) Nutritional (units (un known) date) Appearance: average unknown) body habitus (unknown) (no (unknown) (unknown) Jorge Camarena MD (unit s (unknown) date) [Physician] - unknown) (Follow-up in [address] Camarena or [facility]) (unknown) (no (unknown) (unknown) Objective (units (unkn own) date) unknown) (unknown) (no (unknown) (unknown) Open reduction (units (unknown) date) internal fixation unknown) right radial shaft fracture, April 10, 2022 (unknown) (no (unknown) (unknown) Operative Notes (units (unknown) date) unknown) (unknown) (no (unknown) (unknown) Orientation: confused (un its (unknown) date) unknown) (unknown) (no (unknown) (unknown) Overall status at (units (unknown) date) discharge: patient is unknown) progressing back to baseline (unknown) (no (unknown) (unknown) Oxygen Delivery (units (unknown) date) Method Room Air unknown) (unknown) (no (unknown) (unknown) Oxygen Flow Rate 0 (units (unknown) date) unknown) (unknown) (no (unknown) (unknown) PFSH (units (unkno wn) date) unknown) (unknown) (no (unknown) (unknown) PT/OT (units (unkno wn) date) unknown) (unknown) (no (unknown) (unknown) Patient Disposition: (uni ts (unknown) date) SNF unknown) (unknown) (no (unknown) (unknown) Patient is stable (units (unknown) date) status post right hip unknown) hemiarthroplasty, open reduction (unknown) (no (unknown) (unknown) Patient was consented (un its (unknown) date) April 12, 2022 and unknown) was taken to the operating room for (unknown) (no (unknown) (unknown) Patient was found to (uni ts (unknown) date) have shortened and unknown) internally rotated right leg yesterday (unknown) (no (unknown) (unknown) Patient: (units (unkno wn) date) Sheila Marley MR#: unknown) M0 (unknown) (no (unknown) (unknown) Physician (units (unkn own) date) Instructions: Evaluate unknown ) and treat (unknown) (no (unknown) (unknown) Physician (units (unkn own) date) Instructions: post op unknown) [facility] protocol (unknown) (no (unknown) (unknown) Plan of Treatment: (units (unknown) date) unknown) (unknown) (no (unknown) (unknown) Plt Count 199 (units ( unknown) date) unknown) (unknown) (no (unknown) (unknown) Plt Count Cancelled (unit s (unknown) date) unknown) (unknown) (no (unknown) (unknown) Potassium 4.1 (units ( unknown) date) unknown) (unknown) (no (unknown) (unknown) Potassium (units (unkn own) date) unknown) (unknown) (no (unknown) (unknown) Prescriptions: (units (unknown) date) unknown) (unknown) (no (unknown) (unknown) Primary Care (units (u nknown) date) Provider: unknown) Miscellaneous,Doctor (unknown) (no (unknown) (unknown) Primary care (units (u nknown) date) physician: unknown) (unknown) (no (unknown) (unknown) Prosthetic devices, (unit s (unknown) date) grafts, tissues, unknown) transplants, or devices: (unknown) (no (unknown) (unknown) Provider (units (unkno wn) date) unknown) (unknown) (no (unknown) (unknown) Provider: Steve Mason (uni ts (unknown) date) [place] unknown) (unknown) (no (unknown) (unknown) Pulse Oximetry 94 94 (uni ts (unknown) date) unknown) (unknown) (no (unknown) (unknown) Pulse Rate 65 82 (units (unknown) date) unknown) (unknown) (no (unknown) (unknown) RBC 4.03 (units (unkno wn) date) unknown) (unknown) (no (unknown) (unknown) RBC Cancelled (units ( unknown) date) unknown) (unknown) (no (unknown) (unknown) RDW 13.5 (units (unkno wn) date) unknown) (unknown) (no (unknown) (unknown) RDW Cancelled (units ( unknown) date) unknown) (unknown) (no (unknown) (unknown) Reason For Exam: MNA (uni ts (unknown) date) = 11 unknown) (unknown) (no (unknown) (unknown) Reason for (units (unk nown) date) consultation: medical unknown) coverage after hip and forearm fracture (unknown) (no (unknown) (unknown) Reason for (units (unk nown) date) rehabilitation: unknown) Post-operative therapy (unknown) (no (unknown) (unknown) Rehab type: Physical (uni ts (unknown) date) therapy and unknown) Occupational therapy (unknown) (no (unknown) (unknown) Report to your (units (unknown) date) healthcare provider unknown) any signs of infection, such as:: chills, (unknown) (no (unknown) (unknown) Resp (units (unkno wn) date) unknown) (unknown) (no (unknown) (unknown) Respiratory Rate 16 (unit s (unknown) date) unknown) (unknown) (no (unknown) (unknown) Restrictions to (units (unknown) date) mobility: The patient unknown) will be maintained in the abduction pillow (unknown) (no (unknown) (unknown) Result Diagrams: (units (unknown) date) unknown) (unknown) (no (unknown) (unknown) Rx Instructions: (units (unknown) date) unknown) (unknown) (no (unknown) (unknown) SARS-CoV-2 (PCR) (units (unknown) date) Negative unknown) (unknown) (no (unknown) (unknown) SARS-CoV-2 (PCR) (units (unknown) date) unknown) (unknown) (no (unknown) (unknown) Same procedure as (units (unknown) date) scheduled: Yes unknown) (unknown) (no (unknown) (unknown) She will be allowed (unit s (unknown) date) to weight bear on the unknown) right upper extremity on her elbow (unknown) (no (unknown) (unknown) Signed (units (unkno wn) date) By:<Electronically unknown) signed by Steve Katz (unknown) (no (unknown) (unknown) Skin/Wound/Dressing (unit s (unknown) date) Care unknown) (unknown) (no (unknown) (unknown) Smoking Status: Never (un its (unknown) date) smoker unknown) (unknown) (no (unknown) (unknown) Social History (units (unknown) date) (Reviewed 04/13/22 @ unknown) 13:13 by Steve Mason PA-C) (unknown) (no (unknown) (unknown) Sodium 134 L (units (u nknown) date) unknown) (unknown) (no (unknown) (unknown) Sodium (units (unkno wn) date) unknown) (unknown) (no (unknown) (unknown) Special (units (unkno wn) date) Rehabilitation unknown) Services (unknown) (no (unknown) (unknown) Specimen(s): none (units (unknown) date) sent unknown) (unknown) (no (unknown) (unknown) Stand Alone Forms: (units (unknown) date) Patient Portal/API, unknown) Surgery Discharge (unknown) (no (unknown) (unknown) Status at Discharge (unit s (unknown) date) unknown) (unknown) (no (unknown) (unknown) Status post right hip (un its (unknown) date) hemiarthroplasty unknown) April 10, 2022 (unknown) (no (unknown) (unknown) Summary (units (unkno wn) date) unknown) (unknown) (no (unknown) (unknown) Surgeon: Jorge Meneses (units (unknown) date) Nicol unknown) (unknown) (no (unknown) (unknown) Surgery, DI for (units (unknown) date) Prescription Opioid unknown) Use (unknown) (no (unknown) (unknown) Surgical History (units (unknown) date) (Reviewed 04/13/22 @ unknown) 13:13 by Steve Mason PA-C) (unknown) (no (unknown) (unknown) Temperature 97.2 F L (uni ts (unknown) date) unknown) (unknown) (no (unknown) (unknown) The patient is an (units (unknown) date) 82-year-old woman who unknown) has had several falls recently.? She (unknown) (no (unknown) (unknown) The patient will be (unit s (unknown) date) maintained in the unknown) abduction pillow at all times except (unknown) (no (unknown) (unknown) Time Patient Seen: (units (unknown) date) 13:07 unknown) (unknown) (no (unknown) (unknown) Tourniquet time (units (unknown) date) (min): 47 unknown) (unknown) (no (unknown) (unknown) Transfer to: (units (u nknown) date) [facility] (unknown) (no (unknown) (unknown) Visit (units (unkno wn) date) Report/Discharge unknown) Packet (unknown) (no (unknown) (unknown) Vital Signs (units (un known) date) unknown) (unknown) (no (unknown) (unknown) WBC 8.3 (units (unkno wn) date) unknown) (unknown) (no (unknown) (unknown) WBC Cancelled (units ( unknown) date) unknown) (unknown) (no (unknown) (unknown) [Embedded Image Not (unit s (unknown) date) Available] unknown) (unknown) (no (unknown) (unknown) accomplished. (units ( unknown) date) Reduction verified on unknown) fluoro. Abduction pillow placed. Patient (unknown) (no (unknown) (unknown) acetaminophen 500 mg (uni ts (unknown) date) Capsule unknown) (unknown) (no (unknown) (unknown) alcohol intake: never (un its (unknown) date) unknown) (unknown) (no (unknown) (unknown) aspirin 81 mg (units ( unknown) date) Tablet,Delayed Release unknown ) (Dr/Ec) (unknown) (no (unknown) (unknown) at all times except (unit s (unknown) date) physical therapy. unknown) (unknown) (no (unknown) (unknown) at bedside. (units (un known) date) unknown) (unknown) (no (unknown) (unknown) atorvastatin 40 mg (units (unknown) date) Tablet unknown) (unknown) (no (unknown) (unknown) both eyes (units (unkn own) date) unknown) (unknown) (no (unknown) (unknown) capillary refill. (units (unknown) date) Motor functions intact unknown ) distal right upper extremity. Right (unknown) (no (unknown) (unknown) centralizer.? In (units (unknown) date) addition a Martha unknown) Orthopedics canal plug was used.? With (unknown) (no (unknown) (unknown) closed reduction of (unit s (unknown) date) dislocated right hip unknown) hemiarthroplasty. Reduction was (unknown) (no (unknown) (unknown) compression plate (units (unknown) date) with 3 14 mm, 2 16 mm unknown) and 2 18 mm screws were used. (unknown) (no (unknown) (unknown) discussion the risks (uni ts (unknown) date) benefits and unknown) alternatives as documented in my history and (unknown) (no (unknown) (unknown) docusate sodium 100 (unit s (unknown) date) mg Capsule unknown) (unknown) (no (unknown) (unknown) except physical (units (unknown) date) therapy. unknown) (unknown) (no (unknown) (unknown) feels that she is (units (unknown) date) stable for skilled unknown) nursing facility. Patient will be (unknown) (no (unknown) (unknown) fever, night sweats, (uni ts (unknown) date) increased pain, unknown) unusual drainage and unusual redness (unknown) (no (unknown) (unknown) fixation (units (unkno wn) date) unknown) (unknown) (no (unknown) (unknown) fractures.? Her son (unit s (unknown) date) who holds durable unknown) power of medical staff services coordinator has given consent after (unknown) (no (unknown) (unknown) hemiarthroplasty on (unit s (unknown) date) April 12, 2022. unknown) (unknown) (no (unknown) (unknown) hemiarthroplasty. (units (unknown) date) unknown) (unknown) (no (unknown) (unknown) hip fracture.? She is (un its (unknown) date) been admitted to the unknown) hospital for treatment of these (unknown) (no (unknown) (unknown) hip incision is (units (unknown) date) clean, dry and intact. unknown ) Motor functions intact distal right (unknown) (no (unknown) (unknown) household members: (units (unknown) date) other unknown) (unknown) (no (unknown) (unknown) hydrochlorothiazide (unit s (unknown) date) 12.5 mg Capsule unknown) (unknown) (no (unknown) (unknown) internal fixation (units (unknown) date) right radial shaft unknown) fracture with closed reduction of right hip (unknown) (no (unknown) (unknown) latanoprost 0.005 % (unit s (unknown) date) Drops unknown) (unknown) (no (unknown) (unknown) levothyroxine 50 mcg (uni ts (unknown) date) Tablet unknown) (unknown) (no (unknown) (unknown) loperamide 2 mg (units (unknown) date) Capsule unknown) (unknown) (no (unknown) (unknown) lower extremity. (units (unknown) date) Sensation grossly unknown) intact to light touch right lower extremity. (unknown) (no (unknown) (unknown) maintained in the (units (unknown) date) abduction pillow at unknown) all times except during physical therapy. (unknown) (no (unknown) (unknown) metoprolol succinate (uni ts (unknown) date) 25 mg unknown) Capsule,Sprinkle,Er 24hr (unknown) (no (unknown) (unknown) mm tandem unipolar (units (unknown) date) femoral head with a +0 unknown ) neck sleeve and a 9 mm distal cement (unknown) (no (unknown) (unknown) oxycodone 5 mg Tablet (un its (unknown) date) unknown) (unknown) (no (unknown) (unknown) physical therapy. (units (unknown) date) unknown) (unknown) (no (unknown) (unknown) physical. (units (unkn own) date) unknown) (unknown) (no (unknown) (unknown) potassium chloride 20 (un its (unknown) date) mEq tablet extended unknown) release (unknown) (no (unknown) (unknown) potassium chloride (units (unknown) date) [Klor-Con 10] 10 mEq unknown) Tablet Extended Release (unknown) (no (unknown) (unknown) quetiapine 25 mg (units (unknown) date) Tablet unknown) (unknown) (no (unknown) (unknown) radial shaft (units (u nknown) date) fracture. unknown) (unknown) (no (unknown) (unknown) respect to the radial (un its (unknown) date) fracture a Synthes unknown) small frag 3.5 mm 7 hole dynamic (unknown) (no (unknown) (unknown) returned to her room (uni ts (unknown) date) in stable condition. unknown) Patient has progressed. Hospitalist (unknown) (no (unknown) (unknown) senna 8.6 mg Capsule (uni ts (unknown) date) unknown) (unknown) (no (unknown) (unknown) sertraline 50 mg (units (unknown) date) Tablet unknown) (unknown) (no (unknown) (unknown) splint. Motor (units ( unknown) date) functions intact unknown) distal right upper extremity. She has good (unknown) (no (unknown) (unknown) suffered a radial (units (unknown) date) shaft fracture several unknown ) days ago and then yesterday suffered a (unknown) (no (unknown) (unknown) timolol 0.5 % Drops (unit s (unknown) date) unknown) (unknown) (no (unknown) (unknown) using a platform (units (unknown) date) walker and will be on unknown) posterior hip precautions for her hip Social History date description facility 2022-04-07 00:00 Never smoked tobacco (finding) [facility] 2022-04-12 00:00 Never smoked tobacco (finding) [facility] Vital Signs date measurement value units 2022-04-07 00:00 BMI 29.2 kg/m2 2022-04-07 00:00 BP_diastolic 60 mmHg 2022-04-07 00:00 BP_systolic 120 mmHg 2022-04-07 00:00 heart_rate 70 /min 2022-04-07 00:00 height_metric 157.48 cm 2022-04-07 00:00 height_standard 62 in 2022-04-07 00:00 o2_saturation 97 % 2022-04-07 00:00 respiration_rate 16 /min 2022-04-07 00:00 temperature_metric 36.78 C 2022-04-07 00:00 temperature_standard 98.2 F 2022-04-07 00:00 weight_metric 72.57 kg 2022-04-07 00:00 weight_standard 159.99 lb 2022-04-12 00:00 BMI 25.8 kg/m2 2022-04-12 00:00 height_metric 157.48 cm 2022-04-12 00:00 height_standard 62 in 2022-04-12 00:00 weight_metric 64 kg 2022-04-12 00:00 weight_standard 141.1 lb 2022-04-13 00:00 BP_diastolic 49 mmHg 2022-04-13 00:00 BP_systolic 124 mmHg 2022-04-13 00:00 heart_rate 82 /min 2022-04-13 00:00 o2_saturation 94 % 2022-04-13 00:00 respiration_rate 16 /min 2022-04-13 00:00 temperature_metric 36.22 C 2022-04-13 00:00 temperature_standard 97.2 F
--- NOTE | 2022-04-24 20:42 | ED Physician Documentation ---
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 No: Anticoagulated - Additional information Additional information: Patient is brought in by ambulance for sudden onset of right hip pain that occurred approximately 30 to 45 minutes prior to arrival. HPI is from patient although HPI and ROS is limited due to both dementia as well as patient is in obvious, severe painful distress. Patient was evaluated in this emergency department April 09 (the beginning of this month) for fall and hip pain and was found to have an impacted subcapital right femoral neck fracture. Due to lack of orthopedic services available at that time at [facility], patient was transferred to [facility] where she underwent right hemiarthroplasty. Patient was given 100 mcg of fentanyl on route but is still in obvious, severe painful distress on my evaluation at this time. Review of Systems Unable to obtain: Dementia, Other (Besides dementia limiting the ROS, she is also in severe painful distress and thus attempts at review of systems questions is very limited.) PD PAST MEDICAL HISTORY - Past Medical History Past Medical History: Yes Cardiovascular: Hypertension, High cholesterol, Arrhythmia Neuro: Dementia Endocrine/Autoimmune: HyPOthyroidism HEENT: Glaucoma Psych: Depression, Anxiety Musculoskeletal: Osteoarthritis, Chronic back pain - Past Surgical History Past Surgical History: Yes /PERFORMANCE IMPROVEMENT SPECIALIST: Hysterectomy - Present Medications Home Medications: Ambulatory Orders Medication Instructions Recorded Confirmed Atorvastatin Calcium [Lipitor] 40 mg ORAL DAILY 07/20/14 04/09/22 Levothyroxine [Synthroid] 50 mcg ORAL DAILY 07/20/14 04/09/22 Sertraline HCl [Zoloft] 75 mg ORAL DAILY 07/20/14 04/09/22 hydroCHLOROthiazide 12.5 mg ORAL DAILY 07/20/14 04/09/22 [Hydrochlorothiazide] Acetaminophen [Tylenol] 500 mg PO Q6HR PRN 04/09/22 04/09/22 Docusate Sodium [Dok] 100 mg PO DAILY PRN 04/09/22 04/09/22 Latanoprost/Pf [Latanoprost 0.005% 1 drops OP HS 04/09/22 04/09/22 Eye Drop] Loperamide [Imodium] 2 mg PO PRN PRN 04/09/22 04/09/22 Metoprolol Succinate [Toprol Xl] 25 mg PO DAILY 04/09/22 04/09/22 Potassium Chloride [Klor-Con 10] 10 meq PO DAILY 04/09/22 04/09/22 Senna [Senokot] 8.6 mg PO DAILY PRN 04/09/22 04/09/22 Timolol 0.5% Ophth Drops [Timoptic 1 drops OP BID 04/09/22 04/09/22 0.5% Ophth Drops] - Allergies Allergies/Adverse Reactions: Allergies Allergy/AdvReac Type Severity Reaction Status Date / Time morphine AdvReac Unknown Verified 04/24/22 20:07 anesthetic AdvReac Emesis Uncoded 04/24/22 20:07 - Social History Does the pt smoke?: No Smoking Status: Never smoker Does the pt drink ETOH?: No Does the pt have substance abuse?: No - Immunizations Immunizations are current?: Yes - POLST Patient has POLST: No PD ED PE NORMAL - Vitals Vital signs reviewed: Yes - General General: Well developed/nourished, Other (Awake, alert, oriented x2. She is in obvious, severe painful distress) - HEENT HEENT: Atraumatic - Cardiac Cardiac: RRR, No murmur - Respiratory Respiratory: No respiratory distress, Clear bilaterally - Abdomen Abdomen: Soft, Non tender - Derm Derm: Normal color, Warm and dry, Other (Right hip surgical site is clean, dry, and intact with complete approximation of wound edges) - Extremities Extremities: Other (RLE foreshortened without external nor internal rotation noted) Results - Vitals Vitals: Vital Signs - 24 hr 04/24/22 04/24/22 04/24/22 20:07 20:11 21:40 Temperature 36.8 C 36.8 C Heart Rate 73 73 72 Respiratory 20 20 18 Rate Blood Pressure 188/100 H 188/100 H 160/80 H O2 Saturation 96 96 100 04/24/22 22:11 Temperature Heart Rate 62 Respiratory 15 Rate Blood Pressure 150/80 H O2 Saturation 99 Oxygen O2 Source Room air - Rads (name of study) hip w/ pelvis 2-3 view (right) Radiology: Prelim report reviewed, EMP read indepedently, See rad report pelvis xray (one view) Radiology: Prelim report reviewed, EMP read indepedently, See rad report Procedures - Reduction Body part reduced: Right Fracture or dislocation: Dislocation Anesthesia: Fentanyl Hip reduction technique: Allis - flex/pull/rotate, Whist[place] - prone flex, Other (I was unable to reduce the hip using various techniques. Dr. Back (fellow ED physician) then assisted and was able to reduce the dislocation.) Reduction aftercare: NV intact, Xray confirms reduction, Alignment improved, Patient tolerated well - Procedural sedation Sedation prep: ASA 3 - severe disease, IV O2 monitor, RT present, Other (implied consent. last meal is unknown) Sedation Medications: propofol Mallampati classification: II Patient status during sedation: Responds to tactile, Maintained airway, Recovered uneventfully Sedation recovery: Recovered uneventfully, Back to baseline Time in sedation (Minutes): 20 PD Medical Decision Making - ED course Complexity details: reviewed old records, reviewed results, re-evaluated patient, considered differential, d/w patient, d/w family ED course: Patient arrives in obvious, severe painful distress due to sudden onset of right hip pain. She is given 100 mcg of fentanyl on route to the emergency department. Early in her ED stay, I ordered, and she is given, another 100 mcg of fentanyl intravenously. She is visibly improved regarding painful distress on reevaluation. Plain film x-rays show posterior superior dislocation of the right femoral head prosthesis. I reviewed with the patient a consent form for conscious sedation so that I can reduce the hip dislocation, but it is apparent that she is too confused to be able to sign the consent form. I proceeded with conscious sedation with implied consent. As patient is being sedated with aliquots of propofol administered by me, patient has a relative arrived in the emergency department who then provides some more information. Patient's relative says that patient had a hip dislocation postoperatively while still in the hospital at [facility]. Patient's relatives says that part of the problem is due to patient's dementia, the patient has had poor adherence regarding recommendations regarding positioning, ambulation. Patient's relative says that the patient has a scheduled appointment tomorrow with orthopedics for follow-up. Departure - Departure Disposition: 01 Home, Self Care Clinical Impression: Dislocation of hip joint prosthesis Condition: Good Instructions: ED Hip Replace Dislocation Reduc Comments: The initial x-rays showed that your right hip prosthetic dislocated from the socket. You are given some pain medication and a sedating medication the hip was reduced (put back into the hip socket). Follow-up with the orthopedic surgeon tomorrow as scheduled. Discharge Date/Time: 04/24/22 23:29
[2022-04-24] MEDS ORDERED: HYDROmorphone 1 MG/ML CARPUJECT IVP STA (20:49)
[2022-04-24] MEDS ORDERED: fentaNYL 100 MCG/2 ML VIAL IVP STA ×2 (20:50→22:43)
[2022-04-24] MEDS ORDERED: PROPOFOL 200 MG/20 ML VIAL IVP STA (20:51)
--- NOTE | 2022-04-24 21:27 | XRAY Report ---
PROCEDURE: Hip w/Pelvis 2-3V RT INDICATIONS: fall, hip pain TECHNIQUE: AP pelvis with lateral view of the right hip. COMPARISON: CT pelvis 04/09/2022. FINDINGS: Bones: There is a posterosuperior dislocation of a right femoral head prosthesis. Pelvic ring appears intact. No suspicious bony lesions. Soft tissues: The visualized bowel gas pattern is normal. No suspicious soft tissue calcifications. IMPRESSION: 1. Posterosuperior dislocation of right femoral head prosthesis. 2. No definite fractures. Reviewed by: Rashid Dueñas MD on 04/24/2022 9:25 PM PST Approved by: Rashid Dueñas MD on 04/24/2022 9:25 PM PST Station ID: [id number]
[2022-04-24 22:17] VITALS: BP 150/80
--- NOTE | 2022-04-24 22:27 | XRAY Report ---
PROCEDURE: Pelvis 1 View INDICATIONS: post reduction TECHNIQUE: Single view of the pelvis acquired. COMPARISON: Previous hip x-ray from 04/24/2022. FINDINGS: Bones: There is interval reduction of the previously dislocated right femoral head prosthesis. No dis crete fracture or dislocation. No suspicious bony lesions. Soft tissues: Visualized bowel gas pattern is normal. No suspicious soft tissue calcifications. IMPRESSION: 1. Interval reduction of the previously dislocated right hip prosthesis. Reviewed by: Rashid Dueñas MD on 04/24/2022 10:26 PM PST Approved by: Rashid Dueñas MD on 04/24/2022 10:[address] [facility] Station ID: [id number]
== END 2022-04-24 23:29 | disposition home or self-care (01) ==
LOC: EDUNIT# → ED 20:04
DX: T84.020A Dislocation of internal right hip prosthesis, initial encounter (principal); W18.30XA Fall on same level, unspecified, initial encounter; R41.0 Disorientation, unspecified
CPT/HCPCS: 27265; 99152

== ENCOUNTER 2022-04-29 09:22 | Outpatient (CLI) | payer MEDICARE, OTHER | END 2022-04-29 09:23 | disposition short-term general hospital (02) | LOC: EMS 09:22 | DX: T84.020A Dislocation of internal right hip prosthesis, initial encounter (principal); M25.551 Pain in right hip; R11.0 Nausea | CPT/HCPCS: A0425; A0427 ==